=== PATIENT | male | born 1930 | race Caucasian/White ===

== ENCOUNTER → 2017-01-10 | Outpatient (CLI) | payer OTHER ==
--- NOTE | 2017-01-10 16:01 | ECHOCARDIOGRAM REPORT ---
*NOTICE TO RECEIVING LIBERTARIAN AGENCY This information is strictly Confidential and protected under [place] law. [place] law prohibits you from making any further disclosure of this information unless further disclosure is expressly permitted by the written consent of the person to whom it pertains or is authorized by law. A general authorization for the release of medical or other information is not sufficient for this purpose. Hospital accepts no responsibility if the information is made available to any other person, INCLUDING THE PATIENT. Interpretation Summary * Name: SHAHNAZ HURTADO Study Date: 01/10/2017 02:04 PM BP: 112/66 mmHg * Patient Location: [facility] HR: 71 * : 1930 (M/d/yyyy) Gender: Male Height: 69 in * Age: 86 yrs Ethnicity: CA Weight: 140 lb * Ordering Physician: Tammy Cam * Referring Physician: Tammy Cam PA-C * Performed By: Ching Gates RDCS * * Reason For Study: FATIGUE, AORTIC SCLEROSIS * BSA: 1.8 m2 * -- Conclusions -- * There is mild asymmetric left ventricular hypertrophy. * Left ventricular systolic function is normal. * Grade I diastolic dysfunction, (abnormal relaxation pattern). * Moderate to severe valvular aortic stenosis. * He had anterior leaflet of the mitral valve is highly thickened and echodense. A vegetation including this structure cannot be excluded. KENZIE could be considered for more thorough evaluation. * No prior studies available for comparison Procedure Details * A complete two-dimensional transthoracic echocardiogram was performed (2D, M-mode, Doppler and color flow Doppler). Left Ventricle * The left ventricle is normal in size. * There is mild asymmetric left ventricular hypertrophy. * Ejection Fraction = 65-70%. * Left ventricular systolic function is normal. * Grade I diastolic dysfunction, (abnormal relaxation pattern). * The left ventricular wall motion is normal. Right Ventricle * The right ventricle is normal in size and function. * The right ventricular systolic function is normal as assessed by tricuspid annular plane systolic excursion (TAPSE) (normal >1.5 cm). Atria * The left atrial size is normal. * Right atrial size is normal. Mitral Valve * He had anterior leaflet of the mitral valve is highly thickened and echodense. A vegetation including this structure cannot be excluded. KENZIE could be considered for more thorough evaluation. * There is no mitral regurgitation noted. Tricuspid Valve * The tricuspid valve is not well visualized, but is grossly normal. * There is trace tricuspid regurgitation. Aortic Valve * The aortic valve is trileaflet. * Moderate to severe valvular aortic stenosis. * No aortic regurgitation is present. Great Vessels * The aortic root is normal size. Pericardium/Pleural * The pericardium appears normal. MMode 2D Measurements and Calculations IVSd 1.9 cm IVSs 2.2 cm LVIDd 3.4 cm LVIDs 2.1 cm LVPWd 1.1 cm LVPWs 1.6 cm IVS/LVPW 1.7 FS 37.3 % EDV(Teich) 46.2 ml ESV(Teich) 14.5 ml EF(Teich) 68.5 % EDV(cubed) 38.0 ml ESV(cubed) 9.4 ml EF(cubed) 75.4 % % IVS thick 14.4 % % LVPW thick 48.5 % LV mass(C)d 183.0 grams LV mass(C)dI 103.1 grams/m\S\2 LV mass(C)s 165.1 grams LV mass(C)sI 93.0 grams/m\S\2 SV(Teich) 31.6 ml SI(Teich) 17.8 ml/m\S\2 SV(cubed) 28.7 ml SI(cubed) 16.1 ml/m\S\2 Ao root diam 3.4 cm Ao root area 9.1 cm\S\2 LVOT diam 2.0 cm LVOT area 3.1 cm\S\2 LVAd ap4 24.3 cm\S\2 LVLd ap4 7.9 cm EDV(MOD-sp4) 60.7 ml EDV(sp4-el) 63.3 ml LVAs ap4 12.6 cm\S\2 LVLs ap4 6.7 cm ESV(MOD-sp4) 22.4 ml ESV(sp4-el) 20.1 ml EF(MOD-sp4) 63.2 % EF(sp4-el) 68.2 % LVAd ap2 21.2 cm\S\2 LVLd ap2 7.6 cm EDV(MOD-sp2) 49.0 ml EDV(sp2-el) 50.0 ml LVAs ap2 10.8 cm\S\2 LVLs ap2 6.4 cm ESV(MOD-sp2) 17.1 ml ESV(sp2-el) 15.4 ml EF(MOD-sp2) 65.1 % EF(sp2-el) 69.1 % LVLd %diff -4.45 % EDV(MOD-bp) 55.2 ml LVLs %diff -3.97 % ESV(MOD-bp) 19.9 ml EF(MOD-bp) 63.9 % SV(MOD-sp4) 38.4 ml SI(MOD-sp4) 21.6 ml/m\S\2 SV(MOD-sp2) 31.9 ml SI(MOD-sp2) 17.9 ml/m\S\2 SV(MOD-bp) 35.3 ml SI(MOD-bp) 19.9 ml/m\S\2 SV(sp4-el) 43.1 ml SI(sp4-el) 24.3 ml/m\S\2 SV(sp2-el) 34.6 ml SI(sp2-el) 19.5 ml/m\S\2 Doppler Measurements and Calculations MV E max faustina 71.3 cm/sec MV A max faustina 96.5 cm/sec MV E/A 0.74 MV dec time 0.22 sec Ao V2 max 421.0 cm/sec Ao max PG 70.9 mmHg Ao max PG (full) 68.7 mmHg Ao V2 mean 310.4 cm/sec Ao mean PG 43.2 mmHg Ao mean PG (full) 42.1 mmHg Ao V2 VTI 104.9 cm DIMPLE(I,A) 0.49 cm\S\2 DIMPLE(I,D) 0.49 cm\S\2 DIMPLE(V,A) 0.54 cm\S\2 DIMPLE(V,D) 0.54 cm\S\2 LV V1 max PG 2.2 mmHg LV V1 mean PG 1.2 mmHg LV V1 max 74.2 cm/sec LV V1 mean 50.3 cm/sec LV V1 VTI 16.8 cm SV(Ao) 950.2 ml SI(Ao) 535.3 ml/m\S\2 SV(LVOT) 51.6 ml SI(LVOT) 29.1 ml/m\S\2
== END | disposition home or self-care (01) ==
LOC: C.CPL 13:56
PROVIDERS: ATTEND Physician Assistant
DX: R53.83 Other fatigue (principal); I70.0 Atherosclerosis of aorta

== ENCOUNTER 2021-12-14 10:05 | Inpatient (IN) ==
[2021-12-14 10:57] LABS: Basophils # (auto) 0.09 K/uL (0-0.2); Basophils % (auto) 0.8 %; Eosinophils # (auto) 0.05 K/uL (0-0.50); Eosinophils % (auto) 0.4 %; Hematocrit (blood only) 43.4 % (40.1-51.0); Hemoglobin 14.3 g/dl (14.0-18.0); Immature Granulocytes # (auto) 0.04 K/uL (0.00-0.02); Immature Granulocytes % (auto) 0.3 %; Lymphocytes # (auto) 1.21 K/uL (1.2-3.4); Lymphocytes % (auto) 10.4 %; Mean Corpuscular Hemoglobin 31.6 pg (25.0-34.0); Mean Corpuscular Hgb Conc 32.9 g/dL (32.0-36.0); Mean Corpuscular Volume 95.8 fL (80.0-100.0); Mean Platelet Volume 9.6 fL (9.4-12.4); Monocytes # (auto) 0.71 K/uL (0.24-0.82); Monocytes % (auto) 6.1 %; Neutrophils # (auto) 9.56 K/uL (1.4-6.5); Platelet Count 344 K/uL (130-400); RDW Coefficient of Variation 13.3 % (11.5-14.5); RDW Standard Deviation 47.3 fL (36.4-46.3); Red Blood Count 4.53 M/uL (4.63-6.08); White Blood Count 11.66 K/ul (4.8-10.8)
[2021-12-14 11:05] LABS: Appearance Urine Clear (Clear); Bacteria Urine Automated Negative (Negative); Bilirubin Urine Negative (Negative); Blood Urine Negative (Negative); Color Urine Dark Yellow; Glucose Urine UA Negative (Negative); Ketones Urine 1+ (Negative); Leukocyte Esterase Urine Negative (Negative); Nitrite Urine Negative (Negative); Protein Urine Trace (Negative); RBC Urine Automated 0-4 /hpf (0-4); Specific Gravity Urine 1.019 (1.000-1.030); Urobilinogen Urine Negative (Negative); pH Urine 5.5 (4.5-7.5)
--- NOTE | 2021-12-14 11:08 | XRay Report ---
SINGLE VIEW CHEST CLINICAL HISTORY: Dyspnea FINDINGS: An AP, portable, upright chest radiograph is compared to study dated 11/24/2021 and correlat ed with chest CT dated 10/24/2021. The examination is degraded by portable technique and apical lordot ic positioning. The cardiomediastinal silhouette is unremarkable noting atherosclerotic calcification of the thoracic aorta. Airspace consolidation is again seen at the left lung base with persistent xiao bpleural nodularity. A new focus of nodular change is seen in the right upper lobe. Apical scarring i s observed. No large pleural effusion or pneumothorax is seen. The skeletal structures are osteopenic . The bony thorax is grossly intact. Spondylotic change is seen throughout the thoracic spine. IMPRESSION: 1. There is airspace consolidation and nodularity at the left lung base. This likely represents pneum onia/aspiration pneumonitis. Clinical correlation will be required and radiographic follow-up to reso lution is recommended. 2. A new focus of nodularity is seen in the right upper lobe. This is also likely inflammatory. This should also be followed to resolution. ACT 112: Negative or not required by law. Electronically signed by: Darwin Flores M.D. 12/14/2021 11:06 AM
[2021-12-14 11:10] LABS: Partial Thromboplastin Ratio 1.2; Partial Thromboplastin Time 32.5 Seconds (21.0-31.0); Prothrombin Time 10.9 Seconds (9.0-12.0)
[2021-12-14 11:13] LABS: Troponin I High Sensitivity 13.5 pg/ml (0-20)
[2021-12-14 11:14] LABS: Albumin Globulin Ratio 1.2 (0.9-2); Albumin Level 3.7 gm/dl (3.4-5.0); Bilirubin,Total 0.9 mg/dl (0.2-1.0); Calcium 9.1 mg/dl (8.5-10.1); Creatinine Clr Calc Pharmacy 47.5 ml/min; Est GFR (African American) 91.8 ml/min; Est GFR (Non-African American) 79.2 ml/min; Magnesium 1.9 mg/dl (1.7-2.4); Potassium 4.3 mmol/L (3.5-5.1); Total Protein 6.7 gm/dl (6.0-8.3)
--- NOTE | 2021-12-14 11:26 | Emergency Department Note ---
Impression & Plan Blood-streaked sputum, Abnormal CT scan of lung, Pulmonary embolism, Hypoxia ED Provider Note Provider: Trevor Arriaga MD DATE OF SERVICE: 12/14/2021 CHIEF COMPLAINT: Coughing up blood HISTORY OF PRESENT ILLNESS: Patient is a 89-year-old gentleman history of distant tobacco use and some mucoid impaction in the left lung presenting today from home with 2 to 3 days of slight shortness of breath but also coughing up a bit of blood. This was increased today. Ambulance was called and EMS found the patient to be in the high 80s on room air. Patient denies fever but did recently complete a course of steroid and Levaquin several weeks ago. Denies swelling or chest pain. Patient states he is on aspirin but denies other blood thinners. No trauma reported. Again denies chest pain. REVIEW OF SYSTEMS: A total of 10 review of systems was obtained and negative except as stated above in the HPI. PAST MEDICAL HISTORY: As noted above MEDICATIONS: Reviewed home medications includes 81 mg aspirin SOCIAL HISTORY: Very distant former smoker PHYSICAL EXAM: GENERAL: alert and oriented in no acute distress on stretcher however holding an emesis bag with some small amount of blood and bright red. Head: normocephalic and atraumatic EYES: No injection, discharge or icterus. NECK: Trachea midline. Supple. ENT: Mucous membranes pink and moist. LUNGS: Airway patent. No retractions. Breath sounds clear although diminished in left base. HEART: Regular rate and rhythm. No chest wall tenderness ABDOMEN: Soft and non-tender, without guarding or rebound. SKIN: Acyanotic, warm, dry, without rashes EXTREMITIES: Without swelling, tenderness or deformity NEUROLOGICAL: No focal deficits. No aphasia. No facial droop or slurred speech. EK bpm sinus tachycardia with a first-degree AV block. No acute ST segment elevation noted with some slight inferior lateral ST flattening versus depression. QTc 451. CONTINUOUS CARDIAC MONITORING: was ordered and showed a heart rate of 90s-100s bpm in normal sinus rhythm to sinus tachycardia Patient's laboratory studies and imaging reviewed. Differential includes Reactive airway disease, pneumonia, pneumothorax, COPD, CHF, infections, cardiac ischemia, pulmonary embolism, musculoskeletal, gastrointestinal, as well as other pathologies. IMPRESSION/MEDICAL DECISION MAKING: Patient mildly hypoxic here. On a 1 mg aspirin. Now with hemoptysis. Reviewed prior medical record notes and imaging as well as pulmonary note indicating mucoid impaction of the left lower lung. X-ray questions persistent issue in the left lower lung base as well as a possible new nodule in the right upper lobe. Given this a CT of the chest to be further evaluate the lungs and exclude other thing like blood clots. Given episode where he coughed up probably 50 mL of bright red blood but hemoglobin stable. Slight leukocytosis here. INR 1.0. No severe electrolyte abnormalities noted. Doubt this is GI in nature. Patient again mildly hypoxic. Believe he require further work-up here at the hospital and pulmonary consultation. Sputum culture ordered. CT scan does question possible subsegmental PE but given the hemoptysis will defer anticoagulation this time as it is more incidental. Again question possibly an atypical infection but doubt classic pneumonia. Procalcitonin not elevated. Will defer any antibiotics he does appear septic at this time until further pulmonary evaluation. DIAGNOSIS: Hemoptysis, hypoxia DISPOSITION: Hospitalist will evaluate Patient was agreeable with this plan. Past Med/Surg History Medical History Basal cell carcinoma Blood-streaked sputum 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 myelopathy COPD (chronic obstructive pulmonary disease) Disorder of bone and cartilage, unspecified GERD without esophagitis Hemoptysis Hyperlipemia Hypertension Lesion of nose Major depression, recurrent Multifocal pneumonia Nail dystrophy Osteoporosis Prediabetes Pulmonary embolism Squamous cell carcinoma Surgical History H/O Mohs micrographic surgery for skin cancer Family History Mother Heart disease Brother Heart disease Social History Smoking Status: Former smoker Tobacco Type: Cigarettes packs per day: 1; Years Smoked: 20; Second Hand Exposure: No; Hx Alcohol Use: Yes Hx Substance Use: No Preferred Language: Mauritian Feels Safe at Home: Yes Allergies Allergies Allergy/AdvReac Type Severity Reaction Status Date / Time Penicillins Allergy Verified 11/21/21 11:14 Sulfa (Sulfonamide Allergy Verified 11/21/21 11:14 Antibiotics) Home Meds Home Medications Medication Instructions Recorded Confirmed acetaminophen 325 mg capsule 325 mg PO QID PRN Pain 11/27/20 12/14/21 alendronate 70 mg tablet (Fosamax) 70 mg PO WK 11/27/20 12/14/21 aspirin 81 mg tablet,delayed 81 mg PO DAILY 11/27/20 12/14/21 release (Adult Low Dose Aspirin) ezetimibe 10 mg tablet (Zetia) 10 mg PO DAILY 11/27/20 12/14/21 omeprazole 20 mg capsule,delayed 20 mg PO DAILY 11/27/20 12/14/21 release simvastatin 20 mg tablet 20 mg PO DAILY 11/27/20 12/14/21 tamsulosin 0.4 mg capsule 0.8 mg PO DAILY 11/27/20 12/14/21 tiotropium bromide 18 mcg capsule 1 cap inhalation DAILY 11/27/20 12/14/21 with inhalation device (Spiriva with HandiHaler) mirtazapine 15 mg tablet 15 mg PO HS 12/14/21 12/14/21 umeclidinium 62.5 mcg/actuation 1 inh inhalation DAILY 12/14/21 12/14/21 blister powder for inhalation (Incruse Ellipta) Results & Data (ED) Vital Signs Vital Signs - 24 hr 12/14/21 10:14 12/14/21 10:14 12/14/21 10:14 Temperature 36.6 C Temperature Source Oral Pulse Rate 103 H Pulse Rate [Apical] Pulse Rate from SpO2 Sensor Respiratory Rate 22 Respiratory Effort / Characteristics Non-Labored Spontaneous Non-Labored Spontaneous Respiratory Depth Normal Normal Respiratory Pattern Regular Regular Blood Pressure 120/65 Blood Pressure [Right Arm] Blood Pressure Mean 83 Blood Pressure Mean [Right Arm] Pulse Oximetry 99 99 Oxygen Delivery Method Room Air Room Air Oxygen Flow Rate Sepsis Recent Fever Within 48 Hours No Sepsis New/Unexplained Change in Mental Status No Sepsis Action Taken by Nursing No Action Required Oxygen Flow Rate - Titration Pulse Oximetry Post Tiitration 12/14/21 10:14 12/14/21 10:31 12/14/21 10:31 Temperature Temperature Source Pulse Rate Pulse Rate [Apical] 103 H 103 H Pulse Rate from SpO2 Sensor Respiratory Rate 22 22 Respiratory Effort / Characteristics Non-Labored Spontaneous Non-Labored Spontaneous Respiratory Depth Normal Normal Respiratory Pattern Regular Regular Blood Pressure Blood Pressure [Right Arm] 120/65 120/65 Blood Pressure Mean Blood Pressure Mean [Right Arm] 83 83 Pulse Oximetry 99 99 99 Oxygen Delivery Method Room Air Room Air Room Air Oxygen Flow Rate Sepsis Recent Fever Within 48 Hours Sepsis New/Unexplained Change in Mental Status Sepsis Action Taken by Nursing Oxygen Flow Rate - Titration Pulse Oximetry Post Tiitration 12/14/21 10:48 12/14/21 10:48 12/14/21 12:36 Temperature Temperature Source Pulse Rate 102 H Pulse Rate [Apical] Pulse Rate from SpO2 Sensor Respiratory Rate 20 Respiratory Effort / Characteristics Respiratory Depth Respiratory Pattern Blood Pressure Blood Pressure [Right Arm] Blood Pressure Mean Blood Pressure Mean [Right Arm] Pulse Oximetry 99 99 88 L Oxygen Delivery Method Room Air Room Air Room Air Oxygen Flow Rate 0 Sepsis Recent Fever Within 48 Hours Sepsis New/Unexplained Change in Mental Status Sepsis Action Taken by Nursing Oxygen Flow Rate - Titration 4 Pulse Oximetry Post Tiitration 97 12/14/21 10:15 12/14/21 10:30 12/14/21 11:00 Temperature Temperature Source Pulse Rate 104 H 93 H Pulse Rate [Apical] Pulse Rate from SpO2 Sensor 100 H 93 H Respiratory Rate 21 20 Respiratory Effort / Characteristics Respiratory Depth Respiratory Pattern Blood Pressure 156/84 H Blood Pressure [Right Arm] Blood Pressure Mean 108 Blood Pressure Mean [Right Arm] Pulse Oximetry 95 96 Oxygen Delivery Method Oxygen Flow Rate Sepsis Recent Fever Within 48 Hours Sepsis New/Unexplained Change in Mental Status Sepsis Action Taken by Nursing Oxygen Flow Rate - Titration Pulse Oximetry Post Tiitration 12/14/21 11:00 12/14/21 11:19 12/14/21 11:19 Temperature Temperature Source Pulse Rate 100 H 110 H Pulse Rate [Apical] Pulse Rate from SpO2 Sensor 98 H 111 H Respiratory Rate 26 H 27 H Respiratory Effort / Characteristics Respiratory Depth Respiratory Pattern Blood Pressure 119/74 Blood Pressure [Right Arm] Blood Pressure Mean 89 Blood Pressure Mean [Right Arm] Pulse Oximetry 96 87 L Oxygen Delivery Method Oxygen Flow Rate Sepsis Recent Fever Within 48 Hours Sepsis New/Unexplained Change in Mental Status Sepsis Action Taken by Nursing Oxygen Flow Rate - Titration Pulse Oximetry Post Tiitration 12/14/21 11:30 12/14/21 11:30 12/14/21 12:13 Temperature Temperature Source Pulse Rate 100 H 105 H Pulse Rate [Apical] Pulse Rate from SpO2 Sensor 100 H Respiratory Rate 22 Respiratory Effort / Characteristics Respiratory Depth Respiratory Pattern Blood Pressure 118/66 Blood Pressure [Right Arm] Blood Pressure Mean 83 Blood Pressure Mean [Right Arm] Pulse Oximetry 88 L Oxygen Delivery Method Oxygen Flow Rate Sepsis Recent Fever Within 48 Hours Sepsis New/Unexplained Change in Mental Status Sepsis Action Taken by Nursing Oxygen Flow Rate - Titration Pulse Oximetry Post Tiitration 12/14/21 12:30 12/14/21 12:30 12/14/21 13:00 Temperature Temperature Source Pulse Rate 87 Pulse Rate [Apical] Pulse Rate from SpO2 Sensor 88 Respiratory Rate 20 Respiratory Effort / Characteristics Respiratory Depth Respiratory Pattern Blood Pressure 115/64 117/59 L Blood Pressure [Right Arm] Blood Pressure Mean 81 78 Blood Pressure Mean [Right Arm] Pulse Oximetry 97 Oxygen Delivery Method Nasal Cannula Oxygen Flow Rate 4 Sepsis Recent Fever Within 48 Hours Sepsis New/Unexplained Change in Mental Status Sepsis Action Taken by Nursing Oxygen Flow Rate - Titration Pulse Oximetry Post Tiitration 12/14/21 13:00 12/14/21 13:30 12/14/21 13:30 Temperature Temperature Source Pulse Rate 83 103 H Pulse Rate [Apical] Pulse Rate from SpO2 Sensor 79 92 H Respiratory Rate 23 22 Respiratory Effort / Characteristics Respiratory Depth Respiratory Pattern Blood Pressure 115/91 Blood Pressure [Right Arm] Blood Pressure Mean 99 Blood Pressure Mean [Right Arm] Pulse Oximetry 100 100 Oxygen Delivery Method Nasal Cannula Oxygen Flow Rate 4 Sepsis Recent Fever Within 48 Hours Sepsis New/Unexplained Change in Mental Status Sepsis Action Taken by Nursing Oxygen Flow Rate - Titration Pulse Oximetry Post Tiitration Laboratory Data Result diagrams: 12/14/21 10:20 12/14/21 10:20 Lab Results 12/14/21 12/14/21 12/14/21 Range/Units 10:20 10:20 10:20 WBC 11.66 H (4.8-10.8) K/ul RBC 4.53 L (4.63-6.08) M/uL Hgb 14.3 (14.0-18.0) g/dl Hct 43.4 (40.1-51.0) % MCV 95.8 (80.0-100.0) fL MCH 31.6 (25.0-34.0) pg MCHC 32.9 (32.0-36.0) g/dL RDW Std Deviation 47.3 H (36.4-46.3) fL RDW Coeff of Susan 13.3 (11.5-14.5) % Plt Count 344 (130-400) K/uL MPV 9.6 (9.4-12.4) fL Immature Gran % (Auto) 0.3 % Neut % (Auto) 82.0 % Lymph % (Auto) 10.4 % [place] % (Auto) 6.1 % Eos % (Auto) 0.4 % Baso % (Auto) 0.8 % Neut # (Auto) 9.56 H (1.4-6.5) K/uL Lymph # (Auto) 1.21 (1.2-3.4) K/uL [place] # (Auto) 0.71 (0.24-0.82) K/uL Eos # (Auto) 0.05 (0-0.50) K/uL Baso # (Auto) 0.09 (0-0.2) K/uL Immature Gran # (Auto) 0.04 H (0.00-0.02) K/uL PT 10.9 (9.0-12.0) Seconds INR 1.0 (0.9-1.1) APTT 32.5 H (21.0-31.0) Seconds PTT Ratio 1.2 Sodium 134 L (136-145) mmol/L Potassium 4.3 (3.5-5.1) mmol/L Chloride 98 (98-107) mmol/L Carbon Dioxide 28 (21-32) mmol/L Anion Gap 8 (3-11) BUN 20 (6-23) mg/dl Creatinine 0.80 (0.6-1.4) mg/dl Est Cr Clr Drug Dosing 47.5 ml/min Est GFR ( Amer) 91.8 ml/min Est GFR (Non-Af Amer) 79.2 ml/min BUN/Creatinine Ratio 25.0 H (10-20) Glucose 106 H (70-99(Fasting)) mg/dl Calcium 9.1 (8.5-10.1) mg/dl Magnesium 1.9 (1.7-2.4) mg/dl Total Bilirubin 0.9 (0.2-1.0) mg/dl AST 15 (13-39) U/L ALT 17 (7-52) U/L Alkaline Phosphatase 68 (34-104) U/L Troponin I High Sens 13.5 (0-20) pg/ml Total Protein 6.7 (6.0-8.3) gm/dl Albumin 3.7 (3.4-5.0) gm/dl Globulin 3.0 (2.5-4.0) gm/dl Albumin/Globulin Ratio 1.2 (0.9-2) Procalcitonin (0-0.5) ng/ml Urine Color Urine Appearance (Clear) Urine pH (4.5-7.5) Ur Specific Mcdonough (1.000-1.030) Urine Protein (Negative) Urine Glucose (UA) (Negative) Urine Ketones (Negative) Urine Blood (Negative) Urine Nitrite (Negative) Urine Bilirubin (Negative) Urine Urobilinogen (Negative) Ur Leukocyte Esterase (Negative) Urine WBC (Auto) (0-5) /hpf Urine RBC (Auto) (0-4) /hpf U Hyaline Cast (Auto) (0-5) /lpf U Epithel Cells (Auto) (0-5) /lpf Urine Bacteria (Auto) (Negative) SARS-CoV-2 (PCR) (Negative) Influenza Type A (PCR) (Neg) Influenza Type B (PCR) (Neg) RSV (RT-PCR) (Neg) 12/14/21 12/14/21 12/14/21 Range/Units 10:20 10:45 12:45 WBC (4.8-10.8) K/ul RBC (4.63-6.08) M/uL Hgb (14.0-18.0) g/dl Hct (40.1-51.0) % MCV (80.0-100.0) fL MCH (25.0-34.0) pg MCHC (32.0-36.0) g/dL RDW Std Deviation (36.4-46.3) fL RDW Coeff of Susan (11.5-14.5) % Plt Count (130-400) K/uL MPV (9.4-12.4) fL Immature Gran % (Auto) % Neut % (Auto) % Lymph % (Auto) % [place] % (Auto) % Eos % (Auto) % Baso % (Auto) % Neut # (Auto) (1.4-6.5) K/uL Lymph # (Auto) (1.2-3.4) K/uL [place] # (Auto) (0.24-0.82) K/uL Eos # (Auto) (0-0.50) K/uL Baso # (Auto) (0-0.2) K/uL Immature Gran # (Auto) (0.00-0.02) K/uL PT (9.0-12.0) Seconds INR (0.9-1.1) APTT (21.0-31.0) Seconds PTT Ratio Sodium (136-145) mmol/L Potassium (3.5-5.1) mmol/L Chloride (98-107) mmol/L Carbon Dioxide (21-32) mmol/L Anion Gap (3-11) BUN (6-23) mg/dl Creatinine (0.6-1.4) mg/dl Est Cr Clr Drug Dosing ml/min Est GFR ( Amer) ml/min Est GFR (Non-Af Amer) ml/min BUN/Creatinine Ratio (10-20) Glucose (70-99(Fasting)) mg/dl Calcium (8.5-10.1) mg/dl Magnesium (1.7-2.4) mg/dl Total Bilirubin (0.2-1.0) mg/dl AST (13-39) U/L ALT (7-52) U/L Alkaline Phosphatase (34-104) U/L Troponin I High Sens (0-20) pg/ml Total Protein (6.0-8.3) gm/dl Albumin (3.4-5.0) gm/dl Globulin (2.5-4.0) gm/dl Albumin/Globulin Ratio (0.9-2) Procalcitonin 0.06 (0-0.5) ng/ml Urine Color Dark Yellow Urine Appearance Clear (Clear) Urine pH 5.5 (4.5-7.5) Ur Specific [place] 1.019 (1.000-1.030) Urine Protein Trace H (Negative) Urine Glucose (UA) Negative (Negative) Urine Ketones 1+ H (Negative) Urine Blood Negative (Negative) Urine Nitrite Negative (Negative) Urine Bilirubin Negative (Negative) Urine Urobilinogen Negative (Negative) Ur Leukocyte Esterase Negative (Negative) Urine WBC (Auto) 1-5 (0-5) /hpf Urine RBC (Auto) 0-4 (0-4) /hpf U Hyaline Cast (Auto) 1-5 (0-5) /lpf U Epithel Cells (Auto) 5-10 H (0-5) /lpf Urine Bacteria (Auto) Negative (Negative) SARS-CoV-2 (PCR) NEGATIVE (Negative) Influenza Type A (PCR) Negative (Neg) Influenza Type B (PCR) Negative (Neg) RSV (RT-PCR) Negative (Neg) Administered Medications Discontinued Medications Ioversol (Optiray 300 500ml) 86 ml IV ONCE ONE Stop: 12/14/21 12:10 Last Admin: 12/14/21 12:10 Dose: 86 ml Documented By: EDK Imaging Data Radiologist's Impression: Chest X-Ray 12/14/21 10:46 SINGLE VIEW CHEST CLINICAL HISTORY: Dyspnea FINDINGS: An AP, portable, upright chest radiograph is compared to study dated 11/24/2021 and correlated with chest CT dated 10/24/2021. The examination is degraded by portable technique and apical lordotic positioning. The cardiomediastinal silhouette is unremarkable noting atherosclerotic calcification of the thoracic aorta. Airspace consolidation is again seen at the left lung base with persistent subpleural nodularity. A new focus of nodular change is seen in the right upper lobe. Apical scarring is observed. No large pleural effusion or pneumothorax is seen. The skeletal structures are osteopenic. The bony thorax is grossly intact. Spondylotic change is seen throughout the thoracic spine. IMPRESSION: 1. There is airspace consolidation and nodularity at the left lung base. This likely represents pneumonia/aspiration pneumonitis. Clinical correlation will be required and radiographic follow-up to resolution is recommended. 2. A new focus of nodularity is seen in the right upper lobe. This is also likely inflammatory. This should also be followed to resolution. ACT 112: Negative or not required by law. Electronically signed by: Darwin Flores M.D. 12/14/2021 11:06 AM Chest CTA 12/14/21 11:13 CT angio chest PE protocol CT DOSE: 249.47 mGy.cm HISTORY: 89 years-old Male with PE, hemoptysis ++. Acute shortness of breath with cough TECHNIQUE: Multiple CTA images of the chest were obtained after the intravenous administration of 86 ml Optiray. Coronal and sagittal MIPS were obtained from the axial data set and were submitted for review. All measurements were obtained according to NASCET criteria. A dose lowering technique was utilized adhering to the principles of ALARA. COMPARISON: Chest CT 10/24/2021, 03/24/2013. FINDINGS: CTA: Moderate cardiomegaly with concentric thickening of the left ventricle. Extensive coronary artery calcifications. Atherosclerosis of the thoracic aorta. No thoracic aortic aneurysm or dissection. Tiny subsegmental pulmonary embolus within the right lower lobe on image 99 series 4. No central pulmonary emboli identified. No right heart strain. CT CHEST: Thyroid nodules measure up to 10 mm on the left. There are several mildly prominent subcentimeter mediastinal and hilar lymph nodes which are likely reactive. Trace left pleural effusion. There is no pneumothorax. Tracheobronchial secretions with mucous plugging and mucoid impaction within the left greater than right lower lobes, progressively worsened from the prior study. Additionally, there is progressive centrilobular nodular opacities within all lobes bilaterally. There is irregular and spiculated 2.2 cm nodular consolidation within the lingula which is new from prior. Round consolidation within the left lower lobe on image 139 measuring 4.1 x 3.6 cm. Mild biapical pleural-parenchymal scarring. Subpleural 1.8 cm groundglass nodule within the right upper lobe abutting the major fissure on image 202 which is stable. No acute process of the imaged upper abdomen. Exophytic cyst of the superior pole left kidney. Unremarkable soft tissues. No acute fracture. IMPRESSION: 1. Likely acute subsegmental pulmonary embolus present within the right lower lobe. 2. Mucoid impaction with chronic mucous plugging, most pronounced in the left lower lobe has progressively worsened from the prior exam. 3. Multilobar distribution of ill-defined centrilobular opacities compatible with an infectious or inflammatory pneumonitis. 4. Nodular areas of consolidation within the lingula and left lower lobe suggestive of multifocal pneumonia. Follow-up chest CT after treatment course recommended to document resolution. 5. Small left pleural effusion. 6. 1.8 cm subpleural groundglass opacity of the right upper lobe again noted and is suspicious for an adenomatous lesion. ACT 112: Negative or not required by law. The above report was generated using voice recognition software. It may contain grammatical, syntax or spelling errors. Electronically signed by: Jr Mcadams M.D. 12/14/2021 1:22 PM Venous Doppler Study 12/14/21 14:23 BILATERAL LOWER EXTREMITY VENOUS DOPPLER HISTORY: eval for DVT - known acute PE COMPARISON STUDY: None. FINDINGS: There is normal compressibility, flow, and augmentation within the bilateral lower extremity deep venous systems. IMPRESSION: No DVT within the right or left lower extremity. ACT 112: Negative or not required by law. Electronically signed by: Ilir Sood M.D. 12/14/2021 4:02 PM Discharge Plan Visit Data Chief Complaint: Shortness of Breath/Dyspnea Stated Complaint: SOB, Coughing up Blood ED Provider: Trevor Arriaga Discharge Problem: Blood-streaked sputum, Abnormal CT scan of lung, Pulmonary embolism, Hypoxia Patient Disposition: Being Evaluated by Hospitalist Forms Stand Alone Forms: My [facility] Prescriptions Prescriptions: No Action acetaminophen 325 mg capsule 325 mg PO QID PRN (Reason: Pain) aspirin [Adult Low Dose Aspirin] 81 mg tablet,delayed release (DR/EC) 81 mg PO DAILY alendronate [Fosamax] 70 mg tablet 70 mg PO WK omeprazole 20 mg capsule,delayed release(DR/EC) 20 mg PO DAILY simvastatin 20 mg tablet 20 mg PO DAILY Spiriva with HandiHaler 18 mcg capsule, w/inhalation device 1 cap inhalation DAILY Rx Instructions: puncture 1 cap using device; one dose = 2 inhalations tamsulosin 0.4 mg capsule 0.8 mg PO DAILY ezetimibe [Zetia] 10 mg tablet 10 mg PO DAILY mirtazapine 15 mg tablet 15 mg PO HS Incruse Ellipta 62.5 mcg/actuation blister with device 1 inh INHALATION DAILY Referrals Referrals: PCP,NO [Physician] -
[2021-12-14] MEDS ORDERED: OPTIRAY 300 500mL IV ONE (12:09)
--- NOTE | 2021-12-14 13:05 | History & Physical Report ---
Date of Service December 14, 2021 Assessment & Plan (1) Pulmonary embolism: Plan: Suspect as cause of new hypoxia and hemoptysis - Admit to PCU - Check venous duplex bilateral LE to eval for DVT - Oxygen prn to maintain sat >92% - Consult pulm - Hold anticoagulation for now in the setting of hemoptysis (2) Multifocal pneumonia: Plan: - Broad spectrum antibiotics - Start steroids due to hx of underlying COPD with wheezing on exam - Xopenex/ipratropium nebs - Incentive spirometry (3) Hemoptysis: Plan: - Follow H&H (4) Prediabetes: Plan: - Diabetic diet - A1c in AM - Accuchecks/insulin sliding scale (5) Hyperlipemia: (6) Hypertension: (7) GERD without esophagitis: (8) COPD (chronic obstructive pulmonary disease): Plan Continue other home meds as appropriate. Pt seen and evaluated with collaborating physician, Dr. Ham. Plan of care discussed and as outlined above. Code Status: Full code Reji Godwin PA-C History of Present Illness Chief Complaint: Coughing up blood Primary Care Provider: Kam Lee MD This is an 89 y/o male with a PMH of COPD, hemochromatosis, HTN, hyperlipidemia, aortic stenosis, GERD, LLL mucoid impaction, and prediabetes presents to the ED today with progressive hemoptysis and new-onset hypoxia. Pt was apparently diagnosed with pneumonia in September 2020 - treated with doxycycline with improvement but follow-up chest CT was abnormal with a LLL mucoid impaction so pt referred to pulmonology. He has been following with them since last year and has been declining bronchoscopy since minimal symptoms and prefers to avoid invasive procedures when possible. Pt reports that he was diagnosed with pneumonia at the end of October after being seen in the ED - treated with prednisone and levofloxacin. He reports improvement in the pulmonary symptoms but residual fatigue and weakness. This morning he woke up arond 6 am with some chest congestion and recurrent cough. He reports coughing up large amounts of mucus and blood at home so they called EMS. He was noted to be hypoxic and oxygen applied. In the ED he reportedly had another large episode of hemoptysis. Chest x-ray showed new focus of nodularity in the RUL so patient was referred for admission. Currently, the patient's main complaint is the cough and hemoptysis but he also reports that he has developed wheezing this afternoon. Allergies Allergy/AdvReac Type Severity Reaction Status Date / Time Penicillins Allergy Verified 11/21/21 11:14 Sulfa (Sulfonamide Allergy Verified 11/21/21 11:14 Antibiotics) Home Medications Medication Instructions Recorded Confirmed Type acetaminophen 325 mg capsule 325 mg PO QID PRN Pain 11/27/20 12/14/21 History alendronate 70 mg tablet (Fosamax) 70 mg PO WK 11/27/20 12/14/21 History aspirin 81 mg tablet,delayed 81 mg PO DAILY 11/27/20 12/14/21 History release (Adult Low Dose Aspirin) ezetimibe 10 mg tablet (Zetia) 10 mg PO DAILY 11/27/20 12/14/21 History omeprazole 20 mg capsule,delayed 20 mg PO DAILY 11/27/20 12/14/21 History release simvastatin 20 mg tablet 20 mg PO DAILY 11/27/20 12/14/21 History tamsulosin 0.4 mg capsule 0.8 mg PO DAILY 11/27/20 12/14/21 History tiotropium bromide 18 mcg capsule 1 cap inhalation DAILY 11/27/20 12/14/21 History with inhalation device (Spiriva with HandiHaler) mirtazapine 15 mg tablet 15 mg PO HS 12/14/21 12/14/21 History umeclidinium 62.5 mcg/actuation 1 inh inhalation DAILY 12/14/21 12/14/21 History blister powder for inhalation (Incruse Ellipta) Past Med/Surg History Medical History Basal cell carcinoma Blood-streaked sputum 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 myelopathy COPD (chronic obstructive pulmonary disease) Disorder of bone and cartilage, unspecified GERD without esophagitis Hemoptysis Hyperlipemia Hypertension Lesion of nose Major depression, recurrent Multifocal pneumonia Nail dystrophy Osteoporosis Prediabetes Pulmonary embolism Squamous cell carcinoma Surgical History H/O Mohs micrographic surgery for skin cancer Family History Mother Heart disease Brother Heart disease Social History Smoking Status: Former smoker Tobacco Type: Cigarettes packs per day: 1; Years Smoked: 20; Smoking End Date: 1971; Second Hand Exposure: No; Hx Alcohol Use: Yes Alcohol type: hard liquor Hx Substance Use: No Preferred Language: Slovak Communication Ability: Effective Assistant Clinical Nurse Manager Required: No Beliefs That Will Affect Care: None Current Living Situation: Alone Other Information That Helps Us Care for You: No Feels Safe at Home: Yes Safety Concerns: Feels Safe At This Time Assistive Devices: Glasses and Hearing Aid - Bilateral Review of Systems Review of Systems: All systems reviewed & are unremarkable except as noted in HPI & below Constitutional: + fatigue, + weakness and + anorexia; no fever and no chills Eyes: no diplopia Ear, Nose, Mouth, Throat: no nasal congestion, no nasal discharge and no sore throat Respiratory: + cough, + chest congestion, + hemoptysis and + wheezing Cardiovascular: no chest pain, no palpitations, no syncope and no edema Gastrointestinal: + diarrhea/loose stools (intermittent - chronic issue); no abdominal pain, no nausea and no vomiting Genitourinary: no dysuria or no hematuria Musculoskeletal: + muscle weakness; no back pain and no neck pain Integumentary: no yellowing of the skin Neurologic: + generalized weakness; no dizziness, no syncope and no headache(s) Psychiatric: no depression and no anxiety Physical Exam Constitutional: + thin and + frail appearing; no acute distress Eyes: + anicteric sclerae ENMT: external ear and nose normal, oropharynx normal Neck: trachea midline Respiratory: no respiratory distress and no labored breathing Auscultation: + diminished lung sounds and + wheezes Cardiovascular: Rate/Rhythm: regular rate and regular rhythm Heart Sounds: + murmur Vessels: radial pulses present Extremities: no pedal edema Gastrointestinal (Abdomen): Inspection/Auscultation: normal bowel sounds; abdomen not distended Percussion/Palpation: abdomen soft; abdomen nontender Musculoskeletal: Head/Neck/Chest: normocephalic, head atraumatic and neck supple Skin: no jaundice Neurologic: moves all extremities; no focal motor deficits Psychiatric: A+Ox3, euthymic affect Results & Data Results & [facility] ([facility]) Vital Signs (Past 12 Hours) Vital Signs Temp Pulse Pulse Resp BP BP Pulse Ox 12/14/21 12:30 87 20 97 12/14/21 12:30 115/64 12/14/21 12:13 105 H 12/14/21 11:30 100 H 22 88 L 12/14/21 11:30 118/66 12/14/21 11:19 119/74 12/14/21 11:19 110 H 27 H 87 L 12/14/21 11:00 100 H 26 H 96 12/14/21 11:00 156/84 H 12/14/21 10:30 93 H 20 96 12/14/21 10:15 104 H 21 95 12/14/21 12:36 88 L 12/14/21 10:48 102 H 20 99 12/14/21 10:48 99 12/14/21 10:31 103 H 22 120/65 99 12/14/21 10:31 99 12/14/21 10:14 103 H 22 120/65 99 12/14/21 10:14 99 12/14/21 10:14 36.6 C 103 H 22 120/65 99 O2 Del Method O2 Flow Rate 12/14/21 12:30 Nasal Cannula 4 12/14/21 12:30 12/14/21 12:13 12/14/21 11:30 12/14/21 11:30 12/14/21 11:19 12/14/21 11:19 12/14/21 11:00 12/14/21 11:00 12/14/21 10:30 12/14/21 10:15 12/14/21 12:36 Room Air 0 12/14/21 10:48 Room Air 12/14/21 10:48 Room Air 12/14/21 10:31 Room Air 12/14/21 10:31 Room Air 12/14/21 10:14 Room Air 12/14/21 10:14 Room Air 12/14/21 10:14 Room Air Laboratory Results Laboratory Results - last 24 hr 12/14/21 12/14/21 12/14/21 10:20 10:20 10:20 WBC 11.66 H RBC 4.53 L Hgb 14.3 Hct 43.4 MCV 95.8 MCH 31.6 MCHC 32.9 RDW Std Deviation 47.3 H RDW Coeff of Susan 13.3 Plt Count 344 MPV 9.6 Immature Gran % (Auto) 0.3 Neut % (Auto) 82.0 Lymph % (Auto) 10.4 Douglas % (Auto) 6.1 Eos % (Auto) 0.4 Baso % (Auto) 0.8 Neut # (Auto) 9.56 H Lymph # (Auto) 1.21 Douglas # (Auto) 0.71 Eos # (Auto) 0.05 Baso # (Auto) 0.09 Immature Gran # (Auto) 0.04 H PT 10.9 INR 1.0 APTT 32.5 H PTT Ratio 1.2 Sodium 134 L Potassium 4.3 Chloride 98 Carbon Dioxide 28 Anion Gap 8 BUN 20 Creatinine 0.80 Est Cr Clr Drug Dosing 47.5 Est GFR ( Amer) 91.8 Est GFR (Non-Af Amer) 79.2 BUN/Creatinine Ratio 25.0 H Glucose 106 H Calcium 9.1 Magnesium 1.9 Total Bilirubin 0.9 AST 15 ALT 17 Alkaline Phosphatase 68 Troponin I High Sens 13.5 Total Protein 6.7 Albumin 3.7 Globulin 3.0 Albumin/Globulin Ratio 1.2 Procalcitonin Urine Color Urine Appearance Urine pH Ur Specific Romayor Urine Protein Urine Glucose (UA) Urine Ketones Urine Blood Urine Nitrite Urine Bilirubin Urine Urobilinogen Ur Leukocyte Esterase Urine WBC (Auto) Urine RBC (Auto) U Hyaline Cast (Auto) U Epithel Cells (Auto) Urine Bacteria (Auto) 12/14/21 12/14/21 10:20 10:45 WBC RBC Hgb Hct MCV MCH MCHC RDW Std Deviation RDW Coeff of Susan Plt Count MPV Immature Gran % (Auto) Neut % (Auto) Lymph % (Auto) Douglas % (Auto) Eos % (Auto) Baso % (Auto) Neut # (Auto) Lymph # (Auto) Douglas # (Auto) Eos # (Auto) Baso # (Auto) Immature Gran # (Auto) PT INR APTT PTT Ratio Sodium Potassium Chloride Carbon Dioxide Anion Gap BUN Creatinine Est Cr Clr Drug Dosing Est GFR ( Amer) Est GFR (Non-Af Amer) BUN/Creatinine Ratio Glucose Calcium Magnesium Total Bilirubin AST ALT Alkaline Phosphatase Troponin I High Sens Total Protein Albumin Globulin Albumin/Globulin Ratio Procalcitonin 0.06 Urine Color Dark Yellow Urine Appearance Clear Urine pH 5.5 Ur Specific Romayor 1.019 Urine Protein Trace H Urine Glucose (UA) Negative Urine Ketones 1+ H Urine Blood Negative Urine Nitrite Negative Urine Bilirubin Negative Urine Urobilinogen Negative Ur Leukocyte Esterase Negative Urine WBC (Auto) 1-5 Urine RBC (Auto) 0-4 U Hyaline Cast (Auto) 1-5 U Epithel Cells (Auto) 5-10 H Urine Bacteria (Auto) Negative Diagnostic Findings Chest X-ray 12/14/21 - IMPRESSION: 1. There is airspace consolidation and nodularity at the left lung base. This likely represents pneumonia/aspiration pneumonitis. Clinical correlation will be required and radiographic follow-up to resolution is recommended. 2. A new focus of nodularity is seen in the right upper lobe. This is also likely inflammatory. This should also be followed to resolution. Chest CTA 12/14/21 - IMPRESSION:1. Likely acute subsegmental pulmonary embolus present within the right lower lobe. 2. Mucoid impaction with chronic mucous plugging, most pronounced in the left lower lobe has progressively worsened from the prior exam. 3. Multilobar distribution of ill-defined centrilobular opacities compatible with an infectious or inflammatory pneumonitis. 4. Nodular areas of consolidation within the lingula and left lower lobe suggestive of multifocal pneumonia. Follow-up chest CT after treatment course recommended to document resolution. 5. Small left pleural effusion. 6. 1.8 cm subpleural grou ndglass opacity of the right upper lobe again noted and is suspicious for an adenomatous lesion. Medications Administered Discontinued Medications Ioversol (Optiray 300 500ml) 86 ml IV ONCE ONE Stop: 12/14/21 12:10 Last Admin: 12/14/21 12:10 Dose: 86 ml Documented By: EDK Supervising Physician Co-Signing Physician Notes Attending Addendum: care coordinated with [] please refer to her notes for full details, I agree with her notes patient seen and examined, records reviewed by myself as well on exam, patient [] no other symptoms VS noted and reviewed oriented , not in distress, speaks in sentences with no effort nor accessory muscle use normal rate, regular rhythm, no murmurs clear breath sounds bilaterally non distended, soft, nontender no bipedal edema, erythema, warmth no neuro deficits WBC Hg Crea ASSESSMENT AND PLAN other diagnoses and plan of care as per [] Aldo Ham MD
--- NOTE | 2021-12-14 13:22 | Electrocardiogram Report ---
Test Reason : Blood Pressure : / mmHG Vent. Rate : 101 BPM Atrial Rate : 101 BPM P-R Int : 210 ms QRS Dur : 080 ms QT Int : 348 ms P-R-T Axes : 083 043 075 degrees QTc Int : 451 ms Sinus tachycardia with 1st degree A-V block Nonspecific ST abnormality Abnormal ECG No previous ECGs available Confirmed by Luigi Peterson ([id number]) on 12/14/2021 1:22:31 PM Referred By: Confirmed By:Luigi Peterson
--- NOTE | 2021-12-14 13:23 | CT Scan Report ---
CT angio chest PE protocol CT DOSE: 249.47 mGy.cm HISTORY: 89 years-old Male with PE, hemoptysis ++. Acute shortness of breath with cough TECHNIQUE: Multiple CTA images of the chest were obtained after the intravenous administration of 86 ml Optiray. Coronal and sagittal MIPS were obtained from the axial data set and were submitted for Weave. All measurements were obtained according to NASCET criteria. A dose lowering technique was ut ilized adhering to the principles of ALARA. COMPARISON: Chest CT 10/24/2021, 03/24/2013. FINDINGS: CTA: Moderate cardiomegaly with concentric thickening of the left ventricle. Extensive coronary artery maritza cifications. Atherosclerosis of the thoracic aorta. No thoracic aortic aneurysm or dissection. Tiny s ubsegmental pulmonary embolus within the right lower lobe on image 99 series 4. No central pulmonary emboli identified. No right heart strain. CT CHEST: Thyroid nodules measure up to 10 mm on the left. There are several mildly prominent subcentimeter med iastinal and hilar lymph nodes which are likely reactive. Trace left pleural effusion. There is no pn eumothorax. Tracheobronchial secretions with mucous plugging and mucoid impaction within the left gre ater than right lower lobes, progressively worsened from the prior study. Additionally, there is prog ressive centrilobular nodular opacities within all lobes bilaterally. There is irregular and spiculat ed 2.2 cm nodular consolidation within the lingula which is new from prior. Round consolidation withi n the left lower lobe on image 139 measuring 4.1 x 3.6 cm. Mild biapical pleural-parenchymal scarring . Subpleural 1.8 cm groundglass nodule within the right upper lobe abutting the major fissure on imag e 202 which is stable. No acute process of the imaged upper abdomen. Exophytic cyst of the superior pole left kidney. Unrema rkable soft tissues. No acute fracture. IMPRESSION: 1. Likely acute subsegmental pulmonary embolus present within the right lower lobe. 2. Mucoid impaction with chronic mucous plugging, most pronounced in the left lower lobe has progress ively worsened from the prior exam. 3. Multilobar distribution of ill-defined centrilobular opacities compatible with an infectious or in flammatory pneumonitis. 4. Nodular areas of consolidation within the lingula and left lower lobe suggestive of multifocal pne umonia. Follow-up chest CT after treatment course recommended to document resolution. 5. Small left pleural effusion. 6. 1.8 cm subpleural groundglass opacity of the right upper lobe again noted and is suspicious for an adenomatous lesion. ACT 112: Negative or not required by law. The above report was generated using voice recognition software. It may contain grammatical, syntax o r spelling errors. Electronically signed by: Jr Mcadams M.D. 12/14/2021 1:22 PM
[2021-12-14 14:02] LABS: Influenza A virus by PCR Negative (Neg); Influenza B virus by PCR Negative (Neg); RSV by PCR Negative (Neg); SARS CoV2 RNA(COVID-19) InHosp NEGATIVE (Negative)
--- NOTE | 2021-12-14 15:06 | Pulmonary Consultation ---
Date of Consultation December 14, 2021 Assessment & Plan (1) Multifocal pneumonia: We will start the patient on aztreonam and Flagyl. He has a history of allergies to penicillin. Obtain sputum and blood cultures. Procalcitonin ordered. MRSA screen ordered as well. May need to consider bronchoscopy on Friday if symptoms do not improve. Other differentials include cryptogenic organizing pneumonia and other idiopathic interstitial pneumonias. (2) Hemoptysis: Likely secondary to the patient's pneumonia and acute pulmonary embolism. Monitor symptoms closely. May need to do urgent bronchoscopy if symptoms worsen and he would need transfer to the ICU. Can consider nebulized TXA. (3) Pulmonary embolism: Hold on anticoagulation at this time given the significant amount of hemoptysis. Patient currently undergoing ultrasound of the lower extremities to rule out DVT. PE is quite small at this time and not hemodynamically significant. (4) COPD (chronic obstructive pulmonary disease): No PFTs available for review. We will start the patient empirically on Brovana and scheduled DuoNebs. We will also start the patient on prednisone to help with active inflammation in the airways. History of Present Illness Reason for Consultation: Hemoptysis in the setting of a PE History of Present Illness 89-year-old male with a past medical history of hemochromatosis, aortic stenosis, GERD and recurrent left lower lobe infiltrates presenting to the hospital due to shortness of breath and hemoptysis. He had approximately 50 mL of witnessed hemoptysis in the ER. And has since slowed down. He does note occasional fatigue and weakness. No fevers. He is followed by Dr. De Luna in the outpatient pulmonary clinic. He has refused bronchoscopy in the past. CT of the chest reviewed with evidence of a nodular infiltrate in the lingula and multifocal nodular infiltrates in the left lower lobe. There is a large necrotic appearing masslike consolidation posteriorly on the medial aspect adjacent to the descending aorta. There is also evidence of adjacent pleural thickening. There is a small subsegmental pulmonary embolism in the right lower lobe. He has a mildly elevated white count. He has a [id number] smoking history. He quit smoking 45 years ago. Allergies Allergy/AdvReac Type Severity Reaction Status Date / Time Penicillins Allergy Verified 11/21/21 11:14 Sulfa (Sulfonamide Allergy Verified 11/21/21 11:14 Antibiotics) Home Medications Medication Instructions Recorded Confirmed Type acetaminophen 325 mg capsule 325 mg PO QID PRN Pain 11/27/20 12/14/21 History alendronate 70 mg tablet (Fosamax) 70 mg PO DAILY 11/27/20 12/14/21 History aspirin 81 mg tablet,delayed 81 mg PO DAILY 11/27/20 12/14/21 History release (Adult Low Dose Aspirin) ezetimibe 10 mg tablet (Zetia) 10 mg PO DAILY 11/27/20 12/14/21 History fluorouracil 5 % topical cream 1 applic topical BID 11/27/20 12/14/21 History omeprazole 20 mg capsule,delayed 20 mg PO DAILY 11/27/20 12/14/21 History release simvastatin 20 mg tablet 20 mg PO DAILY 11/27/20 12/14/21 History tamsulosin 0.4 mg capsule 0.8 mg PO DAILY 11/27/20 12/14/21 History tiotropium bromide 18 mcg capsule 1 cap inhalation DAILY 11/27/20 12/14/21 History with inhalation device (Spiriva with HandiHaler) sodium chloride 3.5 % for 4 ml inhalation Q2H #240 mL 10/09/21 12/14/21 Rx nebulization (Hyper-Jos) guaifenesin 100 mg/5 mL oral 200 mg (10 mL) PO Q4H #473 mL 11/07/21 12/14/21 Rx liquid (Mucinex Fast-Max Chest Congestion) Saccharomyces boulardii 250 mg 250 mg PO BID #20 caps 11/24/21 12/14/21 Rx capsule (Florastor) Patient History Medical History (Updated 12/14/21 @ 15:07 by Ayaan Moreau MD) Basal cell carcinoma Blood-streaked sputum 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 myelopathy COPD (chronic obstructive pulmonary disease) Disorder of bone and cartilage, unspecified GERD without esophagitis Hemoptysis Hyperlipemia Hypertension Lesion of nose Major depression, recurrent Multifocal pneumonia Nail dystrophy Osteoporosis Prediabetes Pulmonary embolism Squamous cell carcinoma Surgical History (Updated 12/14/21 @ 13:04 by Michelle Godwin PA-C) H/O Mohs micrographic surgery for skin cancer Family History Mother Heart disease Brother Heart disease Social History (Updated 12/14/21 @ 13:04 by Michelle Tato, PA-C) Smoking Status: Former smoker Tobacco Type: Cigarettes packs per day: 1; Years Smoked: 20; Second Hand Exposure: No; Hx Alcohol Use: Yes Hx Substance Use: No Preferred Language: Mexican Feels Safe at Home: Yes Review of Systems Review of Systems: All systems reviewed & are unremarkable except as noted in HPI & below Physical Exam Physical Exam: Constitutional: Thin and frail appearing male no apparent distress. Eyes: Pupils are equal round and reactive to light. Conjunctivae are normal. Anicteric sclera. Ears nose, mouth and throat: Deferred. Neck: Trachea is midline. Visual inspection is normal. Respiratory: Expiratory wheeze bilaterally. No increased work of breathing. Cardiovascular: Regular rate and rhythm. No murmurs. No edema. Gastrointestinal: Normal bowel sounds, soft, nontender and nondistended. No hepatosplenomegaly noted. Musculoskeletal: No cyanosis. Patient is able to move all extremities. Skin: No rashes, warm dry and intact. Neurologic: No obvious focal neurological deficits seen. Psychiatric: Alert and oriented x3 with a euthymic affect. Results & Data Results & Data ([facility]) Vital Signs (Past 12 Hours) Vital Signs Temp Pulse Pulse Resp BP BP Pulse Ox 12/14/21 13:30 103 H 22 100 12/14/21 13:30 115/91 12/14/21 13:00 83 23 100 12/14/21 13:00 117/59 L 12/14/21 12:30 87 20 97 12/14/21 12:30 115/64 12/14/21 12:13 105 H 12/14/21 11:30 100 H 22 88 L 12/14/21 11:30 118/66 12/14/21 11:19 119/74 12/14/21 11:19 110 H 27 H 87 L 12/14/21 11:00 100 H 26 H 96 12/14/21 11:00 156/84 H 12/14/21 10:30 93 H 20 96 12/14/21 10:15 104 H 21 95 12/14/21 12:36 88 L 12/14/21 10:48 102 H 20 99 12/14/21 10:48 99 12/14/21 10:31 103 H 22 120/65 99 12/14/21 10:31 99 12/14/21 10:14 103 H 22 120/65 99 12/14/21 10:14 99 12/14/21 10:14 36.6 C 103 H 22 120/65 99 O2 Del Method O2 Flow Rate 12/14/21 13:30 Nasal Cannula 4 12/14/21 13:30 12/14/21 13:00 12/14/21 13:00 12/14/21 12:30 Nasal Cannula 4 12/14/21 12:30 12/14/21 12:13 12/14/21 11:30 12/14/21 11:30 12/14/21 11:19 12/14/21 11:19 12/14/21 11:00 12/14/21 11:00 12/14/21 10:30 12/14/21 10:15 12/14/21 12:36 Room Air 0 12/14/21 10:48 Room Air 12/14/21 10:48 Room Air 12/14/21 10:31 Room Air 12/14/21 10:31 Room Air 12/14/21 10:14 Room Air 12/14/21 10:14 Room Air 12/14/21 10:14 Room Air PG Care Time/CCT Total # of Minutes Spent Total Time Spent with Patient: Total time spent is greater than 50% in coordination of care (as documented) at patient's floor/unit and/or counseling patient: Coding Level of Care Code 28283 Initial Inpt Care Lvl 3 Diagnoses Multifocal pneumonia J18.9 Hemoptysis R04.2 Pulmonary embolism I26.99 COPD (chronic obstructive pulmonary disease) J44.9
--- NOTE | 2021-12-14 16:04 | Ultrasound Report ---
BILATERAL LOWER EXTREMITY VENOUS DOPPLER HISTORY: eval for DVT - known acute PE COMPARISON STUDY: None. FINDINGS: There is normal compressibility, flow, and augmentation within the bilateral lower extremit y deep venous systems. IMPRESSION: No DVT within the right or left lower extremity. ACT 112: Negative or not required by law. Electronically signed by: Ilir Sood M.D. 12/14/2021 4:02 PM
[2021-12-14] MEDS: predniSONE 20 MG TAB PO SCH (16:50)
[2021-12-14] MEDS: metroNIDAZOLE 500 MG/100 ML BAG IV SCH ×2 (17:28→23:37)
[2021-12-14] MEDS ORDERED: IPRATROPIUM BROMIDE NEB SOLN 0.02% 2.5 ML VIAL INH SCH (17:37)
[2021-12-14] MEDS ORDERED: GLUCAGON FOR INJ 1 MG VIAL SQ PRN (17:37)
[2021-12-14] MEDS ORDERED: LEVALBUTEROL 1.25MG/0.5ML NEB INH SCH (17:37)
[2021-12-14] MEDS ORDERED: GLUCOSE 40% GEL 15 GM TUBE PO PRN (17:37)
[2021-12-14] MEDS ORDERED: CARBOHYDRATES FOR HYPOGLYCEMIA PO PRN (17:37)
[2021-12-14] MEDS ORDERED: GLUCOSE 10 TAB/TUBE PO PRN (17:37)
[2021-12-14] MEDS ORDERED: DEXTROSE 50% 50 ML SYRINGE IV PRN (17:37)
[2021-12-14] MEDS: AZTREONAM 2,000 MG in DEXTROSE 5% 100 ML IV SCH (18:29)
[2021-12-14] MEDS ORDERED: SODIUM CHLORIDE 0.9% 1000ML 1,000 ML IV SCH (18:30)
[2021-12-14] MEDS: INSULIN ASPART PER UNIT SC SCH ×2 (19:00→21:22)
[2021-12-14] MEDS ORDERED: XOPENEX/ATROVENT 1.25mg/0.5MG NEB COMBO NEB SCH (19:00)
[2021-12-14] MEDS ORDERED: SODIUM CHLOR 7% 4 ML NEB NEB SCH (19:00)
[2021-12-14] MEDS: ALBUT/IPRATROP 3MG/0.5MG NEB 3 ML VIAL NEB SCH (19:45)
[2021-12-14] MEDS: FORMOTEROL 20 MCG/2 ML VIAL INH SCH (19:45)
[2021-12-14] MEDS: methylPREDNISolone 40 MG in SYRINGE 0 ML IV SCH (20:02)
[2021-12-14] MEDS: DOXYCYCLINE HYCLATE 100 MG CAP PO SCH (23:05)
[2021-12-14] MEDS: MINERAL OIL 30 ML UDC PO SCH (23:05)
[2021-12-14] MEDS: MIRTAZAPINE TAB 15 MG TAB PO SCH (23:05)
[2021-12-15] MEDS: AZTREONAM 2,000 MG in DEXTROSE 5% 100 ML IV SCH ×3 (00:30→17:00)
[2021-12-15] MEDS: methylPREDNISolone 40 MG in SYRINGE 0 ML IV SCH (01:20)
[2021-12-15] MEDS: ALBUT/IPRATROP 3MG/0.5MG NEB 3 ML VIAL NEB SCH ×4 (07:00→19:25)
[2021-12-15] MEDS: FORMOTEROL 20 MCG/2 ML VIAL INH SCH ×2 (07:00→19:24)
[2021-12-15] MEDS: INSULIN ASPART PER UNIT SC SCH ×4 (08:00→21:46)
[2021-12-15 08:08] LABS: Estimated Average Glucose 114 mg/dl; Hemoglobin A1C 5.6 % (4.5-5.6)
[2021-12-15] MEDS: DOXYCYCLINE HYCLATE 100 MG CAP PO SCH ×2 (08:33→20:05)
[2021-12-15] MEDS: TAMSULOSIN HCL 0.4 MG CAP PO SCH (08:34)
[2021-12-15] MEDS: SIMVASTATIN 20 MG TAB PO SCH (08:34)
[2021-12-15] MEDS: PANTOprazole 40 MG TAB PO SCH (08:34)
[2021-12-15] MEDS: metroNIDAZOLE 500 MG/100 ML BAG IV SCH ×3 (08:34→23:43)
[2021-12-15] MEDS: EZETIMIBE 10 MG TABLET PO SCH (08:34)
--- NOTE | 2021-12-15 09:27 | Pulmonology Progress Note ---
Date of Service December 15, 2021 Assessment & Plan (1) Multifocal pneumonia: Plan: Continue aztreonam and Flagyl. He has a history of allergies to penicillin. Procalcitonin unremarkable. MRSA screen unobtained. Nursing communication sent to obtain the MRSA swab. May need to consider bronchoscopy on Friday if symptoms do not improve. Other differentials include cryptogenic organizing pneumonia and other idiopathic interstitial pneumonias. (2) Hemoptysis: Plan: Likely secondary to the patient's pneumonia and acute pulmonary embolism. Monitor symptoms closely. May need to do urgent bronchoscopy if symptoms worsen and he would need transfer to the ICU. Can consider nebulized TXA. (3) Pulmonary embolism: Plan: Hold on anticoagulation at this time given the significant amount of hemoptysis. No evidence of lower extremity DVT. Will likely start anticoagulation tomorrow once hemoptysis is further improved. Pulmonary embolism type: single subsegmental (without acute cor pulmonale) Qualified Code(s): I26.93 - Single subsegmental pulmonary embolism without acute cor pulmonale (4) COPD (chronic obstructive pulmonary disease): Plan: LabsNo PFTs available for review. Continue Brovana, scheduled nebs and prednisone. Admission and Anticipated Discharge Date Admission Date: December 14, 2021 Subjective Patient seen and examined. He was sleeping when I came in. He had a small amount of mucus streaked with blood earlier today, but no further hemoptysis. He denies any chest pain. He feels that his breathing is a little bit "tight". He is currently saturating in the 90s on 2 L of oxygen. Review of Systems Review of Systems: All systems reviewed & are unremarkable except as noted in HPI & below Physical Exam Physical Exam: Constitutional: Thin and frail appearing male no apparent distress. Eyes: Pupils are equal round and reactive to light. Conjunctivae are normal. Anicteric sclera. Ears nose, mouth and throat: Deferred. Neck: Trachea is midline. Visual inspection is normal. Respiratory: Expiratory wheeze bilaterally. No increased work of breathing. Cardiovascular: Regular rate and rhythm. No murmurs. No edema. Gastrointestinal: Normal bowel sounds, soft, nontender and nondistended. No hepatosplenomegaly noted. Musculoskeletal: No cyanosis. Patient is able to move all extremities. Skin: No rashes, warm dry and intact. Neurologic: No obvious focal neurological deficits seen. Psychiatric: Alert and oriented x3 with a euthymic affect. Results & Data Results & Data ([facility]) Vital Signs (Past 12 Hours) Vital Signs Temp Pulse Pulse Resp BP BP Pulse Ox 12/15/21 07:00 76 16 97 12/15/21 06:40 92/50 L 12/15/21 05:00 85/52 L 12/14/21 22:17 86 12/14/21 22:08 86 12/15/21 04:21 100/59 L 12/15/21 03:50 92/50 L 12/15/21 03:35 86/48 L 12/15/21 03:19 36.6 C 75 18 93/49 L 98 12/14/21 22:00 12/14/21 22:00 36.6 C 85 20 115/61 97 O2 Del Method O2 Flow Rate 12/15/21 07:00 Nasal Cannula 2 12/15/21 06:40 12/15/21 05:00 12/14/21 22:17 12/14/21 22:08 12/15/21 04:21 12/15/21 03:50 12/15/21 03:35 12/15/21 03:19 Nasal Cannula 2 12/14/21 22:00 Nasal Cannula 2 12/14/21 22:00 Nasal Cannula 2 PG Care Time/CCT Total # of Minutes Spent Total Time Spent with Patient: Total time spent is greater than 50% in coordination of care (as documented) at patient's floor/unit and/or counseling patient: Coding Level of Care Code 24933 Subseq Hosp Care Lvl 3 Diagnoses Multifocal pneumonia J18.9 Hemoptysis R04.2 Pulmonary embolism I26.93 Pulmonary embolism type: single subsegmental (without acute cor pulmonale) COPD (chronic obstructive pulmonary disease) J44.9
[2021-12-15 09:44] LABS: Basophils # (auto) 0.01 K/uL (0-0.2); Basophils % (auto) 0.2 %; Hematocrit (blood only) 35.7 % (40.1-51.0); Hemoglobin 11.8 g/dl (14.0-18.0); Immature Granulocytes # (auto) 0.02 K/uL (0.00-0.02); Immature Granulocytes % (auto) 0.3 %; Lymphocytes # (auto) 0.71 K/uL (1.2-3.4); Lymphocytes % (auto) 12.3 %; Mean Corpuscular Hemoglobin 31.6 pg (25.0-34.0); Mean Corpuscular Hgb Conc 33.1 g/dL (32.0-36.0); Mean Corpuscular Volume 95.5 fL (80.0-100.0); Mean Platelet Volume 9.7 fL (9.4-12.4); Monocytes # (auto) 0.08 K/uL (0.24-0.82); Monocytes % (auto) 1.4 %; Neutrophils # (auto) 4.96 K/uL (1.4-6.5); Neutrophils % (auto) 85.8 %; Platelet Count 302 K/uL (130-400); RDW Coefficient of Variation 13.2 % (11.5-14.5); RDW Standard Deviation 46.3 fL (36.4-46.3); Red Blood Count 3.74 M/uL (4.63-6.08); White Blood Count 5.78 K/ul (4.8-10.8)
--- NOTE | 2021-12-15 10:42 | Hospitalist Progress Note ---
Date of Service December 15, 2021 Assessment & Plan (1) Pulmonary embolism: Plan: Practically restart PE, pneumonia. Had significant hemoptysis. Anticoagulation on hold. Pulmonary following. Likely start tomorrow (2) Multifocal pneumonia: Plan: - Broad spectrum antibiotics - Start steroids due to hx of underlying COPD with wheezing on exam - Xopenex/ipratropium nebs - Incentive spirometry (3) Hemoptysis: Plan: - Follow H&H (4) Prediabetes: Plan: - Diabetic diet - Accuchecks/insulin sliding scale (5) Hyperlipemia: (6) Hypertension: (7) GERD without esophagitis: (8) COPD (chronic obstructive pulmonary disease): Plan Continue other home meds as appropriate. Code Status: Full code Admission and Anticipated Discharge Date Admission Date: December 14, 2021 Subjective Reports he is comfortable in bed and not short of breath currently but not fully back to normal with regards to his breathing. Has not ambulated however. Denies active chest pain lightheadedness nausea vomiting. Cough has improved. States he had his breakfast. States he has not noted hemoptysis today. Review of Systems Constitutional: + fatigue and + weakness; no fever and no chills Eyes: no diplopia Ear, Nose, Mouth, Throat: no nasal congestion, no nasal discharge and no sore throat Respiratory: + cough, + chest congestion and + wheezing Cardiovascular: no chest pain, no palpitations, no syncope and no edema Gastrointestinal: + diarrhea/loose stools (intermittent - chronic issue); no abdominal pain, no nausea and no vomiting Genitourinary: no dysuria or no hematuria Musculoskeletal: + muscle weakness; no back pain and no neck pain Integumentary: no yellowing of the skin Neurologic: + generalized weakness; no dizziness, no syncope and no headache(s) Psychiatric: no depression and no anxiety Physical Exam Physical Exam: Constitutional: Thin and frail appearing male no apparent distress. Eyes: Pupils are equal round and reactive to light. Conjunctivae are normal. Anicteric sclera. Ears nose, mouth and throat: Deferred. Neck: Trachea is midline. Visual inspection is normal. Respiratory: Expiratory wheeze bilaterally is fairly scant. No increased work of breathing. Cardiovascular: Regular rate and rhythm. No murmurs. No edema. Gastrointestinal: Normal bowel sounds, soft, nontender and nondistended. No hepatosplenomegaly noted. Musculoskeletal: No cyanosis. Patient is able to move all extremities. Skin: No rashes, warm dry and intact. Neurologic: No obvious focal neurological deficits seen. Psychiatric: Alert and oriented x3 with a euthymic affect. Results & Data Results & Data ([facility]) Vital Signs (Past 12 Hours) Vital Signs Temp Pulse Resp BP BP Pulse Ox O2 Del Method 12/15/21 07:00 76 16 97 Nasal Cannula 12/15/21 06:40 92/50 L 12/15/21 05:00 85/52 L 12/15/21 04:21 100/59 L 12/15/21 03:50 92/50 L 12/15/21 03:35 86/48 L 12/15/21 03:19 36.6 C 75 18 93/49 L 98 Nasal Cannula O2 Flow Rate 12/15/21 07:00 2 12/15/21 06:40 12/15/21 05:00 12/15/21 04:21 12/15/21 03:50 12/15/21 03:35 12/15/21 03:19 2 Laboratory Results Laboratory Results WBC 5.78 K/ul (4.8-10.8) 12/15/21 07:07 RBC 3.74 M/uL (4.63-6.08) L 12/15/21 07:07 Hgb 11.8 g/dl (14.0-18.0) L 12/15/21 07:07 Hct 35.7 % (40.1-51.0) L 12/15/21 07:07 MCV 95.5 fL (80.0-100.0) 12/15/21 07:07 MCH 31.6 pg (25.0-34.0) 12/15/21 07:07 MCHC 33.1 g/dL (32.0-36.0) 12/15/21 07:07 RDW Std Deviation 46.3 fL (36.4-46.3) 12/15/21 07:07 RDW Coeff of Susan 13.2 % (11.5-14.5) 12/15/21 07:07 Plt Count 302 K/uL (130-400) 12/15/21 07:07 MPV 9.7 fL (9.4-12.4) 12/15/21 07:07 Immature Gran % (Auto) 0.3 % 12/15/21 07:07 Neut % (Auto) 85.8 % 12/15/21 07:07 Lymph % (Auto) 12.3 % 12/15/21 07:07 [place] % (Auto) 1.4 % 12/15/21 07:07 Eos % (Auto) 0.0 % 12/15/21 07:07 Baso % (Auto) 0.2 % 12/15/21 07:07 Neut # (Auto) 4.96 K/uL (1.4-6.5) 12/15/21 07:07 Lymph # (Auto) 0.71 K/uL (1.2-3.4) L 12/15/21 07:07 [place] # (Auto) 0.08 K/uL (0.24-0.82) L 12/15/21 07:07 Eos # (Auto) 0.00 K/uL (0-0.50) 12/15/21 07:07 Baso # (Auto) 0.01 K/uL (0-0.2) 12/15/21 07:07 Immature Gran # (Auto) 0.02 K/uL (0.00-0.02) 12/15/21 07:07 PT 10.9 Seconds (9.0-12.0) 12/14/21 10:20 INR 1.0 (0.9-1.1) 12/14/21 10:20 APTT 32.5 Seconds (21.0-31.0) H 12/14/21 10:20 PTT Ratio 1.2 12/14/21 10:20 Sodium 134 mmol/L (136-145) L 12/14/21 10:20 Potassium 4.3 mmol/L (3.5-5.1) 12/14/21 10:20 Chloride 98 mmol/L (98-107) 12/14/21 10:20 Carbon Dioxide 28 mmol/L (21-32) 12/14/21 10:20 Anion Gap 8 (3-11) 12/14/21 10:20 BUN 20 mg/dl (6-23) 12/14/21 10:20 Creatinine 0.80 mg/dl (0.6-1.4) 12/14/21 10:20 Est Cr Clr Drug Dosing 47.5 ml/min 12/14/21 10:20 Est GFR ( Amer) 91.8 ml/min 12/14/21 10:20 Est GFR (Non-Af Amer) 79.2 ml/min 12/14/21 10:20 BUN/Creatinine Ratio 25.0 (10-20) H 12/14/21 10:20 Glucose 106 mg/dl (70-99(Fasting)) H 12/14/21 10:20 POC Glucose 132 mg/dl (70-99) H 12/15/21 07:46 Estimat Average Glucose 114 mg/dl 12/15/21 07:06 Hemoglobin A1c 5.6 % (4.5-5.6) 12/15/21 07:06 Calcium 9.1 mg/dl (8.5-10.1) 12/14/21 10:20 Magnesium 1.9 mg/dl (1.7-2.4) 12/14/21 10:20 Total Bilirubin 0.9 mg/dl (0.2-1.0) 12/14/21 10:20 AST 15 U/L (13-39) 12/14/21 10:20 ALT 17 U/L (7-52) 12/14/21 10:20 Alkaline Phosphatase 68 U/L (34-104) 12/14/21 10:20 Troponin I High Sens 13.5 pg/ml (0-20) 12/14/21 10:20 Total Protein 6.7 gm/dl (6.0-8.3) 12/14/21 10:20 Albumin 3.7 gm/dl (3.4-5.0) 12/14/21 10:20 Globulin 3.0 gm/dl (2.5-4.0) 12/14/21 10:20 Albumin/Globulin Ratio 1.2 (0.9-2) 12/14/21 10:20 Procalcitonin 0.06 ng/ml (0-0.5) 12/14/21 10:20 Urine Color Dark Yellow 12/14/21 10:45 Urine Appearance Clear (Clear) 12/14/21 10:45 Urine pH 5.5 (4.5-7.5) 12/14/21 10:45 Ur Specific [place] 1.019 (1.000-1.030) 12/14/21 10:45 Urine Protein Trace (Negative) H 12/14/21 10:45 Urine Glucose (UA) Negative (Negative) 12/14/21 10:45 Urine Ketones 1+ (Negative) H 12/14/21 10:45 Urine Blood Negative (Negative) 12/14/21 10:45 Urine Nitrite Negative (Negative) 12/14/21 10:45 Urine Bilirubin Negative (Negative) 12/14/21 10:45 Urine Urobilinogen Negative (Negative) 12/14/21 10:45 Ur Leukocyte Esterase Negative (Negative) 12/14/21 10:45 Urine WBC (Auto) 1-5 /hpf (0-5) 12/14/21 10:45 Urine RBC (Auto) 0-4 /hpf (0-4) 12/14/21 10:45 U Hyaline Cast (Auto) 1-5 /lpf (0-5) 12/14/21 10:45 U Epithel Cells (Auto) 5-10 /lpf (0-5) H 12/14/21 10:45 Urine Bacteria (Auto) Negative (Negative) 12/14/21 10:45 SARS-CoV-2 (PCR) NEGATIVE (Negative) 12/14/21 12:45 Influenza Type A (PCR) Negative (Neg) 12/14/21 12:45 Influenza Type B (PCR) Negative (Neg) 12/14/21 12:45 RSV (RT-PCR) Negative (Neg) 12/14/21 12:45 Impressions Chest X-Ray 12/14/21 10:46 SINGLE VIEW CHEST CLINICAL HISTORY: Dyspnea FINDINGS: An AP, portable, upright chest radiograph is compared to study dated 11/24/2021 and correlated with chest CT dated 10/24/2021. The examination is degraded by portable technique and apical lordotic positioning. The cardiomediastinal silhouette is unremarkable noting atherosclerotic calcification of the thoracic aorta. Airspace consolidation is again seen at the left lung base with persistent subpleural nodularity. A new focus of nodular change is seen in the right upper lobe. Apical scarring is observed. No large pleural effusion or pneumothorax is seen. The skeletal structures are osteopenic. The bony thorax is grossly intact. Spondylotic change is seen throughout the thoracic spine. IMPRESSION: 1. There is airspace consolidation and nodularity at the left lung base. This likely represents pneumonia/aspiration pneumonitis. Clinical correlation will be required and radiographic follow-up to resolution is recommended. 2. A new focus of nodularity is seen in the right upper lobe. This is also likely inflammatory. This should also be followed to resolution. ACT 112: Negative or not required by law. Electronically signed by: Darwin Flores M.D. 12/14/2021 11:06 AM Chest CTA 12/14/21 11:13 CT angio chest PE protocol CT DOSE: 249.47 mGy.cm HISTORY: 89 years-old Male with PE, hemoptysis ++. Acute shortness of breath with cough TECHNIQUE: Multiple CTA images of the chest were obtained after the intravenous administration of 86 ml Optiray. Coronal and sagittal MIPS were obtained from the axial data set and were submitted for review. All measurements were obtained according to NASCET criteria. A dose lowering technique was utilized adhering to the principles of ALARA. COMPARISON: Chest CT 10/24/2021, 03/24/2013. FINDINGS: CTA: Moderate cardiomegaly with concentric thickening of the left ventricle. Extensive coronary artery calcifications. Atherosclerosis of the thoracic aorta. No thoracic aortic aneurysm or dissection. Tiny subsegmental pulmonary embolus within the right lower lobe on image 99 series 4. No central pulmonary emboli identified. No right heart strain. CT CHEST: Thyroid nodules measure up to 10 mm on the left. There are several mildly prominent subcentimeter mediastinal and hilar lymph nodes which are likely reactive. Trace left pleural effusion. There is no pneumothorax. Tracheobronchial secretions with mucous plugging and mucoid impaction within the left greater than right lower lobes, progressively worsened from the prior study. Additionally, there is progressive centrilobular nodular opacities within all lobes bilaterally. There is irregular and spiculated 2.2 cm nodular consolidation within the lingula which is new from prior. Round consolidation within the left lower lobe on image 139 measuring 4.1 x 3.6 cm. Mild biapical pleural-parenchymal scarring. Subpleural 1.8 cm groundglass nodule within the right upper lobe abutting the major fissure on image 202 which is stable. No acute process of the imaged upper abdomen. Exophytic cyst of the superior pole left kidney. Unremarkable soft tissues. No acute fracture. IMPRESSION: 1. Likely acute subsegmental pulmonary embolus present within the right lower lobe. 2. Mucoid impaction with chronic mucous plugging, most pronounced in the left lower lobe has progressively worsened from the prior exam. 3. Multilobar distribution of ill-defined centrilobular opacities compatible with an infectious or inflammatory pneumonitis. 4. Nodular areas of consolidation within the lingula and left lower lobe suggestive of multifocal pneumonia. Follow-up chest CT after treatment course recommended to document resolution. 5. Small left pleural effusion. 6. 1.8 cm subpleural groundglass opacity of the right upper lobe again noted and is suspicious for an adenomatous lesion. ACT 112: Negative or not required by law. The above report was generated using voice recognition software. It may contain grammatical, syntax or spelling errors. Electronically signed by: Jr Mcadams M.D. 12/14/2021 1:22 PM Venous Doppler Study 12/14/21 14:23 BILATERAL LOWER EXTREMITY VENOUS DOPPLER HISTORY: eval for DVT - known acute PE COMPARISON STUDY: None. FINDINGS: There is normal compressibility, flow, and augmentation within the bilateral lower extremity deep venous systems. IMPRESSION: No DVT within the right or left lower extremity. ACT 112: Negative or not required by law. Electronically signed by: Ilir Sood M.D. 12/14/2021 4:02 PM (1) Pulmonary embolism Pulmonary embolism type: single subsegmental (without acute cor pulmonale) Qualified Code(s): I26.93 - Single subsegmental pulmonary embolism without acute cor pulmonale
[2021-12-15] MEDS: predniSONE 20 MG TAB PO SCH (12:40)
[2021-12-15] MEDS ORDERED: SODIUM CHLORIDE 0.9% 1000ML 500 ML IV SCH (16:15)
[2021-12-15] MEDS: SODIUM CHLORIDE 0.9% 500 ML IV ONE ×2 (16:58→17:38)
[2021-12-15] MEDS: ALBUMIN 25% 100 mL 25 GM/100 ML VIAL IV SCH ×2 (17:09→19:59)
[2021-12-15] MEDS: ACETAMINOPHEN 325 MG TAB PO PRN (18:03)
[2021-12-15] MEDS ORDERED: SODIUM CHLORIDE 0.9% 500 ML IV ONE (18:30)
--- NOTE | 2021-12-15 18:33 | Communication Note ---
Date of Service: December 15, 2021 Patient with low blood pressure. Received 1.5 L boluses thus far. Albumin. Blood pressure still in the 80s. More fluids ordered. Informed ICU attending. Awaiting determination.
[2021-12-15] MEDS ORDERED: STAT IV Infusion **Titration per Protocol STA (19:44)
--- NOTE | 2021-12-15 19:44 | Communication Note ---
Date of Service: December 15, 2021 Patient transferred to the ICU at change of shift per primary service order. I had not communicated with the primary service prior to the patient being t ransferred. Per [place] text message, the patient had apparently been having soft blood pressures throughout the day. Patient had received IV fluid boluses as well as albumin with persistent hypotension. Orders placed for transfer to the ICU. Upon evaluation in the ICU, the patient is awake, alert, and oriented. He declines any complaints of pain at this time. Patient denies any dizziness or lightheadedness. He denies any chest pain, palpitations, shortness of breath. He reports no pleuritic pain. He states that his hemoptysis has resolved since being in the hospital. He is unaware of his hypertension otherwise. Physical Exam: VITAL SIGNS - Vital signs and nursing notes were reviewed. GENERAL - 89-year-old male appearing his stated age who is in no acute distress. Communicates well with provider and answers questions appropriately. SKIN - Without rashes. HEAD - NC/AT. EYES - PERRL with EOMI bilaterally. Sclera anicteric. EARS - No deformities of external structures noted on gross examination bilaterally. NOSE - Midline and without cyanosis. No epistaxis or purulent drainage noted. MOUTH/OROPHARYNX - Without perioral cyanosis. Buccal mucosa pink and dry. NECK - Neck with FROM. Supple to palpation. No lymphadenopathy noted. No nuchal rigidity. LUNGS - Coarse breath sounds noted throughout all lung abraham. Wet cough noted. CARDIAC - RRR with S1/S2. No murmur, rubs, or gallops appreciated. ABDOMEN - Abdominal contour scaphoid without pulsations or visible masses. BS normoactive all four quadrants. No tenderness, palpable masses, hepatosplenomegaly, or ascites noted. EXTREMITIES - No clubbing or peripheral cyanosis. No pretibial edema present. +3/5 radial and dorsalis pedis pulses palpated throughout. +5/5 strength noted in UE/LE bilaterally. NEUROLOGIC - Cranial nerves II through XII grossly intact. Sensory intact to light touch throughout. PSYCH - A&Ox3 and cooperates fully with examiner. Pt is very pleasant and interacts well with examiner. Case was discussed with my attending who had seen the patient earlier in the morning from the pulmonary perspective. Patient has a history of recurrent hemoptysis which has resolved since being admitted to the hospital. Patient found to have a very small RIGHT lower lobe PE not felt to be concerning for the patient's degree of hemodynamics. Patient is not hypoxic. He is sitting upright in his bed and communicating with staff despite reported hypotension. He is currently being treated for multifocal pneumonia with antibiotics which likely makes more sense for the patient's hypotension and possible degree of sepsis syndrome. He has a slight bump in his lactate. This is currently being rechecked. Clinically, the patient appears very well. We will support the patient's blood pressure to maintain maps and continue with aggressive antibiotic coverage. We will continue with IV fluids overnight. Patient has received albumin as well. Low-dose Levophed if needed. Otherwise, continue with patient's current treatment course as outlined by primary team and pulmonary/critical care attending's note. I have personally spent 33 minutes of critical care time in the direct management of this patient. This is a life/limb threatening event. This includes time spent evaluating patient, direct bedside care, chart review, placing orders, interpretation of diagnostic studies, discussion with consultants, patient, and family members, as well as other required patient management activities. This time is exclusive of all separately billable procedures, and teaching time and separate from and in addition to any other critical care service time. Coding Level of Care Code Critical Care 1st 30-74 mins Time Spent (min) 33
[2021-12-15] MEDS: NOREPINEPHRINE/D5W 4 MG/250 ML PLCT IV SCH (19:54)
[2021-12-15] MEDS: MINERAL OIL 30 ML UDC PO SCH (20:02)
[2021-12-15] MEDS: MIRTAZAPINE TAB 15 MG TAB PO SCH (20:05)
[2021-12-15] MEDS ORDERED: NORMOSOL-R 1,000 ML IV SCH (20:15)
[2021-12-15 21:43] LABS: BUN Creatinine Ratio 29.8 (10-20); Calcium 7.8 mg/dl (8.5-10.1); Creatinine Clr Calc Pharmacy 52.5 ml/min; Est GFR (Non-African American) 77.6 ml/min; Magnesium 1.7 mg/dl (1.7-2.4); Phosphorus 1.7 mg/dl (2.5-4.9); Potassium 4.1 mmol/L (3.5-5.1)
[2021-12-15] MEDS ORDERED: POTASSIUM PHOS 3 MMOL/1 ML INFUSION IV STA (21:51)
[2021-12-15 21:52] LABS: Troponin I High Sensitivity 24.4 pg/ml (0-20)
[2021-12-15] MEDS ORDERED: POTASSIUM PHOSPHATE 9 MMOL in SODIUM CHLORIDE 0.9% 250 ML IV ONE (22:00)
[2021-12-16] MEDS: AZTREONAM 2,000 MG in DEXTROSE 5% 100 ML IV SCH ×3 (00:37→16:48)
[2021-12-16] MEDS ORDERED: FUROSEMIDE INJ 20 MG/2 ML VIAL IV ONE ×2 (03:15→13:00)
[2021-12-16 05:12] LABS: BUN Creatinine Ratio 29.9 (10-20); Calcium 7.8 mg/dl (8.5-10.1); Creatinine Clr Calc Pharmacy 57.3 ml/min; Est GFR (African American) 93.2 ml/min; Est GFR (Non-African American) 80.5 ml/min; Magnesium 1.9 mg/dl (1.7-2.4); Phosphorus 2.7 mg/dl (2.5-4.9); Potassium 4.1 mmol/L (3.5-5.1)
[2021-12-16 05:50] LABS: Hematocrit (blood only) 35.9 % (40.1-51.0); Hemoglobin 11.7 g/dl (14.0-18.0); Mean Corpuscular Hemoglobin 31.4 pg (25.0-34.0); Mean Corpuscular Hgb Conc 32.6 g/dL (32.0-36.0); Mean Corpuscular Volume 96.2 fL (80.0-100.0); Mean Platelet Volume 9.8 fL (9.4-12.4); Platelet Count 320 K/uL (130-400); RDW Coefficient of Variation 13.3 % (11.5-14.5); RDW Standard Deviation 47.7 fL (36.4-46.3); Red Blood Count 3.73 M/uL (4.63-6.08); White Blood Count 17.36 K/ul (4.8-10.8)
[2021-12-16] MEDS: ALBUT/IPRATROP 3MG/0.5MG NEB 3 ML VIAL NEB SCH ×4 (07:42→19:15)
[2021-12-16] MEDS: INSULIN ASPART PER UNIT SC SCH ×4 (07:56→21:34)
--- NOTE | 2021-12-16 08:10 | XRay Report ---
XR chest 1V portable HISTORY: hypoxia COMPARISON: Chest 12/14/2021. FINDINGS: No pneumothorax. The heart is stable in size. Progressive perihilar hazy airspace opacities and small bilateral pleural effusions. Right upper lobe nodule remains unchanged. Left basilar densi ties have progressed. IMPRESSION: 1. Interval progression of the perihilar hazy airspace opacities and left basilar densities. This may represent progressive multifocal pneumonia versus superimposed pulmonary edema. 2. Small bilateral pleural effusions have progressed. 3. The right upper lobe 1.8 cm nodule is again noted. ACT 112: Negative or not required by law. Electronically signed by: Ilir Sood M.D. 12/16/2021 8:09 AM
--- NOTE | 2021-12-16 08:35 | Critical Care Progress Note ---
Date of Service December 16, 2021 Assessment & Plan (1) Shock: (2) Hypoxia: (3) Pulmonary embolism: (4) Hemoptysis: (5) COPD (chronic obstructive pulmonary disease): Plan 89-year-old male with a history of COPD and recurrent left lower lobe infiltrates presenting to the hospital due to hemoptysis and worsening shortness of breath. Last night he was found to have increasing hypertension and is currently on Levophed. Otherwise he remained stable. Neurologic: No issues. Minimize sedation. Pulmonary: History of COPD. No PFTs on file. Continue Brovana and duo nebs. He has a small PE found on this admission, but holding anticoagulation due to ongoing hemoptysis. We will initiate heparin later this afternoon if hemoptysis continues to improve. Hemoglobin stable. Continue broad-spectrum antibiotics for multifocal pneumonia. Chest x-ray from today with findings consistent with CHF. Continue prednisone for inflammatory lung disease. We will need to consider bronchoscopy on Friday. Lung nodule noted. Will need outpatient follow-up. Cardiovascular: Obtain echo. Trend troponins. Hold antiplatelet agents given hemoptysis. Starting midodrine 5 mg 3 times daily to help wean him off of Levophed. Gastrointestinal: Tolerating diet well. Renal: Creatinine stable. Lactate cleared. 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 Infectious disease: Broad-spectrum antibiotics to be continued. MRSA screen negative. Chest x-ray findings consistent with pneumonia. Hematologic: Dilutional anemia. Hemoglobin stable. Holding antiplatelets and anticoagulants given hemoptysis. We will need to consider starting heparin soon given his PE. Endocrine: We will check cortisol level and TSH. We will consider stress dose steroids if cortisol level is low despite prednisone. Lines and tubes: Hawk catheter and peripheral IVs in place VTE prophylaxis: SCDs CODE STATUS: Full code Family at bedside: Not currently available bedside Disposition: Remain in ICU I have personally spent 32 minutes of critical care time in the direct management of this patient. This is a life/limb threatening event. This includes time spent evaluating patient, direct bedside care, chart review, placing orders, interpretation of diagnostic studies, discussion with consultants, patient, and family members, as well as other required patient management activities. This time is exclusive of all separately billable procedures, and teaching time and separate from and in addition to any other critical care service time. Thank you for allowing us to participate in the care of this patient. Admission and Anticipated Discharge Date Admission Date: December 14, 2021 Subjective Patient moved to the ICU last night due to ongoing hypotension. Patient notes shortness of breath overnight which improved with Lasix. Chest x-ray reviewed with bilateral infiltrates. Patient continues to have episodes of hemoptysis which she notes are chronic. He denies any fevers or chills. No chest pain. Tolerating breakfast this morning. Currently on low-dose Levophed via peripheral IV. Review of Systems 2 Review of Systems: All systems reviewed & are unremarkable except as noted in HPI & below Physical Exam Physical Exam: Constitutional: Thin and frail appearing male no apparent distress. Eyes: Pupils are equal round and reactive to light. Conjunctivae are normal. Anicteric sclera. Ears nose, mouth and throat: Deferred. Neck: Trachea is midline. Visual inspection is normal. Respiratory: Expiratory wheeze bilaterally. No increased work of breathing. Cardiovascular: Regular rate and rhythm. No murmurs. No edema. Gastrointestinal: Normal bowel sounds, soft, nontender and nondistended. No hepatosplenomegaly noted. Musculoskeletal: No cyanosis. Patient is able to move all extremities. Skin: No rashes, warm dry and intact. Neurologic: No obvious focal neurological deficits seen. Psychiatric: Alert and oriented x3 with a euthymic affect. Results & Data Results & Data ([facility]) Vital Signs (Past 12 Hours) Vital Signs Temp Pulse Resp BP Pulse Ox O2 Del Method O2 Flow Rate 12/16/21 06:00 77 20 94/57 L 94 Nasal Cannula 2 12/16/21 05:30 78 22 97/62 L 94 Nasal Cannula 2 12/16/21 05:00 72 16 90/55 L 95 Nasal Cannula 3 12/16/21 04:30 76 20 88/53 L 94 Nasal Cannula 3 12/16/21 04:00 81 19 117/61 92 Nasal Cannula 3 12/16/21 03:30 90 28 H 111/89 91 Oxymask 10 12/16/21 03:00 72 18 96/60 L 93 Nasal Cannula 2 12/16/21 02:30 69 22 106/60 92 Nasal Cannula 2 12/16/21 02:00 72 20 108/72 94 Nasal Cannula 2 12/16/21 01:30 68 20 103/60 94 Nasal Cannula 2 12/16/21 01:00 86 24 93/60 L 95 Nasal Cannula 2 12/16/21 00:30 71 19 94/55 L 84 L Nasal Cannula 2 12/16/21 00:00 36.6 C 74 24 97/57 L 91 Room Air 12/15/21 23:30 71 23 94 Room Air 12/15/21 23:00 76 19 96/56 L 92 Room Air 12/15/21 22:30 85 22 88/56 L 92 Room Air 12/15/21 22:00 79 18 93/51 L 92 Room Air 12/15/21 21:30 77 23 91/54 L 94 Room Air 12/15/21 21:00 80 18 83/52 L 93 Room Air 12/15/21 20:30 81 22 80/50 L 96 Room Air Coding Level of Care Code Critical Care 1st 30-74 mins Diagnoses Shock R57.9 Hypoxia R09.02 Pulmonary embolism I26.93 Pulmonary embolism type: single subsegmental (without acute cor pulmonale) Hemoptysis R04.2 COPD (chronic obstructive pulmonary disease) J44.9 Time Spent (min) 32 (1) Pulmonary embolism Pulmonary embolism type: single subsegmental (without acute cor pulmonale) Qualified Code(s): I26.93 - Single subsegmental pulmonary embolism without acute cor pulmonale
[2021-12-16] MEDS: FORMOTEROL 20 MCG/2 ML VIAL INH SCH ×2 (08:39→19:14)
[2021-12-16] MEDS: DOXYCYCLINE HYCLATE 100 MG CAP PO SCH ×2 (09:46→21:20)
[2021-12-16] MEDS: TAMSULOSIN HCL 0.4 MG CAP PO SCH (09:47)
[2021-12-16] MEDS: PANTOprazole 40 MG TAB PO SCH (09:47)
[2021-12-16] MEDS: predniSONE 20 MG TAB PO SCH (09:47)
[2021-12-16] MEDS: EZETIMIBE 10 MG TABLET PO SCH (09:48)
[2021-12-16] MEDS: MIDODRINE HCL 2.5 MG TAB PO SCH ×3 (09:48→16:48)
[2021-12-16] MEDS: SIMVASTATIN 20 MG TAB PO SCH (09:48)
[2021-12-16] MEDS: metroNIDAZOLE 500 MG/100 ML BAG IV SCH ×3 (10:17→23:04)
--- NOTE | 2021-12-16 13:08 | Cardiology Consultation ---
Date of Consultation December 16, 2021 Assessment & Plan (1) Critical aortic valve stenosis: (2) Multifocal pneumonia: (3) Pulmonary embolism: (4) Hemoptysis: Plan Patient is an 89-year-old male with with critical aortic valve stenosis admitted with pneumonia, hemoptysis, pulmonary embolism. Current course notable for hypertension transiently treated with Levophed. No acute complaints other than hypoxia and shortness of breath. Denies chest pains or discomfort. Echocardiogram demonstrates preserved overall systolic function Underlying pulmonary issues being addressed Impression: Critical aortic stenosis complicating management of acute pulmonary issues. Patient with marginal reserve but preserved ejection fraction, no renal impairment as of yet. Expect blood pressures to be low would not expect significant improvement with vasopressors. Overall prognosis limited due to valvular disease. Patient with relative contraindications to treatment with valve replacement currently and uncertain whether patient will be candidate long-term Would treat pulmonary issues and cardiology will follow. With any acute decline would readdress long-term goals, CODE STATUS. Would minimize medications to lower blood pressure question hold or reduce Remeron and tamsulosin cardiology will continue to follow History of Present Illness Reason for Consultation: Hypotension, valvular heart disease Requesting Physician: Dr. Tejeda Attending Physician: Tru Tejeda MD History of Present Illness Patient is an 89-year-old male with complex ongoing issues which include 1. Severe/critical aortic valve stenosis 2. Hereditary hemochromatosis 3. Chronic obstructive lung disease with left lung mucoid impaction, past hemoptysis 4. Hyperlipidemia Patient presents this admission with worsening cough and hemoptysis, severe shortness of breath and pneumonia. CT chest demonstrates evidence of pneumonia and pulmonary embolus. Course notable for hypoxia and hypotension Patient referred for further evaluation given hypotension and underlying valvular disease. Echocardiogram today demonstrates preserved LV systolic function but critical aortic valve stenosis with peak aortic valve velocities greater than 5 m/s and calculated aortic valve area 0.4 cm2 Patient has been aware of aortic valve disease. Denies specific chest pains, ta chypalpitations, dizziness or lightheadedness. Has been complaining of worsening dyspnea and marked fatigue with minimal exertion times several months per patient, now significantly limited. Acutely worse with current complaints Allergies Allergy/AdvReac Type Severity Reaction Status Date / Time Penicillins Allergy Verified 11/21/21 11:14 Sulfa (Sulfonamide Allergy Verified 11/21/21 11:14 Antibiotics) Home Medications Medication Instructions Recorded Confirmed Type acetaminophen 325 mg capsule 325 mg PO QID PRN Pain 11/27/20 12/14/21 History alendronate 70 mg tablet (Fosamax) 70 mg PO WK 11/27/20 12/14/21 History aspirin 81 mg tablet,delayed 81 mg PO DAILY 11/27/20 12/14/21 History release (Adult Low Dose Aspirin) ezetimibe 10 mg tablet (Zetia) 10 mg PO DAILY 11/27/20 12/14/21 History omeprazole 20 mg capsule,delayed 20 mg PO DAILY 11/27/20 12/14/21 History release simvastatin 20 mg tablet 20 mg PO DAILY 11/27/20 12/14/21 History tamsulosin 0.4 mg capsule 0.8 mg PO DAILY 11/27/20 12/14/21 History tiotropium bromide 18 mcg capsule 1 cap inhalation DAILY 11/27/20 12/14/21 History with inhalation device (Spiriva with HandiHaler) mirtazapine 15 mg tablet 15 mg PO HS 12/14/21 12/14/21 History umeclidinium 62.5 mcg/actuation 1 inh inhalation DAILY 12/14/21 12/14/21 History blister powder for inhalation (Incruse Ellipta) Patient History Medical History (Updated 12/16/21 @ 13:18 by Magdi Parson MD) Basal cell carcinoma Blood-streaked sputum 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 myelopathy COPD (chronic obstructive pulmonary disease) Disorder of bone and cartilage, unspecified GERD without esophagitis Hemoptysis Hyperlipemia Hypertension Lesion of nose Major depression, recurrent Multifocal pneumonia Nail dystrophy Osteoporosis Prediabetes Pulmonary embolism Shock Squamous cell carcinoma Surgical History H/O Mohs micrographic surgery for skin cancer Family History Mother Heart disease Brother Heart disease Social History Smoking Status: Former smoker Tobacco Type: Cigarettes packs per day: 1; Years Smoked: 20; Second Hand Exposure: No; Hx Alcohol Use: Yes Alcohol type: hard liquor Hx Substance Use: No Preferred Language: Maori Communication Ability: Effective 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 Beliefs That Will Affect Care: None Current Living Situation: Alone Feels Safe at Home: Yes Assistive Devices: Glasses and Hearing Aid - Bilateral Review of Systems Review of Systems: All systems reviewed & are unremarkable except as noted in HPI & below Physical Exam Constitutional: + thin; no acute distress Eyes: PERRL, conjunctivae normal, anicteric sclerae ENMT: external ear and nose normal, oropharynx normal Neck: trachea midline, no thyromegaly Results & Data ([facility]) Vital Signs (Past 12 Hours) Vital Signs Pulse Pulse Resp BP Pulse Ox O2 Del Method O2 Flow Rate 12/16/21 12:45 95 H 25 H 87 L 12/16/21 12:30 102 H 22 80 L 12/16/21 12:30 91/55 L 12/16/21 12:15 107 H 31 H 79 L 12/16/21 12:00 92 H 17 91 12/16/21 12:00 76/47 L 12/16/21 11:45 94 H 24 87 L 12/16/21 11:30 89 24 83 L 12/16/21 11:30 84/56 L 12/16/21 11:15 78 21 90 12/16/21 11:12 78 22 91 12/16/21 11:12 81/47 L 12/16/21 11:00 79 21 91 12/16/21 11:00 83/48 L 12/16/21 10:45 86 20 87 L 12/16/21 10:30 82 27 H 84 L 12/16/21 10:30 94/55 L 12/16/21 10:22 98/52 L 12/16/21 10:22 87 22 87 L 12/16/21 10:15 92 H 16 87 L 12/16/21 10:00 81 25 H 88 L 12/16/21 09:45 87 24 84 L 12/16/21 09:30 81 25 H 97 12/16/21 09:30 98/55 L 12/16/21 09:15 81 23 98 12/16/21 09:08 91/58 L 12/16/21 09:08 83 25 H 89 L 12/16/21 09:05 75/45 L 12/16/21 09:05 82 22 92 12/16/21 09:00 82 23 95 12/16/21 09:00 80/48 L 12/16/21 08:45 83 24 96 12/16/21 08:39 87 24 90 12/16/21 08:39 97/61 L 12/16/21 08:30 87 27 H 94 12/16/21 08:30 107/59 L 12/16/21 08:15 89 23 94 12/16/21 08:00 87 26 H 92 12/16/21 08:00 81/51 L 12/16/21 07:46 85/51 L 12/16/21 07:46 91 H 21 93 12/16/21 07:45 83 19 93 12/16/21 07:44 84/47 L 12/16/21 07:44 88 21 93 12/16/21 07:43 88 20 93 12/16/21 07:43 94/53 L 12/16/21 07:30 81 16 93 12/16/21 07:30 84/48 L 12/16/21 07:15 78 19 87 L 12/16/21 07:00 75 23 95 12/16/21 11:53 95 H 20 90 Nasal Cannula 5 12/16/21 07:30 83 12/16/21 08:39 92 H 20 94 Nasal Cannula 2 12/16/21 06:00 77 20 94/57 L 94 Nasal Cannula 2 12/16/21 05:30 78 22 97/62 L 94 Nasal Cannula 2 12/16/21 05:00 72 16 90/55 L 95 Nasal Cannula 3 12/16/21 04:30 76 20 88/53 L 94 Nasal Cannula 3 12/16/21 04:00 81 19 117/61 92 Nasal Cannula 3 12/16/21 03:30 90 28 H 111/89 91 Oxymask 10 12/16/21 03:00 72 18 96/60 L 93 Nasal Cannula 2 12/16/21 02:30 69 22 106/60 92 Nasal Cannula 2 12/16/21 02:00 72 20 108/72 94 Nasal Cannula 2 12/16/21 01:30 68 20 103/60 94 Nasal Cannula 2 Laboratory Results Laboratory Results - last 24 hr 12/15/21 12/15/21 12/15/21 16:13 16:36 18:57 WBC RBC Hgb Hct MCV MCH MCHC RDW Std Deviation RDW Coeff of Susan Plt Count MPV Sodium Potassium Chloride Carbon Dioxide Anion Gap BUN Creatinine Est Cr Clr Drug Dosing Est GFR ( Amer) Est GFR (Non-Af Amer) BUN/Creatinine Ratio Glucose POC Glucose 129 H Lactate 2.2 H* 2.8 H* Calcium Phosphorus Magnesium Troponin I High Sens Procalcitonin TSH Random Cortisol Nasal Screen MRSA (PCR) 12/15/21 12/15/21 12/15/21 21:16 21:16 21:30 WBC RBC Hgb Hct MCV MCH MCHC RDW Std Deviation RDW Coeff of Susan Plt Count MPV Sodium 134 L Potassium 4.1 Chloride 105 Carbon Dioxide 23 Anion Gap 6 BUN 25 H Creatinine 0.84 Est Cr Clr Drug Dosing 52.5 Est GFR ( Amer) 90.0 Est GFR (Non-Af Amer) 77.6 BUN/Creatinine Ratio 29.8 H Glucose 142 H POC Glucose Lactate 2.1 H* Calcium 7.8 L Phosphorus 1.7 L Magnesium 1.7 Troponin I High Sens 24.4 H D Procalcitonin TSH Random Cortisol Nasal Screen MRSA (PCR) Negative 12/15/21 12/16/21 12/16/21 21:41 04:20 04:20 WBC 17.36 H D RBC 3.73 L Hgb 11.7 L Hct 35.9 L MCV 96.2 MCH 31.4 MCHC 32.6 RDW Std Deviation 47.7 H RDW Coeff of Susan 13.3 Plt Count 320 MPV 9.8 Sodium 134 L Potassium 4.1 Chloride 106 Carbon Dioxide 21 Anion Gap 7 BUN 23 Creatinine 0.77 Est Cr Clr Drug Dosing 57.3 Est GFR ( Amer) 93.2 Est GFR (Non-Af Amer) 80.5 BUN/Creatinine Ratio 29.9 H Glucose 123 H POC Glucose 151 H Lactate Calcium 7.8 L Phosphorus 2.7 D Magnesium 1.9 Troponin I High Sens Procalcitonin TSH Random Cortisol Nasal Screen MRSA (PCR) 12/16/21 12/16/21 12/16/21 04:20 04:20 07:41 WBC RBC Hgb Hct MCV MCH MCHC RDW Std Deviation RDW Coeff of Susan Plt Count MPV Sodium Potassium Chloride Carbon Dioxide Anion Gap BUN Creatinine Est Cr Clr Drug Dosing Est GFR ( Amer) Est GFR (Non-Af Amer) BUN/Creatinine Ratio Glucose POC Glucose 97 Lactate 1.7 Calcium Phosphorus Magnesium Troponin I High Sens Procalcitonin < 0.05 TSH Random Cortisol Nasal Screen MRSA (PCR) 12/16/21 12/16/21 12/16/21 08:39 08:39 08:39 WBC RBC Hgb Hct MCV MCH MCHC RDW Std Deviation RDW Coeff of Susan Plt Count MPV Sodium Potassium Chloride Carbon Dioxide Anion Gap BUN Creatinine Est Cr Clr Drug Dosing Est GFR ( Amer) Est GFR (Non-Af Amer) BUN/Creatinine Ratio Glucose POC Glucose Lactate Calcium Phosphorus Magnesium Troponin I High Sens 349.6 H* D Procalcitonin TSH 4.111 Random Cortisol 7.87 Nasal Screen MRSA (PCR) 12/16/21 11:38 WBC RBC Hgb Hct MCV MCH MCHC RDW Std Deviation RDW Coeff of Susan Plt Count MPV Sodium Potassium Chloride Carbon Dioxide Anion Gap BUN Creatinine Est Cr Clr Drug Dosing Est GFR ( Amer) Est GFR (Non-Af Amer) BUN/Creatinine Ratio Glucose POC Glucose 109 H Lactate Calcium Phosphorus Magnesium Troponin I High Sens Procalcitonin TSH Random Cortisol Nasal Screen MRSA (PCR) (1) Pulmonary embolism Pulmonary embolism type: single subsegmental (without acute cor pulmonale) Qualified Code(s): I26.93 - Single subsegmental pulmonary embolism without acute cor pulmonale
--- NOTE | 2021-12-16 19:37 | Hospitalist Progress Note ---
Date of Service December 16, 2021 Assessment & Plan (1) Hemoptysis: (2) Pulmonary embolism: (3) Multifocal pneumonia: (4) Critical aortic valve stenosis: (5) Prediabetes: (6) Hypertension: (7) GERD without esophagitis: (8) COPD (chronic obstructive pulmonary disease): Plan CTA chest 12/14 1. Likely acute subsegmental pulmonary embolus present within the right lower lobe. 2. Mucoid impaction with chronic mucous plugging, most pronounced in the left lower lobe has progressively worsened from the prior exam. 3. Multilobar distribution of ill-defined centrilobular opacities compatible with an infectious or inflammatory pneumonitis. 4. Nodular areas of consolidation within the lingula and left lower lobe suggestive of multifocal pneumonia. Follow-up chest CT after treatment course recommended to document resolution. 5. Small left pleural effusion. 6. 1.8 cm subpleural groundglass opacity of the right upper lobe again noted and is suspicious for an adenomatous lesion. Transferred to ICU on 12/15 due to persistent hypotension not improving with fluid challenge. Hemoptysis Acute subsegmental RLL PE without cor pulmonale PNA Acute hypoxic respiratory failure Critical AV stenosis COPD - still has some but improving per patient. Hb has stabilized. Has PE and PNA in CT. - On empiric antibiotics but not on anticoag due to hemoptysis. - Pulm planning for bronchoscopy but this might be limited due to his critical - Defer to pulm and cardio to coordinate. Echo and CT reviewed. - continue supplemental oxygen, wean off as tolerated - maintain euvolemic status for Aortic stenosis - continue aerosols- no wheeze- not in exacerbation Elevated trop- trend reviewed. cardio following. No CP. Hypotension- blood clx negative. cortisol level normal. s/p IVF and levophed. now on midodrine. holding flomax and remeron per cardio. Prediabetes- SSI prn DVT ppx- SCDs, holding chemoppx or anticoag due to hemoptysis- defer to deep tissue massage therapist when to start Dispo- Remain in ICU- Still hypotensive Updated daughter at bedside Admission and Anticipated Discharge Date Admission Date: December 14, 2021 Subjective Denies any new issues. States still having some hemoptysis with clots but not as bad. Denies any chest pain, shortness of breath, N/V. Does complain of some discomfort with exertion in bed. Physical Exam Physical Exam: General: Sitting comfortably in bed, not in distress, on NC HEENT: EOMI, PERRL, MMM Chest: Fair breath sounds bilaterally, no wheezes or crackles CVS: Regular rate and rhythm, normal heart sounds, systolic murmur Abdomen: Soft, non tender, not distended, normal bowel sounds Neuro: Awake, alert, oriented, conversing well, non focal Extremities: No edema Hawk with clear urine Results & Data [facility] Vital Signs (Past 12 Hours) Vital Signs Temp Pulse Pulse Pulse Resp BP Pulse Ox 12/16/21 19:15 78 78 20 96 12/16/21 12:00 36.8 C 12/16/21 16:00 36.8 C 12/16/21 17:00 93 H 19 87 L 12/16/21 17:00 85/51 L 12/16/21 16:30 91/53 L 12/16/21 16:30 89 18 89 L 12/16/21 16:00 83 20 92 12/16/21 16:00 82/50 L 12/16/21 15:30 81 21 91 12/16/21 15:30 79/48 L 12/16/21 15:00 86/50 L 12/16/21 08:00 37.0 C 12/16/21 12:48 96 H 24 94 12/16/21 15:00 79 24 12/16/21 14:30 89/56 L 12/16/21 14:30 90 22 88 L 12/16/21 14:00 90 21 87 L 12/16/21 14:00 88/58 L 12/16/21 13:30 102/57 L 12/16/21 13:30 96 H 23 88 L 12/16/21 13:00 95 H 23 98 12/16/21 13:00 90/56 L 12/16/21 08:00 12/16/21 13:07 99 12/16/21 13:10 12/16/21 12:20 82 L 12/16/21 12:45 95 H 25 H 87 L 12/16/21 12:30 102 H 22 80 L 12/16/21 12:30 91/55 L 12/16/21 12:15 107 H 31 H 79 L 12/16/21 12:00 92 H 17 91 12/16/21 12:00 76/47 L 12/16/21 11:45 94 H 24 87 L 12/16/21 11:30 89 24 83 L 12/16/21 11:30 84/56 L 12/16/21 11:15 78 21 90 12/16/21 11:12 78 22 91 12/16/21 11:12 81/47 L 12/16/21 11:00 79 21 91 12/16/21 11:00 83/48 L 12/16/21 10:45 86 20 87 L 12/16/21 10:30 82 27 H 84 L 12/16/21 10:30 94/55 L 12/16/21 10:22 98/52 L 12/16/21 10:22 87 22 87 L 12/16/21 10:15 92 H 16 87 L 12/16/21 10:00 81 25 H 88 L 12/16/21 09:45 87 24 84 L 12/16/21 09:30 81 25 H 97 12/16/21 09:30 98/55 L 12/16/21 09:15 81 23 98 12/16/21 09:08 91/58 L 12/16/21 09:08 83 25 H 89 L 12/16/21 09:05 75/45 L 12/16/21 09:05 82 22 92 12/16/21 09:00 82 23 95 12/16/21 09:00 80/48 L 12/16/21 08:45 83 24 96 12/16/21 08:39 87 24 90 12/16/21 08:39 97/61 L 12/16/21 08:30 87 27 H 94 12/16/21 08:30 107/59 L 12/16/21 08:15 89 23 94 12/16/21 08:00 87 26 H 92 12/16/21 08:00 81/51 L 12/16/21 07:46 85/51 L 12/16/21 07:46 91 H 21 93 12/16/21 07:45 83 19 93 12/16/21 07:44 84/47 L 12/16/21 07:44 88 21 93 12/16/21 07:43 88 20 93 12/16/21 07:43 94/53 L 12/16/21 11:53 95 H 20 90 12/16/21 08:39 92 H 20 94 O2 Del Method O2 Flow Rate FiO2 12/16/21 19:15 Nasal Cannula 4 12/16/21 12:00 12/16/21 16:00 12/16/21 17:00 12/16/21 17:00 12/16/21 16:30 12/16/21 16:30 12/16/21 16:00 12/16/21 16:00 12/16/21 15:30 12/16/21 15:30 12/16/21 15:00 12/16/21 08:00 12/16/21 12:48 70 12/16/21 15:00 12/16/21 14:30 12/16/21 14:30 12/16/21 14:00 12/16/21 14:00 12/16/21 13:30 12/16/21 13:30 12/16/21 13:00 12/16/21 13:00 12/16/21 08:00 Nasal Cannula 3 12/16/21 13:07 BiPAP 12/16/21 13:10 Nasal Cannula 93 12/16/21 12:20 Nasal Cannula 3 12/16/21 12:45 12/16/21 12:30 12/16/21 12:30 12/16/21 12:15 12/16/21 12:00 12/16/21 12:00 12/16/21 11:45 12/16/21 11:30 12/16/21 11:30 12/16/21 11:15 12/16/21 11:12 12/16/21 11:12 12/16/21 11:00 12/16/21 11:00 12/16/21 10:45 12/16/21 10:30 12/16/21 10:30 12/16/21 10:22 12/16/21 10:22 12/16/21 10:15 12/16/21 10:00 12/16/21 09:45 12/16/21 09:30 12/16/21 09:30 12/16/21 09:15 12/16/21 09:08 12/16/21 09:08 12/16/21 09:05 12/16/21 09:05 12/16/21 09:00 12/16/21 09:00 12/16/21 08:45 12/16/21 08:39 12/16/21 08:39 12/16/21 08:30 12/16/21 08:30 12/16/21 08:15 12/16/21 08:00 12/16/21 08:00 12/16/21 07:46 12/16/21 07:46 12/16/21 07:45 12/16/21 07:44 12/16/21 07:44 12/16/21 07:43 12/16/21 07:43 12/16/21 11:53 Nasal Cannula 5 12/16/21 08:39 Nasal Cannula 2 Laboratory Results Short CBC 12/16/21 Range/Units 04:20 WBC 17.36 H D (4.8-10.8) K/ul Hgb 11.7 L (14.0-18.0) g/dl Hct 35.9 L (40.1-51.0) % Plt Count 320 (130-400) K/uL BMP 12/15/21 12/16/21 21:16 04:20 Sodium 134 L 134 L Potassium 4.1 4.1 Chloride 105 106 Carbon Dioxide 23 21 BUN 25 H 23 Creatinine 0.84 0.77 Glucose 142 H 123 H Calcium 7.8 L 7.8 L Medications Administered Current Inpatient Medications Acetaminophen (Acetaminophen 325 Mg Tab) 650 mg PO Q4H PRN PRN Reason: Pain or Fever Stop: 01/13/22 17:36 Last Admin: 12/15/21 18:03 Dose: 650 mg Albuterol (Albut/Ipratrop 3mg/0.5mg Neb 3 Ml Vial) 3 ml NEB QIDR LEANNE; Protocol Stop: 01/13/22 18:59 Last Admin: 12/16/21 19:15 Dose: Not Given Dextrose (Dextrose 50% 50 Ml Syringe) 25 - 50 ml IV UD PRN; Protocol PRN Reason: Hypoglycemia Protocol Stop: 01/13/22 17:36 Doxycycline Hyclate (Doxycycline Hyclate 100 Mg Cap) 100 mg PO BID LEANNE Stop: 12/21/21 20:59 Last Admin: 12/16/21 09:46 Dose: 100 mg Ezetimibe (Ezetimibe 10 Mg Tablet) 10 mg PO DAILY LEANNE Stop: 01/14/22 08:59 Last Admin: 12/16/21 09:48 Dose: 10 mg Formoterol Fumarate (Formoterol 20 Mcg/2 Ml Vial) 20 mcg INH BIDR LEANNE Stop: 01/13/22 18:59 Last Admin: 12/16/21 19:14 Dose: 20 mcg Glucagon (Glucagon For Inj 1 Mg Vial) 1 mg SQ UD PRN; Protocol PRN Reason: Hypoglycemia Protocol Stop: 01/13/22 17:36 Glucose (Glucose 40% Gel 15 Gm Tube) 15 - 30 gm PO UD PRN; Protocol PRN Reason: Hypoglycemia Protocol Stop: 01/13/22 17:36 Glucose (Glucose 10 Tab/Tube) 4 - 8 tab PO UD PRN; Protocol PRN Reason: Hypoglycemia Treatment Stop: 01/13/22 17:36 Aztreonam 2,000 mg/ Dextrose 110 mls @ 100 mls/hr IV Q8H LEANNE; Protocol Stop: 12/21/21 16:59 Last Infusion: 12/16/21 17:54 Dose: Infused Metronidazole (Flagyl) 500 mg in 100 mls @ 100 mls/hr IV Q8H LEANNE; Protocol Stop: 12/21/21 15:59 Last Infusion: 12/16/21 17:48 Dose: Infused Norepinephrine Bitartrate (Levophed/D5w) 4 mg in 250 mls @ 11.681 mls/hr IV .[id number] LEANNE; Protocol Stop: 01/14/22 19:44 Last Titration: 12/16/21 11:10 Dose: 0 mcg/kg/min, 0 mls/hr Insulin Aspart (Insulin Aspart Per Unit) 0 units SC ACHS [facility] Stop: 01/13/22 17:36 Last Admin: 12/16/21 16:54 Dose: 6 units Midodrine (Midodrine Hcl 2.5 Mg Tab) 5 mg PO TID@0800,1200,1700 LEANNE Stop: 01/15/22 07:59 Last Admin: 12/16/21 16:48 Dose: 5 mg Mineral Oil (Mineral Oil 30 Ml Udc) 30 ml PO HS LEANNE Stop: 01/13/22 20:59 Last Admin: 12/15/21 20:02 Dose: Not Given Mirtazapine (Mirtazapine Tab 15 Mg Tab) 15 mg PO HS LEANNE Stop: 01/13/22 20:59 Last Admin: 12/15/21 20:05 Dose: 15 mg Miscellaneous (Carbohydrates For Hypoglycemia ) 15 - 30 gm PO UD PRN PRN Reason: Hypoglycemia Protocol Stop: 01/13/22 17:36 Pantoprazole Sodium (Pantoprazole 40 Mg Tab) 40 mg PO QAM [facility] Stop: 01/14/22 08:59 Last Admin: 12/16/21 09:47 Dose: 40 mg Prednisone (Prednisone 20 Mg Tab) 40 mg PO DAILY [facility] Stop: 01/13/22 15:29 Last Admin: 12/16/21 09:47 Dose: 40 mg Simvastatin (Simvastatin 20 Mg Tab) 20 mg PO DAILY [facility] Stop: 01/14/22 08:59 Last Admin: 12/16/21 09:48 Dose: 20 mg Tamsulosin HCl (Tamsulosin Hcl 0.4 Mg Cap) 0.8 mg PO DAILY [facility] Stop: 01/14/22 08:59 Last Admin: 12/16/21 09:47 Dose: 0.8 mg (1) Pulmonary embolism Pulmonary embolism type: single subsegmental (without acute cor pulmonale) Qualified Code(s): I26.93 - Single subsegmental pulmonary embolism without acute cor pulmonale
[2021-12-16] MEDS: MINERAL OIL 30 ML UDC PO SCH (21:20)
[2021-12-17] MEDS: AZTREONAM 2,000 MG in DEXTROSE 5% 100 ML IV SCH ×3 (00:05→17:40)
[2021-12-17 04:57] LABS: Hematocrit (blood only) 37.3 % (40.1-51.0); Hemoglobin 12.5 g/dl (14.0-18.0); Mean Corpuscular Hemoglobin 31.9 pg (25.0-34.0); Mean Corpuscular Hgb Conc 33.5 g/dL (32.0-36.0); Mean Corpuscular Volume 95.2 fL (80.0-100.0); Mean Platelet Volume 9.8 fL (9.4-12.4); Platelet Count 268 K/uL (130-400); RDW Coefficient of Variation 13.7 % (11.5-14.5); Red Blood Count 3.92 M/uL (4.63-6.08); White Blood Count 12.26 K/ul (4.8-10.8)
[2021-12-17 05:18] LABS: Albumin Globulin Ratio 1.7 (0.9-2); BUN Creatinine Ratio 29.9 (10-20); Bilirubin,Total 0.6 mg/dl (0.2-1.0); Calcium 7.9 mg/dl (8.5-10.1); Creatinine Clr Calc Pharmacy 48.8 ml/min; Est GFR (African American) 93.2 ml/min; Est GFR (Non-African American) 80.5 ml/min; Globulin 1.8 gm/dl (2.5-4.0); Total Protein 4.8 gm/dl (6.0-8.3)
[2021-12-17 05:19] LABS: Magnesium 1.8 mg/dl (1.7-2.4); Phosphorus 2.2 mg/dl (2.5-4.9)
[2021-12-17] MEDS: FORMOTEROL 20 MCG/2 ML VIAL INH SCH ×2 (07:12→19:44)
[2021-12-17] MEDS: ALBUT/IPRATROP 3MG/0.5MG NEB 3 ML VIAL NEB SCH ×5 (07:12→19:53)
[2021-12-17] MEDS: INSULIN ASPART PER UNIT SC SCH ×4 (07:31→21:25)
[2021-12-17] MEDS ORDERED: SODIUM PHOSPHATE 3 MMOL/1 ML INFUSION IV STA (07:58)
[2021-12-17] MEDS: MIDODRINE HCL 2.5 MG TAB PO SCH (08:08)
[2021-12-17] MEDS: metroNIDAZOLE 500 MG/100 ML BAG IV SCH ×2 (08:08→17:04)
[2021-12-17] MEDS: predniSONE 20 MG TAB PO SCH (08:09)
[2021-12-17] MEDS: SIMVASTATIN 20 MG TAB PO SCH (08:09)
[2021-12-17] MEDS: EZETIMIBE 10 MG TABLET PO SCH (08:09)
[2021-12-17] MEDS: DOXYCYCLINE HYCLATE 100 MG CAP PO SCH ×2 (08:09→21:18)
--- NOTE | 2021-12-17 08:15 | Pulmonology Progress Note ---
Date of Service December 17, 2021 Assessment & Plan (1) Shock: (2) Hypoxia: (3) Pulmonary embolism: Pulmonary embolism type: single subsegmental (without acute cor pulmonale) Qualified Code(s): I26.93 - Single subsegmental pulmonary embolism without acute cor pulmonale (4) Hemoptysis: (5) COPD (chronic obstructive pulmonary disease): Plan 89-year-old male with a history of COPD and recurrent left lower lobe infiltrates presenting to the hospital due to hemoptysis and worsening shortness of breath. Last night he was found to have increasing hypertension and is currently on Levophed. Otherwise he remained stable. Neurologic: No issues. Minimize sedation. Pulmonary: History of COPD. Continue Brovana and duo nebs. --Small subsegmental PE on the right side Anticoagulation on hold for hemoptysis H&H stable -- Left lower lobe opacity with nodularity Could be pneumonia versus possibility of cancer Patient is reluctant to have any bronchoscopy procedures He will be high risk given the severe aortic stenosis as well as labile blood pressure Cardiovascular: Obtain echo. Trend troponins. Hold antiplatelet agents given hemoptysis. Gastrointestinal: Tolerating diet well. Renal: Monitor BUNs/creatinine Replace electrolytes Infectious disease: MRSA screen negative. Chest x-ray findings consistent with pneumonia. Continue with antibiotics Hematologic: Dilutional anemia. Hemoglobin stable. Holding antiplatelets and anticoagulants given hemoptysis. Endocrine: TSH within normal limit Cortisol was on the lower side but patient is on prednisone --DNR/DNI --Prophylaxis VTE: IPC's GI: Protonix Lines: Peripheral Diet: Cardiac Plan: In/out: Negative for 72, urine output 1976 On the chest x-ray patient has left-sided volume loss most likely from left lower lobe atelectasis. On the CT chest patient seem to have endobronchial secretions. He most likely has mucous plugging I did give the patient option of bronchoscopy but he would not like to have any invasive procedures given high risk with his severe aortic stenosis Add Mucomyst, chest PT, guaifenesin-DM [id number] Hypomagnesemia as well as hypophosphatemia being replaced We will try to start heparin drip with no bolus later today if the H&H is stable. Continue with antibiotics for possible aspiration pneumonia. Please note the above document was generated using voice recognition software. It may contain grammatical, syntax or spelling errors.Any formal questions or concerns about the content, text or information contained within the body of this dictation should be directly addressed to the provider for clarification. Admission and Anticipated Discharge Date Admission Date: December 14, 2021 Subjective Patient seen and examined at bedside. No acute distress, no adverse events overnight. Patient was on 3 L nasal cannula saturating 93-94%. He denied any chest pain. Complain of mild discomfort on the left shoulder. Shortness of breath is improved. He coughed up blood yesterday no hemoptysis since last night. Denies any headache, no nausea or vomiting. Review of Systems Review of Systems: All systems reviewed & are unremarkable except as noted in Subjective Physical Exam Physical Exam: Constitutional: No acute distress, frail-appearing HEENT: EOMI, PERRLA Respiratory system: Decreased air entry bilaterally, more decreased on the left side, no wheeze, no, positive crackles bilateral lower lobes CVS: S1-S2 positive, positive 3 out of 6 systolic murmur appreciated best at apex Abdomen: Soft, nontender, nondistended, positive bowel sounds x4 Extremities: +2 pulses bilaterally radialis/ dorsalis pedis, no cyanosis, no edema Neuro: Awake alert oriented x3 Psych: Normal mood and affect G/U: Positive Hawk Skin: no rashes, warm and dry Lymphatic: no cervical or axillary lymphadenopathy Results & Data Results & Data ([facility]) Vital Signs (Past 12 Hours) Vital Signs Temp Pulse Pulse Resp BP Pulse Ox O2 Del Method 12/17/21 08:00 92 H 12/17/21 07:22 72 18 91 Nasal Cannula 12/17/21 06:00 75 20 85/50 L 93 Nasal Cannula 12/17/21 05:00 72 22 89/50 L 91 Nasal Cannula 12/17/21 04:00 36.8 C 67 18 81/48 L 93 Nasal Cannula 12/17/21 03:00 71 23 82/49 L 94 Nasal Cannula 12/17/21 02:00 74 17 82/46 L 95 Nasal Cannula 12/17/21 01:00 71 14 85/54 L 94 Nasal Cannula 12/17/21 00:00 67 17 81/47 L 94 Nasal Cannula 12/16/21 23:00 75 18 80/48 L 94 Nasal Cannula 12/16/21 22:00 81 19 91/49 L 92 Nasal Cannula 12/16/21 21:00 71 18 87/51 L 93 Nasal Cannula O2 Flow Rate 12/17/21 08:00 12/17/21 07:22 4 12/17/21 06:00 2 12/17/21 05:00 2 12/17/21 04:00 2 12/17/21 03:00 3 12/17/21 02:00 3 12/17/21 01:00 3 12/17/21 00:00 3 12/16/21 23:00 3 12/16/21 22:00 3 12/16/21 21:00 3 Laboratory Results 12/17/21 04:38 12/17/21 04:38 PG Care Time/CCT Total # of Minutes Spent Total Time Spent with Patient: Total time spent is greater than 50% in coordination of care (as documented) at patient's floor/unit and/or counseling patient: Coding Level of Care Code 45894 Subseq Hosp Care Lvl 3 Diagnoses Shock R57.9 Hypoxia R09.02 Pulmonary embolism I26.93 Pulmonary embolism type: single subsegmental (without acute cor pulmonale) Hemoptysis R04.2 COPD (chronic obstructive pulmonary disease) J44.9
[2021-12-17] MEDS ORDERED: SODIUM PHOSPHATE 15 MMOL in SODIUM CHLORIDE 0.9% 250 ML IV ONE (08:30)
[2021-12-17] MEDS: PANTOprazole 40 MG TAB PO SCH (08:41)
[2021-12-17] MEDS: ACETAMINOPHEN 325 MG TAB PO PRN (08:49)
[2021-12-17] MEDS: MAGNESIUM SULFATE / D5W 1 GM/100 ML BAG IV SCH ×2 (08:49→11:13)
[2021-12-17] MEDS: NOREPINEPHRINE/D5W 4 MG/250 ML PLCT IV SCH (09:03)
--- NOTE | 2021-12-17 09:04 | XRay Report ---
XR chest 1V portable CLINICAL HISTORY: Pulmonary embolus and hemoptysis TECHNIQUE: Single frontal radiograph of the chest was obtained. Comparison: Comparison is made to chest radiograph 12/16/2021 and CTA chest 12/14/2021 FINDINGS: No lines and tubes are seen. There is increased leftward mediastinal shift. The cardiac mediastinal b orders are obscured. Interval worsening of left airspace opacities with interval development of a pro minent left retrocardiac opacity. Right airspace opacities appear improved. Previously noted right up per lobe nodular opacity is not well seen on today's exam. No evidence of pleural effusion or pneumot horax. IMPRESSION: Worsening left-sided airspace opacities likely representing a component of atelectasis with superimpo sed pneumonia. Right lower lung pneumonia has improved. ACT 112: Negative or not required by law. Electronically signed by: Ayad Raines M.D. 12/17/2021 9:02 AM
[2021-12-17] MEDS: ACETYLCYSTEINE 20% INHAL SOLN 4ML ***DISPENSED BY RESP. INH SCH ×2 (09:09→19:53)
[2021-12-17] MEDS: guaiFENesin/DEXTROM SYRUP 200MG/20MG 10ML UDC PO SCH ×3 (09:40→18:40)
[2021-12-17 12:06] LABS: A calco-baum cmplx NotReported Not Detected (NotDetected); Bact fragilis Not Reported Not Detected (NotDetected); C auris Not Reported Not Detected (NotDetected); Calbicans Not Reported Not Detected (NotDetected); Candida glabrata Not Reported Not Detected (NotDetected); Candida krusei Not Reported Not Detected (NotDetected); Cneoformans/gatti Not Reported Not Detected (NotDetected); Cparapsilosis Not Reported Not Detected (NotDetected); Ctropicalis Not Reported Not Detected (NotDetected); E cloacae compx Not Reported Not Detected (NotDetected); Efaecalis Not Reported Not Detected (NotDetected); Efaecium Not Reported Not Detected (NotDetected); Enterobacterales Not Reported Not Detected (NotDetected); Escherichia coli Not Reported Not Detected (NotDetected); H influenzae Not Reported Not Detected (NotDetected); K aerogenes Not Reported Not Detected (NotDetected); Koxytoca Not Reported Not Detected (NotDetected); Kpneumoniae grp Not Reported Not Detected (NotDetected); Lmonocyt Not Reported Not Detected (NotDetected); N meningitidis Not Reported Not Detected (NotDetected); P aeruginosa Not Reported Not Detected (NotDetected); Proteus spp Not Reported Not Detected (NotDetected); Salmonella spp Not Reported Not Detected (NotDetected); Smarcescens Not Reported Not Detected (NotDetected); Staph lugdunensis Not Reported Not Detected (NotDetected); Staph spp. Not Reported Not Detected (NotDetected); Staphaureus Not Reported Not Detected (NotDetected); Staphepi Not Reported Not Detected (NotDetected); Stenmaltophilia Not Reported Not Detected (NotDetected); Strep agal(GrpB) Not Reported Not Detected (NotDetected); Strep pneum Not Reported Not Detected (NotDetected); Strep pyog (GrpA) Not Reported Not Detected (NotDetected); Strep spp Not Reported Not Detected (NotDetected)
[2021-12-17 13:51] LABS: Chol HDL Ratio 2.7 (0-5)
--- NOTE | 2021-12-17 15:03 | Palliative Care Consultation ---
Date of Consultation December 17, 2021 Assessment & Plan (1) Dyspnea: Improving. Denies currently. (2) Palliative care encounter: I talked with Mr. Bryson with his daughter, Mimi, and his grandson at bedside. He has good understanding of his illness and is hopeful that noninvasive man agement will help with mucous impaction. He is currently not on anticoagulation due to hemoptysis. Hemoglobin is stable. We discussed concern of sedative procedure with is hypotension and aortic stenosis. His greatest priority is being able to return home. He is hopeful that he would be able to be at home with family help and caregiver support. 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 He tells me that he is 89 and knows that he is going to at some point. He has strong sherly and is certain that he will go to [facility] at his dying time. He is not afraid of dying but would like to have more time with is family if possible. He would want treatment for conditions if it could prolong his life and allow him to be independent. He is quite clear that he does not want intubation or ventilator support. "I do not want to be a vegetable." We talked about CPR and he told me that "they are required to do that". I explained that it was his decision whether or not he had CPR. He feels that he would want chest compressions and defibrillation "to bring me back". I asked him what that meant and he said, "like I am now". I explained that it is extremely unlikely that CPR would be successful to the point of returning to his current level of function. He felt that he would s till want to try. We talked about who would make decisions for him if he were unable to do so. He indicates that he would want all three of his children to be involved but that his son, Rustam, has POA. He tells me that he has talked with Rustam and that he would know what decisions to make if needed. Code status changed to reflect discussion. History of Present Illness Reason for Consultation: goals of care Requesting Physician: Dr. Sage Attending Physician: Tru Tejeda MD History of Present Illness 89 yo gentleman with history of COPD, aortic stenosis, hemochromatosis who presented with shortness of breath and hemoptysis. He notes that he had been having difficulty with ADLs at home. He had pneumonia in September of 2020 and was found to have mucoid impaction at that time. He is followed by pulmonology but has been reluctant to have bronchoscopy and would be a poor candidate with critical aortic stenosis and hypotension. He is currently in the ICU due to hypotension and had been on levophed which is now stopped. He is currently taking midrodrine. Echo shows normal EF at 60-65% and critical aortic stenosis with calculated aortic valve area of 0.4 cm2. He was treated for pneumonia as an outpatient about three weeks ago per his daughter. On admission, CTA showed acute subsegmental PE in RLL, mucoid impaction and multifocal pneumonia. He te lls me that he is feeling much better today. He denies pain or shortness of breath. He continues to have some hemoptysis. Allergies Allergy/AdvReac Type Severity Reaction Status Date / Time Penicillins Allergy Verified 11/21/21 11:14 Sulfa (Sulfonamide Allergy Verified 11/21/21 11:14 Antibiotics) Home Medications Medication Instructions Recorded Confirmed Type acetaminophen 325 mg capsule 325 mg PO QID PRN Pain 11/27/20 12/14/21 History alendronate 70 mg tablet (Fosamax) 70 mg PO WK 11/27/20 12/14/21 History aspirin 81 mg tablet,delayed 81 mg PO DAILY 11/27/20 12/14/21 History release (Adult Low Dose Aspirin) ezetimibe 10 mg tablet (Zetia) 10 mg PO DAILY 11/27/20 12/14/21 History omeprazole 20 mg capsule,delayed 20 mg PO DAILY 11/27/20 12/14/21 History release simvastatin 20 mg tablet 20 mg PO DAILY 11/27/20 12/14/21 History tamsulosin 0.4 mg capsule 0.8 mg PO DAILY 11/27/20 12/14/21 History tiotropium bromide 18 mcg capsule 1 cap inhalation DAILY 11/27/20 12/14/21 History with inhalation device (Spiriva with HandiHaler) mirtazapine 15 mg tablet 15 mg PO HS 12/14/21 12/14/21 History umeclidinium 62.5 mcg/actuation 1 inh inhalation DAILY 12/14/21 12/14/21 History blister powder for inhalation (Incruse Ellipta) Patient History Medical History Basal cell carcinoma Blood-streaked sputum 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 myelopathy COPD (chronic obstructive pulmonary disease) Disorder of bone and cartilage, unspecified GERD without esophagitis Hemoptysis Hyperlipemia Hypertension Lesion of nose Major depression, recurrent Multifocal pneumonia Nail dystrophy Osteoporosis Prediabetes Pulmonary embolism Shock Squamous cell carcinoma Surgical History H/O Mohs micrographic surgery for skin cancer Family History Mother Heart disease Brother Heart disease Social History Smoking Status: Former smoker Tobacco Type: Cigarettes packs per day: 1; Years Smoked: 20; Second Hand Exposure: No; Hx Alcohol Use: Yes Alcohol type: hard liquor Hx Substance Use: No Preferred Language: Serbian Communication Ability: Effective Electro Mechanical Technician Required: No Beliefs That Will Affect Care: None Current Living Situation: Alone Feels Safe at Home: Yes Assistive Devices: Glasses and Hearing Aid - Bilateral Review of Systems Review of Systems: ESAS Pain 0/3 Dyspnea 1/3 Fatigue 2/3 Nausea 0/3 Drowsiness 0/3 PPS 40% Physical Exam Constitutional: no acute distress ENMT: Ears: + hearing impairment Respiratory: normal respiratory effort; no labored breathing Cardiovascular: Rate/Rhythm: regular rate and regular rhythm Gastrointestinal (Abdomen): nondistended Musculoskeletal: Extremities: + muscle atrophy Neurologic: Speech / Cognition: normal cognition Results & Data ([facility]) Vital Signs (Past 12 Hours) Vital Signs Temp Pulse Pulse Resp BP Pulse Ox O2 Del Method 12/17/21 14:00 95 H 26 H 92 12/17/21 14:00 101/60 12/17/21 13:21 92 H 20 94 12/17/21 13:21 99/63 L 12/17/21 13:17 95/49 L 12/17/21 13:17 105 H 24 84 L 12/17/21 13:10 87/48 L 12/17/21 13:10 92 H 24 92 12/17/21 13:00 86 24 12/17/21 12:00 100 H 20 92 12/17/21 12:00 84/46 L 12/17/21 13:40 92 12/17/21 12:00 98.1 F 12/17/21 11:00 113 H 17 85 L 12/17/21 11:00 116/66 12/17/21 10:36 107/62 12/17/21 10:36 100 H 28 H 87 L 12/17/21 10:24 105/68 12/17/21 10:24 103 H 28 H 82 L 12/17/21 10:17 92/61 L 12/17/21 10:17 93 H 15 90 12/17/21 10:00 92 H 20 90 12/17/21 10:00 90/54 L 12/17/21 09:48 Nasal Cannula 12/17/21 09:00 102 H 31 H 89 L 12/17/21 09:00 101/59 L 12/17/21 08:00 91 H 19 88 L 12/17/21 08:00 102/56 L 12/17/21 07:37 83 18 94 12/17/21 07:37 90/55 L 12/17/21 07:00 71 17 90 12/17/21 07:00 87/52 L 12/17/21 06:00 85/50 L 12/17/21 09:10 89 18 89 L Nasal Cannula 12/17/21 08:00 98.0 F 12/17/21 08:00 92 H 12/17/21 07:22 72 18 91 Nasal Cannula 12/17/21 06:00 75 20 85/50 L 93 Nasal Cannula 12/17/21 05:00 72 22 89/50 L 91 Nasal Cannula 12/17/21 04:00 98.2 F 67 18 81/48 L 93 Nasal Cannula O2 Flow Rate 12/17/21 14:00 12/17/21 14:00 12/17/21 13:21 12/17/21 13:21 12/17/21 13:17 12/17/21 13:17 12/17/21 13:10 12/17/21 13:10 12/17/21 13:00 12/17/21 12:00 12/17/21 12:00 12/17/21 13:40 12/17/21 12:00 12/17/21 11:00 12/17/21 11:00 12/17/21 10:36 12/17/21 10:36 12/17/21 10:24 12/17/21 10:24 12/17/21 10:17 12/17/21 10:17 12/17/21 10:00 12/17/21 10:00 12/17/21 09:48 2 12/17/21 09:00 12/17/21 09:00 12/17/21 08:00 12/17/21 08:00 12/17/21 07:37 12/17/21 07:37 12/17/21 07:00 12/17/21 07:00 12/17/21 06:00 12/17/21 09:10 4 12/17/21 08:00 12/17/21 08:00 12/17/21 07:22 4 12/17/21 06:00 2 12/17/21 05:00 2 12/17/21 04:00 2 PG Care Time/CCT Total # of Minutes Spent Total Time Spent: 62 Total Time Spent with Patient: Total time spent is greater than 50% in coordination of care (as documented) at patient's floor/unit and/or counseling patient: goals of care, CPR, code status, surrogate decision maker. Coding Level of Care Code 11649 Initial Inpt Care Lvl 2 Diagnoses Dyspnea R06.00 Palliative care encounter Z51.5
--- NOTE | 2021-12-17 16:14 | Hospitalist Progress Note ---
Date of Service December 17, 2021 Assessment & Plan (1) Hemoptysis: (2) Pulmonary embolism: (3) Multifocal pneumonia: (4) Critical aortic valve stenosis: (5) Prediabetes: (6) Hypertension: (7) GERD without esophagitis: (8) COPD (chronic obstructive pulmonary disease): Plan Presented to ED on 12/14 with progressive hemoptysis and new onset hypoxia. CT imaging as below. Transferred to ICU on 12/15 due to persistent hypotension not improving with fluid challenge. Downgraded to PCU on 12/17. CTA chest 12/14 1. Likely acute subsegmental pulmonary embolus present within the right lower lobe. 2. Mucoid impaction with chronic mucous plugging, most pronounced in the left lower lobe has progressively worsened from the prior exam. 3. Multilobar distribution of ill-defined centrilobular opacities compatible with an infectious or inflammatory pneumonitis. 4. Nodular areas of consolidation within the lingula and left lower lobe suggestive of multifocal pneumonia. Follow-up chest CT after treatment course recommended to document resolution. 5. Small left pleural effusion. 6. 1.8 cm subpleural groundglass opacity of the right upper lobe again noted and is suspicious for an adenomatous lesion. Hemoptysis - resolved per patient. H and H stable. He declined bronchoscopy but now reconsidering it. Pulm on board. Acute subsegmental RLL PE without cor pulmonale - Anticoag was not started due to hemoptysis. Discussed with pulm who re commended starting anticoag cautiously. Will start heparin drip and monitor closely for any bleeding- if so, stop PNA - concern for aspiration. Continue empiric ABx. Leucocytosis improving. [employer] eval. - Repeat CXR today shows Worsening left-sided airspace opacities likely representing a component of atelectasis with superimposed pneumonia. Right lower lung pneumonia has improved. - continue chest PT, mucomyst, robitussin-DM Acute hypoxic respiratory failure - improving. continue supplemental oxygen, wean down as tolerated Critical AV stenosis - seen by cardio. Currently stable. COPD - on nebs, prednisone, antibiotics. No wheezing noted. Elevated trop - trend reviewed. cardio following. No CP. Hypotension - improved, blood clx negative. cortisol level normal. s/p IVF and levophed. now on midodrine- which is currently on hold. holding flomax and remeron per cardio. Prediabetes - SSI prn Hypophosphatemia - repleted, recheck in am GOC discussion - seen by palliative. DVT ppx- SCDs, heparin drip Dispo- Transfer to PCU tele. Conditional code- ok with CPR but DNI per palliative Updated daughter at bedside Admission and Anticipated Discharge Date Admission Date: December 14, 2021 Subjective Feels better today. States he does not have hemoptysis anymore, only mucus. Denies any CP, dizziness, SOB. No N/V. No fever or chills. Earlier he declined bronchoscopy but he is now thinking about it- he needs more time to decide. He would like to get stronger to get home. Daughter at bedside. Physical Exam Physical Exam: General: Sitting comfortably in chair, not in distress, on NC HEENT: EOMI, PERRL, MMM Chest: Fair breath sounds bilaterally, no wheezes or crackles CVS: Regular rate and rhythm, normal heart sounds, systolic murmur Abdomen: Soft, non tender, not distended, normal bowel sounds Neuro: Awake, alert, oriented, conversing well, non focal Extremities: No edema Hawk with clear urine Results & Data Results & Data ([facility]) Vital Signs (Past 12 Hours) Vital Signs Temp Pulse Pulse Resp BP Pulse Ox O2 Del Method 12/17/21 14:00 95 H 26 H 92 12/17/21 14:00 101/60 12/17/21 13:21 92 H 20 94 12/17/21 13:21 99/63 L 12/17/21 13:17 95/49 L 12/17/21 13:17 105 H 24 84 L 12/17/21 13:10 87/48 L 12/17/21 13:10 92 H 24 92 12/17/21 13:00 86 24 12/17/21 12:00 100 H 20 92 12/17/21 12:00 84/46 L 12/17/21 13:40 92 12/17/21 12:00 36.7 C 12/17/21 11:00 113 H 17 85 L 12/17/21 11:00 116/66 12/17/21 10:36 107/62 12/17/21 10:36 100 H 28 H 87 L 12/17/21 10:24 105/68 12/17/21 10:24 103 H 28 H 82 L 12/17/21 10:17 92/61 L 12/17/21 10:17 93 H 15 90 12/17/21 10:00 92 H 20 90 12/17/21 10:00 90/54 L 12/17/21 09:48 Nasal Cannula 12/17/21 09:00 102 H 31 H 89 L 12/17/21 09:00 101/59 L 12/17/21 08:00 91 H 19 88 L 12/17/21 08:00 102/56 L 12/17/21 07:37 83 18 94 12/17/21 07:37 90/55 L 12/17/21 07:00 71 17 90 12/17/21 07:00 87/52 L 12/17/21 06:00 85/50 L 12/17/21 09:10 89 18 89 L Nasal Cannula 12/17/21 08:00 36.7 C 12/17/21 08:00 92 H 12/17/21 07:22 72 18 91 Nasal Cannula 12/17/21 06:00 75 20 85/50 L 93 Nasal Cannula 12/17/21 05:00 72 22 89/50 L 91 Nasal Cannula O2 Flow Rate 12/17/21 14:00 12/17/21 14:00 12/17/21 13:21 12/17/21 13:21 12/17/21 13:17 12/17/21 13:17 12/17/21 13:10 12/17/21 13:10 12/17/21 13:00 12/17/21 12:00 12/17/21 12:00 12/17/21 13:40 12/17/21 12:00 12/17/21 11:00 12/17/21 11:00 12/17/21 10:36 12/17/21 10:36 12/17/21 10:24 12/17/21 10:24 12/17/21 10:17 12/17/21 10:17 12/17/21 10:00 12/17/21 10:00 12/17/21 09:48 2 12/17/21 09:00 12/17/21 09:00 12/17/21 08:00 12/17/21 08:00 12/17/21 07:37 12/17/21 07:37 12/17/21 07:00 12/17/21 07:00 12/17/21 06:00 12/17/21 09:10 4 12/17/21 08:00 12/17/21 08:00 12/17/21 07:22 4 12/17/21 06:00 2 12/17/21 05:00 2 Laboratory Results Short CBC 12/17/21 Range/Units 04:38 WBC 12.26 H (4.8-10.8) K/ul Hgb 12.5 L (14.0-18.0) g/dl Hct 37.3 L (40.1-51.0) % Plt Count 268 (130-400) K/uL BMP 12/17/21 04:38 Sodium 136 Potassium 4.0 Chloride 105 Carbon Dioxide 26 BUN 23 Creatinine 0.77 Glucose 87 Calcium 7.9 L Liver Function 12/17/21 Range/Units 04:38 Total Bilirubin 0.6 (0.2-1.0) mg/dl AST 13 (13-39) U/L ALT 16 (7-52) U/L Alkaline Phosphatase 44 (34-104) U/L Albumin 3.0 L (3.4-5.0) gm/dl Medications Administered Current Inpatient Medications Acetaminophen (Acetaminophen 325 Mg Tab) 650 mg PO Q4H PRN PRN Reason: Pain or Fever Stop: 01/13/22 17:36 Last Admin: 12/17/21 08:49 Dose: 650 mg Acetylcysteine (Acetylcysteine 20% Inhal Soln 4ml Dispensed By Resp.) 5 ml INH BIDR LEANNE Stop: 01/16/22 08:14 Last Admin: 12/17/21 09:09 Dose: 5 ml Albuterol (Albut/Ipratrop 3mg/0.5mg Neb 3 Ml Vial) 3 ml NEB QIDR LEANNE; Protocol Stop: 01/13/22 18:59 Last Admin: 12/17/21 15:58 Dose: Not Given Dextrose (Dextrose 50% 50 Ml Syringe) 25 - 50 ml IV UD PRN; Protocol PRN Reason: Hypoglycemia Protocol Stop: 01/13/22 17:36 Doxycycline Hyclate (Doxycycline Hyclate 100 Mg Cap) 100 mg PO BID LEANNE Stop: 12/19/21 09:01 Last Admin: 12/17/21 08:09 Dose: 100 mg Ezetimibe (Ezetimibe 10 Mg Tablet) 10 mg PO DAILY LEANNE Stop: 01/14/22 08:59 Last Admin: 12/17/21 08:09 Dose: 10 mg Formoterol Fumarate (Formoterol 20 Mcg/2 Ml Vial) 20 mcg INH BIDR LEANNE Stop: 01/13/22 18:59 Last Admin: 12/17/21 07:12 Dose: 20 mcg Glucagon (Glucagon For Inj 1 Mg Vial) 1 mg SQ UD PRN; Protocol PRN Reason: Hypoglycemia Protocol Stop: 01/13/22 17:36 Glucose (Glucose 40% Gel 15 Gm Tube) 15 - 30 gm PO UD PRN; Protocol PRN Reason: Hypoglycemia Protocol Stop: 01/13/22 17:36 Glucose (Glucose 10 Tab/Tube) 4 - 8 tab PO UD PRN; Protocol PRN Reason: Hypoglycemia Treatment Stop: 01/13/22 17:36 Guaifenesin/Dextromethorphan (Guaifenesin/Dextrom Syrup 200mg/20mg 10ml Udc) 10 ml PO Q6 LEANNE Stop: 01/16/22 08:29 Last Admin: 12/17/21 13:47 Dose: 10 ml Aztreonam 2,000 mg/ Dextrose 110 mls @ 100 mls/hr IV Q8H LEANNE; Protocol Stop: 12/19/21 16:59 Last Infusion: 12/17/21 09:17 Dose: Infused Metronidazole (Flagyl) 500 mg in 100 mls @ 100 mls/hr IV Q8H LEANNE; Protocol Stop: 12/19/21 15:59 Last Infusion: 12/17/21 09:08 Dose: Infused Insulin Aspart (Insulin Aspart Per Unit) 0 units SC ACHS LEANNE Stop: 01/13/22 17:36 Last Admin: 12/17/21 11:31 Dose: 3 units Midodrine (Midodrine Hcl 2.5 Mg Tab) 5 mg PO BID@0800,1700 [facility] Stop: 01/16/22 16:59 Mineral Oil (Mineral Oil 30 Ml Udc) 30 ml PO HS LEANNE Stop: 01/13/22 20:59 Last Admin: 12/16/21 21:20 Dose: 30 ml Mirtazapine (Mirtazapine Tab 15 Mg Tab) 15 mg PO HS LEANNE Stop: 01/13/22 20:59 Last Admin: 12/15/21 20:05 Dose: 15 mg Miscellaneous (Carbohydrates For Hypoglycemia ) 15 - 30 gm PO UD PRN PRN Reason: Hypoglycemia Protocol Stop: 01/13/22 17:36 Pantoprazole Sodium (Pantoprazole 40 Mg Tab) 40 mg PO QAM [facility] Stop: 01/14/22 08:59 Last Admin: 12/17/21 08:41 Dose: 40 mg Prednisone (Prednisone 20 Mg Tab) 40 mg PO DAILY LEANNE Stop: 01/13/22 15:29 Last Admin: 12/17/21 08:09 Dose: 40 mg Simvastatin (Simvastatin 20 Mg Tab) 20 mg PO DAILY LEANNE Stop: 01/14/22 08:59 Last Admin: 12/17/21 08:09 Dose: 20 mg Tamsulosin HCl (Tamsulosin Hcl 0.4 Mg Cap) 0.8 mg PO DAILY [facility] Stop: 01/14/22 08:59 Last Admin: 12/16/21 09:47 Dose: 0.8 mg (1) Pulmonary embolism Pulmonary embolism type: single subsegmental (without acute cor pulmonale) Qualified Code(s): I26.93 - Single subsegmental pulmonary embolism without acute cor pulmonale
[2021-12-17] MEDS ORDERED: MIDODRINE HCL 2.5 MG TAB PO SCH (17:00)
--- NOTE | 2021-12-17 17:07 | Cardiology Progress Note ---
Date of Service December 17, 2021 Assessment & Plan (1) Critical aortic valve stenosis: (2) Multifocal pneumonia: (3) Pulmonary embolism: (4) Hemoptysis: Plan Patient is an 89-year-old male with with critical aortic valve stenosis admitted with pneumonia, hemoptysis, pulmonary embolism. Current course notable for hypertension transiently treated with Levophed. No acute complaints other than hypoxia and shortness of breath. Denies chest pains or discomfort. Echocardiogram demonstrates preserved overall systolic function Underlying pulmonary issues being addressed Impression: Critical aortic stenosis complicating management of acute pulmonary issues. Patient with marginal reserve but preserved ejection fraction, no renal impairment as of yet. Expect blood pressures to be low would not expect significant improvement with vasopressors. Significant clinical improvement since admission no medication changes at this time would continue to follow clinical response to treatment bronchoscopy would be a high risk procedure due to underlying , would hold off for now Admission and Anticipated Discharge Date Admission Date: December 14, 2021 Subjective Patient seen examined. Chart reviewed. Telemetry reviewed. His grandson who is a nurse branch general manager is present at the bedside. Patient states he is feeling much better from presentation. Has not had any more significant hemoptysis other than slight after receiving 1st Mucomyst treatments. Review of Systems Review of Systems: All systems reviewed & are unremarkable except as noted in HPI & below Physical Exam Physical Exam: General: Awake, alert and oriented x 3. No acute distress. HEENT: Normocephalic, atraumatic. Pupils equal, round and reactive to light and accommodation. Extraocular muscles are intact. Anicteric sclera. Moist mucous membranes. Neck: No JVD. No bruit. Cardiovascular: Regular. Positive S-4. Normal S-1 and S-2. No S-3. 3/6 mid to late systolic ejection murmur, greatest at the right sternal border, second intercostal space with radiation to the bilateral carotids. No rubs. Pulmonary: Clear to auscultation bilaterally. No rales, rhonchi, or wheezing. Abdomen: Bowel sounds x 4, soft. No rebound, guarding or tenderness. No organomegaly. Extremities: No clubbing, cyanosis or edema. +2 pedal pulses bilaterally. Skin: Warm and dry. Results & Data ([facility]) Vital Signs (Past 12 Hours) Vital Signs Temp Pulse Pulse Resp BP Pulse Ox O2 Del Method 12/17/21 14:00 95 H 26 H 92 12/17/21 14:00 101/60 12/17/21 13:21 92 H 20 94 12/17/21 13:21 99/63 L 12/17/21 13:17 95/49 L 12/17/21 13:17 105 H 24 84 L 12/17/21 13:10 87/48 L 12/17/21 13:10 92 H 24 92 12/17/21 13:00 86 24 12/17/21 12:00 100 H 20 92 12/17/21 12:00 84/46 L 12/17/21 13:40 92 12/17/21 12:00 36.7 C 12/17/21 11:00 113 H 17 85 L 12/17/21 11:00 116/66 12/17/21 10:36 107/62 12/17/21 10:36 100 H 28 H 87 L 12/17/21 10:24 105/68 12/17/21 10:24 103 H 28 H 82 L 12/17/21 10:17 92/61 L 12/17/21 10:17 93 H 15 90 12/17/21 10:00 92 H 20 90 12/17/21 10:00 90/54 L 12/17/21 09:48 Nasal Cannula 12/17/21 09:00 102 H 31 H 89 L 12/17/21 09:00 101/59 L 12/17/21 08:00 91 H 19 88 L 12/17/21 08:00 102/56 L 12/17/21 07:37 83 18 94 12/17/21 07:37 90/55 L 12/17/21 07:00 71 17 90 12/17/21 07:00 87/52 L 12/17/21 06:00 85/50 L 12/17/21 09:10 89 18 89 L Nasal Cannula 12/17/21 08:00 36.7 C 12/17/21 08:00 92 H 12/17/21 07:22 72 18 91 Nasal Cannula 12/17/21 06:00 75 20 85/50 L 93 Nasal Cannula O2 Flow Rate 12/17/21 14:00 12/17/21 14:00 12/17/21 13:21 12/17/21 13:21 12/17/21 13:17 12/17/21 13:17 12/17/21 13:10 12/17/21 13:10 12/17/21 13:00 12/17/21 12:00 12/17/21 12:00 12/17/21 13:40 12/17/21 12:00 12/17/21 11:00 12/17/21 11:00 12/17/21 10:36 12/17/21 10:36 12/17/21 10:24 12/17/21 10:24 12/17/21 10:17 12/17/21 10:17 12/17/21 10:00 12/17/21 10:00 12/17/21 09:48 2 12/17/21 09:00 12/17/21 09:00 12/17/21 08:00 12/17/21 08:00 12/17/21 07:37 12/17/21 07:37 12/17/21 07:00 12/17/21 07:00 12/17/21 06:00 12/17/21 09:10 4 12/17/21 08:00 12/17/21 08:00 12/17/21 07:22 4 12/17/21 06:00 2 (1) Pulmonary embolism Pulmonary embolism type: single subsegmental (without acute cor pulmonale) Qualified Code(s): I26.93 - Single subsegmental pulmonary embolism without acute cor pulmonale
[2021-12-17] MEDS: Heparin IV Adult Wt-Based Low-Dose *NO* Bolus Protocol IV SCH ×5 (18:54→20:28)
[2021-12-17 19:51] LABS: Hematocrit (blood only) 42.2 % (40.1-51.0); Hemoglobin 13.7 g/dl (14.0-18.0); Mean Corpuscular Hemoglobin 31.4 pg (25.0-34.0); Mean Corpuscular Hgb Conc 32.5 g/dL (32.0-36.0); Mean Corpuscular Volume 96.8 fL (80.0-100.0); Mean Platelet Volume 9.9 fL (9.4-12.4); Platelet Count 318 K/uL (130-400); RDW Coefficient of Variation 13.6 % (11.5-14.5); RDW Standard Deviation 48.5 fL (36.4-46.3); Red Blood Count 4.36 M/uL (4.63-6.08); White Blood Count 13.16 K/ul (4.8-10.8)
[2021-12-17 20:04] LABS: INR 1.1 (0.9-1.1); Partial Thromboplastin Ratio 1.1; Partial Thromboplastin Time 31.3 Seconds (21.0-31.0); Prothrombin Time 11.6 Seconds (9.0-12.0)
[2021-12-17 20:23] LABS: Basophils # (auto) 0.01 K/uL (0-0.2); Basophils % (auto) 0.1 %; Immature Granulocytes # (auto) 0.07 K/uL (0.00-0.02); Immature Granulocytes % (auto) 0.5 %; Lymphocytes # (auto) 0.66 K/uL (1.2-3.4); Monocytes # (auto) 0.46 K/uL (0.24-0.82); Monocytes % (auto) 3.5 %; Neutrophils # (auto) 11.96 K/uL (1.4-6.5); Neutrophils % (auto) 90.9 %
[2021-12-17] MEDS: MINERAL OIL 30 ML UDC PO SCH (21:15)
[2021-12-17] MEDS: HEPARIN SODIUM/DEXTROSE 25,000 UNITS/500 ML BAG IV SCH (21:18)
[2021-12-18] MEDS: metroNIDAZOLE 500 MG/100 ML BAG IV SCH ×4 (00:04→23:35)
[2021-12-18] MEDS: guaiFENesin/DEXTROM SYRUP 200MG/20MG 10ML UDC PO SCH ×5 (00:04→23:35)
[2021-12-18] MEDS: AZTREONAM 2,000 MG in DEXTROSE 5% 100 ML IV SCH ×3 (00:06→17:43)
[2021-12-18 04:20] LABS: Hematocrit (blood only) 35.8 % (40.1-51.0); Mean Corpuscular Hemoglobin 31.8 pg (25.0-34.0); Mean Corpuscular Hgb Conc 33.5 g/dL (32.0-36.0); Mean Platelet Volume 9.7 fL (9.4-12.4); Platelet Count 267 K/uL (130-400); RDW Coefficient of Variation 13.5 % (11.5-14.5); RDW Standard Deviation 46.7 fL (36.4-46.3); Red Blood Count 3.77 M/uL (4.63-6.08); White Blood Count 11.28 K/ul (4.8-10.8)
[2021-12-18 04:47] LABS: Calcium 7.7 mg/dl (8.5-10.1); Creatinine Clr Calc Pharmacy 55.8 ml/min; Est GFR (Non-African American) 83.7 ml/min; Magnesium 1.9 mg/dl (1.7-2.4); Phosphorus 2.3 mg/dl (2.5-4.9)
[2021-12-18 04:49] LABS: Partial Thromboplastin Ratio 1.8
[2021-12-18 04:54] LABS: Partial Thromboplastin Time 48.6 Seconds (21.0-31.0)
[2021-12-18] MEDS: FORMOTEROL 20 MCG/2 ML VIAL INH SCH ×2 (07:03→19:32)
[2021-12-18] MEDS: ACETYLCYSTEINE 20% INHAL SOLN 4ML ***DISPENSED BY RESP. INH SCH ×2 (07:03→19:32)
[2021-12-18] MEDS: ALBUT/IPRATROP 3MG/0.5MG NEB 3 ML VIAL NEB SCH ×4 (07:04→19:32)
[2021-12-18] MEDS: INSULIN ASPART PER UNIT SC SCH ×4 (07:32→20:53)
[2021-12-18] MEDS: predniSONE 20 MG TAB PO SCH (08:13)
[2021-12-18] MEDS: PANTOprazole 40 MG TAB PO SCH (08:13)
[2021-12-18] MEDS: DOXYCYCLINE HYCLATE 100 MG CAP PO SCH ×2 (08:14→20:52)
[2021-12-18] MEDS: SIMVASTATIN 20 MG TAB PO SCH (08:14)
[2021-12-18] MEDS: EZETIMIBE 10 MG TABLET PO SCH (08:14)
--- NOTE | 2021-12-18 08:24 | Pulmonology Progress Note ---
Date of Service December 18, 2021 Assessment & Plan (1) Hypoxia: (2) Pulmonary embolism: Pulmonary embolism type: single subsegmental (without acute cor pulmonale) Qualified Code(s): I26.93 - Single subsegmental pulmonary embolism without acute cor pulmonale (3) Hemoptysis: (4) COPD (chronic obstructive pulmonary disease): Plan --Small subsegmental PE on the right side H&H stable Hemoptysis decreasing in amount On heparin drip -- Left lower lobe opacity with nodularity Possibilities include pneumonia as well as cancer given the significant smoking history He will be high risk given the severe aortic stenosis as well as labile blood pr essure Patient to follow-up with outpatient temporary help agency referral clerk to discuss further follow-up on the pulmonary nodule and the opacities He will need a repeat CAT scan to be done in approximately 4-6 weeks -- Left lower lobe collapse Likely secondary to mucous plugging Patient does not want bronchoscopy Continue with chest vest therapy along with Mucomyst --DNR/DNI Plan: Chest x-ray from today shows improvement in the left lower lobe atelectasis Mediastinal shift is resolved H&H is stable. Continue heparin drip with no bolus for 12-24 hours and if there is no worsening in the hemoptysis can be transitioned to apixaban Continue with chest PT along with Mucomyst nebulized No further recommendation from pulmonary perspective. We will sign off Please call directly with any questions Case discussed with Dr Tejeda Please note the above document was generated using voice recognition software. It may contain grammatical, syntax or spelling errors.Any formal questions or concerns about the content, text or information contained within the body of this dictation should be directly addressed to the provider for clarification. Admission and Anticipated Discharge Date Admission Date: December 14, 2021 Subjective Patient seen and examined at bedside. No acute distress, no adverse events overnight. Has been using chest vest therapy and has been coughing up phlegm. Minimal hemoptysis still present Denies any chest pain, no shortness of breath, no headache Fair appetite. No nausea or vomiting Patient on heparin drip. Review of Systems Review of Systems: All systems reviewed & are unremarkable except as noted in Subjective Physical Exam Physical Exam: Constitutional: No acute distress, frail-appearing HEENT: EOMI, PERRLA Respiratory system: Decreased air entry bilaterally, no wheeze, no, positive crackles bilateral lower lobes CVS: S1-S2 positive, positive 3 out of 6 systolic murmur appreciated best at apex Abdomen: Soft, nontender, nondistended, positive bowel sounds x4 Extremities: +2 pulses bilaterally radialis/ dorsalis pedis, no cyanosis, no edema Neuro: Awake alert oriented x3 Psych: Normal mood and affect G/U: Positive Hawk Skin: no rashes, warm and dry Lymphatic: no cervical or axillary lymphadenopathy Results & Data Results & Data ([facility]) Vital Signs (Past 12 Hours) Vital Signs Temp Pulse Pulse Resp BP BP Pulse Ox 12/18/21 07:00 64 20 98 12/18/21 07:30 36.8 C 12/18/21 07:11 73 12/18/21 07:04 75 18 98 12/18/21 06:00 66 16 97 12/18/21 05:00 69 17 98 12/18/21 04:00 69 16 102/58 L 98 12/18/21 03:00 70 16 98 12/18/21 02:00 72 16 99 12/18/21 01:00 75 19 99 12/18/21 00:00 71 15 109/57 L 97 12/18/21 00:00 88 20 109/57 L 95 12/18/21 01:15 36.5 C 12/17/21 23:00 74 20 97 12/17/21 22:00 73 20 98 12/17/21 21:00 80 24 95 12/17/21 20:46 88 15 121/69 12/17/21 23:52 69 O2 Del Method O2 Flow Rate 12/18/21 07:00 12/18/21 07:30 12/18/21 07:11 12/18/21 07:04 Nasal Cannula 2.5 12/18/21 06:00 12/18/21 05:00 12/18/21 04:00 12/18/21 03:00 12/18/21 02:00 12/18/21 01:00 12/18/21 00:00 12/18/21 00:00 Nasal Cannula 3 12/18/21 01:15 12/17/21 23:00 12/17/21 22:00 12/17/21 21:00 12/17/21 20:46 12/17/21 23:52 Laboratory Results 12/18/21 03:54 12/18/21 03:54 PG Care Time/CCT Total # of Minutes Spent Total Time Spent with Patient: Total time spent is greater than 50% in coordination of care (as documented) at patient's floor/unit and/or counseling patient: Coding Level of Care Code 44524 Subseq Hosp Care Lvl 2 Diagnoses Hypoxia R09.02 Pulmonary embolism I26.93 Pulmonary embolism type: single subsegmental (without acute cor pulmonale) Hemoptysis R04.2 COPD (chronic obstructive pulmonary disease) J44.9
[2021-12-18] MEDS: POT PHOSPHATE MONOBASIC W/ SOD TAB PO SCH ×4 (08:47→20:53)
--- NOTE | 2021-12-18 09:13 | XRay Report ---
XR chest 1V portable HISTORY: Pulmonary embolus and hemoptysis with bilateral airspace opacities and shortness of breath. Follow-up. COMPARISON: Chest 12/17/2021. FINDINGS: No pneumothorax. The heart is normal in size. The left lung airspace opacities have slightl y improved. Mild pulmonary vascular congestion persists. There is mild emphysema. Small left pleural effusion, unchanged. Mild interstitial thickening again noted at the right lung base small patchy air space opacities within the right mid to lower lung zone are again noted. IMPRESSION: 1. Interval improvement in the left lung airspace opacities. 2. Small left pleural effusion persists. 3. Right lung airspace opacities are again noted. ACT 112: Negative or not required by law. Electronically signed by: Ilir Sood M.D. 12/18/2021 9:10 AM
--- NOTE | 2021-12-18 09:52 | Cardiology Progress Note ---
Date of Service December 18, 2021 Assessment & Plan (1) Critical aortic valve stenosis: (2) Multifocal pneumonia: (3) Pulmonary embolism: (4) Hemoptysis: Plan Patient is an 89-year-old male with with critical aortic valve stenosis admitted with pneumonia, hemoptysis, pulmonary embolism. Current course notable for hypertension transiently treated with Levophed. No acute complaints other than hypoxia and shortness of breath. Denies chest pains or discomfort. Echocardiogram demonstrates preserved overall systolic function Underlying pulmonary issues being addressed Impression: Critical aortic stenosis complicating management of acute pulmonary issues. Patient with marginal reserve but preserved ejection fraction, no renal impairment as of yet. clinically improved cxr improved as well no further cardiac testing or intervention at this time will discuss TAVR as an outpatient bronchoscopy no longer necessary Admission and Anticipated Discharge Date Admission Date: December 14, 2021 Subjective Patient seen examined. Chart reviewed. Telemetry reviewed. States that he's feeling well today. Breathing continues to improve as does his strength. Review of Systems Review of Systems: All systems reviewed & are unremarkable except as noted in HPI & below Physical Exam Physical Exam: General: Awake, alert and oriented x 3. No acute distress. HEENT: Normocephalic, atraumatic. Pupils equal, round and reactive to light and accommodation. Extraocular muscles are intact. Anicteric sclera. Moist mucous membranes. Neck: No JVD. No bruit. Cardiovascular: Regular. Positive S-4. Normal S-1 and S-2. No S-3. 3/6 mid to late systolic ejection murmur, greatest at the right sternal border, second intercostal space with radiation to the bilateral carotids. No rubs. Pulmonary: Clear to auscultation bilaterally. No rales, rhonchi, or wheezing. Abdomen: Bowel sounds x 4, soft. No rebound, guarding or tenderness. No organomegaly. Extremities: No clubbing, cyanosis or edema. +2 pedal pulses bilaterally. Skin: Warm and dry. Results & Data ([facility]) Vital Signs (Past 12 Hours) Vital Signs Temp Pulse Pulse Resp BP BP Pulse Ox 12/18/21 07:00 64 20 98 12/18/21 07:30 36.8 C 12/18/21 07:11 73 12/18/21 07:04 75 18 98 12/18/21 06:00 66 16 97 12/18/21 05:00 69 17 98 12/18/21 04:00 69 16 102/58 L 98 12/18/21 03:00 70 16 98 12/18/21 02:00 72 16 99 12/18/21 01:00 75 19 99 12/18/21 00:00 71 15 109/57 L 97 12/18/21 00:00 88 20 109/57 L 95 12/18/21 01:15 36.5 C 12/17/21 23:00 74 20 97 12/17/21 22:00 73 20 98 12/17/21 23:52 69 O2 Del Method O2 Flow Rate 12/18/21 07:00 12/18/21 07:30 12/18/21 07:11 12/18/21 07:04 Nasal Cannula 2.5 12/18/21 06:00 12/18/21 05:00 12/18/21 04:00 12/18/21 03:00 12/18/21 02:00 12/18/21 01:00 12/18/21 00:00 12/18/21 00:00 Nasal Cannula 3 12/18/21 01:15 12/17/21 23:00 12/17/21 22:00 12/17/21 23:52 (1) Pulmonary embolism Pulmonary embolism type: single subsegmental (without acute cor pulmonale) Qualified Code(s): I26.93 - Single subsegmental pulmonary embolism without acute cor pulmonale
--- NOTE | 2021-12-18 15:29 | Hospitalist Progress Note ---
Date of Service December 18, 2021 Assessment & Plan (1) Hemoptysis: (2) Pulmonary embolism: (3) Multifocal pneumonia: (4) Critical aortic valve stenosis: (5) Prediabetes: (6) Hypertension: (7) GERD without esophagitis: (8) COPD (chronic obstructive pulmonary disease): Plan Presented to ED on 12/14 with progressive hemoptysis and new onset hypoxia. CT imaging as below. Transferred to ICU on 12/15 due to persistent hypotension not improving with fluid challenge. 12/16- on levophed briefly. Started on midodrine 12/17- Downgraded to PCU. Heparin drip started. Midodrine on hold CTA chest 12/14 1. Likely acute subsegmental pulmonary embolus present within the right lower lobe. 2. Mucoid impaction with chronic mucous plugging, most pronounced in the left lower lobe has progressively worsened from the prior exam. 3. Multilobar distribution of ill-defined centrilobular opacities compatible with an infectious or inflammatory pneumonitis. 4. Nodular areas of consolidation within the lingula and left lower lobe suggestive of multifocal pneumonia. Follow-up chest CT after treatment course recommended to document resolution. 5. Small left pleural effusion. 6. 1.8 cm subpleural groundglass opacity of the right upper lobe again noted and is suspicious for an adenomatous lesion. Hemoptysis - resolved per patient. H and H relatively stable. He declined bronchoscopy and cardiology did not recommend it either. Seen by pulm. Acute subsegmental RLL PE without cor pulmonale - Anticoag was not started initially due to hemoptysis. - Discussed with pulm- started on heparin drip 12/17. Likely transition to eli uis tomorrow if remains stable. PNA - concern for aspiration. Continue empiric ABx. Leucocytosis improving. - Repeat CXR today shows improvement - continue chest PT, mucomyst, robitussin-DM Acute hypoxic respiratory failure - resolved. now on room air saturating well. Critical AV stenosis - seen by cardio. Currently stable. OP evaluation for possible TAVR per cardio COPD - on nebs, prednisone, antibiotics. No wheezing noted. Elevated trop - trend reviewed. cardio following. No CP. Hypotension - resolved. briefly on levophed and midodrine. Blood clx with GPB in 1/4 bottles but repeat blood clx negative, possibly contamination. Clinically improving, so does not justify adding more antibiotics currently. Pulm recommends the same. His hypotension could have been from the infection/sepsis itself and now improved once treated with antibiotics. Cortisol and TSH level normal. Holding flomax and remeron per cardio. Prediabetes - SSI prn Hypophosphatemia - repleted, recheck in am GOC discussion - seen by palliative. RUL opacity- suspicious for adenomatous lesion per CT. Pulm recommends repeat CT chest in about 6-8 weeks. DVT ppx- SCDs, heparin drip Dispo- Continue current management with IV ABx, heparin drip. Conditional code- ok with CPR but DNI per palliative Updated son over the phone Admission and Anticipated Discharge Date Admission Date: December 14, 2021 Subjective Feels much improved. Hemoptysis resolved. Bringing phlegm out. Now on room air. No fever, chills, chest pain, SOB, N/V. He is happy with the progress. Physical Exam Physical Exam: General: Sitting comfortably in chair, not in distress, on room air saturating well HEENT: EOMI, PERRL, MMM Chest: Fair breath sounds bilaterally, no wheezes or crackles CVS: Regular rate and rhythm, normal heart sounds, systolic murmur Abdomen: Soft, non tender, not distended, normal bowel sounds Neuro: Awake, alert, oriented, conversing well, non focal Extremities: No edema Hawk with clear urine Results & Data Results & Data ([facility]) Vital Signs (Past 12 Hours) Vital Signs Temp Pulse Pulse Resp BP Pulse Ox O2 Del Method 12/18/21 15:15 83 18 96 Room Air 12/18/21 08:00 Room Air 12/18/21 13:00 86 27 H 97 12/18/21 12:00 82 18 94 12/18/21 12:00 94/48 L 12/18/21 11:00 85 18 95 12/18/21 10:00 83 20 92 12/18/21 09:00 85 20 98 12/18/21 08:00 85 23 98 12/18/21 08:00 117/55 L 12/18/21 07:00 64 20 98 12/18/21 07:30 36.8 C 12/18/21 07:11 73 12/18/21 07:04 75 18 98 Nasal Cannula 12/18/21 06:00 66 16 97 12/18/21 05:00 69 17 98 12/18/21 04:00 69 16 102/58 L 98 O2 Flow Rate 12/18/21 15:15 12/18/21 08:00 12/18/21 13:00 12/18/21 12:00 12/18/21 12:00 12/18/21 11:00 12/18/21 10:00 12/18/21 09:00 12/18/21 08:00 12/18/21 08:00 12/18/21 07:00 12/18/21 07:30 12/18/21 07:11 12/18/21 07:04 2.5 12/18/21 06:00 12/18/21 05:00 12/18/21 04:00 Laboratory Results Short CBC 12/17/21 12/18/21 Range/Units 19:20 03:54 WBC 13.16 H 11.28 H (4.8-10.8) K/ul Hgb 13.7 L 12.0 L (14.0-18.0) g/dl Hct 42.2 35.8 L (40.1-51.0) % Plt Count 318 267 (130-400) K/uL BMP 12/18/21 03:54 Sodium 133 L Potassium 4.0 Chloride 104 Carbon Dioxide 26 BUN 21 Creatinine 0.70 Glucose 97 Calcium 7.7 L Diagnostic Findings Chest X-Ray 12/18/21 08:20 XR chest 1V portable HISTORY: Pulmonary embolus and hemoptysis with bilateral airspace opacities and shortness of breath. Follow-up. COMPARISON: Chest 12/17/2021. FINDINGS: No pneumothorax. The heart is normal in size. The left lung airspace opacities have slightly improved. Mild pulmonary vascular congestion persists. There is mild emphysema. Small left pleural effusion, unchanged. Mild interstitial thickening again noted at the right lung base small patchy airspace opacities within the right mid to lower lung zone are again noted. IMPRESSION: 1. Interval improvement in the left lung airspace opacities. 2. Small left pleural effusion persists. 3. Right lung airspace opacities are again noted. ACT 112: Negative or not required by law. Electronically signed by: Ilir Sood M.D. 12/18/2021 9:10 AM Medications Administered Current Inpatient Medications Acetaminophen (Acetaminophen 325 Mg Tab) 650 mg PO Q4H PRN PRN Reason: Pain or Fever Stop: 01/13/22 17:36 Last Admin: 12/17/21 08:49 Dose: 650 mg Acetylcysteine (Acetylcysteine 20% Inhal Soln 4ml Dispensed By Resp.) 5 ml INH BIDR [facility] Stop: 01/16/22 08:14 Last Admin: 12/18/21 07:03 Dose: 5 ml Albuterol (Albut/Ipratrop 3mg/0.5mg Neb 3 Ml Vial) 3 ml NEB QIDR [facility]; Protocol Stop: 01/13/22 18:59 Last Admin: 12/18/21 15:15 Dose: 3 ml Dextrose (Dextrose 50% 50 Ml Syringe) 25 - 50 ml IV UD PRN; Protocol PRN Reason: Hypoglycemia Protocol Stop: 01/13/22 17:36 Doxycycline Hyclate (Doxycycline Hyclate 100 Mg Cap) 100 mg PO BID [facility] Stop: 12/19/21 09:01 Last Admin: 12/18/21 08:14 Dose: 100 mg Ezetimibe (Ezetimibe 10 Mg Tablet) 10 mg PO DAILY [facility] Stop: 01/14/22 08:59 Last Admin: 12/18/21 08:14 Dose: 10 mg Formoterol Fumarate (Formoterol 20 Mcg/2 Ml Vial) 20 mcg INH BIDR [facility] Stop: 01/13/22 18:59 Last Admin: 12/18/21 07:03 Dose: 20 mcg Glucagon (Glucagon For Inj 1 Mg Vial) 1 mg SQ UD PRN; Protocol PRN Reason: Hypoglycemia Protocol Stop: 01/13/22 17:36 Glucose (Glucose 40% Gel 15 Gm Tube) 15 - 30 gm PO UD PRN; Protocol PRN Reason: Hypoglycemia Protocol Stop: 01/13/22 17:36 Glucose (Glucose 10 Tab/Tube) 4 - 8 tab PO UD PRN; Protocol PRN Reason: Hypoglycemia Treatment Stop: 01/13/22 17:36 Guaifenesin/Dextromethorphan (Guaifenesin/Dextrom Syrup 200mg/20mg 10ml Udc) 10 ml PO Q6 [facility] Stop: 01/16/22 08:29 Last Admin: 12/18/21 13:34 Dose: 10 ml Aztreonam 2,000 mg/ Dextrose 110 mls @ 100 mls/hr IV Q8H [facility]; Protocol Stop: 12/19/21 16:59 Last Infusion: 12/18/21 09:19 Dose: Infused Metronidazole (Flagyl) 500 mg in 100 mls @ 100 mls/hr IV Q8H [facility]; Protocol Stop: 12/19/21 15:59 Last Infusion: 12/18/21 09:47 Dose: Infused Heparin Sodium/Dextrose (Heparin Sodium/Dextrose) 25,000 units in 500 mls @ 13 mls/hr IV .Q24H [facility]; Protocol Stop: 01/16/22 17:00 Last Admin: 12/17/21 21:18 Dose: 650 units/hr, 13 mls/hr Insulin Aspart (Insulin Aspart Per Unit) 0 units SC ACHS [facility] Stop: 01/13/22 17:36 Last Admin: 12/18/21 13:32 Dose: Not Given Mineral Oil (Mineral Oil 30 Ml Udc) 30 ml PO HS [facility] Stop: 01/13/22 20:59 Last Admin: 12/17/21 21:15 Dose: 30 ml Mirtazapine (Mirtazapine Tab 15 Mg Tab) 15 mg PO HS [facility] Stop: 01/13/22 20:59 Last Admin: 12/15/21 20:05 Dose: 15 mg Miscellaneous (Carbohydrates For Hypoglycemia ) 15 - 30 gm PO UD PRN PRN Reason: Hypoglycemia Protocol Stop: 01/13/22 17:36 Pantoprazole Sodium (Pantoprazole 40 Mg Tab) 40 mg PO QAM [facility] Stop: 01/14/22 08:59 Last Admin: 12/18/21 08:13 Dose: 40 mg Potassium Phosphate (Pot Phosphate Monobasic W/ Sod Tab) 1 tab PO QID [facility] Stop: 12/19/21 08:59 Last Admin: 12/18/21 13:34 Dose: 1 tab Prednisone (Prednisone 20 Mg Tab) 40 mg PO DAILY [facility] Stop: 01/13/22 15:29 Last Admin: 12/18/21 08:13 Dose: 40 mg Simvastatin (Simvastatin 20 Mg Tab) 20 mg PO DAILY [facility] Stop: 01/14/22 08:59 Last Admin: 12/18/21 08:14 Dose: 20 mg Tamsulosin HCl (Tamsulosin Hcl 0.4 Mg Cap) 0.8 mg PO DAILY [facility] Stop: 09/19/22 08:59 Last Admin: 12/16/21 09:47 Dose: 0.8 mg (1) Pulmonary embolism Pulmonary embolism type: single subsegmental (without acute cor pulmonale) Qualified Code(s): I26.93 - Single subsegmental pulmonary embolism without acute cor pulmonale
[2021-12-18] MEDS: MINERAL OIL 30 ML UDC PO SCH (20:54)
[2021-12-19] MEDS: AZTREONAM 2,000 MG in DEXTROSE 5% 100 ML IV SCH ×2 (00:38→09:25)
[2021-12-19] MEDS: guaiFENesin/DEXTROM SYRUP 200MG/20MG 10ML UDC PO SCH ×4 (06:03→23:30)
[2021-12-19 06:12] LABS: Hematocrit (blood only) 34.2 % (40.1-51.0); Hemoglobin 11.3 g/dl (14.0-18.0); Mean Corpuscular Hemoglobin 31.1 pg (25.0-34.0); Mean Corpuscular Volume 94.2 fL (80.0-100.0); Platelet Count 282 K/uL (130-400); RDW Coefficient of Variation 12.7 % (11.5-14.5); RDW Standard Deviation 43.8 fL (36.4-46.3); Red Blood Count 3.63 M/uL (4.63-6.08); White Blood Count 8.75 K/ul (4.8-10.8)
[2021-12-19 06:35] LABS: Partial Thromboplastin Ratio 2.1
[2021-12-19 06:41] LABS: BUN Creatinine Ratio 26.8 (10-20); Calcium 7.7 mg/dl (8.5-10.1); Creatinine Clr Calc Pharmacy 55.5 ml/min; Est GFR (African American) 96.4 ml/min; Est GFR (Non-African American) 83.2 ml/min; Phosphorus 2.6 mg/dl (2.5-4.9); Potassium 3.9 mmol/L (3.5-5.1)
[2021-12-19 06:48] LABS: Partial Thromboplastin Time 56.4 Seconds (21.0-31.0)
[2021-12-19] MEDS: FORMOTEROL 20 MCG/2 ML VIAL INH SCH ×2 (07:09→19:49)
[2021-12-19] MEDS: ACETYLCYSTEINE 20% INHAL SOLN 4ML ***DISPENSED BY RESP. INH SCH ×2 (07:11→19:49)
[2021-12-19] MEDS: ALBUT/IPRATROP 3MG/0.5MG NEB 3 ML VIAL NEB SCH ×4 (07:11→19:50)
--- NOTE | 2021-12-19 07:51 | Pulmonology Progress Note ---
Date of Service December 19, 2021 Assessment & Plan (1) Hypoxia: (2) Pulmonary embolism: Pulmonary embolism type: single subsegmental (without acute cor pulmonale) Qualified Code(s): I26.93 - Single subsegmental pulmonary embolism without acute cor pulmonale (3) Hemoptysis: (4) COPD (chronic obstructive pulmonary disease): Plan --Small subsegmental PE on the right side H&H stable Hemoptysis decreasing in amount On heparin drip -- Left lower lobe opacity with nodularity Possibilities include pneumonia as well as cancer given the significant smoking history He will be high risk given the severe aortic stenosis as well as labile blood pr essure Patient to follow-up with outpatient 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 DOAC's Outpatient follow-up with his slitter creaser slotter helper Repeat CT chest in 4 to 6 weeks No further recommendation from pulmonary perspective. Please call directly with any questions Please note the above document was generated using voice recognition software. It may contain grammatical, syntax or spelling errors.Any formal questions or concerns about the content, text or information contained within the body of th is dictation should be directly addressed to the provider for clarification. Admission and Anticipated Discharge Date Admission Date: December 14, 2021 Subjective Patient seen and examined at bedside. No acute distress, no adverse events overnight Complaining of mild blood-tinged sputum No headache, no nausea, no vomiting Fair appetite. Complaining of difficulty falling asleep. Review of Systems Review of Systems: All systems reviewed & are unremarkable except as noted in Subjective Physical Exam Physical Exam: Constitutional: No acute distress, frail-appearing HEENT: EOMI, PERRLA Respiratory system: Decreased air entry bilaterally, no wheeze, no, positive crackles bilateral lower lobes CVS: S1-S2 positive, positive 3 out of 6 systolic murmur appreciated best at apex Abdomen: Soft, nontender, nondistended, positive bowel sounds x4 Extremities: +2 pulses bilaterally radialis/ dorsalis pedis, no cyanosis, no edema Neuro: Awake alert oriented x3 Psych: Normal mood and affect G/U: Positive Hawk Skin: no rashes, warm and dry Lymphatic: no cervical or axillary lymphadenopathy Results & Data Results & Data ([facility]) Vital Signs (Past 12 Hours) Vital Signs Temp Pulse Pulse Resp BP Pulse Ox O2 Del Method 12/19/21 07:14 69 18 95 Room Air 12/19/21 04:14 36.5 C 67 13 100/56 L 95 Room Air 12/19/21 00:13 36.6 C 75 18 104/59 L 93 Room Air 12/18/21 20:05 Room Air 12/18/21 20:01 36.5 C 85 20 119/67 98 Room Air Laboratory Results 12/19/21 05:35 12/19/21 05:35 PG Care Time/CCT Total # of Minutes Spent Total Time Spent with Patient: Total time spent is greater than 50% in coordination of care (as documented) at patient's floor/unit and/or counseling patient: Coding Level of Care Code 36120 Subseq Hosp Care Lvl 2 Diagnoses Hypoxia R09.02 Pulmonary embolism I26.93 Pulmonary embolism type: single subsegmental (without acute cor pulmonale) Hemoptysis R04.2 COPD (chronic obstructive pulmonary disease) J44.9
[2021-12-19] MEDS ORDERED: APIXABAN 5 MG TABLET PO SCH ×2 (09:00→21:00)
[2021-12-19] MEDS: TAMSULOSIN HCL 0.4 MG CAP PO SCH (09:18)
[2021-12-19] MEDS: INSULIN ASPART PER UNIT SC SCH ×4 (09:18→20:12)
[2021-12-19] MEDS: SIMVASTATIN 20 MG TAB PO SCH (09:19)
[2021-12-19] MEDS: PANTOprazole 40 MG TAB PO SCH (09:19)
[2021-12-19] MEDS: DOXYCYCLINE HYCLATE 100 MG CAP PO SCH (09:19)
[2021-12-19] MEDS: EZETIMIBE 10 MG TABLET PO SCH (09:19)
[2021-12-19] MEDS: predniSONE 20 MG TAB PO SCH (09:19)
[2021-12-19] MEDS: metroNIDAZOLE 500 MG/100 ML BAG IV SCH (09:25)
--- NOTE | 2021-12-19 10:46 | Cardiology Progress Note ---
Date of Service December 19, 2021 Assessment & Plan (1) Critical aortic valve stenosis: (2) Multifocal pneumonia: (3) Pulmonary embolism: (4) Hemoptysis: Plan Patient is an 89-year-old male with with critical aortic valve stenosis admitted with pneumonia, hemoptysis, pulmonary embolism. Current course notable for hypertension transiently treated with Levophed. No acute complaints other than hypoxia and shortness of breath. Denies chest pains or discomfort. Echocardiogram demonstrates preserved overall systolic function Underlying pulmonary issues being addressed Impression: Critical aortic stenosis complicating management of acute pulmonary issues. Patient with marginal reserve but preserved ejection fraction, no renal impairment as of yet. clinically improved cxr improved as well no further cardiac testing or intervention at this time will discuss TAVR as an outpatient bronchoscopy no longer necessary In terms of his anticoagulation for pulmonary emboli, I would strongly caution against the use of Eliquis loading dose 10 mg twice daily for 7 days and then 5 mg twice daily thereafter given the fact that he is 89 years old, weighs less than 60 kg and has had significant hemoptysis. I initially changed the dosing to 2.5 mg twice daily. I was then contacted by pharmacy. So, I will defer to primary team. Admission and Anticipated Discharge Date Admission Date: December 14, 2021 Subjective Patient seen and examined. Chart reviewed. Telemetry reviewed. Clinically, states he is feeling much better today. Currently out of bed in chair. States he ambulated in the hallways earlier with some fatigue but otherwise feeling well. Review of Systems Review of Systems: All systems reviewed & are unremarkable except as noted in HPI & below Physical Exam Physical Exam: General: Awake, alert and oriented x 3. No acute distress. HEENT: Normocephalic, atraumatic. Pupils equal, round and reactive to light and accommodation. Extraocular muscles are intact. Anicteric sclera. Moist mucous membranes. Neck: No JVD. No bruit. Cardiovascular: Regular. Positive S-4. Normal S-1 and S-2. No S-3. 3/6 mid to late systolic ejection murmur, greatest at the right sternal border, second intercostal space with radiation to the bilateral carotids. No rubs. Pulmonary: Clear to auscultation bilaterally. No rales, rhonchi, or wheezing. Abdomen: Bowel sounds x 4, soft. No rebound, guarding or tenderness. No organomegaly. Extremities: No clubbing, cyanosis or edema. +2 pedal pulses bilaterally. Skin: Warm and dry. Results & Data ([facility]) Vital Signs (Past 12 Hours) Vital Signs Temp Pulse Pulse Resp BP Pulse Ox O2 Del Method 12/19/21 07:52 Room Air 12/19/21 07:14 69 18 95 Room Air 12/19/21 04:14 36.5 C 67 13 100/56 L 95 Room Air 12/19/21 00:13 36.6 C 75 18 104/59 L 93 Room Air (1) Pulmonary embolism Pulmonary embolism type: single subsegmental (without acute cor pulmonale) Qualified Code(s): I26.93 - Single subsegmental pulmonary embolism without acute cor pulmonale
--- NOTE | 2021-12-19 13:35 | Hospitalist Progress Note ---
Date of Service December 19, 2021 Assessment & Plan (1) Hemoptysis: (2) Pulmonary embolism: (3) Multifocal pneumonia: (4) Critical aortic valve stenosis: (5) Prediabetes: (6) Hypertension: (7) GERD without esophagitis: (8) COPD (chronic obstructive pulmonary disease): Plan Presented to ED on 12/14 with progressive hemoptysis and new onset hypoxia. CT imaging as below. Transferred to ICU on 12/15 due to persistent hypotension not improving with fluid challenge. 12/16- on levophed briefly. Started on midodrine 12/17- Downgraded to PCU. Heparin drip started. Midodrine on hold 12/19- Transitioned heparin to eliquis CTA chest 12/14 1. Likely acute subsegmental pulmonary embolus present within the right lower lobe. 2. Mucoid impaction with chronic mucous plugging, most pronounced in the left lower lobe has progressively worsened from the prior exam. 3. Multilobar distribution of ill-defined centrilobular opacities compatible with an infectious or inflammatory pneumonitis. 4. Nodular areas of consolidation within the lingula and left lower lobe suggest dirk of multifocal pneumonia. Follow-up chest CT after treatment course recommended to document resolution. 5. Small left pleural effusion. 6. 1.8 cm subpleural groundglass opacity of the right upper lobe again noted and is suspicious for an adenomatous lesion. Hemoptysis - resolved per patient. H and H relatively stable. He declined bronchoscopy and cardiology did not recommend it either. Seen by pulm. Acute subsegmental RLL PE without cor pulmonale - Anticoag was not started initially due to hemoptysis. - Discussed with pulm- started on heparin drip 12/17. Transitioned to eliquis today but notified later that he had some hematuria once his stearns was removed- will monitor H and H- if significant hematuria, will hold eliquis and consult urology Hematuria- noted after removal of stearns per RN. Plan as above. PNA - concern for aspiration. Continue empiric ABx for 7 day course. Leucocytosis resolved - Repeat CXR 12/18 shows improvement - continue chest PT, mucomyst, robitussin-DM Acute hypoxic respiratory failure - resolved. now on room air saturating well. Critical AV stenosis - seen by cardio. Currently stable. OP evaluation for possible TAVR per cardio COPD - on nebs, prednisone, antibiotics. No wheezing noted. Elevated trop - trend reviewed. cardio following. No CP. Hypotension - resolved. briefly on levophed and midodrine. Blood clx with GPB in 1/4 bottles but repeat blood clx negative, possibly contamination. Clinically improving, so does not justify adding more antibiotics currently. Pulm recommends the same. His hypotension could have been from the infection/sepsis itself and now improved once treated with antibiotics. Cortisol and TSH level normal. Holding remeron per cardio. Prediabetes - SSI prn Hypophosphatemia - resolved GOC discussion - seen by palliative. BPH- resume flomax. voiding trial. RUL opacity- suspicious for adenomatous lesion per CT. Pulm recommends repeat CT chest in about 4-6 weeks. F/u pulm as OP. DVT ppx- SCDs, eliquis. Monitor H and H and hematuria- hold eliquis if worsens. Dispo- PCU tele on current management. Conditional code- ok with CPR but DNI per palliative Admission and Anticipated Discharge Date Admission Date: December 14, 2021 Subjective He feels fine. Denies any new issues. Denies any hemoptysis. no fever, chills, chest pain, shortness of breath, N/V. Physical Exam Physical Exam: General: Sitting comfortably in chair, not in distress, on room air saturating well HEENT: EOMI, PERRL, MMM Chest: Fair breath sounds bilaterally, no wheezes or crackles CVS: Regular rate and rhythm, normal heart sounds, systolic murmur Abdomen: Soft, non tender, not distended, normal bowel sounds Neuro: Awake, alert, oriented, conversing well, non focal Extremities: No edema [place] with clear urine Results & Data Results & Data ([facility]) Vital Signs (Past 12 Hours) Vital Signs Temp Pulse Pulse Resp BP Pulse Ox O2 Del Method 12/19/21 11:10 68 20 95 Room Air 12/19/21 07:52 Room Air 12/19/21 07:14 69 18 95 Room Air 12/19/21 04:14 36.5 C 67 13 100/56 L 95 Room Air Laboratory Results Short CBC 12/19/21 Range/Units 05:35 WBC 8.75 (4.8-10.8) K/ul Hgb 11.3 L (14.0-18.0) g/dl Hct 34.2 L (40.1-51.0) % Plt Count 282 (130-400) K/uL BMP 12/19/21 05:35 Sodium 134 L Potassium 3.9 Chloride 103 Carbon Dioxide 28 BUN 19 Creatinine 0.71 Glucose 78 Calcium 7.7 L Medications Administered Current Inpatient Medications Acetaminophen (Acetaminophen 325 Mg Tab) 650 mg PO Q4H PRN PRN Reason: Pain or Fever Stop: 01/13/22 17:36 Last Admin: 12/17/21 08:49 Dose: 650 mg Acetylcysteine (Acetylcysteine 20% Inhal Soln 4ml Dispensed By Resp.) 5 ml INH BIDR [facility] Stop: 01/16/22 08:14 Last Admin: 12/19/21 07:11 Dose: 5 ml Albuterol (Albut/Ipratrop 3mg/0.5mg Neb 3 Ml Vial) 3 ml NEB QIDR [facility]; Protocol Stop: 01/13/22 18:59 Last Admin: 12/19/21 11:07 Dose: 3 ml Dextrose (Dextrose 50% 50 Ml Syringe) 25 - 50 ml IV UD PRN; Protocol PRN Reason: Hypoglycemia Protocol Stop: 01/13/22 17:36 Ezetimibe (Ezetimibe 10 Mg Tablet) 10 mg PO DAILY [facility] Stop: 01/14/22 08:59 Last Admin: 12/19/21 09:19 Dose: 10 mg Formoterol Fumarate (Formoterol 20 Mcg/2 Ml Vial) 20 mcg INH BIDR [facility] Stop: 01/13/22 18:59 Last Admin: 12/19/21 07:09 Dose: 20 mcg Glucagon (Glucagon For Inj 1 Mg Vial) 1 mg SQ UD PRN; Protocol PRN Reason: Hypoglycemia Protocol Stop: 01/13/22 17:36 Glucose (Glucose 40% Gel 15 Gm Tube) 15 - 30 gm PO UD PRN; Protocol PRN Reason: Hypoglycemia Protocol Stop: 01/13/22 17:36 Glucose (Glucose 10 Tab/Tube) 4 - 8 tab PO UD PRN; Protocol PRN Reason: Hypoglycemia Treatment Stop: 01/13/22 17:36 Guaifenesin/Dextromethorphan (Guaifenesin/Dextrom Syrup 200mg/20mg 10ml Udc) 10 ml PO Q6 [facility] Stop: 01/16/22 08:29 Last Admin: 12/19/21 06:03 Dose: 10 ml Aztreonam 2,000 mg/ Dextrose 110 mls @ 100 mls/hr IV Q8H [facility]; Protocol Stop: 12/19/21 16:59 Last Infusion: 12/19/21 10:31 Dose: Infused Metronidazole (Flagyl) 500 mg in 100 mls @ 100 mls/hr IV Q8H [facility]; Protocol Stop: 12/19/21 15:59 Last Infusion: 12/19/21 10:31 Dose: Infused Insulin Aspart (Insulin Aspart Per Unit) 0 units SC ACHS [facility] Stop: 01/13/22 17:36 Last Admin: 12/19/21 09:18 Dose: Not Given Mineral Oil (Mineral Oil 30 Ml Udc) 30 ml PO HS [facility] Stop: 01/13/22 20:59 Last Admin: 12/18/21 20:54 Dose: 30 ml Mirtazapine (Mirtazapine Tab 15 Mg Tab) 15 mg PO HS [facility] Stop: 01/13/22 20:59 Last Admin: 12/15/21 20:05 Dose: 15 mg Miscellaneous (Carbohydrates For Hypoglycemia ) 15 - 30 gm PO UD PRN PRN Reason: Hypoglycemia Protocol Stop: 01/13/22 17:36 Pantoprazole Sodium (Pantoprazole 40 Mg Tab) 40 mg PO QAM [facility] Stop: 01/14/22 08:59 Last Admin: 12/19/21 09:19 Dose: 40 mg Prednisone (Prednisone 20 Mg Tab) 40 mg PO DAILY [facility] Stop: 01/13/22 15:29 Last Admin: 12/19/21 09:19 Dose: 40 mg Simvastatin (Simvastatin 20 Mg Tab) 20 mg PO DAILY [facility] Stop: 01/14/22 08:59 Last Admin: 12/19/21 09:19 Dose: 20 mg Tamsulosin HCl (Tamsulosin Hcl 0.4 Mg Cap) 0.8 mg PO DAILY [facility] Stop: 01/14/22 08:59 Last Admin: 12/16/21 09:47 Dose: 0.8 mg Tamsulosin HCl (Tamsulosin Hcl 0.4 Mg Cap) 0.4 mg PO QAM [facility] Stop: 01/18/22 08:59 Last Admin: 12/19/21 09:18 Dose: 0.4 mg (1) Pulmonary embolism Pulmonary embolism type: single subsegmental (without acute cor pulmonale) Qualified Code(s): I26.93 - Single subsegmental pulmonary embolism without acute cor pulmonale
[2021-12-19 15:32] LABS: Hematocrit (blood only) 41.2 % (40.1-51.0); Hemoglobin 13.8 g/dl (14.0-18.0)
[2021-12-19] MEDS: HEPARIN SODIUM/DEXTROSE 25,000 UNITS/500 ML BAG IV SCH (17:35)
[2021-12-19] MEDS: MELATONIN 3 MG TAB PO SCH (20:11)
[2021-12-19] MEDS: MINERAL OIL 30 ML UDC PO SCH (20:12)
[2021-12-19] MEDS ORDERED: APIXABAN 2.5 MG TAB PO SCH (21:00)
--- NOTE | 2021-12-20 03:21 | Communication Note ---
Date of Service: December 20, 2021 Patient with small amounts of hemoptysis as per RN. No SOB complaints as per RN. CBC now Hold Eliquis for now
[2021-12-20 03:58] LABS: Basophils # (auto) 0.01 K/uL (0-0.2); Basophils % (auto) 0.1 %; Eosinophils # (auto) 0.01 K/uL (0-0.50); Eosinophils % (auto) 0.1 %; Hematocrit (blood only) 36.8 % (40.1-51.0); Hemoglobin 12.5 g/dl (14.0-18.0); Immature Granulocytes # (auto) 0.03 K/uL (0.00-0.02); Immature Granulocytes % (auto) 0.3 %; Lymphocytes # (auto) 1.88 K/uL (1.2-3.4); Lymphocytes % (auto) 20.2 %; Mean Corpuscular Hemoglobin 31.5 pg (25.0-34.0); Mean Corpuscular Volume 92.7 fL (80.0-100.0); Mean Platelet Volume 9.5 fL (9.4-12.4); Monocytes # (auto) 0.86 K/uL (0.24-0.82); Monocytes % (auto) 9.2 %; Neutrophils # (auto) 6.53 K/uL (1.4-6.5); Neutrophils % (auto) 70.1 %; Platelet Count 319 K/uL (130-400); RDW Coefficient of Variation 13.2 % (11.5-14.5); RDW Standard Deviation 45.2 fL (36.4-46.3); Red Blood Count 3.97 M/uL (4.63-6.08); White Blood Count 9.32 K/ul (4.8-10.8)
[2021-12-20 04:13] LABS: Partial Thromboplastin Ratio 1.3; Partial Thromboplastin Time 36.1 Seconds (21.0-31.0)
[2021-12-20 04:17] LABS: BUN Creatinine Ratio 30.9 (10-20); Calcium 8.2 mg/dl (8.5-10.1); Creatinine Clr Calc Pharmacy 57.9 ml/min; Est GFR (African American) 98.1 ml/min; Est GFR (Non-African American) 84.7 ml/min; Potassium 3.9 mmol/L (3.5-5.1)
[2021-12-20] MEDS: ACETAMINOPHEN 325 MG TAB PO PRN ×2 (05:01→09:00)
[2021-12-20] MEDS: guaiFENesin/DEXTROM SYRUP 200MG/20MG 10ML UDC PO SCH ×4 (05:02→23:23)
[2021-12-20] MEDS: ALBUT/IPRATROP 3MG/0.5MG NEB 3 ML VIAL NEB SCH ×4 (06:48→20:35)
[2021-12-20] MEDS: ACETYLCYSTEINE 20% INHAL SOLN 4ML ***DISPENSED BY RESP. INH SCH ×2 (06:48→19:52)
[2021-12-20] MEDS: FORMOTEROL 20 MCG/2 ML VIAL INH SCH ×2 (06:51→19:52)
[2021-12-20] MEDS: INSULIN ASPART PER UNIT SC SCH ×4 (07:16→20:21)
[2021-12-20] MEDS: SIMVASTATIN 20 MG TAB PO SCH (07:49)
[2021-12-20] MEDS: PANTOprazole 40 MG TAB PO SCH (07:49)
[2021-12-20] MEDS: TAMSULOSIN HCL 0.4 MG CAP PO SCH ×2 (07:49→08:59)
[2021-12-20] MEDS: EZETIMIBE 10 MG TABLET PO SCH (07:49)
[2021-12-20] MEDS ORDERED: TAMSULOSIN HCL 0.4 MG CAP PO ONE (08:09)
[2021-12-20 08:38] LABS: Hematocrit (blood only) 35.7 % (40.1-51.0); Hemoglobin 11.9 g/dl (14.0-18.0)
[2021-12-20] MEDS: APIXABAN 5 MG TABLET PO SCH ×2 (09:00→20:22)
--- NOTE | 2021-12-20 09:40 | Urology Consultation ---
Date of Consultation December 20, 2021 Assessment & Plan (1) Urinary retention: Plan 89yo M admitted with pneumonia, hemoptysis, pulmonary embolism. He subsequently developed urinary retention requiring Hawk catheter placement. The catheter remained in place for a few days and a voiding trial was attempted yesterday, but unfortunately did not pass. -Urology consulted for urinary retention, failed voiding trial. -Hawk catheter was reinserted by nursing earlier this morning. -Catheter currently intact and draining clear yellow urine. -Recommend Hawk remains in place for at least 7-10 days. Will arrange outpatient TOV. -Continue tamsulosin. -Will arrange outpatient follow-up with our service for continued care. -Urology will sign-off for now. Please contact us any further questions, concerns, or changes in patient status. Supervising Physician Co-Signing Physician Notes I have discussed Mr. Bryson's case with JESSI Alston and agree with the above documentation. He has failed a voiding trial but retention is currently managed with indwelling Hawk catheter. We will have him follow-up in the office to repeat voiding trial and to discuss optimal medication management or possible options for outlet procedure. History of Present Illness Reason for Consultation: Urinary retention, failed voiding trial Attending Physician: Tru Tejeda MD History of Present Illness 89yo M with a PMHx including COPD, hemochromatosis, HTN, hyperlipidemia, aortic stenosis, GERD, LLL mucoid impaction, and prediabetes who was admitted with pneumonia, hemoptysis, pulmonary embolism. Urology consulted for urinary r etention, failed voiding trial. Per chart review, patient initially had a catheter placed on 12/16/21 and had a voiding trial on 12/19/2021. Hematuria was noted after removal per nursing. Unfortunately, he was not able to void and a catheter was reinserted earlier this morning (12/20) by nursing. Chart review- Afebrile and hemodynamically stable. White count 9.32, hemoglobin 11.9, creatinine 0.68. Urinalysis on admission negative for blood, bacteria, nitrite. Anticoagulation currently on hold. Patient examined at bedside this AM. Awake, resting in bed on arrival. No acute distress. Patient states he developed bladder pain and pressure last night and was unable to void. Nursing reinserted the Hawk catheter earlier this morning. Patient states he had immediate relief of discomfort. Hawk catheter intact, draining clear yellow urine. Tolerating the catheter with minimal bother. Small amount of blood noted around catheter insertion site on exam. Currently denies any pain or discomfort. Denies hematuria and dysuria. Denies any urinary symptoms or issues at baseline. States he has been taking tamsulosin for several years, prescribed by his PCP. Does not follow with a ur ologist. Denies prior urological history. Family history noncontributory. Allergies Allergy/AdvReac Type Severity Reaction Status Date / Time Penicillins Allergy Verified 11/21/21 11:14 Sulfa (Sulfonamide Allergy Verified 11/21/21 11:14 Antibiotics) Home Medications Medication Instructions Recorded Confirmed Type acetaminophen 325 mg capsule 325 mg PO QID PRN Pain 11/27/20 12/14/21 History alendronate 70 mg tablet (Fosamax) 70 mg PO WK 11/27/20 12/14/21 History aspirin 81 mg tablet,delayed 81 mg PO DAILY 11/27/20 12/14/21 History release (Adult Low Dose Aspirin) ezetimibe 10 mg tablet (Zetia) 10 mg PO DAILY 11/27/20 12/14/21 History omeprazole 20 mg capsule,delayed 20 mg PO DAILY 11/27/20 12/14/21 History release simvastatin 20 mg tablet 20 mg PO DAILY 11/27/20 12/14/21 History tamsulosin 0.4 mg capsule 0.8 mg PO DAILY 11/27/20 12/14/21 History tiotropium bromide 18 mcg capsule 1 cap inhalation DAILY 11/27/20 12/14/21 History with inhalation device (Spiriva with HandiHaler) mirtazapine 15 mg tablet 15 mg PO HS 12/14/21 12/14/21 History umeclidinium 62.5 mcg/actuation 1 inh inhalation DAILY 12/14/21 12/14/21 History blister powder for inhalation (Incruse Ellipta) apixaban 5 mg (74 tabs) tablets in 5 mg PO BID #74 ea 12/19/21 Rx a dose pack (Eliquis) Patient History Medical History Basal cell carcinoma Blood-streaked sputum 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 myelopathy COPD (chronic obstructive pulmonary disease) Disorder of bone and cartilage, unspecified GERD without esophagitis Hemoptysis Hyperlipemia Hypertension Lesion of nose Major depression, recurrent Multifocal pneumonia Nail dystrophy Osteoporosis Prediabetes Pulmonary embolism Shock Squamous cell carcinoma Surgical History H/O Mohs micrographic surgery for skin cancer Family History Mother Heart disease Brother Heart disease Social History Smoking Status: Former smoker Tobacco Type: Cigarettes packs per day: 1; Years Smoked: 20; Second Hand Exposure: No; Hx Alcohol Use: Yes Alcohol type: hard liquor Hx Substance Use: No Preferred Language: Mosotho Communication Ability: Effective Pool Cleaner Required: No Beliefs That Will Affect Care: None marital status: / Current Living Situation: Alone Feels Safe at Home: Yes Assistive Devices: None Review of Systems Review of Systems: All systems reviewed & are unremarkable except as noted in HPI & below Physical Exam Constitutional: no acute distress Neck: normal visual inspection Respiratory: no respiratory distress and no labored breathing Gastrointestinal (Abdomen): Percussion/Palpation: abdomen soft; abdomen nontender Musculoskeletal: Head/Neck/Chest: normocephalic Skin: No visible rashes or lesions to exposed skin areas Neurologic: awake Psychiatric: Orientation: alert, oriented x 3 and cooperative Genitourinary: Hawk catheter intact, draining clear yellow urine. A small amount of blood was noted around catheter insertion site. Results & Data ([facility]) Vital Signs (Past 12 Hours) Vital Signs Temp Pulse Pulse Pulse Resp BP BP 12/20/21 08:00 12/20/21 08:00 36.5 C 70 15 112/60 12/20/21 06:54 76 18 12/20/21 00:00 94 H 12/20/21 03:08 36.6 C 66 16 114/66 12/20/21 00:12 36.6 C 75 16 153/85 H Pulse Ox O2 Del Method 12/20/21 08:00 Room Air 12/20/21 08:00 94 Room Air 12/20/21 06:54 97 Room Air 12/20/21 00:00 12/20/21 03:08 97 Room Air 08/25/22 00:12 95 Room Air PG Care Time/CCT Total # of Minutes Spent Total Time Spent with Patient: Total time spent is greater than 50% in coordination of care (as documented) at patient's floor/unit and/or counseling patient: Coding Level of Care Code 57908 Initial Inpt Care Lvl 2 Diagnoses Urinary retention R33.9
--- NOTE | 2021-12-20 10:24 | Hospitalist Progress Note ---
Date of Service December 20, 2021 Assessment & Plan (1) Hemoptysis: (2) Pulmonary embolism: (3) Multifocal pneumonia: (4) Critical aortic valve stenosis: (5) Prediabetes: (6) Hypertension: (7) GERD without esophagitis: (8) COPD (chronic obstructive pulmonary disease): Plan Presented to ED on 12/14 with progressive hemoptysis and new onset hypoxia. CT imaging as below. Transferred to ICU on 12/15 due to persistent hypotension not improving with fluid challenge. 12/16- on levophed briefly. Started on midodrine 12/17- Downgraded to PCU. Heparin drip started. Midodrine on hold 12/19- Transitioned heparin to eliquis CTA chest 12/14 1. Likely acute subsegmental pulmonary embolus present within the right lower lobe. 2. Mucoid impaction with chronic mucous plugging, most pronounced in the left lower lobe has progressively worsened from the prior exam. 3. Multilobar distribution of ill-defined centrilobular opacities compatible with an infectious or inflammatory pneumonitis. 4. Nodular areas of consolidation within the lingula and left lower lobe suggest dirk of multifocal pneumonia. Follow-up chest CT after treatment course recommended to document resolution. 5. Small left pleural effusion. 6. 1.8 cm subpleural groundglass opacity of the right upper lobe again noted and is suspicious for an adenomatous lesion. Hemoptysis - significantly less, almost resolved. H and H relatively stable. He declined bronchoscopy and cardiology did not recommend it either. Monitor hemoptysis while on anticoagulation Acute subsegmental RLL PE without cor pulmonale - Anticoag was not started initially due to hemoptysis. - Discussed with pulm- started on heparin drip 12/17. Transitioned to eliquis 12/19 and seems to be tolerating well without any significant bleeding- will continue to monitor today clinically and with repeat H and H. If significant, will hold. Urinary retention- failed voiding trial and placed back on stearns. Flomax increased back to 0.8 mg daily. Urology consulted. PNA - concern for aspiration. Continue empiric ABx for 7 day course. Leucocytosis resolved - Repeat CXR 12/18 shows improvement - continue chest PT, mucomyst, robitussin-DM Acute hypoxic respiratory failure - resolved. now on room air saturating well. Critical AV stenosis - seen by cardio. Currently stable. OP evaluation for possible TAVR per cardio COPD - on nebs, prednisone, antibiotics. No wheezing noted. Elevated trop - trend reviewed. cardio following. No CP. Hypotension - resolved. briefly on levophed and midodrine. Blood clx with GPB in 1/4 bottles but repeat blood clx negative, possibly contamination. Clinically improving, so does not justify adding more antibiotics currently. Pulm recommends the same. His hypotension could have been from the infection/sepsis itself and now improved once treated with antibiotics. Cortisol and TSH level normal. Holding remeron per cardio. Prediabetes - SSI prn GOC discussion - seen by palliative. BPH- resumed flomax. back on stearns. urology consulted RUL opacity- suspicious for adenomatous lesion per CT. Pulm recommends repeat CT chest in about 4-6 weeks. F/u pulm as OP. DVT ppx- SCDs, eliquis. Monitor H and H and hemoptysis/hematuria- hold eliquis if worsens. Dispo- Anticipate he can be discharged tomorrow if remains stable- he would like to go [facility]. PT and CM following. Conditional code- ok with CPR but DNI per palliative Admission and Anticipated Discharge Date Admission Date: December 14, 2021 Subjective He could not void and feeling pressure- relieved after placing back the stearns catheter. He denies any hemoptysis but per RN, he had slight blood in the phlegm overnight- not too much. No other issues. He feels otherwise good. No CP, fever, chills, SOB, N/V. Physical Exam Physical Exam: General: Sitting comfortably in bed, not in distress, on room air saturating well Chest: Fair breath sounds bilaterally, no wheezes or crackles CVS: Regular rate and rhythm, normal heart sounds, systolic murmur Abdomen: Soft, non tender, not distended, normal bowel sounds Neuro: Awake, alert, oriented, conversing well, non focal Extremities: No edema Stearns with clear urine Results & Data Results & Data ([facility]) Vital Signs (Past 12 Hours) Vital Signs Temp Pulse Pulse Pulse Resp BP BP 12/20/21 08:00 12/20/21 08:00 36.5 C 70 15 112/60 12/20/21 06:54 76 18 12/20/21 00:00 94 H 12/20/21 03:08 36.6 C 66 16 114/66 12/20/21 00:12 36.6 C 75 16 153/85 H Pulse Ox O2 Del Method 12/20/21 08:00 Room Air 12/20/21 08:00 94 Room Air 12/20/21 06:54 97 Room Air 12/20/21 00:00 12/20/21 03:08 97 Room Air 12/20/21 00:12 95 Room Air Laboratory Results Short CBC 12/19/21 12/20/21 12/20/21 Range/Units 15:19 03:46 08:31 WBC 9.32 (4.8-10.8) K/ul Hgb 13.8 L 12.5 L 11.9 L (14.0-18.0) g/dl Hct 41.2 36.8 L 35.7 L (40.1-51.0) % Plt Count 319 (130-400) K/uL BMP 12/20/21 03:46 Sodium 129 L Potassium 3.9 Chloride 96 L Carbon Dioxide 28 BUN 21 Creatinine 0.68 Glucose 86 Calcium 8.2 L Medications Administered Current Inpatient Medications Acetaminophen (Acetaminophen 325 Mg Tab) 650 mg PO Q4H PRN PRN Reason: Pain or Fever Stop: 01/13/22 17:36 Last Admin: 12/20/21 05:01 Dose: 650 mg Acetylcysteine (Acetylcysteine 20% Inhal Soln 4ml Dispensed By Resp.) 5 ml INH BIDR [facility] Stop: 01/16/22 08:14 Last Admin: 12/20/21 06:48 Dose: 5 ml Albuterol (Albut/Ipratrop 3mg/0.5mg Neb 3 Ml Vial) 3 ml NEB QIDR [facility]ANNE; Protocol Stop: 01/13/22 18:59 Last Admin: 12/20/21 06:48 Dose: 3 ml Apixaban (Apixaban 5 Mg Tablet) 5 mg PO BID [facility] Stop: 01/18/22 20:59 Last Admin: 12/19/21 20:11 Dose: 5 mg Apixaban (Apixaban 5 Mg Tablet) 5 mg PO BID [facility] Stop: 01/19/22 08:59 Last Admin: 12/20/21 09:00 Dose: 5 mg Dextrose (Dextrose 50% 50 Ml Syringe) 25 - 50 ml IV UD PRN; Protocol PRN Reason: Hypoglycemia Protocol Stop: 01/13/22 17:36 Ezetimibe (Ezetimibe 10 Mg Tablet) 10 mg PO DAILY [facility]AN[facility] Stop: 01/14/22 08:59 Last Admin: 12/20/21 07:49 Dose: 10 mg Formoterol Fumarate (Formoterol 20 Mcg/2 Ml Vial) 20 mcg INH BIDR [facility] Stop: 01/13/22 18:59 Last Admin: 12/20/21 06:51 Dose: 20 mcg Glucagon (Glucagon For Inj 1 Mg Vial) 1 mg SQ UD PRN; Protocol PRN Reason: Hypoglycemia Protocol Stop: 01/13/22 17:36 Glucose (Glucose 40% Gel 15 Gm Tube) 15 - 30 gm PO UD PRN; Protocol PRN Reason: Hypoglycemia Protocol Stop: 01/13/22 17:36 Glucose (Glucose 10 Tab/Tube) 4 - 8 tab PO UD PRN; Protocol PRN Reason: Hypoglycemia Treatment Stop: 01/13/22 17:36 Guaifenesin/Dextromethorphan (Guaifenesin/Dextrom Syrup 200mg/20mg 10ml Udc) 10 ml PO Q6 [facility]AN[facility] Stop: 01/16/22 08:29 Last Admin: 12/20/21 05:02 Dose: 10 ml Insulin Aspart (Insulin Aspart Per Unit) 0 units SC ACHS [facility]AN[facility] Stop: 01/13/22 17:36 Last Admin: 12/20/21 07:16 Dose: Not Given Melatonin (Melatonin 3 Mg Tab) 6 mg PO HS [facility]AN[facility] Stop: 01/18/22 20:59 Last Admin: 12/19/21 20:11 Dose: 6 mg Mineral Oil (Mineral Oil 30 Ml Udc) 30 ml PO HS [facility]ANNE Stop: 01/13/22 20:59 Last Admin: 12/19/21 20:12 Dose: 30 ml Mirtazapine (Mirtazapine Tab 15 Mg Tab) 15 mg PO HS [facility]ANNE Stop: 01/13/22 20:59 Last Admin: 12/15/21 20:05 Dose: 15 mg Miscellaneous (Carbohydrates For Hypoglycemia ) 15 - 30 gm PO UD PRN PRN Reason: Hypoglycemia Protocol Stop: 01/13/22 17:36 Pantoprazole Sodium (Pantoprazole 40 Mg Tab) 40 mg PO QAM [facility] Stop: 01/14/22 08:59 Last Admin: 12/20/21 07:49 Dose: 40 mg Simvastatin (Simvastatin 20 Mg Tab) 20 mg PO DAILY [facility] Stop: 01/14/22 08:59 Last Admin: 12/20/21 07:49 Dose: 20 mg Tamsulosin HCl (Tamsulosin Hcl 0.4 Mg Cap) 0.8 mg PO QAM [facility] Stop: 01/19/22 08:59 Last Admin: 12/20/21 08:59 Dose: Not Given (1) Pulmonary embolism Pulmonary embolism type: single subsegmental (without acute cor pulmonale) Qualified Code(s): I26.93 - Single subsegmental pulmonary embolism without acute cor pulmonale
--- NOTE | 2021-12-20 11:46 | Cardiology Progress Note ---
Date of Service December 20, 2021 Assessment & Plan (1) Critical aortic valve stenosis: (2) Multifocal pneumonia: (3) Pulmonary embolism: (4) Hemoptysis: Plan Patient is an 89-year-old male with with critical aortic valve stenosis admitted with pneumonia, hemoptysis, pulmonary embolism. Current course notable for hypertension transiently treated with Levophed. No acute complaints other than hypoxia and shortness of breath. Denies chest pains or discomfort. Echocardiogram demonstrates preserved overall systolic function Underlying pulmonary issues being addressed Impression: Critical aortic stenosis complicating management of acute pulmonary issues. Patient with marginal reserve but preserved ejection fraction, no renal impairment as of yet. clinically improved no further cardiac testing or intervention at this time will discuss TAVR as an outpatient In terms of his anticoagulation for pulmonary emboli, I would strongly caution against the use of Eliquis loading dose 10 mg twice daily for 7 days and then 5 mg twice daily thereafter given the fact that he is 89 years old, weighs less than 60 kg and has had significant hemoptysis. I initially changed the dosing to 2.5 mg twice daily. I was then contacted by pharmacy. So, I will defer to primary team. Admission and Anticipated Discharge Date Admission Date: December 14, 2021 Subjective Patient seen and examined. Chart reviewed. Telemetry reviewed. Much more lethargic and fatigued today. States he did not get much sleep last night due to abdominal pain and distention. Which is now relieved with reinsertion of the Hawk catheter. Slight hemoptysis reported overnight as well. Review of Systems Review of Systems: All systems reviewed & are unremarkable except as noted in HPI & below Physical Exam Physical Exam: General: Awake, alert and oriented x 3. No acute distress. HEENT: Normocephalic, atraumatic. Pupils equal, round and reactive to light and accommodation. Extraocular muscles are intact. Anicteric sclera. Moist mucous membranes. Neck: No JVD. No bruit. Cardiovascular: Regular. Positive S-4. Normal S-1 and S-2. No S-3. 3/6 mid to late systolic ejection murmur, greatest at the right sternal border, second intercostal space with radiation to the bilateral carotids. No rubs. Pulmonary: Clear to auscultation bilaterally. No rales, rhonchi, or wheezing. Abdomen: Bowel sounds x 4, soft. No rebound, guarding or tenderness. No organomegaly. Extremities: No clubbing, cyanosis or edema. +2 pedal pulses bilaterally. Skin: Warm and dry. Results & Data ([facility]) Vital Signs (Past 12 Hours) Vital Signs Temp Pulse Pulse Pulse Resp BP BP 12/20/21 11:14 81 20 12/20/21 08:00 12/20/21 08:00 36.5 C 70 15 112/60 12/20/21 06:54 76 18 12/20/21 00:00 94 H 12/20/21 03:08 36.6 C 66 16 114/66 12/20/21 00:12 36.6 C 75 16 153/85 H Pulse Ox O2 Del Method 12/20/21 11:14 91 Room Air 12/20/21 08:00 Room Air 12/20/21 08:00 94 Room Air 12/20/21 06:54 97 Room Air 12/20/21 00:00 12/20/21 03:08 97 Room Air 12/20/21 00:12 95 Room Air (1) Pulmonary embolism Pulmonary embolism type: single subsegmental (without acute cor pulmonale) Qualified Code(s): I26.93 - Single subsegmental pulmonary embolism without acute cor pulmonale
[2021-12-20] MEDS: MELATONIN 3 MG TAB PO SCH (20:21)
[2021-12-20] MEDS: MINERAL OIL 30 ML UDC PO SCH (20:21)
[2021-12-21] MEDS: guaiFENesin/DEXTROM SYRUP 200MG/20MG 10ML UDC PO SCH ×3 (05:34→16:40)
[2021-12-21] MEDS: FORMOTEROL 20 MCG/2 ML VIAL INH SCH (06:58)
[2021-12-21] MEDS: ACETYLCYSTEINE 20% INHAL SOLN 4ML ***DISPENSED BY RESP. INH SCH (06:59)
[2021-12-21] MEDS: ALBUT/IPRATROP 3MG/0.5MG NEB 3 ML VIAL NEB SCH ×3 (07:01→15:36)
[2021-12-21] MEDS: INSULIN ASPART PER UNIT SC SCH ×3 (07:51→16:40)
[2021-12-21 08:00] LABS: Hematocrit (blood only) 37.9 % (40.1-51.0); Hemoglobin 12.9 g/dl (14.0-18.0)
[2021-12-21 08:35] LABS: BUN Creatinine Ratio 21.1 (10-20); Calcium 8.4 mg/dl (8.5-10.1); Creatinine Clr Calc Pharmacy 53.6 ml/min; Est GFR (African American) 96.4 ml/min; Est GFR (Non-African American) 83.2 ml/min; Potassium 3.9 mmol/L (3.5-5.1)
[2021-12-21] MEDS: TAMSULOSIN HCL 0.4 MG CAP PO SCH (08:39)
[2021-12-21] MEDS: EZETIMIBE 10 MG TABLET PO SCH (08:39)
[2021-12-21] MEDS: APIXABAN 5 MG TABLET PO SCH (08:39)
[2021-12-21] MEDS: SIMVASTATIN 20 MG TAB PO SCH (08:40)
[2021-12-21] MEDS: PANTOprazole 40 MG TAB PO SCH (08:40)
--- NOTE | 2021-12-21 10:33 | Cardiology Progress Note ---
Date of Service December 21, 2021 Assessment & Plan (1) Critical aortic valve stenosis: (2) Multifocal pneumonia: (3) Pulmonary embolism: (4) Hemoptysis: Plan Patient is an 89-year-old male with with critical aortic valve stenosis admitted with pneumonia, hemoptysis, pulmonary embolism. Current course notable for hypertension transiently treated with Levophed. No acute complaints other than hypoxia and shortness of breath. Denies chest pains or discomfort. Echocardiogram demonstrates preserved overall systolic function Underlying pulmonary issues being addressed Impression: Critical aortic stenosis complicating management of acute pulmonary issues. Patient with marginal reserve but preserved ejection fraction, no renal impairment as of yet. clinically improved no further cardiac testing or intervention at this time will discuss TAVR as an outpatient ok to d/c telemetry from cardiac standpoint In terms of his anticoagulation for pulmonary emboli, I would strongly caution against the use of Eliquis loading dose 10 mg twice daily for 7 days and then 5 mg twice daily thereafter given the fact that he is 89 years old, weighs less than 60 kg and has had significant hemoptysis. I initially changed the dosing to 2.5 mg twice daily. I was then contacted by pharmacy. So, I will defer to primary team. Admission and Anticipated Discharge Date Admission Date: December 14, 2021 Subjective Patient seen and examined. Chart reviewed. Telemetry reviewed. Feeling much better today. Review of Systems Review of Systems: All systems reviewed & are unremarkable except as noted in HPI & below Physical Exam Physical Exam: General: Awake, alert and oriented x 3. No acute distress. HEENT: Normocephalic, atraumatic. Pupils equal, round and reactive to light and accommodation. Extraocular muscles are intact. Anicteric sclera. Moist mucous membranes. Neck: No JVD. No bruit. Cardiovascular: Regular. Positive S-4. Normal S-1 and S-2. No S-3. 3/6 mid to late systolic ejection murmur, greatest at the right sternal border, second intercostal space with radiation to the bilateral carotids. No rubs. Pulmonary: Clear to auscultation bilaterally. No rales, rhonchi, or wheezing. Abdomen: Bowel sounds x 4, soft. No rebound, guarding or tenderness. No organomegaly. Extremities: No clubbing, cyanosis or edema. +2 pedal pulses bilaterally. Skin: Warm and dry. Results & Data ([facility]) Vital Signs (Past 12 Hours) Vital Signs Temp Pulse Pulse Resp BP Pulse Ox O2 Del Method 12/21/21 10:15 100 H 18 94 Room Air 12/21/21 08:00 Room Air 12/21/21 08:40 36.8 C 89 18 82/48 L 95 Room Air 12/21/21 06:59 74 16 96 Room Air 12/21/21 04:00 36.7 C 67 16 105/61 96 Room Air 12/20/21 23:31 71 12/20/21 23:28 36.8 C 80 16 98/60 L 97 Room Air (1) Pulmonary embolism Pulmonary embolism type: single subsegmental (without acute cor pulmonale) Qualified Code(s): I26.93 - Single subsegmental pulmonary embolism without acute cor pulmonale
[2021-12-21 12:46] VITALS: BP 102/51; PULSE 90; TEMP 98.1
--- NOTE | 2021-12-21 15:22 | Discharge Summary ---
Date of Service December 21, 2021 Admission HPI Per Admitting Provider This is an 89 y/o male with a PMH of COPD, hemochromatosis, HTN, hyperlipidemia, aortic stenosis, GERD, LLL mucoid impaction, and prediabetes presents to the ED today with progressive hemoptysis and new-onset hypoxia. Pt was apparently diagnosed with pneumonia in September 2020 - treated with doxycycline with improvement but follow-up chest CT was abnormal with a LLL mucoid impaction so pt referred to pulmonology. He has been following with them since last year and has been declining bronchoscopy since minimal symptoms and prefers to avoid invasive procedures when possible. Pt reports that he was diagnosed with pneumonia at the end of October after being seen in the ED - treated with prednisone and levofloxacin. He reports improvement in the pulmonary symptoms but residual fatigue and weakness. This morning he woke up arond 6 am with some chest congestion and recurrent cough. He reports coughing up large amounts of mucus and blood at home so they called EMS. He was noted to be hypoxic and oxygen applied. In the ED he reportedly had another large episode of hemoptysis. Chest x-ray showed new focus of nodularity in the RUL so patient was referred for admission. Currently, the patient's main complaint is the cough and hemoptysis but he also reports that he has developed wheezing this afternoon. Admission Exam Per Admitting Provider Constitutional: + thin and + frail appearing; no acute d istress Eyes: + anicteric sclerae ENMT: external ear and nose normal, oropharynx normal Neck: trachea midline Respiratory: no respiratory distress and no labored breathing Auscultation: + diminished lung sounds and + wheezes Cardiovascular: Rate/Rhythm: regular rate and regular rhythm Heart Sounds: + murmur Vessels: radial pulses present Extremities: no pedal edema Gastrointestinal (Abdomen): Inspection/Auscultation: normal bowel sounds; abdomen not distended Percussion/Palpation: abdomen soft; abdomen nontender Musculoskeletal: Head/Neck/Chest: normocephalic, head atraumatic and neck supple Skin: no jaundice Neurologic: moves all extremities; no focal motor deficits Psychiatric: A+Ox3, euthymic affect Principal Diagnosis Hemoptysis, acute PE without cor pulmonale, Pneumonia, acute hypoxic respiratory failure Discharge Exam General: Sitting comfortably in chair, not in distress, on room air Chest: Clear breath sounds bilaterally, no wheezes or crackles CVS: Regular rate and rhythm, normal heart sounds, systolic murmur Abdomen: Soft, non tender, not distended, normal bowel sounds Neuro: Awake, alert, oriented, conversing well, non focal Extremities: No edema Stearns with clear urine Discharge Data Allergies Allergy/AdvReac Type Severity Reaction Status Date / Time Penicillins Allergy Verified 11/21/21 11:14 Sulfa (Sulfonamide Allergy Verified 11/21/21 11:14 Antibiotics) Consultations 12/14/21 12:49 ED Decision to Admit Stat 12/14/21 13:54 Consult Pulmonology Routine 12/15/21 18:38 Consult Vp Customer Service Routine 12/16/21 10:03 Consult Cardiology Routine 12/17/21 07:34 Consult Palliative Care Routine 12/20/21 08:07 Consult Urology Routine Ordered Studies 12/14/21 11:13 CT angio chest PE protocol Stat 12/14/21 14:23 US venous duplex leg [US venous doppler LE BI] Stat Laboratory Results WBC 9.32 K/ul (4.8-10.8) 12/20/21 03:46 RBC 3.97 M/uL (4.63-6.08) L 12/20/21 03:46 Hgb 12.9 g/dl (14.0-18.0) L 12/21/21 07:49 Hct 37.9 % (40.1-51.0) L 12/21/21 07:49 MCV 92.7 fL (80.0-100.0) 12/20/21 03:46 MCH 31.5 pg (25.0-34.0) 12/20/21 03:46 MCHC 34.0 g/dL (32.0-36.0) 12/20/21 03:46 RDW Std Deviation 45.2 fL (36.4-46.3) 12/20/21 03:46 RDW Coeff of Susan 13.2 % (11.5-14.5) 12/20/21 03:46 Plt Count 319 K/uL (130-400) 12/20/21 03:46 MPV 9.5 fL (9.4-12.4) 12/20/21 03:46 Immature Gran % (Auto) 0.3 % 12/20/21 03:46 Neut % (Auto) 70.1 % 12/20/21 03:46 Lymph % (Auto) 20.2 % 12/20/21 03:46 [place]isco[place] % (Auto) 9.2 % 12/20/21 03:46 Eos % (Auto) 0.1 % 12/20/21 03:46 Baso % (Auto) 0.1 % 12/20/21 03:46 Neut # (Auto) 6.53 K/uL (1.4-6.5) H 12/20/21 03:46 Lymph # (Auto) 1.88 K/uL (1.2-3.4) 12/20/21 03:46 [place]isco[place] # (Auto) 0.86 K/uL (0.24-0.82) H 12/20/21 03:46 Eos # (Auto) 0.01 K/uL (0-0.50) 12/20/21 03:46 Baso # (Auto) 0.01 K/uL (0-0.2) 12/20/21 03:46 Immature Gran # (Auto) 0.03 K/uL (0.00-0.02) H 12/20/21 03:46 PT 11.6 Seconds (9.0-12.0) 12/17/21 19:20 INR 1.1 (0.9-1.1) 12/17/21 19:20 APTT 36.1 Seconds (21.0-31.0) H 12/20/21 03:46 PTT Ratio 1.3 12/20/21 03:46 Sodium 129 mmol/L (136-145) L 12/21/21 07:49 Potassium 3.9 mmol/L (3.5-5.1) 12/21/21 07:49 Chloride 96 mmol/L (98-107) L 12/21/21 07:49 Carbon Dioxide 27 mmol/L (21-32) 12/21/21 07:49 Anion Gap 6 (3-11) 12/21/21 07:49 BUN 15 mg/dl (6-23) 12/21/21 07:49 Creatinine 0.71 mg/dl (0.6-1.4) 12/21/21 07:49 Est Cr Clr Drug Dosing 53.6 ml/min 12/21/21 07:49 Est GFR ( Amer) 96.4 ml/min 12/21/21 07:49 Est GFR (Non-Af Amer) 83.2 ml/min 12/21/21 07:49 BUN/Creatinine Ratio 21.1 (10-20) H 12/21/21 07:49 Glucose 112 mg/dl (70-99(Fasting)) H 12/21/21 07:49 POC Glucose 119 mg/dl (70-99) H 12/21/21 11:36 Estimat Average Glucose 114 mg/dl 12/15/21 07:06 Hemoglobin A1c 5.6 % (4.5-5.6) 12/15/21 07:06 Lactate 1.7 mmol/L (0.4-2.0) 12/16/21 04:20 Calcium 8.4 mg/dl (8.5-10.1) L 12/21/21 07:49 Phosphorus 2.6 mg/dl (2.5-4.9) 12/19/21 05:35 Magnesium 1.9 mg/dl (1.7-2.4) 12/18/21 03:54 Total Bilirubin 0.6 mg/dl (0.2-1.0) 12/17/21 04:38 AST 13 U/L (13-39) 12/17/21 04:38 ALT 16 U/L (7-52) 12/17/21 04:38 Alkaline Phosphatase 44 U/L (34-104) 12/17/21 04:38 Troponin I High Sens 222.4 pg/ml (0-20) H* 12/16/21 21:19 Total Protein 4.8 gm/dl (6.0-8.3) L 12/17/21 04:38 Albumin 3.0 gm/dl (3.4-5.0) L 12/17/21 04:38 Globulin 1.8 gm/dl (2.5-4.0) L 12/17/21 04:38 Albumin/Globulin Ratio 1.7 (0.9-2) 12/17/21 04:38 Triglycerides 60 mg/dl (0-150) 12/17/21 12:55 Cholesterol 130 mg/dl (0-200) 12/17/21 12:55 LDL Cholesterol, Calc 70 mg/dl 12/17/21 12:55 VLDL Cholesterol, Calc 12 mg/dl (0-30) 12/17/21 12:55 HDL Cholesterol 48 mg/dl 12/17/21 12:55 Cholesterol/HDL Ratio 2.7 (0-5) 12/17/21 12:55 Procalcitonin < 0.05 ng/ml (0-0.5) 12/16/21 04:20 TSH 4.111 uIu/ml (0.300-4.500) 12/16/21 08:39 Random Cortisol 7.87 mcg/dl 12/16/21 08:39 Urine Color Dark Yellow 12/14/21 10:45 Urine Appearance Clear (Clear) 12/14/21 10:45 Urine pH 5.5 (4.5-7.5) 12/14/21 10:45 Ur Specific [place] 1.019 (1.000-1.030) 12/14/21 10:45 Urine Protein Trace (Negative) H 12/14/21 10:45 Urine Glucose (UA) Negative (Negative) 12/14/21 10:45 Urine Ketones 1+ (Negative) H 12/14/21 10:45 Urine Blood Negative (Negative) 12/14/21 10:45 Urine Nitrite Negative (Negative) 12/14/21 10:45 Urine Bilirubin Negative (Negative) 12/14/21 10:45 Urine Urobilinogen Negative (Negative) 12/14/21 10:45 Ur Leukocyte Esterase Negative (Negative) 12/14/21 10:45 Urine WBC (Auto) 1-5 /hpf (0-5) 12/14/21 10:45 Urine RBC (Auto) 0-4 /hpf (0-4) 12/14/21 10:45 U Hyaline Cast (Auto) 1-5 /lpf (0-5) 12/14/21 10:45 U Epithel Cells (Auto) 5-10 /lpf (0-5) H 12/14/21 10:45 Urine Bacteria (Auto) Negative (Negative) 12/14/21 10:45 Nasal Screen MRSA (PCR) Negative (Negative) 12/15/21 21:30 SARS-CoV-2 (PCR) NEGATIVE (Negative) 12/14/21 12:45 Influenza Type A (PCR) Negative (Neg) 12/14/21 12:45 Influenza Type B (PCR) Negative (Neg) 12/14/21 12:45 RSV (RT-PCR) Negative (Neg) 12/14/21 12:45 Bld Cult ID Panel PCR PCR Panel Negative (NotDetected) 12/14/21 10:20 Blood Type A Positive 12/20/21 03:46 Antibody Screen NEGATIVE 12/20/21 03:46 Impressions Chest CTA 12/14/21 11:13 CT angio chest PE protocol CT DOSE: 249.47 mGy.cm HISTORY: 89 years-old Male with PE, hemoptysis ++. Acute shortness of breath with cough TECHNIQUE: Multiple CTA images of the chest were obtained after the intravenous administration of 86 ml Optiray. Coronal and sagittal MIPS were obtained from the axial data set and were submitted for review. All measurements were obtained according to NASCET criteria. A dose lowering technique was utilized adhering to the principles of ALARA. COMPARISON: Chest CT 10/24/2021, 03/24/2013. FINDINGS: CTA: Moderate cardiomegaly with concentric thickening of the left ventricle. Extensive coronary artery calcifications. Atherosclerosis of the thoracic aorta. No thoracic aortic aneurysm or dissection. Tiny subsegmental pulmonary embolus within the right lower lobe on image 99 series 4. No central pulmonary emboli identified. No right heart strain. CT CHEST: Thyroid nodules measure up to 10 mm on the left. There are several mildly prominent subcentimeter mediastinal and hilar lymph nodes which are likely reactive. Trace left pleural effusion. There is no pneumothorax. Tracheob ronchial secretions with mucous plugging and mucoid impaction within the left greater than right lower lobes, progressively worsened from the prior study. Additionally, there is progressive centrilobular nodular opacities within all lobes bilaterally. There is irregular and spiculated 2.2 cm nodular consolidation within the lingula which is new from prior. Round consolidation within the left lower lobe on image 139 measuring 4.1 x 3.6 cm. Mild biapical pleural-parenchymal scarring. Subpleural 1.8 cm groundglass nodule within the right upper lobe abutting the major fissure on image 202 which is stable. No acute process of the imaged upper abdomen. Exophytic cyst of the superior pole left kidney. Unremarkable soft tissues. No acute fracture. IMPRESSION: 1. Likely acute subsegmental pulmonary embolus present within the right lower lobe. 2. Mucoid impaction with chronic mucous plugging, most pronounced in the left lower lobe has progressively worsened from the prior exam. 3. Multilobar distribution of ill-defined centrilobular opacities compatible with an infectious or inflammatory pneumonitis. 4. Nodular areas of consolidation within the lingula and left lower lobe suggest dirk of multifocal pneumonia. Follow-up chest CT after treatment course recommended to document resolution. 5. Small left pleural effusion. 6. 1.8 cm subpleural groundglass opacity of the right upper lobe again noted and is suspicious for an adenomatous lesion. ACT 112: Negative or not required by law. The above report was generated using voice recognition software. It may contain grammatical, syntax or spelling errors. Electronically signed by: Jr Mcadams M.D. 12/14/2021 1:22 PM Venous Doppler Study 12/14/21 14:23 BILATERAL LOWER EXTREMITY VENOUS DOPPLER HISTORY: eval for DVT - known acute PE COMPARISON STUDY: None. FINDINGS: There is normal compressibility, flow, and augmentation within the bilateral lower extremity deep venous systems. IMPRESSION: No DVT within the right or left lower extremity. ACT 112: Negative or not required by law. Electronically signed by: Ilir Sood M.D. 12/14/2021 4:02 PM Chest X-Ray 12/18/21 08:20 XR chest 1V portable HISTORY: Pulmonary embolus and hemoptysis with bilateral airspace opacities and shortness of breath. Follow-up. COMPARISON: Chest 12/17/2021. FINDINGS: No pneumothorax. The heart is normal in size. The left lung airspace opacities have slightly improved. Mild pulmonary vascular congestion persists. There is mild emphysema. Small left pleural effusion, unchanged. Mild interstitial thickening again noted at the right lung base small patchy airspace opacities within the right mid to lower lung zone are again noted. IMPRESSION: 1. Interval improvement in the left lung airspace opacities. 2. Small left pleural effusion persists. 3. Right lung airspace opacities are again noted. ACT 112: Negative or not required by law. Electronically signed by: Ilir Sood M.D. 12/18/2021 9:10 AM Hospital Course (1) Hemoptysis: (2) Pulmonary embolism: (3) Multifocal pneumonia: (4) Critical aortic valve stenosis: (5) Prediabetes: (6) Hypertension: (7) GERD without esophagitis: (8) COPD (chronic obstructive pulmonary disease): Plan Presented to ED on 12/14 with progressive hemoptysis and new onset hypoxia. CT imaging as below. CTA chest 12/14 1. Likely acute subsegmental pulmonary embolus present within the right lower lobe. 2. Mucoid impaction with chronic mucous plugging, most pronounced in the left lower lobe has progressively worsened from the prior exam. 3. Multilobar distribution of ill-defined centrilobular opacities compatible with an infectious or inflammatory pneumonitis. 4. Nodular areas of consolidation within the lingula and left lower lobe suggestive of multifocal pneumonia. Follow-up chest CT after treatment course recommended to document resolution. 5. Small left pleural effusion. 6.1.8 cm subpleural groundglass opacity of the right upper lobe again noted and is suspicious for an adenomatous lesion. 12/15- Transferred to ICU due to persistent hypotension not improving with fluid challenge. 12/16- on levophed briefly. Started on midodrine 12/17- Downgraded to PCU. Heparin drip started. Midodrine on hold 12/19- Transitioned heparin to eliquis 12/20- Failed voding trial and placed back on stearns 826- remains clinically stable with no evidence of bleeding, H and H stable. Hemoptysis - Resolved. H and H relatively stable. He declined bronchoscopy and cardiology did not recommend it either. He has tolerated anticoagulation without issues. Acute subsegmental RLL PE without cor pulmonale - Anticoag was not started initially due to hemoptysis. - Discussed with pulm- started on heparin drip 12/17.Transitioned to eliquis 12/19 and seems to be tolerating well without any significant bleeding, H and H remains stable. Avoiding the loading dose of 10 mg bid due to the concern for bleeding and continuing 5 mg bid. Recommend for 3-6 months and then follow up with PCP to discuss further. Urinary retention- failed voiding trial and placed back on stearns. Continue flomax. Seen by urology and recommended continuing stearns at discharge with OP follow up in 7-10 days for voiding trial. PNA - concern for aspiration. S/p empiric ABx for 7 day course. Leucocytosis resolved - Repeat CXR 12/18 shows improvement - S/p chest PT, mucomyst, robitussin-DM Acute hypoxic respiratory failure - resolved. now on room air saturating well. Critical AV stenosis - seen by cardio. Currently stable. OP evaluation for possible TAVR per cardio COPD - S/p nebs, prednisone, antibiotics. No wheezing noted. No exacerbation Elevated trop - trend reviewed. cardio following. No CP. Hypotension -resolved. briefly on levophed and midodrine. Blood clx with GPB in 1/4 bottles but repeat blood clx negative, possibly contamination. Clinically improving, so does not justify adding more antibiotics currently. Pulm recommends the same. His hypotension could have been from the infection/sepsis itself and now improved once treated with antibiotics. Cortisol and TSH level normal. Holding remeron per cardio. Flomax was initially held and now resumed at 0.4 mg daily Prediabetes - SSI prn, Diet control, f/u with PCP GOC discussion - seen by palliative. DNI but okay with CPR BPH- resumed flomax. back on stearns. Seen by uro RUL opacity- suspicious for adenomatous lesion per CT. Pulm recommends repeat CT chest in about 4-6 weeks. F/u pulm as OP. Hyponatremia- stable. recommend repeat BMP in 5-7 days and follow up with PCP. He is comfortable and discharge for stable home. He has significantly improved and is too functional for [facility] where he wanted to go. Home PT/OT arranged per CM. I spoke to his son regarding the discharge plan and answered his questions. Home Health Attestation I certify that this patient is under my care and that I, or a physicians housekeeping assistant working with me, had a face to-face encounter that meets the home health [id number] encounter requirements with this patient. The encounter with the patient was in whole, or in part, for the following medical condition, which is the primary reason for home health care (list medical condition): PT/OT I certify that, based on my findings, the following services are medically necessary home health services: My clinical findings support the need for the above services because: OT Assess ADL Status and Restore Function w ADLs PT Gait and Balance Training, Strengthening and Safety Further, I certify that my clinical findings support that this patient is homebound (i.e. absences from home require considerable and taxing effort and are for medical reasons or zoroastrian services or infrequently or of short duration when for other reasons) because: Certification for Home Health Services: Based on the above findings, I certify that this patient is confined to the home and needs intermittent care home care, physical therapy and/or speech therapy or continues to need occupational therapy. The patient is under my care, and I have initiated the establishment of the plan of care. This patient will be followed by a physician who will periodically review the plan of care. Total Time Total Time Spent Total Time Spent (In Minutes): 50 Discharge Plan Discharge Items Patient Disposition: Home - Self-Care Reason For Visit: HEMOPTYSIS, HYPOXIA Discharge Diagnosis: Hemoptysis, acute PE without cor pulmonale, Pneumonia, acute hypoxic respiratory failure Activity: Resume your previous activity Non-emergency contact: Primary Care Provider Call non-emergency contact if: you have any medication questions, your symptoms worsen, your pain is concerning for you and you have a fever Follow-up/Referrals: Kam Lee MD [Primary Care Provider] - Diet: Heart Healthy Addtl Attending Provider Instructions: Continue eliquis twice daily for at least 3-6 months unless limited by bleeding or falls. Follow up with family doctor to discuss further. Follow up with cardiology to discuss TAVR for the aortic valve stenosis. Recommend repeat CT chest in 4-6 weeks and follow up with lung doctor. Recommend repeat blood work (CBC, BMP) in 5-7 days and follow up with family doctor. Follow up with urology in 7-10 days for voiding trial. Pending Studies at Discharge: No Stand-Alone Forms: [facility], Smoking Cessation Medications and DC Order Prescriptions: New Eliquis 5 mg (74 tabs) tablets,dose pack 5 mg PO BID Qty: 74 0RF Robitussin Cough-Chest Ruslan DM 5-100 mg/5 mL Liquid 10 ml PO Q6 Qty: 100 0RF Continued acetaminophen 325 mg capsule 325 mg PO QID PRN (Reason: Pain) aspirin [Adult Low Dose Aspirin] 81 mg tablet,delayed release (DR/EC) 81 mg PO DAILY alendronate [Fosamax] 70 mg tablet 70 mg PO WK omeprazole 20 mg capsule,delayed release(DR/EC) 20 mg PO DAILY simvastatin 20 mg tablet 20 mg PO DAILY Spiriva with HandiHaler 18 mcg capsule, w/inhalation device 1 cap inhalation DAILY Rx Instructions: puncture 1 cap using device; one dose = 2 inhalations ezetimibe [Zetia] 10 mg tablet 10 mg PO DAILY Incruse Ellipta 62.5 mcg/actuation blister with device 1 inh INHALATION DAILY Changed tamsulosin 0.4 mg capsule 0.4 mg PO DAILY Qty: 30 0RF Discontinued mirtazapine 15 mg tablet 15 mg PO HS Discharge Orders: Discharge Order (Routine); Ordered 12/21/21 Ordered By: Tru Tejeda Admission Data Admit Date/Time: 12/14/21 12:54 Attending Provider: Tru Tejeda Admit Provider: Aldo Ham Primary Care Provider: Kam eLe Other Providers: Ayaan Moreau ; Dexter Engel ; Aldo Ham ; Homero Aragon ; Brown Cuellar ; Magdi Parson ; Reyes Pichardo ; Aron Jordan ; Jeremiah Flores ; Laverne Obando ; Kirstin Baldwin ; Waleska Diaz ; Adi Chanel ; Lilliam Hidalgo ; [facility] ; Zach Washington ; [facility]
[2021-12-21 15:38] VITALS: O2SAT 96
== END 2021-12-21 05:50 | disposition home health service (06) | DRG 175 ==
LOC: ED 10:05 → EDINP 12:54 → SUATTDRO 12:54 → 2E 17:35 → 1E 12-15 19:14
DX: E78.5 Hyperlipidemia, unspecified; Z87.891 Personal history of nicotine dependence; J44.0 Chronic obstructive pulmonary disease with (acute) lower respiratory infection; R57.9 Shock, unspecified; R33.9 Retention of urine, unspecified; J84.116 Cryptogenic organizing pneumonia; C34.32 Malignant neoplasm of lower lobe, left bronchus or lung; Z66 Do not resuscitate; I26.93 Single subsegmental thrombotic pulmonary embolism without acute cor pulmonale; Z79.82 Long term (current) use of aspirin; E22.2 Syndrome of inappropriate secretion of antidiuretic hormone; Z88.2 Allergy status to sulfonamides; E83.119 Hemochromatosis, unspecified; I35.0 Nonrheumatic aortic (valve) stenosis; K21.9 Gastro-esophageal reflux disease without esophagitis; J69.0 Pneumonitis due to inhalation of food and vomit; I44.0 Atrioventricular block, first degree; N40.0 Benign prostatic hyperplasia without lower urinary tract symptoms; J96.01 Acute respiratory failure with hypoxia; I10 Essential (primary) hypertension; R79.89 Other specified abnormal findings of blood chemistry; Z88.0 Allergy status to penicillin

== ENCOUNTER 2022-03-16 13:16 | Inpatient (IN) ==
[2022-03-16] MEDS ORDERED: CEFEPIME 2,000 MG/20 ML VIAL IV STA (13:45)
[2022-03-16] MEDS ORDERED: levETIRAcetam 1,000 MG in 0.9 % SODIUM CHLORIDE 100 ML IV STA (13:45)
[2022-03-16] MEDS ORDERED: SODIUM CHLORIDE 0.9% 1000ML 1,000 ML IV SCH (13:45)
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
[2022-03-16 14:13] LABS: Basophils # (auto) 0.06 K/uL (0-0.2); Basophils % (auto) 0.9 %; Eosinophils # (auto) 0.01 K/uL (0-0.50); Eosinophils % (auto) 0.1 %; Hematocrit (blood only) 39.9 % (40.1-51.0); Immature Granulocytes # (auto) 0.02 K/uL (0.00-0.02); Immature Granulocytes % (auto) 0.3 %; Lymphocytes # (auto) 0.69 K/uL (1.2-3.4); Mean Corpuscular Hemoglobin 33.6 pg (25.0-34.0); Mean Corpuscular Hgb Conc 32.6 g/dL (32.0-36.0); Mean Corpuscular Volume 103.1 fL (80.0-100.0); Mean Platelet Volume 10.3 fL (9.4-12.4); Monocytes # (auto) 0.38 K/uL (0.24-0.82); Monocytes % (auto) 5.5 %; Neutrophils # (auto) 5.74 K/uL (1.4-6.5); Neutrophils % (auto) 83.2 %; Platelet Count 259 K/uL (130-400); RDW Coefficient of Variation 13.6 % (11.5-14.5); RDW Standard Deviation 52.1 fL (36.4-46.3); Red Blood Count 3.87 M/uL (4.63-6.08)
--- NOTE | 2022-03-16 14:13 | XRay Report ---
XR chest 1V portable CLINICAL HISTORY: Sepsis. COMPARISON STUDY: Chest radiograph December 18, [address] February 01, 2022. FINDINGS: There is no pneumothorax. No definite pleural effusion is noted. Persistent left basilar op acity is similar to prior CT. Numerous subacute to chronic bilateral rib fractures are again noted. T hese were shown on prior CT. Cardiac size is normal. Mediastinal contours are normal. There is no chito dence for pulmonary edema. IMPRESSION: 1. Persistent left basilar opacity, as shown on prior CT. This favors an infectious process or mucoid impacted bronchi. 2. Numerous bilateral subacute to chronic rib fractures. These were shown on prior CT. No pneumothora x. ACT 112: Negative or not required by law. Electronically signed by: Devon Herndon M.D. 03/16/2022 2:11 PM
[2022-03-16 14:29] LABS: INR 1.1 (0.9-1.1); Partial Thromboplastin Ratio 0.8; Partial Thromboplastin Time 22.1 Seconds (21.0-31.0); Prothrombin Time 11.7 Seconds (9.0-12.0)
--- NOTE | 2022-03-16 14:42 | CT Scan Report ---
CT OF THE HEAD WITHOUT CONTRAST CLINICAL HISTORY: Seizure. COMPARISON STUDY: Head CT February 01, 2022. CT DOSE: 687.98 mGy.cm TECHNIQUE: Helical axial images of the head were obtained without IV contrast. Automated exposure con trol was utilized for the study. A dose lowering technique was utilized adhering to the principles o f ALARA. FINDINGS: No acute intracranial hemorrhage, midline shift or mass effect is present. Linear hypodensi ties are unchanged and favor small vessel disease. 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 The appearance of the brain is unchanged. The ventricular system is unremarkable . The basal cisterns are patent. No extra-axial collections are present. There are no findings to sug gest acute dural sinus thrombosis or acute territorial infarct. No significant calvarial abnormalitie s are present. Visualized portions of the sinuses and mastoid air cells are clear. IMPRESSION: No acute intracranial findings. No change in appearance of the brain. ACT 112: Negative or not required by law. Electronically signed by: Devon Herndon M.D. 03/16/2022 2:41 PM
[2022-03-16 14:43] LABS: Alanine Aminotransferase 18 U/L (7-52); Albumin Level 3.6 gm/dl (3.4-5.0); Alkaline Phosphatase 58 U/L (34-104); Anion Gap 12 (3-11); BUN Creatinine Ratio 21.7 (10-20); Bilirubin,Total 0.6 mg/dl (0.2-1.0); Blood Urea Nitrogen 18 mg/dl (6-23); Calcium 8.6 mg/dl (8.5-10.1); Carbon Dioxide 23 mmol/L (21-32); Chloride 101 mmol/L (98-107); Creatinine Clr Calc Pharmacy 42.6 ml/min; Est GFR (African American) 90.4 ml/min; Glucose 198 mg/dl (70-99(Fasting)); Magnesium 1.9 mg/dl (1.7-2.4); Sodium 136 mmol/L (136-145); Total Protein 5.7 gm/dl (6.0-8.3); Troponin I High Sensitivity 31.4 pg/ml (0-20)
[2022-03-16 15:40] LABS: Bilirubin Direct 0.1 mg/dl (0-0.2); Potassium 3.4 mmol/L (3.5-5.1)
[2022-03-16 15:45] LABS: Influenza A virus by PCR Negative (Neg); Influenza B virus by PCR Negative (Neg); RSV by PCR Negative (Neg); SARS CoV2 RNA(COVID-19)Cepheid NEGATIVE (Negative)
[2022-03-16] MEDS ORDERED: SODIUM CHLORIDE 0.9% 1000ML 500 ML IV ONE (16:02)
[2022-03-16] MEDS ORDERED: LORazepam 2 MG/1 ML VIAL IV STA (16:16)
--- NOTE | 2022-03-16 16:38 | History & Physical Report ---
Date of Service March 16, 2022 Assessment & Plan (1) Seizure: Plan: -Admit to med/tele -Patient is currently afebrile, hemodynamically stable, and stable on RA -At this time the etiology of the patient's seizure appears to be associated with currently being on Diflucan and Flagyl for possible UTI and concern for topical penile head infection -No structural abnormalities seen on CT head, no major metabolic abnormalities besides his elevated lactate which is likely from his seizure. Per UpToDate, both Diflucan and Flagyl and decrease seizure threshold. -Patient is without a leukocytosis, negative procal, has been afebrile, new UA obtained today not suggestive of current UTI. Will hold additional antifungal and antibiotics for now as his penile exam is unremarkable at this time -Received 1000 mg of IV keppra in the ED, will continue with 500 mg IV BID for now for prophylaxis. -Will get no con MRI of the brain for further evaluation and place routine Neurology consult -Seizure precautions ordered -Received 1L NSS in the ED, will hold additional IV fluids for now with his severe aortic stenosis -AM CBC and BMP (2) Lactate blood increased: Plan: -Initial lactate in the ED noted to be 4.8, likely due to his seizure prior to arrival -Received 1L NSS in the ED, repeat lactate in process (3) Elevated troponin: Plan: -Initial troponin noted to be 31.4 in the ED, patient is asymptomatic and no acute ST segment or T-wave changes -Repeat troponin in process, will follow-up (4) Hypokalemia: Plan: -Noted to be 3.4 today, mag is 1.9 -Likely from poor oral intake -Will give 20 meq PO KCL now -Monitor am electrolyes (5) Hypertension: Plan: -Hemodynamically stable -Not currently on antihypertensives (6) Aortic stenosis: Plan: -Monitor for volume overload after IV fluids (7) Pulmonary embolism: Plan: -Continue Eliquis (8) Hyperlipemia: Plan: -Continue statin (9) COPD (chronic obstructive pulmonary disease): Plan: -Stable on RA -Continue home breathing treatment -Incentive spirometry, flutter therapy, and prn albuterol while admitted Plan The patient was discussed with Dr. Thomas at the time of the admission History of Present Illness Chief Complaint: Seizure-like activity Primary Care Provider: Naman Muse MD Rustam is an 89 year old male with a PMH significant for COPD, hemochromatosis, HTN, hyperlipidemia, aortic stenosis, GERD, LLL mucoid impaction, recent PE on Eliquis, critical aortic valve stenosis, and prediabetes who presented to the [facility] ED on 03/16/22 with a chief complaint of seizure-like activity. In the ED the patient was found to be afebrile, hemodynamically stable, and stable on RA. Labs are remarkable for WBC WNL, stable Hgb at 13, MCV of 103, stable platelets, stable renal function, potassium of 3.4, mag of 1.9, lactate of 4.8, High sensitivity troponin of 31.4, procal < 0.05, and covid, influenza, and RSV negative. CT of the head was negative for acute findings. CXR shows "1. Persistent left basilar opacity, as shown on prior CT. This favors an infectious process or mucoid impacted bronchi. 2. Numerous bilateral subacute to chronic rib fractures. These were shown on prior CT. No pneumothorax.". Prior to admission the patient was given 1L NSS bolus, 1g IV keppra, 0.5 mg IV ativan, and 1 dose of cefepime. Per chart review, the patient was last seen in the [facility] ED on 03/10/22 for urinary symptoms including difficulty urinating despite having a Stearns catheter in place and dysuria. Workup was notable for CBC and CMP without major abnormalities and UA obtained from his Stearns showing Turbid Urine, 2+ protein, trace ketones, 3+ blood, 1+ leukocyte esterase, 5-10 WBC, 5-10 5-10 epithelial cells. He had discharge at the site of stearns insertion at that time and a gram stain and culture were obtained prior to exchanging his old stearns. His symptoms resolved with his new stearns and he was discharged on Keflex and Diflucan. Preliminary penile culture results showed many anaerobic gram positive cocci, moderate anaerobic gram negative bacilli, and moderate counts of probable skin gabi. The pharmacy contacted his previous ER provider who started the patient on 500 mg PO flagyl TID x 7 days due to the culture findings. At the time of the exam the patient was resting in bed in no acute distress. His Daughter, who accompanied him to the ER was being taken to another exam room as she fell minutes before my arrival. During my exam the patient appeared fatigued but was alert and oriented to person, month, and year. He is unaware of why he came to the hospital and currently denies any pain or discomfort. He is focused on his Stearns catheter and continues to tell me that someone needs to clean around it; otherwise he was unable to provide much more history. I spoke to his daughter who states that he was in his normal state of health when he woke up this morning. He made himself breakfast and was sitting at the table when he started to have tonic-clonic activity. She states that he has never had a seizure previously. The patient and his daughter state that his urinary symptoms and penile discharge have both resolved since his last ED visit. Due to the patient still being fatigued and somewhat confused I spoke to his daughter regarding code status. She explains that her brother (Rustam Bryson Jr) is madyson hnically the patient's POA. They have been having multiple discussions recently regarding the patient's wishes moving forward as his quality of life has drastically declined over the past year. They wish for the patient to be a DNR/DNI. Please refer to Dr. Thomas's attestation for any changes to the treatment plan Allergies Allergy/AdvReac Type Severity Reaction Status Date / Time Penicillins Allergy Verified 03/16/22 13:39 Sulfa (Sulfonamide Allergy Verified 03/16/22 13:39 Antibiotics) Home Medications Medication Instructions Recorded Confirmed Type tiotropium bromide 18 mcg capsule 1 cap inhalation DAILY 11/27/20 03/16/22 History with inhalation device (Spiriva with HandiHaler) acetaminophen 500 mg tablet 1,000 mg PO BID PRN Pain 12/29/21 03/16/22 History cholecalciferol (vitamin D3) 25 25 mcg PO DAILY 01/04/22 03/16/22 History mcg (1,000 unit) capsule ezetimibe 10 mg tablet (Zetia) 10 mg PO DAILY 01/04/22 03/16/22 History simvastatin 20 mg tablet 20 mg PO DAILY 01/04/22 03/16/22 History apixaban 5 mg tablet (Eliquis) 5 mg PO BID #180 tabs 01/24/22 03/16/22 Rx tamsulosin 0.4 mg capsule 0.4 mg PO DAILY #30 caps 02/11/22 03/16/22 Rx finasteride 5 mg tablet 5 mg PO DAILY #30 tabs 02/12/22 03/16/22 Rx cephalexin 500 mg capsule 500 mg PO QID 10 days #40 caps 03/10/22 03/16/22 Rx fluconazole 100 mg tablet 100 mg PO DAILY 7 days #7 tabs 03/10/22 03/16/22 Rx (Diflucan) nystatin 100,000 unit/gram topical 1 applic topical QID 14 days #30 03/10/22 03/16/22 Rx cream grams alendronate 70 mg tablet 70 mg PO WK 03/16/22 03/16/22 History metronidazole 500 mg tablet 500 mg PO TID 03/16/22 03/16/22 History Past Med/Surg History Medical History Aortic stenosis Basal cell carcinoma Blood-streaked sputum 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 myelopathy COPD (chronic obstructive pulmonary disease) Disorder of bone and cartilage, unspecified GERD without esophagitis Hemoptysis Hyperlipemia Hypertension Lesion of nose Major depression, recurrent Multifocal pneumonia Nail dystrophy Osteoporosis Prediabetes Pulmonary embolism Shock Squamous cell carcinoma Surgical History H/O Mohs micrographic surgery for skin cancer Family History Mother Heart disease Brother Heart disease Social History Smoking Status: Former smoker Tobacco Type: Cigarettes packs per day: 1; Second Hand Exposure: No; Hx Alcohol Use: Yes Alcohol type: hard liquor Hx Substance Use: No Preferred Language: Maltese Communication Ability: Effective Manager Of Pmo Required: No Beliefs That Will Affect Care: None marital status: / Current Living Situation: Alone Feels Safe at Home: Yes Assistive Devices: None Review of Systems Review of Systems: Denies current fever, chills, headache, changes in vision, hearing, taste, and smell, chest pain, SOB, cough, abdominal pain, nausea, vomi ting, diarrhea, hematemesis, melena, dysuria, hematuria, and recent falls. All systems have been reviewed and are otherwise negative. Physical Exam Physical Exam: Physical Exam: General: In no acute distress, stated age, malnourished, chronically ill- appearing, non-toxic appearing HEENT: Normocephalic, patient with bruise on his left cheek in various stages of healing, no scleral icterus, pupils around round, symmetrical, and reactive to light, dry mucus membranes, trachea midline, no thyromegaly Chest/Pulm: No respiratory distress, symmetrical chest expansion, expiratory wheezing noted throughout Cardiac: RRR, 4/6 systolic murmur noted Abdomen: Negative for ascites and bruising, normoactive bowel sounds, soft, non-tender to palpation throughout : patient with stearns catheter in place, no signs or erythema, discharge, or swelling around the head of the penis or ureteral opening, patient with large scrotal hernia which is without tenderness, stearns bag currently with dark urine without sediment Musculoskeletal: Symmetrical and without signs of acute trauma, upper and lower extremities with full ROM, no atrophy, spasticity, or flaccidity Extremities: Radial, dorsalis pedis, and posterior tibial pulses are intact and symmetrical, no edema noted in the BL LE's Skin: Warm, dry, no rashes , lesions, or scars noted Neuro: Alert and oriented to person, month, and year, patient is slow to respond and appears confused at times during the exam, no focal defects, CN II- XII tested and intact, finger to nose test negative, no tremors noted Psych: No acute distress, calm and cooperative during the exam Results & Data Results & Data ([facility]) Vital Signs (Past 12 Hours) Vital Signs Temp Pulse Pulse Resp BP BP Pulse Ox 03/16/22 16:00 79 18 111/66 98 03/16/22 15:42 76 18 111/64 100 03/16/22 14:42 80 16 116/59 L 100 03/16/22 13:21 36.4 C L 106 H 16 141/77 H 97 O2 Del Method 03/16/22 16:00 03/16/22 15:42 Room Air 03/16/22 14:42 Room Air 03/16/22 13:21 Room Air Laboratory Results Abnormal lab results 03/16/22 03/16/22 03/16/22 Range/Units 13:58 13:58 13:58 RBC 3.87 L (4.63-6.08) M/uL Hgb 13.0 L (14.0-18.0) g/dl Hct 39.9 L (40.1-51.0) % MCV 103.1 H (80.0-100.0) fL RDW Std Deviation 52.1 H (36.4-46.3) fL Lymph # (Auto) 0.69 L (1.2-3.4) K/uL Potassium (3.5-5.1) mmol/L Anion Gap 12 H (3-11) BUN/Creatinine Ratio 21.7 H (10-20) Glucose 198 H (70-99(Fasting)) mg/dl Lactate 4.8 H* (0.4-2.0) mmol/L Troponin I High Sens 31.4 H D (0-20) pg/ml Total Protein 5.7 L (6.0-8.3) gm/dl Urine Appearance (Clear) Urine Protein (Negative) Urine Glucose (UA) (Negative) Urine Blood (Negative) Ur Leukocyte Esterase (Negative) Urine RBC (Auto) (0-4) /hpf U Epithel Cells (Auto) (0-5) /lpf 03/16/22 03/16/22 Range/Units 14:57 16:50 RBC (4.63-6.08) M/uL Hgb (14.0-18.0) g/dl Hct (40.1-51.0) % MCV (80.0-100.0) fL RDW Std Deviation (36.4-46.3) fL Lymph # (Auto) (1.2-3.4) K/uL Potassium 3.4 L (3.5-5.1) mmol/L Anion Gap (3-11) BUN/Creatinine Ratio (10-20) Glucose (70-99(Fasting)) mg/dl Lactate (0.4-2.0) mmol/L Troponin I High Sens (0-20) pg/ml Total Protein (6.0-8.3) gm/dl Urine Appearance Cloudy A (Clear) Urine Protein 1+ H (Negative) Urine Glucose (UA) Trace H (Negative) Urine Blood 3+ H (Negative) Ur Leukocyte Esterase Trace H (Negative) Urine RBC (Auto) >30 H (0-4) /hpf U Epithel Cells (Auto) 10-20 H (0-5) /lpf Diagnostic Findings Chest X-Ray 03/16/22 13:45 XR chest 1V portable CLINICAL HISTORY: Sepsis. COMPARISON STUDY: Chest radiograph December 18, [address] February 01, 2022. FINDINGS: There is no pneumothorax. No definite pleural effusion is noted. Persistent left basilar opacity is similar to prior CT. Numerous subacute to chronic bilateral rib fractures are again noted. These were shown on prior CT. Cardiac size is normal. Mediastinal contours are normal. There is no evidence for pulmonary edema. IMPRESSION: 1. Persistent left basilar opacity, as shown on prior CT. This favors an infectious process or mucoid impacted bronchi. 2. Numerous bilateral subacute to chronic rib fractures. These were shown on prior CT. No pneumothorax. ACT 112: Negative or not required by law. Electronically signed by: Devon Herndon M.D. 03/16/2022 2:[address] 03/16/22 13:45 CT OF THE HEAD WITHOUT CONTRAST CLINICAL HISTORY: Seizure. COMPARISON STUDY: Head CT February 01, 2022. CT DOSE: 687.98 mGy.cm TECHNIQUE: Helical axial images of the head were obtained without IV contrast. Automated exposure control was utilized for the study. A dose lowering technique was utilized adhering to the principles of ALARA. FINDINGS: No acute intracranial hemorrhage, midline shift or mass effect is present. Linear hypodensities are unchanged and favor small vessel disease. 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 The appearance of the brain is unchanged. The ventricular system is unremarkable. The basal cisterns are patent. No extra-axial collections are present. There are no findings to suggest acute dural sinus thrombosis or acute territorial infarct. No significant calvarial abnormalities are present. Visualized portions of the sinuses and mastoid air cells are clear. IMPRESSION: No acute intracranial findings. No change in appearance of the brain. ACT 112: Negative or not required by law. Electronically signed by: Devon Herndon M.D. 03/16/2022 2:41 PM ECG Additional Comments: Sinus tachycardia with occasional Premature ventricular complexes Nonspecific ST and T wave abnormality Abnormal ECG When compared with ECG of 01-FEB-2022 01:22, Premature ventricular complexes are now Present Vent. rate has increased BY 40 BPM Code Status & VTE Plan Code Status DNR/DNI VTE Prophylaxis Plan VTE Prophylaxis will be ordered: Yes Supervising Physician Co-Signing Physician Notes Patient was seen and examined independently I discussed the case with Breezy NIETO I reviewed pertinent past medical social family history and also the plan of care and agree with the plan of care. Patient has what is described to be his seizure episode at home with a postictal phase currently he seems to be returned to his neurological baseline he has never had a history of seizures in his life. Patient was recently started on fluconazole and metronidazole for what appears to sound like perhaps a infection. These both can have seizures as side effects. Patient had a CT scan of his brain in the ER without structural injuries or damage. Subsequently the patient's external evaluation of his area appears to be intact with exception of a large hernia. Patient is chronically with an indwelling Stearns catheter. There is no skin changes of any kind. Subsequently antibiotics will be held. Urine is initially abnormal but he does have a chronic indwelling catheter subsequently will not institute antibiotic therapy unless we have defined source. At this time is loaded with Keppra in the ER we will continue Keppra 500 twice daily neurological consultation undertaken and hold an MRI of his brain. Physical exam he is oriented x3 although in casual conversation he was seen to have some memory lapses. He has no focal loss except he appears to be fidgety repositioning his blankets etc. worried about his area. Patient did have elevation of a second troponin as a repeat from the first. This did continue to rise. Repeat EKG in the ER did not show any acute changes pending a third evaluation patient remains on telemetry Any exceptions will be noted below PG Care Time/CCT Total # of Minutes Spent Total Time Spent with Patient: Total time spent is greater than 50% in coordination of care (as documented) at patient's floor/unit and/or counseling patient: Coding Level of Care Code Established Pt INT OBSERVATION CARE 50M LVL 2 Patient Type Established Medical Decision Making Moderate Complexity Diagnoses Seizure R56.9 Lactate blood increased R79.89 Elevated troponin R77.8 Hypokalemia E87.6 Hypertension I10 Aortic stenosis I35.0 Pulmonary embolism I26.93 Pulmonary embolism type: single subsegmental (without acute cor pulmonale) Hyperlipemia E78.5 COPD (chronic obstructive pulmonary disease) J44.9 (1) Pulmonary embolism Pulmonary embolism type: single subsegmental (without acute cor pulmonale) Qualified Code(s): I26.93 - Single subsegmental pulmonary embolism without acute cor pulmonale
[2022-03-16 17:04] LABS: Appearance Urine Cloudy (Clear); Bacteria Urine Automated Negative (Negative); Bilirubin Urine Negative (Negative); Blood Urine 3+ (Negative); Color Urine Orange; Glucose Urine UA Trace (Negative); Ketones Urine Negative (Negative); Leukocyte Esterase Urine Trace (Negative); Nitrite Urine Negative (Negative); Protein Urine 1+ (Negative); RBC Urine Automated >30 /hpf (0-4); Specific Gravity Urine 1.018 (1.000-1.030); Urobilinogen Urine Negative (Negative)
[2022-03-16] MEDS ORDERED: levETIRAcetam 500 MG in 0.9 % SODIUM CHLORIDE 100 ML IV STA (17:13)
[2022-03-16] MEDS ORDERED: POTASSIUM CHLORIDE CRTAB 20 MEQ TABCR PO STA (18:07)
[2022-03-16] MEDS ORDERED: ALBUTEROL 0.5% NEB SOLN 2.5 MG/0.5 ML VIAL NEB SCH (19:00)
[2022-03-16] MEDS: APIXABAN 5 MG TABLET PO SCH (21:52)
[2022-03-16] MEDS: NYSTATIN CR 15 GM TUBE EXT SCH (21:53)
[2022-03-17] MEDS ORDERED: ALBUTEROL 0.5% NEB SOLN 2.5 MG/0.5 ML VIAL NEB PRN (00:32)
[2022-03-17] MEDS ORDERED: ALBUTEROL 0.083% NEBU SOLN 3 ML VIAL NEB PRN (00:44)
[2022-03-17] MEDS: ACETAMINOPHEN 325 MG TAB PO PRN (04:26)
[2022-03-17 07:46] LABS: Hematocrit (blood only) 35.9 % (40.1-51.0); Mean Corpuscular Hemoglobin 33.6 pg (25.0-34.0); Mean Corpuscular Hgb Conc 33.4 g/dL (32.0-36.0); Mean Corpuscular Volume 100.6 fL (80.0-100.0); Mean Platelet Volume 10.4 fL (9.4-12.4); Platelet Count 241 K/uL (130-400); RDW Coefficient of Variation 13.3 % (11.5-14.5); RDW Standard Deviation 49.9 fL (36.4-46.3); Red Blood Count 3.57 M/uL (4.63-6.08); White Blood Count 6.55 K/ul (4.8-10.8)
[2022-03-17 08:13] LABS: BUN Creatinine Ratio 18.5 (10-20); Calcium 8.3 mg/dl (8.5-10.1); Creatinine Clr Calc Pharmacy 57.2 ml/min; Est GFR (Non-African American) 86.3 ml/min; Potassium 3.7 mmol/L (3.5-5.1)
[2022-03-17] MEDS: FINASTERIDE 5 MG TAB PO SCH (08:27)
[2022-03-17] MEDS: TAMSULOSIN HCL 0.4 MG CAP PO SCH (08:27)
[2022-03-17] MEDS: CHOLECALCIFEROL 1,000 UNITS 25 MCG TAB PO SCH (08:27)
[2022-03-17] MEDS: EZETIMIBE 10 MG TABLET PO SCH (08:27)
[2022-03-17] MEDS: SIMVASTATIN 20 MG TAB PO SCH (08:27)
[2022-03-17] MEDS: UMECLIDINIUM BROMIDE 62.5MCG/BLISTER 7 PUFFS/INHALER INH SCH (08:28)
[2022-03-17] MEDS: APIXABAN 5 MG TABLET PO SCH ×2 (08:28→20:29)
[2022-03-17] MEDS ORDERED: levETIRAcetam 500 MG in 0.9 % SODIUM CHLORIDE 100 ML IV SCH (09:00)
--- NOTE | 2022-03-17 10:50 | Magnetic Resonance Report ---
MRI OF THE BRAIN WITHOUT IV CONTRAST CLINICAL HISTORY: Seizure. COMPARISON STUDY: CT of the brain dated 03/16/2022. TECHNIQUE: MRI of the brain was performed utilizing various T1 and T2-weighted sequences in the axial , sagittal, and coronal planes. IV contrast was not administered for this examination. FINDINGS: Brain parenchyma: There are at least 3 subcentimeter foci of restricted diffusion seen within the melva trum semiovale bilaterally. These are best seen on axial images #17 and #18. These likely represent a cute to subacute lacunar infarcts. No additional foci of restricted diffusion are identified. There i s no hemorrhage or mass effect. There is age-related involutional change noting moderate subcortical and periventricular microangiopathic disease. A chronic lacunar infarct is noted in the right externa l capsule. Wade-white matter differentiation is preserved. No extra-axial fluid collection is seen. T he cerebellar tonsils are normal in configuration. Ventricles, sulci, and cisterns: Prominent secondary to involutional change. Pituitary and sella: Unremarkable. Intracranial vasculature: Normal flow voids are maintained at the skull base. Orbits: The bony orbits are grossly intact. Orbital contents are normal in appearance. Sinuses and mastoids: Clear. Calvarium: Unremarkable. Cervical cord: Partially visualized cervical spinal cord is normal in morphology and signal intensity . IMPRESSION: 1. There are at least 3 subcentimeter foci of restricted diffusion within the centrum semiovale bilat erally, typical for acute to subacute lacunar infarcts. 2. No additional foci of restricted diffusion are identified. 3. There is no hemorrhage or mass effect. ACT 112: Negative or not required by law. Electronically signed by: Darwin Flores M.D. 03/17/2022 10:48 AM
[2022-03-17 12:33] LABS: Chol HDL Ratio 2.4 (0-5)
[2022-03-17] MEDS: ASPIRIN 81 MG ECTAB PO SCH (13:03)
--- NOTE | 2022-03-17 13:25 | Hospitalist Progress Note ---
Date of Service March 17, 2022 Assessment & Plan (1) Seizure-like activity: Plan: Presented due to seizure-like activity (loss of consciousness with generalized body shaking, postictal confusion). No structural abnormalities on CT head. Elevated lactate to 4.8 on admission, with repeat lactate of 1.3. Likely due to seizure. Seizure differential also includes convulsive syncope, does have critical aortic valve stenosis and is not considered a candidate for intervention. Cardiology consulted for further evaluation of possible convulsive syncope. Agree with holding Flagyl and Diflucan as penile exam is benign and these medications can lower seizure threshold. Received Keppra 1000 mg IV load in the ER. We will discontinue antiepileptics after discussion with neurology. EEG ordered to evaluate for epileptogenic activity. Telemetry for cardiac monitoring. Ventricular rate arrhythmia and syncope certainly possible in the setting of critical aortic valve stenosis, will continue to monitor on telemetry with laboratory monitor on discharge as well. (2) CVA (cerebral vascular accident): Plan: CT head on admission without acute infarct. Brain MRI shows evidence of bilateral subcortical acute/subacute ischemic stroke. Lipid panel with LDL of 67, continue home simvastatin/ezetimibe. Continue Eliquis, defer other antiplatelet treatment. Follow-up with [facility] neurology in 1 month. (3) Lactate blood increased: Plan: Initial lactate in the ED noted to be 4.8, likely due to seizure activity prior to arrival. Received 1L NSS in the ED, repeat lactate normal. (4) Elevated troponin: Plan: Initial troponin noted to be 31.4 in the ED, patient is asymptomatic and no acute ST segment or T-wave changes. No further ischemic evaluation at this time. (5) Hypokalemia: Plan: Admission potassium of 3.4, improved with KCl p.o. 20 MEQs to 3.7. Repeat BMP in the morning. (6) Pulmonary embolism: Plan: Continue Eliquis. (7) Hyperlipemia: Plan: Continue statin. (8) COPD (chronic obstructive pulmonary disease): Plan: Incentive spirometry, flutter therapy, and prn albuterol while admitted. (9) Critical aortic valve stenosis: Plan: On past visits with cardiology has opted for conservative management as opposed to aortic valve replacement. Severe aortic stenosis certainly could be contributory to a possible ventricular arrhythmia/syncope. Continue cardiac monitoring and outpatient heart monitor as described above. Plan DNR/DNI Minced and moist heart healthy diet Rigoberto will cover for DVT prophylaxis Med/telemetry Admission and Anticipated Discharge Date Admission Date: March 16, 2022 Subjective No complaints this morning, looking forward to getting out of bed. No complaints of chest pain, shortness of breath. Remembers that right before he came in he was out of it, otherwise does not have much recollection of the events of yesterday. Denies nausea, vomiting. Does not endorse any focal weakness. Review of Systems Constitutional: no fever and no chills Respiratory: no cough and no dyspnea Cardiovascular: no chest pain and no palpitations Gastrointestinal: no abdominal pain, no nausea and no vomiting Physical Exam Constitutional: WD/WN, vitals as above Respiratory: normal respiratory effort, lungs clear to auscultation Cardiovascular: Regular rate and rhythm with 4/6 systolic murmur Gastrointestinal (Abdomen): normal bowel sounds, soft, nontender, no hepatosplenomegaly Skin: no rashes, warm and dry Neurologic: 5 out of 5 strength in bilateral upper and lower extremities, no facial droop, no dysarthria Sensation of bilateral face, upper and lower extremities symmetric Psychiatric: A+Ox3, euthymic affect Results & Data Results & Data ([facility]) Vital Signs (Past 12 Hours) Vital Signs Temp Pulse Pulse Resp BP Pulse Ox O2 Del Method 03/17/22 06:15 60 03/17/22 11:06 36.4 C L 55 L 20 106/61 100 Room Air 03/17/22 07:32 36.4 C L 65 20 108/48 L 97 Room Air 03/17/22 02:44 36.5 C 55 L 18 113/65 99 Room Air PG Care Time/CCT Total # of Minutes Spent Total Time Spent with Patient: Total time spent is greater than 50% in coordination of care (as documented) at patient's floor/unit and/or counseling patient: Coding Level of Care Code 51345 Subseq Hosp Care Lvl 3 Diagnoses Seizure-like activity R56.9 CVA (cerebral vascular accident) I63.9 Lactate blood increased R79.89 Elevated troponin R77.8 Hypokalemia E87.6 Pulmonary embolism I26.93 Pulmonary embolism type: single subsegmental (without acute cor pulmonale) Hyperlipemia E78.5 COPD (chronic obstructive pulmonary disease) J44.9 Critical aortic valve stenosis I35.0 (1) Pulmonary embolism Pulmonary embolism type: single subsegmental (without acute cor pulmonale) Qualified Code(s): I26.93 - Single subsegmental pulmonary embolism without acute cor pulmonale
--- NOTE | 2022-03-17 14:26 | Neurology Consultation ---
Date of Consultation March 17, 2022 Assessment & Plan (1) Seizure-like activity: Impression: The patient has no history of seizure or seizure-like activities, however, he had an episode of loss of consciousness with generalized body shaking yesterday, with postictal confusion. This is the first seizure he has ever had, which does not suggest seizure disorder to indicate antiepileptic treatment, unless EEG shows epileptogenic activity. The patient has extensive medical problems including severe aortic valve stenosis, which might cause syncope and convulsive syncope. He has been recently treated on Flagyl and Diflucan, which would lower threshold for seizures. Cardiac rhythm abnormality, hypotension, and ongoing other medical problems are potential risk factors for syncope and provoked seizure. Brain MRI evidence of bilateral, subcortical acute/subacute ischemic strokes are unlikely cause of seizure/syncope. Recommendations: EEG to evaluate for epileptogenic activity. There is no indication for prophylactic antiepileptic treatment at this time unless EEG shows epileptogenic activity. We should stop Keppra treatment at this time. Cardiology consultation regarding evaluation of cardiac etiology of syncope as the patient has severe aortic valve stenosis. Good hydration. The patient should not drive motor vehicles until getting clearance from neurology clinic as the recent episode of loss of consciousness/seizure might occur again. (2) CVA (cerebral vascular accident): Impression: The patient was initially admitted after having a seizure-like activity. However, brain MRI showed acute/subacute bilateral, small, subcortical ischemic strokes. Based on MRI findings, underlying etiology is likely cardioembolic/central. The patient has been on Eliquis for pulmonary embolism. He has multiple stroke risk factors. Recommendations: We will keep the patient on Eliquis for stroke prevention. There is no indication for additional antiplatelet treatment, unless cardiology recommends for cardiac indication. Long-term cardiac rhythm monitoring to investigate for paroxysmal atrial fibrillation. Echocardiogram to search for intracardiac embolic source. There is no indication for permissive hypertension, however, we should avoid hypotension. Lipid panel. Goal LDL level is lower than 70. Physical therapy and Occupational Therapy evaluations for ambulation safety. Follow-up with neurology clinic in a month. I will inform [facility] neurology clinic, to arrange a follow-up appointment. (3) Critical aortic valve stenosis: Impression: The patient has severe/critical aortic valve stenosis, but based on having comorbid medical conditions, he was not considered a candidate for intervention. Obviously, severe aortic valve stenosis can cause syncope/convulsive syncope. Recommendations: Echocardiogram. Cardiology consultation. Plan Thank you for the consultation. History of Present Illness Reason for Consultation: Seizure-like activity and abnormal brain MRI. Requesting Physician: Shreya Meyers DO Attending Physician: Shreya Bolaños DO History of Present Illness The patient is 89-year-old gentleman, who was brought to emergency department yesterday, after he had an event of loss of consciousness with generalized body shaking and postictal confusion yesterday. According to family, the patient was sitting in the chair, and he was unresponsive. When they checked him, he was having myoclonic activity in upper and lower extremities which lasted for a minute or so. When EMS arrived, the patient was confused and disoriented as seen in postictal state. During this event, the patient was somewhat pale and clammy. When they arrived the emergency department, the patient was back to his baseline. He has no prior history of seizure or seizure-like activities. He was not considered a candidate for thrombolytic treatment as he was back to his baseline and initial presentation was not suggestive of stroke. He was loaded with levetiracetam and was admitted to hospital. Today, brain MRI showed bilateral, subcortical, small lesions, with diffusion restriction, which was consistent with acute/subacute ischemic stroke. The patient is already on Eliquis for pulmonary embolism. He has multiple medical problems including severe aortic valve stenosis. He was started on Flagyl and Diflucan recently, for urinary tract infection and yeast infection. As those medications might lower seizure thresholds, Flagyl and Diflucan was stopped on admission. The patient has severe COPD, pneumonia, and was diagnosed with pulmonary embolism in November 2021, and since then, he has been on Eliquis 5 mg twice a day. During hospital stay, we have noticed slight bradycardia but no episodes of atrial fibrillation. The patient reports intermittent palpitations but he has not been diagnosed with atrial fibrillation before. Urinalysis did not show active urinary tract infection. Troponin level was elevated which has been coming down gradually. I have reviewed the patient's chart including imaging studies and visualized them personally. I have discussed the case with the patient and hospitalist physician. Allergies Allergy/AdvReac Type Severity Reaction Status Date / Time Penicillins Allergy Verified 03/16/22 13:39 Sulfa (Sulfonamide Allergy Verified 03/16/22 13:39 Antibiotics) Home Medications Medication Instructions Recorded Confirmed Type tiotropium bromide 18 mcg capsule 1 cap inhalation DAILY 11/27/20 03/16/22 History with inhalation device (Spiriva with HandiHaler) acetaminophen 500 mg tablet 1,000 mg PO BID PRN Pain 12/29/21 03/16/22 History cholecalciferol (vitamin D3) 25 25 mcg PO DAILY 01/04/22 03/16/22 History mcg (1,000 unit) capsule ezetimibe 10 mg tablet (Zetia) 10 mg PO DAILY 01/04/22 03/16/22 History simvastatin 20 mg tablet 20 mg PO DAILY 01/04/22 03/16/22 History apixaban 5 mg tablet (Eliquis) 5 mg PO BID #180 tabs 01/24/22 03/16/22 Rx tamsulosin 0.4 mg capsule 0.4 mg PO DAILY #30 caps 02/11/22 03/16/22 Rx finasteride 5 mg tablet 5 mg PO DAILY #30 tabs 02/12/22 03/16/22 Rx cephalexin 500 mg capsule 500 mg PO QID 10 days #40 caps 03/10/22 03/16/22 Rx fluconazole 100 mg tablet 100 mg PO DAILY 7 days #7 tabs 03/10/22 03/16/22 Rx (Diflucan) nystatin 100,000 unit/gram topical 1 applic topical QID 14 days #30 03/10/22 03/16/22 Rx cream grams alendronate 70 mg tablet 70 mg PO WK 03/16/22 03/16/22 History metronidazole 500 mg tablet 500 mg PO TID 03/16/22 03/16/22 History Patient History Medical History Aortic stenosis Basal cell carcinoma Blood-streaked sputum 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 myelopathy COPD (chronic obstructive pulmonary disease) Disorder of bone and cartilage, unspecified GERD without esophagitis Hemoptysis Hyperlipemia Hypertension Lesion of nose Major depression, recurrent Multifocal pneumonia Nail dystrophy Osteoporosis Prediabetes Pulmonary embolism Shock Squamous cell carcinoma Surgical History H/O Mohs micrographic surgery for skin cancer Family History Mother Heart disease Brother Heart disease Social History Smoking Status: Former smoker Tobacco Type: Cigarettes packs per day: 1; Second Hand Exposure: No; Hx Alcohol Use: Yes Alcohol type: hard liquor Hx Substance Use: No Preferred Language: Armenian Communication Ability: Impaired Mortgage Loan Computation Clerk Required: No Beliefs That Will Affect Care: Gnosticism Gnosticism Beliefs: "Prays to Jung" marital status: / Current Living Situation: Alone Current Living Situation Comment: home alone; daughter Mimi helps with care Feels Safe at Home: Yes Assistive Devices: Glasses and Walker Review of Systems Review of Systems: All systems reviewed & are unremarkable except as noted in HPI & below Physical Exam Physical Exam: General Examination: Constitutional: Well developed person in no acute distress. HENT: Normal exam with inspection. CV: Hearth rhythm is regular. Neck: Supple, no carotid bruits. Lungs: Non-labored and comfortable breathing. Abdomen: Soft, non-tender, non-distended. Skin: No rash or ecchymosis. Extremities: No edema or cyanosis NEUROLOGICAL EXAMINATION: Mental Status: Alert and oriented to place, person and time. Cranial Nerves: II-XII are intact. No nystagmus. Funduscopy: Normal looking optic discs. Motor: 5-/5 in all extremities without asymmetry. Tone: Normal without spasticity or rigidity. Sensory: Intact to all sensory modalities other than slightly decreased sensation in feet. DTRs: 2+ all except trace in ankles. No Babinski. Coordination: No dysmetria with FTN testing. Speech: Fluent. Comprehension is intact. Gait: Not assessed Musculoskeletal: Normal muscle bulk, intrinsic hand muscle atrophy is noticed. Results & Data ([facility]) Vital Signs (Past 12 Hours) Vital Signs Temp Pulse Pulse Resp BP Pulse Ox O2 Del Method 03/17/22 06:15 60 03/17/22 11:06 36.4 C L 55 L 20 106/61 100 Room Air 03/17/22 07:32 36.4 C L 65 20 108/48 L 97 Room Air 03/17/22 02:44 36.5 C 55 L 18 113/65 99 Room Air Laboratory Results Laboratory Results - last 24 hr 03/16/22 03/16/22 03/16/22 13:58 13:58 13:58 WBC 6.90 RBC 3.87 L Hgb 13.0 L Hct 39.9 L MCV 103.1 H MCH 33.6 MCHC 32.6 RDW Std Deviation 52.1 H RDW Coeff of Susan 13.6 Plt Count 259 MPV 10.3 Immature Gran % (Auto) 0.3 Neut % (Auto) 83.2 Lymph % (Auto) 10.0 Cocke % (Auto) 5.5 Eos % (Auto) 0.1 Baso % (Auto) 0.9 Neut # (Auto) 5.74 Lymph # (Auto) 0.69 L [place] # (Auto) 0.38 Eos # (Auto) 0.01 Baso # (Auto) 0.06 Immature Gran # (Auto) 0.02 PT 11.7 INR 1.1 APTT 22.1 PTT Ratio 0.8 Sodium 136 Potassium TNP Chloride 101 Carbon Dioxide 23 Anion Gap 12 H BUN 18 Creatinine 0.83 Est Cr Clr Drug Dosing 42.6 Est GFR ( Amer) 90.4 Est GFR (Non-Af Amer) 78.0 BUN/Creatinine Ratio 21.7 H Glucose 198 H Lactate Calcium 8.6 Magnesium 1.9 Total Bilirubin 0.6 Direct Bilirubin TNP AST TNP ALT 18 Alkaline Phosphatase 58 Troponin I High Sens 31.4 H D Total Protein 5.7 L Albumin 3.6 Triglycerides Cholesterol LDL Cholesterol, Calc VLDL Cholesterol, Calc HDL Cholesterol Cholesterol/HDL Ratio Procalcitonin Urine Color Urine Appearance Urine pH Ur Specific [place] Urine Protein Urine Glucose (UA) Urine Ketones Urine Blood Urine Nitrite Urine Bilirubin Urine Urobilinogen Ur Leukocyte Esterase Urine WBC (Auto) Urine RBC (Auto) U Hyaline Cast (Auto) U Epithel Cells (Auto) Urine Bacteria (Auto) SARS-CoV-2 (PCR) Influenza Type A (PCR) Influenza Type B (PCR) RSV (RT-PCR) 03/16/22 03/16/22 03/16/22 13:58 13:58 14:29 WBC RBC Hgb Hct MCV MCH MCHC RDW Std Deviation RDW Coeff of Susan Plt Count MPV Immature Gran % (Auto) Neut % (Auto) Lymph % (Auto) [place] % (Auto) Eos % (Auto) Baso % (Auto) Neut # (Auto) Lymph # (Auto) [place] # (Auto) Eos # (Auto) Baso # (Auto) Immature Gran # (Auto) PT INR APTT PTT Ratio Sodium Potassium Chloride Carbon Dioxide Anion Gap BUN Creatinine Est Cr Clr Drug Dosing Est GFR ( Amer) Est GFR (Non-Af Amer) BUN/Creatinine Ratio Glucose Lactate 4.8 H* Calcium Magnesium Total Bilirubin Direct Bilirubin AST ALT Alkaline Phosphatase Troponin I High Sens Total Protein Albumin Triglycerides Cholesterol LDL Cholesterol, Calc VLDL Cholesterol, Calc HDL Cholesterol Cholesterol/HDL Ratio Procalcitonin < 0.05 Urine Color Urine Appearance Urine pH Ur Specific [place] Urine Protein Urine Glucose (UA) Urine Ketones Urine Blood Urine Nitrite Urine Bilirubin Urine Urobilinogen Ur Leukocyte Esterase Urine WBC (Auto) Urine RBC (Auto) U Hyaline Cast (Auto) U Epithel Cells (Auto) Urine Bacteria (Auto) SARS-CoV-2 (PCR) NEGATIVE Influenza Type A (PCR) Negative Influenza Type B (PCR) Negative RSV (RT-PCR) Negative 03/16/22 03/16/22 03/16/22 14:57 16:50 16:55 WBC RBC Hgb Hct MCV MCH MCHC RDW Std Deviation RDW Coeff of Susan Plt Count MPV Immature Gran % (Auto) Neut % (Auto) Lymph % (Auto) [place] % (Auto) Eos % (Auto) Baso % (Auto) Neut # (Auto) Lymph # (Auto) [place] # (Auto) Eos # (Auto) Baso # (Auto) Immature Gran # (Auto) PT INR APTT PTT Ratio Sodium Potassium 3.4 L Chloride Carbon Dioxide Anion Gap BUN Creatinine Est Cr Clr Drug Dosing Est GFR ( Amer) Est GFR (Non-Af Amer) BUN/Creatinine Ratio Glucose Lactate 1.3 Calcium Magnesium Total Bilirubin Direct Bilirubin 0.1 AST 15 ALT Alkaline Phosphatase Troponin I High Sens Total Protein Albumin Triglycerides Cholesterol LDL Cholesterol, Calc VLDL Cholesterol, Calc HDL Cholesterol Cholesterol/HDL Ratio Procalcitonin Urine Color [place] Urine Appearance Cloudy A Urine pH 6.0 Ur Specific [place] 1.018 Urine Protein 1+ H Urine Glucose (UA) Trace H Urine Ketones Negative Urine Blood 3+ H Urine Nitrite Negative Urine Bilirubin Negative Urine Urobilinogen Negative Ur Leukocyte Esterase Trace H Urine WBC (Auto) 1-5 Urine RBC (Auto) >30 H U Hyaline Cast (Auto) 1-5 U Epithel Cells (Auto) 10-20 H Urine Bacteria (Auto) Negative SARS-CoV-2 (PCR) Influenza Type A (PCR) Influenza Type B (PCR) RSV (RT-PCR) 03/16/22 03/16/22 03/17/22 17:28 19:30 00:41 WBC RBC Hgb Hct MCV MCH MCHC RDW Std Deviation RDW Coeff of Susan Plt Count MPV Immature Gran % (Auto) Neut % (Auto) Lymph % (Auto) [place] % (Auto) Eos % (Auto) Baso % (Auto) Neut # (Auto) Lymph # (Auto) [place] # (Auto) Eos # (Auto) Baso # (Auto) Immature Gran # (Auto) PT INR APTT PTT Ratio Sodium Potassium Chloride Carbon Dioxide Anion Gap BUN Creatinine Est Cr Clr Drug Dosing Est GFR ( Amer) Est GFR (Non-Af Amer) BUN/Creatinine Ratio Glucose Lactate Calcium Magnesium Total Bilirubin Direct Bilirubin AST ALT Alkaline Phosphatase Troponin I High Sens 482.7 H* D 729.5 H* D 770.6 H* Total Protein Albumin Triglycerides Cholesterol LDL Cholesterol, Calc VLDL Cholesterol, Calc HDL Cholesterol Cholesterol/HDL Ratio Procalcitonin Urine Color Urine Appearance Urine pH Ur Specific [place] Urine Protein Urine Glucose (UA) Urine Ketones Urine Blood Urine Nitrite Urine Bilirubin Urine Urobilinogen Ur Leukocyte Esterase Urine WBC (Auto) Urine RBC (Auto) U Hyaline Cast (Auto) U Epithel Cells (Auto) Urine Bacteria (Auto) SARS-CoV-2 (PCR) Influenza Type A (PCR) Influenza Type B (PCR) RSV (RT-PCR) 03/17/22 03/17/22 03/17/22 06:54 06:54 06:54 WBC 6.55 RBC 3.57 L Hgb 12.0 L Hct 35.9 L MCV 100.6 H MCH 33.6 MCHC 33.4 RDW Std Deviation 49.9 H RDW Coeff of Susan 13.3 Plt Count 241 MPV 10.4 Immature Gran % (Auto) Neut % (Auto) Lymph % (Auto) [place] % (Auto) Eos % (Auto) Baso % (Auto) Neut # (Auto) Lymph # (Auto) [place] # (Auto) Eos # (Auto) Baso # (Auto) Immature Gran # (Auto) PT INR APTT PTT Ratio Sodium 139 Potassium 3.7 Chloride 107 Carbon Dioxide 28 Anion Gap 4 BUN 12 Creatinine 0.65 Est Cr Clr Drug Dosing 57.2 Est GFR ( Amer) 100.0 Est GFR (Non-Af Amer) 86.3 BUN/Creatinine Ratio 18.5 Glucose 78 Lactate Calcium 8.3 L Magnesium Total Bilirubin Direct Bilirubin AST ALT Alkaline Phosphatase Troponin I High Sens Total Protein Albumin Triglycerides 84 Cholesterol 142 LDL Cholesterol, Calc 67 VLDL Cholesterol, Calc 17 HDL Cholesterol 58 Cholesterol/HDL Ratio 2.4 Procalcitonin Urine Color Urine Appearance Urine pH Ur Specific [place] Urine Protein Urine Glucose (UA) Urine Ketones Urine Blood Urine Nitrite Urine Bilirubin Urine Urobilinogen Ur Leukocyte Esterase Urine WBC (Auto) Urine RBC (Auto) U Hyaline Cast (Auto) U Epithel Cells (Auto) Urine Bacteria (Auto) SARS-CoV-2 (PCR) Influenza Type A (PCR) Influenza Type B (PCR) RSV (RT-PCR) 03/17/22 08:41 WBC RBC Hgb Hct MCV MCH MCHC RDW Std Deviation RDW Coeff of Susan Plt Count MPV Immature Gran % (Auto) Neut % (Auto) Lymph % (Auto) [place] % (Auto) Eos % (Auto) Baso % (Auto) Neut # (Auto) Lymph # (Auto) [place] # (Auto) Eos # (Auto) Baso # (Auto) Immature Gran # (Auto) PT INR APTT PTT Ratio Sodium Potassium Chloride Carbon Dioxide Anion Gap BUN Creatinine Est Cr Clr Drug Dosing Est GFR ( Amer) Est GFR (Non-Af Amer) BUN/Creatinine Ratio Glucose Lactate Calcium Magnesium Total Bilirubin Direct Bilirubin AST ALT Alkaline Phosphatase Troponin I High Sens 474.4 H* D Total Protein Albumin Triglycerides Cholesterol LDL Cholesterol, Calc VLDL Cholesterol, Calc HDL Cholesterol Cholesterol/HDL Ratio Procalcitonin Urine Color Urine Appearance Urine pH Ur Specific [place] Urine Protein Urine Glucose (UA) Urine Ketones Urine Blood Urine Nitrite Urine Bilirubin Urine Urobilinogen Ur Leukocyte Esterase Urine WBC (Auto) Urine RBC (Auto) U Hyaline Cast (Auto) U Epithel Cells (Auto) Urine Bacteria (Auto) SARS-CoV-2 (PCR) Influenza Type A (PCR) Influenza Type B (PCR) RSV (RT-PCR) Diagnostic Findings Chest X-Ray 03/16/22 13:45 XR chest 1V portable CLINICAL HISTORY: Sepsis. COMPARISON STUDY: Chest radiograph December 18, [address] February 01, 2022. FINDINGS: There is no pneumothorax. No definite pleural effusion is noted. Persistent left basilar opacity is similar to prior CT. Numerous subacute to chronic bilateral rib fractures are again noted. These were shown on prior CT. Cardiac size is normal. Mediastinal contours are normal. There is no evidence for pulmonary edema. IMPRESSION: 1. Persistent left basilar opacity, as shown on prior CT. This favors an infectious process or mucoid impacted bronchi. 2. Numerous bilateral subacute to chronic rib fractures. These were shown on prior CT. No pneumothorax. ACT 112: Negative or not required by law. Electronically signed by: Devon Herndon M.D. 03/16/2022 2:[address] 03/16/22 13:45 CT OF THE HEAD WITHOUT CONTRAST CLINICAL HISTORY: Seizure. COMPARISON STUDY: Head CT February 01, 2022. CT DOSE: 687.98 mGy.cm TECHNIQUE: Helical axial images of the head were obtained without IV contrast. Automated exposure control was utilized for the study. A dose lowering technique was utilized adhering to the principles of ALARA. FINDINGS: No acute intracranial hemorrhage, midline shift or mass effect is present. Linear hypodensities are unchanged and favor small vessel disease. 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 The appearance of the brain is unchanged. The ventricular system is unremarkable. The basal cisterns are patent. No extra-axial collections are present. There are no findings to suggest acute dural sinus thrombosis or acute territorial infar ct. No significant calvarial abnormalities are present. Visualized portions of the sinuses and mastoid air cells are clear. IMPRESSION: No acute intracranial findings. No change in appearance of the brain. ACT 112: Negative or not required by law. Electronically signed by: Devon Herndon M.D. 03/16/2022 2:41 PM Brain MRI 03/17/22 09:05 MRI OF THE BRAIN WITHOUT IV CONTRAST CLINICAL HISTORY: Seizure. COMPARISON STUDY: CT of the brain dated 03/16/2022. TECHNIQUE: MRI of the brain was performed utilizing various T1 and T2-weighted sequences in the axial, sagittal, and coronal planes. IV contrast was not administered for this examination. FINDINGS: Brain parenchyma: There are at least 3 subcentimeter foci of restricted diffusion seen within the centrum semiovale bilaterally. These are best seen on axial images #17 and #18. These likely represent acute to subacute lacunar infarcts. No additional foci of restricted diffusion are identified. There is no hemorrhage or mass effect. There is age-related involutional change noting moderate subcortical and periventricular microangiopathic disease. A chronic lacunar infarct is noted in the right external capsule. Wade-white matter differentiation is preserved. No extra-axial fluid collection is seen. The cerebellar tonsils are normal in configuration. Ventricles, sulci, and cisterns: Prominent secondary to involutional change. Pituitary and sella: Unremarkable. Intracranial vasculature: Normal flow voids are maintained at the skull base. Orbits: The bony orbits are grossly intact. Orbital contents are normal in appearance. Sinuses and mastoids: Clear. Calvarium: Unremarkable. Cervical cord: Partially visualized cervical spinal cord is normal in morphology and signal intensity. IMPRESSION: 1. There are at least 3 subcentimeter foci of restricted diffusion within the centrum semiovale bilaterally, typical for acute to subacute lacunar infarcts. 2. No additional foci of restricted diffusion are identified. 3. There is no hemorrhage or mass effect. ACT 112: Negative or not required by law. Electronically signed by: Darwin Flores M.D. 03/17/2022 10:48 AM
--- NOTE | 2022-03-17 15:48 | Cardiology Consultation ---
Date of Consultation March 17, 2022 Assessment & Plan (1) Aortic stenosis: (2) Elevated troponin: (3) Seizure-like activity: (4) CVA (cerebral vascular accident): Plan ASSESSMENT/PLAN: 1. Critical aortic stenosis: Per outpatient record, he has opted for conservative management. With new stroke, would not pursue aortic valve replacement in this acute setting. With severe aortic stenosis, ventricular arrhythmia and syncope is possible and cannot exclude aortic stenosis playing a role in his presentation. 2. Elevated troponin: Likely due to previously documented critical aortic stenosis. Stroke and also elevated troponin levels. He did not present with acute coronary syndrome. Ischemic evaluation not recommended at this time. 3. Seizure-like activity: Neurology consultation. Cannot exclude ventricular arrhythmia/syncope in relation to critical aortic stenosis as playing a role in his presentation. Recommend telemetry while here and consider 30 day event monitor will be discharged. 4. Stroke: As per Neurology. Concern for embolic event. On anticoagulation therapy. 5. Disposition: Patient care discussed with Dr. Bolaños of the primary hospitalist service. Dr. Peterson will resume his cardiology care. Follow-up with Dr. Peterson as an outpatient. Highly complex medical issues. Thank you for allowing me to participate in the care of your patient. Please call for any other questions or concerns. Sincerely, Ralph James M.D. History of Present Illness Reason for Consultation: elevated trop Requesting Physician: Shreya Bolaños Attending Physician: Shreya Bolaños, DO History of Present Illness Mr. Bryson is a pleasant 89-year-old gentleman with a history significant for critical aortic stenosis, pulmonary embolism, hypertension, mitral regurgitation, dyslipidemia, and COPD. His primary graphic pre press trades worker is Dr. Peterson. Dr. Peterson evaluated him in the office on 01/23/2022. Aortic valve replacement was discussed per records but patient was not interested in proceeding with procedures at that time. He was admitted on 03/16/2022 for concern of seizure. He does not recall the event but apparently was sitting at the table after making breakfast and had tonic colonic activity. He has no history of seizure. He has felt better since. He admits that he is weak and has a hard time standing up, but has had this as well as an outpatient. He acknowledge to me that he had a stroke as he had an MRI done during this hospital stay suggesting such. He denies any focal weakness or any other neurologic deficit. He denies chest pain, shortness of breath, palpitations, edema, or bleeding. Review of systems: As above. Review of systems otherwise negative/unremarkable. Family history: Mother at 95. Father at 88 with diverticulitis. Social history: Quit smoking at the age of 42. Consumes 1 shot of Brennon Beam nightly. He lives alone. . Three children. He states that his daughter and son helped him on a daily basis. He was unaccompanied in his hospital room. Allergies Allergy/AdvReac Type Severity Reaction Status Date / Time Penicillins Allergy Verified 03/16/22 13:39 Sulfa (Sulfonamide Allergy Verified 03/16/22 13:39 Antibiotics) Home Medications Medication Instructions Recorded Confirmed Type tiotropium bromide 18 mcg capsule 1 cap inhalation DAILY 11/27/20 03/16/22 History with inhalation device (Spiriva with HandiHaler) acetaminophen 500 mg tablet 1,000 mg PO BID PRN Pain 12/29/21 03/16/22 History cholecalciferol (vitamin D3) 25 25 mcg PO DAILY 01/04/22 03/16/22 History mcg (1,000 unit) capsule ezetimibe 10 mg tablet (Zetia) 10 mg PO DAILY 01/04/22 03/16/22 History simvastatin 20 mg tablet 20 mg PO DAILY 01/04/22 03/16/22 History apixaban 5 mg tablet (Eliquis) 5 mg PO BID #180 tabs 01/24/22 03/16/22 Rx tamsulosin 0.4 mg capsule 0.4 mg PO DAILY #30 caps 02/11/22 03/16/22 Rx finasteride 5 mg tablet 5 mg PO DAILY #30 tabs 02/12/22 03/16/22 Rx cephalexin 500 mg capsule 500 mg PO QID 10 days #40 caps 03/10/22 03/16/22 Rx fluconazole 100 mg tablet 100 mg PO DAILY 7 days #7 tabs 03/10/22 03/16/22 Rx (Diflucan) nystatin 100,000 unit/gram topical 1 applic topical QID 14 days #30 03/10/22 Rx cream grams alendronate 70 mg tablet 70 mg PO WK 03/16/22 03/16/22 History metronidazole 500 mg tablet 500 mg PO TID 03/16/22 03/16/22 History Patient History Medical History Aortic stenosis Basal cell carcinoma Blood-streaked sputum 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 myelopathy COPD (chronic obstructive pulmonary disease) Disorder of bone and cartilage, unspecified GERD without esophagitis Hemoptysis Hyperlipemia Hypertension Lesion of nose Major depression, recurrent Multifocal pneumonia Nail dystrophy Osteoporosis Prediabetes Pulmonary embolism Shock Squamous cell carcinoma Surgical History H/O Mohs micrographic surgery for skin cancer Family History Mother Heart disease Brother Heart disease Social History Smoking Status: Former smoker Tobacco Type: Cigarettes packs per day: 1; Second Hand Exposure: No; Hx Alcohol Use: Yes Alcohol type: hard liquor Hx Substance Use: No Preferred Language: Lao Communication Ability: Impaired Chief Dispatcher Required: No Beliefs That Will Affect Care: Yazdanism Yazdanism Beliefs: "Prays to Jung" marital status: / Current Living Situation: Alone Current Living Situation Comment: home alone; daughter Mimi helps with care Feels Safe at Home: Yes Assistive Devices: Glasses and Walker Physical Exam Physical Exam: Gen.: No acute distress. Alert. HEENT: Anicteric sclera. Neck: No JVD. Bilateral bruits vs radiation of cardiac murmur. Sluggish carotid upstrokes bilaterally. Cardiac: PMI was nondisplaced. No ventricular heave. Regular. Normal S1. Absent S2. 3/6 late peaking systolic ejection murmur heard best at right upper sternal border. No rubs or gallops. Pulmonary: Clear to auscultation bilaterally without wheezes, rales, or rhonchi. Abdomen: Soft, nontender, nondistended, with normoactive bowel sounds. No bruits noted. Extremities: 2+ radial pulses bilaterally. 2+ posterior tibialis pulses bilaterally. Trace to 1+ bilateral pedal edema. No cyanosis. Psychiatric: Affect appears appropriate. Results & Data ([facility]) Vital Signs (Past 12 Hours) Vital Signs Temp Pulse Pulse Resp BP Pulse Ox O2 Del Method 03/17/22 14:44 36.5 C 62 20 95/54 L 98 Room Air 03/17/22 06:15 60 03/17/22 11:06 36.4 C L 55 L 20 106/61 100 Room Air 03/17/22 07:32 36.4 C L 65 20 108/48 L 97 Room Air Laboratory Results Laboratory Results - last 24 hr 03/16/22 03/16/22 03/16/22 14:29 16:50 16:55 WBC RBC Hgb Hct MCV MCH MCHC RDW Std Deviation RDW Coeff of Susan Plt Count MPV Sodium Potassium Chloride Carbon Dioxide Anion Gap BUN Creatinine Est Cr Clr Drug Dosing Est GFR ( Amer) Est GFR (Non-Af Amer) BUN/Creatinine Ratio Glucose Lactate 1.3 Calcium Troponin I High Sens Triglycerides Cholesterol LDL Cholesterol, Calc VLDL Cholesterol, Calc HDL Cholesterol Cholesterol/HDL Ratio Urine Color [place] Urine Appearance Cloudy A Urine pH 6.0 Ur Specific [place] 1.018 Urine Protein 1+ H Urine Glucose (UA) Trace H Urine Ketones Negative Urine Blood 3+ H Urine Nitrite Negative Urine Bilirubin Negative Urine Urobilinogen Negative Ur Leukocyte Esterase Trace H Urine WBC (Auto) 1-5 Urine RBC (Auto) >30 H U Hyaline Cast (Auto) 1-5 U Epithel Cells (Auto) 10-20 H Urine Bacteria (Auto) Negative SARS-CoV-2 (PCR) NEGATIVE Influenza Type A (PCR) Negative Influenza Type B (PCR) Negative RSV (RT-PCR) Negative 03/16/22 03/16/22 03/17/22 17:28 19:30 00:41 WBC RBC Hgb Hct MCV MCH MCHC RDW Std Deviation RDW Coeff of Susan Plt Count MPV Sodium Potassium Chloride Carbon Dioxide Anion Gap BUN Creatinine Est Cr Clr Drug Dosing Est GFR ( Amer) Est GFR (Non-Af Amer) BUN/Creatinine Ratio Glucose Lactate Calcium Troponin I High Sens 482.7 H* D 729.5 H* D 770.6 H* Triglycerides Cholesterol LDL Cholesterol, Calc VLDL Cholesterol, Calc HDL Cholesterol Cholesterol/HDL Ratio Urine Color Urine Appearance Urine pH Ur Specific [place] Urine Protein Urine Glucose (UA) Urine Ketones Urine Blood Urine Nitrite Urine Bilirubin Urine Urobilinogen Ur Leukocyte Esterase Urine WBC (Auto) Urine RBC (Auto) U Hyaline Cast (Auto) U Epithel Cells (Auto) Urine Bacteria (Auto) SARS-CoV-2 (PCR) Influenza Type A (PCR) Influenza Type B (PCR) RSV (RT-PCR) 03/17/22 03/17/22 03/17/22 06:54 06:54 06:54 WBC 6.55 RBC 3.57 L Hgb 12.0 L Hct 35.9 L MCV 100.6 H MCH 33.6 MCHC 33.4 RDW Std Deviation 49.9 H RDW Coeff of Susan 13.3 Plt Count 241 MPV 10.4 Sodium 139 Potassium 3.7 Chloride 107 Carbon Dioxide 28 Anion Gap 4 BUN 12 Creatinine 0.65 Est Cr Clr Drug Dosing 57.2 Est GFR ( Amer) 100.0 Est GFR (Non-Af Amer) 86.3 BUN/Creatinine Ratio 18.5 Glucose 78 Lactate Calcium 8.3 L Troponin I High Sens Triglycerides 84 Cholesterol 142 LDL Cholesterol, Calc 67 VLDL Cholesterol, Calc 17 HDL Cholesterol 58 Cholesterol/HDL Ratio 2.4 Urine Color Urine Appearance Urine pH Ur Specific [place] Urine Protein Urine Glucose (UA) Urine Ketones Urine Blood Urine Nitrite Urine Bilirubin Urine Urobilinogen Ur Leukocyte Esterase Urine WBC (Auto) Urine RBC (Auto) U Hyaline Cast (Auto) U Epithel Cells (Auto) Urine Bacteria (Auto) SARS-CoV-2 (PCR) Influenza Type A (PCR) Influenza Type B (PCR) RSV (RT-PCR) 03/17/22 08:41 WBC RBC Hgb Hct MCV MCH MCHC RDW Std Deviation RDW Coeff of Susan Plt Count MPV Sodium Potassium Chloride Carbon Dioxide Anion Gap BUN Creatinine Est Cr Clr Drug Dosing Est GFR ( Amer) Est GFR (Non-Af Amer) BUN/Creatinine Ratio Glucose Lactate Calcium Troponin I High Sens 474.4 H* D Triglycerides Cholesterol LDL Cholesterol, Calc VLDL Cholesterol, Calc HDL Cholesterol Cholesterol/HDL Ratio Urine Color Urine Appearance Urine pH Ur Specific [place] Urine Protein Urine Glucose (UA) Urine Ketones Urine Blood Urine Nitrite Urine Bilirubin Urine Urobilinogen Ur Leukocyte Esterase Urine WBC (Auto) Urine RBC (Auto) U Hyaline Cast (Auto) U Epithel Cells (Auto) Urine Bacteria (Auto) SARS-CoV-2 (PCR) Influenza Type A (PCR) Influenza Type B (PCR) RSV (RT-PCR) Diagnostic Findings Telemetry personally reviewed: Sinus rhythm with PACs. Brain MRI 03/17/2022: At least 3 subcentimeter foci of restricted diffusion within the centrum semi of while a bilaterally, typical for acute to subacute lacunar infarcts. Chest x-ray 03/16/2022: Persistent left basilar opacity as noted on previous CT, favoring infectious process or mucoid impacted bronchi per Radiology. Numerous bilateral subacute to chronic rib fractures. ECG personally reviewed 03/16/2022: Sinus tachycardia 110 beats per minute. PVCs. Nonspecific ST abnormality. ECG 03/16/2022 at 6:33 p.m.: NSR 67 beats per minute. Medications Administered Current Inpatient Medications Acetaminophen (Acetaminophen 325 Mg Tab) 650 mg PO Q4H PRN PRN Reason: Pain (1,2,3) Or Fever Stop: 04/15/22 19:49 Last Admin: 03/17/22 04:26 Dose: 650 mg Albuterol (Albuterol 0.083% Nebu Soln 3 Ml Vial) 2.5 mg NEB Q6R PRN; Protocol PRN Reason: Wheezing Stop: 04/16/22 00:43 Apixaban (Apixaban 5 Mg Tablet) 5 mg PO BID LEANNE Stop: 04/15/22 20:59 Last Admin: 03/17/22 08:28 Dose: 5 mg Aspirin (Aspirin 81 Mg Ectab) 81 mg PO QAM LEANNE Stop: 04/16/22 12:29 Last Admin: 03/17/22 13:03 Dose: 81 mg Ezetimibe (Ezetimibe 10 Mg Tablet) 10 mg PO DAILY LEANNE Stop: 04/16/22 08:59 Last Admin: 03/17/22 08:27 Dose: 10 mg Finasteride (Finasteride 5 Mg Tab) 5 mg PO DAILY LEANNE Stop: 04/16/22 08:59 Last Admin: 03/17/22 08:27 Dose: 5 mg Levetiracetam 500 mg/ Sodium (Chloride) 105 mls @ 420 mls/hr IV Q12 LEANNE Stop: 04/16/22 08:59 Last Infusion: 03/17/22 09:00 Dose: Infused Nystatin (Nystatin Cr 15 Gm Tube) 1 appln EXT QID LEANNE Stop: 04/15/22 20:59 Last Admin: 03/16/22 21:53 Dose: 1 appln Simvastatin (Simvastatin 20 Mg Tab) 20 mg PO DAILY LEANNE Stop: 04/16/22 08:59 Last Admin: 03/17/22 08:27 Dose: 20 mg Tamsulosin HCl (Tamsulosin Hcl 0.4 Mg Cap) 0.4 mg PO DAILY LEANNE Stop: 04/16/22 08:59 Last Admin: 03/17/22 08:27 Dose: 0.4 mg Umeclidinium [place] (Umeclidinium [place] 62.5mcg/Blister 7 Puffs/Inhaler) 1 puffs INH DAILY LEANNE Stop: 04/16/22 08:59 Last Admin: 03/17/22 08:28 Dose: 1 puffs Vitamin D (Cholecalciferol 1,000 Units 25 Mcg Tab) 1,000 units PO DAILY LEANNE Stop: 04/16/22 08:59 Last Admin: 03/17/22 08:27 Dose: 1,000 units PG Care Time/CCT Total # of Minutes Spent Total Time Spent with Patient: Total time spent is greater than 50% in coordination of care (as documented) at patient's floor/unit and/or counseling patient: Coding Level of Care Code 48279 Office/Outpt Visit, Est Diagnoses Aortic stenosis I35.0 Elevated troponin R77.8 Seizure-like activity R56.9 CVA (cerebral vascular accident) I63.9
[2022-03-17] MEDS ORDERED: OPTIRAY 320 500ml IV ONE (16:03)
[2022-03-17] MEDS: NYSTATIN CR 15 GM TUBE EXT SCH ×3 (16:16→20:30)
--- NOTE | 2022-03-17 16:18 | CT Scan Report ---
HEAD & NECK CTA HISTORY: Bilateral strokes. TECHNIQUE: Multiaxial CT images of the head were performed following the intravenous administration o f contrast to evaluate the major cerebral vessels. Multiaxial CT images of the neck were also perform ed following the intravenous administration of contrast to evaluate the major cervical vessels. Maxim um intensity projection images were also obtained. A dose lowering technique was utilized adhering to the principles of ALARA. COMPARISON: Brain MRI 03/17/2022. FINDINGS: There is no mass, hematoma, midline shift, or acute infarct. Visualized intracranial internal carotid arteries, distal vertebral arteries, and basilar artery are widely patent. There is no significant s tenosis, occlusion, or aneurysm seen within the bilateral ACAs, MCAs, or oil well services dispatcher. The major dural venous sinuses are patent. The right vertebral artery terminates into the posterior inferior cerebellar art lupe. This is considered to be a normal variant. Mild calcified plaque within the bilateral carotid si phons. The aortic arch and proximal great vessels are widely patent. There is no significant stenosis, occ lusion, or dissection identified within the bilateral common carotid, internal carotid, or vertebral arteries. Moderate calcified plaque within the bilateral carotid bifurcations. Mild calcified plaque within the left vertebral artery. IMPRESSION: 1. No significant stenosis, occlusion, or aneurysm within the [place] of [place]. 2. No significant stenosis, occlusion, or dissection identified within the carotid or vertebral arter ies. ACT 112: Negative or not required by law. Electronically signed by: Ilir Sood M.D. 03/17/2022 4:15 PM
--- NOTE | 2022-03-17 16:18 | CT Scan Report ---
HEAD & NECK CTA HISTORY: Bilateral strokes. TECHNIQUE: Multiaxial CT images of the head were performed following the intravenous administration o f contrast to evaluate the major cerebral vessels. Multiaxial CT images of the neck were also perform ed following the intravenous administration of contrast to evaluate the major cervical vessels. Maxim um intensity projection images were also obtained. A dose lowering technique was utilized adhering to the principles of ALARA. COMPARISON: Brain MRI 03/17/2022. FINDINGS: There is no mass, hematoma, midline shift, or acute infarct. Visualized intracranial internal carotid arteries, distal vertebral arteries, and basilar artery are widely patent. There is no significant s tenosis, occlusion, or aneurysm seen within the bilateral ACAs, MCAs, or wire puller. The major dural venous sinuses are patent. The right vertebral artery terminates into the posterior inferior cerebellar art lupe. This is considered to be a normal variant. Mild calcified plaque within the bilateral carotid si phons. The aortic arch and proximal great vessels are widely patent. There is no significant stenosis, occ lusion, or dissection identified within the bilateral common carotid, internal carotid, or vertebral arteries. Moderate calcified plaque within the bilateral carotid bifurcations. Mild calcified plaque within the left vertebral artery. IMPRESSION: 1. No significant stenosis, occlusion, or aneurysm within the [place] of [place]. 2. No significant stenosis, occlusion, or dissection identified within the carotid or vertebral arter ies. ACT 112: Negative or not required by law. Electronically signed by: Ilir Sood M.D. 03/17/2022 4:15 PM
--- NOTE | 2022-03-17 21:27 | XCELERA ---
[id number]
[2022-03-17] MEDS ORDERED: MELATONIN 3 MG TAB PO STA (22:19)
--- NOTE | 2022-03-17 22:24 | Electrocardiogram Report ---
Test Reason : Blood Pressure : / mmHG Vent. Rate : 110 BPM Atrial Rate : 110 BPM P-R Int : 194 ms QRS Dur : 074 ms QT Int : 340 ms P-R-T Axes : 075 033 049 degrees QTc Int : 460 ms Sinus tachycardia with occasional Premature ventricular complexes Nonspecific ST abnormality Abnormal ECG When compared with ECG of 01-FEB-2022 01:22, Premature ventricular complexes are now Present Vent. rate has increased BY 40 BPM Confirmed by Yanick James ([id number]) on 03/17/2022 10:23:53 PM Referred By: REFERRED SELF Confirmed By:Yanick James
--- NOTE | 2022-03-18 05:08 | Electrocardiogram Report ---
Test Reason : Blood Pressure : / mmHG Vent. Rate : 067 BPM Atrial Rate : 067 BPM P-R Int : 204 ms QRS Dur : 078 ms QT Int : 428 ms P-R-T Axes : 068 035 074 degrees QTc Int : 452 ms Poor data quality, interpretation may be adversely affected Normal sinus rhythm Normal ECG When compared with ECG of 16-MAR-2022 13:21, Premature ventricular complexes are no longer Present Vent. rate has decreased BY [address] no longer depressed in Inferior leads ST no longer depressed in Lateral leads Confirmed by Yanick James ([id number]) on 03/18/2022 5:08:14 AM Referred By: REFERRED SELF Confirmed By:Yanick James
--- NOTE | 2022-03-18 09:55 | Cardiology Progress Note ---
Date of Service March 18, 2022 Assessment & Plan (1) Aortic stenosis: Plan: -severe aortic stenosis on current echocardiogram. -could be etiology of syncopal event. -patient and his daughter were against TAVR/SAVR at our appointment January 23, 2022. (2) Elevated troponin: Plan: -minor elevation likely related to severe and left ventricular hypertrophy. -does not represent an acute coronary syndrome. -no further evaluation necessary at this time. (3) Seizure-like activity: Plan: -per Neurology. (4) CVA (cerebral vascular accident): Plan: -management per Neurology and hospitalist team. Admission and Anticipated Discharge Date Admission Date: March 16, 2022 Subjective The patient is resting comfortably in the bedside chair without complaints of chest pain, dyspnea, syncope, or presyncope. Physical Exam Physical Exam: In general is well-developed well-nourished white male in no acute distress. HEENT exam is negative. Neck is supple with delayed and prolonged carotid upstrokes. No obvious bruits or transmitted murmurs. Cardiovascular exam reveals a regular rhythm with a 3/6 crescendo decrescendo systolic murmur heard loudest at the base. S2 is not audible at the apex. No diastolic murmurs. Lungs are clear without rales, rhonchi or wheeze. Abdomen is soft without bruits. Extremities reveal intact radial artery pulses bilaterally. There is no peripheral edema. Results & Data ([facility]) Vital Signs (Past 12 Hours) Vital Signs Temp Pulse Pulse Resp BP BP Pulse Ox 03/18/22 08:13 36.3 C L 63 18 124/52 L 100 03/18/22 03:22 36.3 C L 64 16 107/63 96 03/17/22 22:59 64 03/17/22 23:20 36.4 C L 82 18 100/62 98 O2 Del Method 03/18/22 08:13 Room Air 03/18/22 03:22 Room Air 03/17/22 22:59 03/17/22 23:20 Room Air Diagnostic Findings maintenance engineer notes sinus rhythm. PG Care Time/CCT Total # of Minutes Spent Total Time Spent with Patient: Total time spent is greater than 50% in coordination of care (as documented) at patient's floor/unit and/or counseling patient: Coding Level of Care Code 14721 Subseq Hosp Care Lvl 3 Diagnoses Aortic stenosis I35.0 Elevated troponin R77.8 Seizure-like activity R56.9 CVA (cerebral vascular accident) I63.9
[2022-03-18] MEDS: APIXABAN 5 MG TABLET PO SCH ×2 (11:14→20:09)
[2022-03-18] MEDS: SIMVASTATIN 20 MG TAB PO SCH (11:15)
[2022-03-18] MEDS: NYSTATIN CR 15 GM TUBE EXT SCH ×4 (11:15→20:10)
[2022-03-18] MEDS: UMECLIDINIUM BROMIDE 62.5MCG/BLISTER 7 PUFFS/INHALER INH SCH (11:15)
[2022-03-18] MEDS: EZETIMIBE 10 MG TABLET PO SCH (11:15)
[2022-03-18] MEDS: FINASTERIDE 5 MG TAB PO SCH (11:15)
[2022-03-18] MEDS: ASPIRIN 81 MG ECTAB PO SCH (11:15)
[2022-03-18] MEDS: TAMSULOSIN HCL 0.4 MG CAP PO SCH (11:15)
[2022-03-18] MEDS: CHOLECALCIFEROL 1,000 UNITS 25 MCG TAB PO SCH (11:15)
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
[2022-03-18] MEDS: NYSTATIN SUSP 500,000 U/5 ML UDC PO SCH ×3 (13:23→20:10)
[2022-03-18 14:34] LABS: Hemoglobin 14.9 g/dl (14.0-18.0); Mean Corpuscular Hemoglobin 33.8 pg (25.0-34.0); Mean Corpuscular Hgb Conc 33.1 g/dL (32.0-36.0); Mean Platelet Volume 10.6 fL (9.4-12.4); Platelet Count 321 K/uL (130-400); RDW Coefficient of Variation 13.7 % (11.5-14.5); RDW Standard Deviation 52.5 fL (36.4-46.3); Red Blood Count 4.41 M/uL (4.63-6.08); White Blood Count 11.02 K/ul (4.8-10.8)
[2022-03-18 14:51] LABS: Calcium 9.1 mg/dl (8.5-10.1); Creatinine Clr Calc Pharmacy 49.2 ml/min; Est GFR (African American) 94.3 ml/min; Est GFR (Non-African American) 81.3 ml/min; Potassium 3.9 mmol/L (3.5-5.1)
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
[2022-03-18] MEDS: MELATONIN 3 MG TAB PO PRN (20:28)
[2022-03-18] MEDS: ACETAMINOPHEN 325 MG TAB PO PRN (20:28)
[2022-03-19 06:30] LABS: Hematocrit (blood only) 40.8 % (40.1-51.0); Hemoglobin 13.6 g/dl (14.0-18.0); Mean Corpuscular Hemoglobin 33.6 pg (25.0-34.0); Mean Corpuscular Hgb Conc 33.3 g/dL (32.0-36.0); Mean Corpuscular Volume 100.7 fL (80.0-100.0); Mean Platelet Volume 10.3 fL (9.4-12.4); Platelet Count 254 K/uL (130-400); RDW Coefficient of Variation 13.4 % (11.5-14.5); RDW Standard Deviation 50.5 fL (36.4-46.3); Red Blood Count 4.05 M/uL (4.63-6.08); White Blood Count 5.96 K/ul (4.8-10.8)
[2022-03-19] MEDS ORDERED: PHARMACIST DISCHARGE MED REC CONSULT PRN (06:52)
[2022-03-19 07:03] LABS: BUN Creatinine Ratio 20.8 (10-20); Calcium 8.4 mg/dl (8.5-10.1); Creatinine Clr Calc Pharmacy 51.1 ml/min; Est GFR (African American) 95.9 ml/min; Est GFR (Non-African American) 82.7 ml/min
[2022-03-19] MEDS: APIXABAN 5 MG TABLET PO SCH ×2 (07:43→22:07)
[2022-03-19] MEDS: NYSTATIN SUSP 500,000 U/5 ML UDC PO SCH ×4 (07:43→22:07)
[2022-03-19] MEDS: SIMVASTATIN 20 MG TAB PO SCH (07:44)
[2022-03-19] MEDS: EZETIMIBE 10 MG TABLET PO SCH (07:44)
[2022-03-19] MEDS: CHOLECALCIFEROL 1,000 UNITS 25 MCG TAB PO SCH (07:45)
[2022-03-19] MEDS: FINASTERIDE 5 MG TAB PO SCH (07:45)
[2022-03-19] MEDS: UMECLIDINIUM BROMIDE 62.5MCG/BLISTER 7 PUFFS/INHALER INH SCH (07:46)
[2022-03-19] MEDS: TAMSULOSIN HCL 0.4 MG CAP PO SCH (07:46)
[2022-03-19] MEDS: NYSTATIN CR 15 GM TUBE EXT SCH ×4 (07:46→22:07)
[2022-03-19] MEDS: CYANOCOBALAMIN 1000 MCG/ML VIAL IM SCH (07:48)
[2022-03-19] MEDS: ACETAMINOPHEN 325 MG TAB PO PRN (07:51)
--- NOTE | 2022-03-19 10:34 | Pharmacy Report ---
- Date of Service March 19, 2022 - Pharmacy CVA/TIA Medication Review Medications to Prevent Stroke handout has been added to the patients discharge packet. Antiplatelet(s) * Antiplatelet therapy deferred due to presumed cardioembolic stroke Cholesterol * High intensity statin deferred due to age >75 DVT Prophylaxis * Patient on therapeutic dosing of Eliquis Therapeutic Anticoagulation * Eliquis 5 mg PO BID - pulmonary embolism * Evaluation for Afib/arrhythmia with outpatient Holter monitor Type 2 Diabetes * Patient does not have T2DM
--- NOTE | 2022-03-19 12:52 | Cardiology Progress Note ---
Date of Service March 19, 2022 Assessment & Plan (1) Aortic stenosis: Plan: -severe aortic stenosis on current echocardiogram. -could be etiology of syncopal event. -patient and his daughter were against TAVR/SAVR at our last visit in December. -technology lead is benign. (2) Elevated troponin: Plan: -minor elevation likely related to severe and left ventricular hypertrophy. -does not represent an acute coronary syndrome. -no further evaluation necessary at this time. (3) Seizure-like activity: Plan: -per Neurology. (4) CVA (cerebral vascular accident): Plan: -management per Neurology and hospitalist team. -agree with outpatient 30 day event monitor to rule out atrial fibrillation. Admission and Anticipated Discharge Date Admission Date: March 18, 2022 Subjective The patient is stable from cardiovascular standpoint. He denies chest pain, dyspnea, and syncope. Physical Exam Physical Exam: In general is well-developed well-nourished white male in no acute distress. HEENT exam is negative. Neck is supple with delayed and prolonged carotid upstrokes. No obvious bruits or transmitted murmurs. Cardiovascular exam reveals a regular rhythm with a 3/6 crescendo decrescendo systolic murmur heard loudest at the base. S2 is not audible at the apex. No diastolic murmurs. Lungs are clear without rales, rhonchi or wheeze. Abdomen is soft without bruits. Extremities reveal intact radial artery pulses bilaterally. There is no peripheral edema. 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 No pauses. PG Care Time/CCT Total # of Minutes Spent Total Time Spent with Patient: Total time spent is greater than 50% in coordination of care (as documented) at patient's floor/unit and/or counseling patient: Coding Level of Care Code 88062 Subseq Hosp Care Lvl 3 Diagnoses Aortic stenosis I35.0 Elevated troponin R77.8 Seizure-like activity R56.9 CVA (cerebral vascular accident) I63.9
--- NOTE | 2022-03-19 13:21 | Electroencephalogram ---
EEG Procedure Note Date of Service March 19, 2022 Start / End Times Start Time: 10:03 End Time: 10:23 Referring Physician Denise Haynes History Syncope, seizure-like activity. Home Medication List Medication Instructions Recorded Confirmed Type tiotropium bromide 18 mcg capsule 1 cap inhalation DAILY 11/27/20 03/16/22 History with inhalation device (Spiriva with HandiHaler) acetaminophen 500 mg tablet 1,000 mg PO BID PRN Pain 12/29/21 03/16/22 History cholecalciferol (vitamin D3) 25 25 mcg PO DAILY 01/04/22 03/16/22 History mcg (1,000 unit) capsule ezetimibe 10 mg tablet (Zetia) 10 mg PO DAILY 01/04/22 03/16/22 History simvastatin 20 mg tablet 20 mg PO DAILY 01/04/22 03/16/22 History apixaban 5 mg tablet (Eliquis) 5 mg PO BID #180 tabs 01/24/22 03/16/22 Rx tamsulosin 0.4 mg capsule 0.4 mg PO DAILY #30 caps 02/11/22 03/16/22 Rx finasteride 5 mg tablet 5 mg PO DAILY #30 tabs 02/12/22 03/16/22 Rx cephalexin 500 mg capsule 500 mg PO QID 10 days #40 caps 03/10/22 03/16/22 Rx fluconazole 100 mg tablet 100 mg PO DAILY 7 days #7 tabs 03/10/22 03/16/22 Rx (Diflucan) nystatin 100,000 unit/gram topical 1 applic topical QID 14 days #30 03/10/22 03/16/22 Rx cream grams alendronate 70 mg tablet 70 mg PO WK 03/16/22 03/16/22 History metronidazole 500 mg tablet 500 mg PO TID 03/16/22 03/16/22 History Inpatient Medication List Acetaminophen (Acetaminophen 325 Mg Tab) 650 mg PO Q4H PRN PRN Reason: Pain (1,2,3) Or Fever Stop: 04/15/22 19:49 Last Admin: 03/19/22 07:51 Dose: 650 mg Documented By: [id number] Admin: 03/18/22 20:28 Dose: 650 mg Documented By: Admin: 03/17/22 04:26 Dose: 650 mg Documented By: CALLY Apixaban (Apixaban 5 Mg Tablet) 5 mg PO BID LEANNE Stop: 04/15/22 20:59 Last Admin: 03/19/22 07:43 Dose: 5 mg Documented By: [id number] Admin: 03/18/22 20:09 Dose: 5 mg Documented By: Admin: 03/18/22 11:14 Dose: Not Given Documented By: Admin: 03/17/22 20:29 Dose: 5 mg Documented By: Admin: 03/17/22 08:28 Dose: 5 mg Documented By: Admin: 03/16/22 21:52 Dose: 5 mg Documented By: [id number] Cyanocobalamin (Cyanocobalamin 1000 Mcg/Ml Vial) 1,000 mcg IM QAM LEANNE Stop: 03/21/22 09:01 Last Admin: 03/19/22 07:48 Dose: 1,000 mcg Documented By: [id number] Ezetimibe (Ezetimibe 10 Mg Tablet) 10 mg PO DAILY LEANNE Stop: 04/16/22 08:59 Last Admin: 03/19/22 07:44 Dose: 10 mg Documented By: [id number] Admin: 03/18/22 11:15 Dose: Not Given Documented By: Admin: 03/17/22 08:27 Dose: 10 mg Documented By: ARNAV Finasteride (Finasteride 5 Mg Tab) 5 mg PO DAILY LEANNE Stop: 04/16/22 08:59 Last Admin: 03/19/22 07:45 Dose: 5 mg Documented By: [id number] Admin: 03/18/22 11:15 Dose: Not Given Documented By: Admin: 03/17/22 08:27 Dose: 5 mg Documented By: ARNAV Melatonin (Melatonin 3 Mg Tab) 6 mg PO HS PRN PRN Reason: Sleep Stop: 04/17/22 20:19 Last Admin: 03/18/22 20:28 Dose: 6 mg Documented By: LANDY Nystatin (Nystatin Cr 15 Gm Tube) 1 appln EXT QID LEANNE Stop: 04/15/22 20:59 Last Admin: 03/19/22 07:46 Dose: 1 appln Documented By: [id number] Admin: 03/18/22 20:10 Dose: 1 appln Documented By: Admin: 03/18/22 16:18 Dose: 1 appln Documented By: Admin: 03/18/22 13:26 Dose: 1 appln Documented By: Admin: 03/18/22 11:15 Dose: Not Given Documented By: Admin: 03/17/22 20:30 Dose: 1 appln Documented By: Admin: 03/17/22 16:32 Dose: 1 appln Documented By: Admin: 03/17/22 16:32 Dose: 1 appln Documented By: Admin: 03/17/22 16:16 Dose: 1 appln Documented By: [facility] Admin: 03/16/22 21:53 Dose: 1 appln Documented By: [id number] Nystatin (Nystatin Susp 500,000 U/5 Ml Udc) 5 ml PO QID LEANNE Stop: 03/28/22 12:59 Last Admin: 03/19/22 07:43 Dose: 5 ml Documented By: [id number] Admin: 03/18/22 20:10 Dose: 5 ml Documented By: Admin: 03/18/22 16:15 Dose: 5 ml Documented By: [facility] Admin: 03/18/22 13:23 Dose: 5 ml Documented By: DARRELL Simvastatin (Simvastatin 20 Mg Tab) 20 mg PO DAILY LEANNE Stop: 04/16/22 08:59 Last Admin: 03/19/22 07:44 Dose: 20 mg Documented By: [id number] Admin: 03/18/22 11:15 Dose: Not Given Documented By: [facility] Admin: 03/17/22 08:27 Dose: 20 mg Documented By: DARRELL Tamsulosin HCl (Tamsulosin Hcl 0.4 Mg Cap) 0.4 mg PO DAILY LEANNE Stop: 04/16/22 08:59 Last Admin: 03/19/22 07:46 Dose: 0.4 mg Documented By: [id number] Admin: 03/18/22 11:15 Dose: Not Given Documented By: [facility] Admin: 03/17/22 08:27 Dose: 0.4 mg Documented By: DARRELL Umeclidinium [place] (Umeclidinium [place] 62.5mcg/Blister 7 Puffs/Inhaler) 1 puffs INH DAILY LEANNE Stop: 04/16/22 08:59 Last Admin: 03/19/22 07:46 Dose: 1 puffs Documented By: [id number] Admin: 03/18/22 11:15 Dose: Not Given Documented By: Admin: 03/17/22 08:28 Dose: 1 puffs Documented By: ARNAV Vitamin D (Cholecalciferol 1,000 Units 25 Mcg Tab) 1,000 units PO DAILY LEANNE Stop: 04/16/22 08:59 Last Admin: 03/19/22 07:45 Dose: 1,000 units Documented By: [id number] Admin: 03/18/22 11:15 Dose: Not Given Documented By: Admin: 03/17/22 08:27 Dose: 1,000 units Documented By: ARNAV Discontinued Medications Albuterol (Albuterol 0.5% Neb Soln 2.5 Mg/0.5 Ml Vial) 2.5 mg NEB Q6R LEANNE; Protocol Stop: 04/15/22 18:59 Last Admin: 03/16/22 19:42 Dose: 2.5 mg Documented By: MEENU Aspirin (Aspirin 81 Mg Ectab) 81 mg PO QAM LEANNE Stop: 04/16/22 12:29 Last Admin: 03/18/22 11:15 Dose: Not Given Documented By: Admin: 03/17/22 13:03 Dose: 81 mg Documented By: ARNAV Sodium Chloride (Nss 1000ml) 1,000 mls @ 999 mls/hr IV .Q1H1M LEANNE Stop: 03/16/22 14:45 Last Infusion: 03/16/22 15:40 Dose: 0 mls/hr Documented By: Admin: 03/16/22 14:41 Dose: 999 mls/hr Documented By: KELLY Cefepime HCl (Maxipime) 2,000 mg in 20 mls @ 5 mls/min IV NOW STA; Protocol Stop: 03/16/22 13:48 Last Admin: 03/16/22 15:05 Dose: 5 mls/min Documented By: KELLY Levetiracetam 1,000 mg/ Sodium (Chloride) 110 mls @ 440 mls/hr IV NOW STA Stop: 03/16/22 13:59 Last Infusion: 03/16/22 14:58 Dose: 0 mls/hr Documented By: Admin: 03/16/22 14:39 Dose: 440 mls/hr Documented By: KELLY Sodium Chloride (Nss 1000ml) 500 mls @ 999 mls/hr IV .Q31M ONE Stop: 03/16/22 16:32 Last Infusion: 03/16/22 17:05 Dose: 0 mls/hr Documented By: Admin: 03/16/22 16:30 Dose: 999 mls/hr Documented By: BABAK Levetiracetam 500 mg/ Sodium (Chloride) 105 mls @ 440 mls/hr IV Q12 STA Stop: 03/16/22 17:27 Last Infusion: 03/16/22 18:14 Dose: 0 mls/hr Documented By: Admin: 03/16/22 17:59 Dose: 440 mls/hr Documented By: BBAAK Levetiracetam 500 mg/ Sodium (Chloride) 105 mls @ 420 mls/hr IV Q12 LEANNE Stop: 04/16/22 08:59 Last Infusion: 03/17/22 09:00 Dose: 0 mls/hr Documented By: Admin: 03/17/22 08:27 Dose: 420 mls/hr Documented By: ARNAV Ioversol (Optiray 320 500ml) 114 ml IV ONCE ONE Stop: 03/17/22 16:04 Last Admin: 03/17/22 16:03 Dose: 114 ml Documented By: EMELINA Lorazepam (Lorazepam 1 Mg/1 Ml Syr) 0.5 mg IV NOW STA; Protocol Stop: 03/16/22 16:17 Last Admin: 03/16/22 16:59 Dose: 0.5 mg Documented By: BABAK Melatonin (Melatonin 3 Mg Tab) 6 mg PO NOW STA Stop: 03/17/22 22:20 Last Admin: 03/17/22 23:24 Dose: Not Given Documented By: CALLY Potassium Chloride (Potassium Chloride Crtab 20 Meq Tabcr) 20 meq PO NOW STA Stop: 03/16/22 18:08 Last Admin: 03/16/22 22:08 Dose: 20 meq Documented By: CALLY Description This is a 21 electrode EEG with a single channel dedicated to limited EKG. The electrodes were placed in accordance with the International 10-20 system. Interpretation During short lasting wakefulness, there is 20-25 microvolts, 8 Hz posterior activity, which attenuates with eye opening bilaterally. Background activity shows good organization and normal waveforms with low amplitude recording. Photic stimulations induced posterior driving responses bilaterally. Hyperventilation is not attempted. During drowsiness, posterior activity attenuates and horizontal eye movements appear. In early phase of sleep, sleep spindles are recorded bilaterally with occasional vertex sharp waves. There are no electrographic seizures or epileptogenic discharges. Impression: This EEG, recorded in wakefulness and sleep, is normal. There is no electrographic seizures or epileptogenic discharge. Clinical Correlation Normal routine interictal EEG does not rule out seizure disorder definitively. Clinical correlation is recommended.
--- NOTE | 2022-03-19 18:26 | Neurology Progress Note ---
Date of Service March 19, 2022 Assessment & Plan (1) Seizure-like activity: Plan: Impression: The patient has no history of seizure or seizure-like activities, however, he had an episode of loss of consciousness with generalized body shaking yesterday, with postictal confusion. This is the first seizure he has ever had, which does not suggest seizure disorder to indicate antiepileptic treatment, unless EEG shows epileptogenic activity. The patient has extensive medical problems including severe aortic valve stenosis, which might cause syncope and convulsive syncope. He has been recently treated on Flagyl and Diflucan, which would lower threshold for seizures. Cardiac rhythm abnormality, hypotension, and ongoing other medical problems are potential risk factors for syncope and provoked seizure. Brain MRI showed evidence of bilateral, subcortical acute/subacute ischemic strokes which are unlikely cause of seizure/syncope. Asymptomatic since the admission. Recommendations: There is no indication for prophylactic antiepileptic treatment at this time. Keppra was stopped. Holter per cardiology recommendation. Good hydration. The patient should not drive motor vehicles until getting clearance from neurology clinic as the recent episode of loss of consciousness/seizure might occur again. The patient is neurologically stable and can be discharged home. Follow-up in the neurology clinic. (2) CVA (cerebral vascular accident): Plan: Impression: The patient was initially admitted after having a seizure-like activity. However, brain MRI showed acute/subacute bilateral, small, subcortical ischemic strokes. Based on MRI findings, underlying etiology is likely cardioembolic/central. The patient has been on Eliquis for pulmonary embolism. He has multiple stroke risk factors. CTA head and neck is unremarkable. Recommendations: We will keep the patient on Eliquis for stroke prevention. There is no indication for additional antiplatelet treatment, unless cardiology recommends for cardiac indication. Holter monitoring to investigate for paroxysmal atrial fibrillation and other arrhythmias. There is no indication for permissive hypertension, however, we should avoid hypotension. Goal LDL level is lower than 70. Keep on statin as before. Physical therapy and Occupational Therapy evaluations for ambulation safety. Follow-up with neurology clinic in a month. I have informed [facility] neurology clinic, to arrange a follow-up appointment. (3) Critical aortic valve stenosis: Plan: Impression: The patient has severe/critical aortic valve stenosis, but based on having comorbid medical conditions, he was not considered a candidate for intervention. Obviously, severe aortic valve stenosis can cause syncope/convulsive syncope. Recommendations: -Conservative tx is recommended. Not a candidate for intervention. Admission and Anticipated Discharge Date Admission Date: March 18, 2022 Subjective The patient is stable neurologically. Ambulates independently. No dizziness. No near-syncopal symptoms. No seizures. EEG is unremarkable. Review of Systems Review of Systems: All systems reviewed & are unremarkable except as noted in Subjective Physical Exam Physical Exam: General Examination: Constitutional: Well developed person in no acute distress. HENT: Normal exam with inspection. CV: Hearth rhythm is regular. Neck: Supple, no carotid bruits. Lungs: Non-labored and comfortable breathing. Abdomen: Soft, non-tender, non-distended. Skin: No rash or ecchymosis. Extremities: No edema or cyanosis NEUROLOGICAL EXAMINATION: Mental Status: Alert and oriented to place, person and time. Cranial Nerves: II-XII are intact. No nystagmus. Funduscopy: Normal looking optic discs. Motor: 5-/5 in all extremities without asymmetry. Tone: Normal without spasticity or rigidity. Sensory: Intact to all sensory modalities other than slightly decreased sensation in feet. DTRs: 2+ all except trace in ankles. No Babinski. Coordination: No dysmetria with FTN testing. Speech: Fluent. Comprehension is intact. Gait: Not assessed Musculoskeletal: Normal muscle bulk, intrinsic hand muscle atrophy is noticed. Results & Data ([facility]) Vital Signs (Past 12 Hours) Vital Signs Temp Pulse Resp BP BP Pulse Ox O2 Del Method 03/19/22 14:34 36.7 C 71 16 101/60 98 Room Air 03/19/22 10:51 36.3 C L 66 18 110/69 97 Room Air 03/19/22 09:38 Room Air 03/19/22 07:20 36.4 C L 69 16 116/70 98 Room Air Laboratory Results Laboratory Results - last 24 hr 03/19/22 03/19/22 06:04 06:04 WBC 5.96 RBC 4.05 L Hgb 13.6 L Hct 40.8 MCV 100.7 H MCH 33.6 MCHC 33.3 RDW Std Deviation 50.5 H RDW Coeff of Susan 13.4 Plt Count 254 MPV 10.3 Sodium 136 Potassium 4.0 Chloride 102 Carbon Dioxide 29 Anion Gap 5 BUN 15 Creatinine 0.72 Est Cr Clr Drug Dosing 51.1 Est GFR ( Amer) 95.9 Est GFR (Non-Af Amer) 82.7 BUN/Creatinine Ratio 20.8 H Glucose 84 Calcium 8.4 L Diagnostic Findings Chest X-Ray 03/16/22 13:45 XR chest 1V portable CLINICAL HISTORY: Sepsis. COMPARISON STUDY: Chest radiograph December 18, [address] February 01, 2022. FINDINGS: There is no pneumothorax. No definite pleural effusion is noted. Persistent left basilar opacity is similar to prior CT. Numerous subacute to chronic bilateral rib fractures are again noted. These were shown on prior CT. Cardiac size is normal. Mediastinal contours are normal. There is no evidence for pulmonary edema. IMPRESSION: 1. Persistent left basilar opacity, as shown on prior CT. This favors an infectious process or mucoid impacted bronchi. 2. Numerous bilateral subacute to chronic rib fractures. These were shown on prior CT. No pneumothorax. ACT 112: Negative or not required by law. Electronically signed by: Devon Herndon M.D. 03/16/2022 2:[address] 03/16/22 13:45 CT OF THE HEAD WITHOUT CONTRAST CLINICAL HISTORY: Seizure. COMPARISON STUDY: Head CT February 01, 2022. CT DOSE: 687.98 mGy.cm TECHNIQUE: Helical axial images of the head were obtained without IV contrast. Automated exposure control was utilized for the study. A dose lowering t echnique was utilized adhering to the principles of ALARA. FINDINGS: No acute intracranial hemorrhage, midline shift or mass effect is present. Linear hypodensities are unchanged and favor small vessel disease. 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 The appearance of the brain is unchanged. The ventricular system is unremarkable. The basal cisterns are patent. No extra-axial collections are present. There are no findings to suggest acute dural sinus thrombosis or acute territorial infarct. No significant calvarial abnormalities are present. Visualized portions of the sinuses and mastoid air cells are clear. IMPRESSION: No acute intracranial findings. No change in appearance of the brain. ACT 112: Negative or not required by law. Electronically signed by: Devon Herndon M.D. 03/16/2022 2:41 PM Brain MRI 03/17/22 09:05 MRI OF THE BRAIN WITHOUT IV CONTRAST CLINICAL HISTORY: Seizure. COMPARISON STUDY: CT of the brain dated 03/16/2022. TECHNIQUE: MRI of the brain was performed utilizing various T1 and T2-weighted sequences in the axial, sagittal, and coronal planes. IV contrast was not administered for this examination. FINDINGS: Brain parenchyma: There are at least 3 subcentimeter foci of restricted diffusion seen within the centrum semiovale bilaterally. These are best seen on axial images #17 and #18. These likely represent acute to subacute lacunar infarcts. No additional foci of restricted diffusion are identified. There is no hemorrhage or mass effect. There is age-related involutional change noting moderate subcortical and periventricular microangiopathic disease. A chronic lacunar infarct is noted in the right external capsule. Wade-white matter differentiation is preserved. No extra-axial fluid collection is seen. The cerebellar tonsils are normal in configuration. Ventricles, sulci, and cisterns: Prominent secondary to involutional change. Pituitary and sella: Unremarkable. Intracranial vasculature: Normal flow voids are maintained at the skull base. Orbits: The bony orbits are grossly intact. Orbital contents are normal in appearance. Sinuses and mastoids: Clear. Calvarium: Unremarkable. Cervical cord: Partially visualized cervical spinal cord is normal in morphology and signal intensity. IMPRESSION: 1. There are at least 3 subcentimeter foci of restricted diffusion within the centrum semiovale bilaterally, typical for acute to subacute lacunar infarcts. 2. No additional foci of restricted diffusion are identified. 3. There is no hemorrhage or mass effect. ACT 112: Negative or not required by law. Electronically signed by: Darwin Flores M.D. 03/17/2022 10:48 AM Head CTA 03/17/22 14:46 HEAD & NECK CTA HISTORY: Bilateral strokes. TECHNIQUE: Multiaxial CT images of the head were performed following the intravenous administration of contrast to evaluate the major cerebral vessels. Multiaxial CT images of the neck were also performed following the intravenous administration of contrast to evaluate the major cervical vessels. Maximum intensity projection images were also obtained. A dose lowering technique was utilized adhering to the principles of ALARA. COMPARISON: Brain MRI 03/17/2022. FINDINGS: There is no mass, hematoma, midline shift, or acute infarct. Visualized intracranial internal carotid arteries, distal vertebral arteries, and basilar artery are widely patent. There is no significant stenosis, occlusion, or aneurysm seen within the bilateral ACAs, MCAs, or crossing flagman. The major dural venous sinuses are patent. The right vertebral artery terminates into the posterior inferior cerebellar artery. This is considered to be a normal variant. Mild calcified plaque within the bilateral carotid siphons. The aortic arch and proximal great vessels are widely patent. There is no significant stenosis, occlusion, or dissection identified within the bilateral common carotid, internal carotid, or vertebral arteries. Moderate calcified plaque within the bilateral carotid bifurcations. Mild calcified plaque within the left vertebral artery. IMPRESSION: 1. No significant stenosis, occlusion, or aneurysm within the robinson of [place]. 2. No significant stenosis, occlusion, or dissection identified within the carotid or vertebral arteries. ACT 112: Negative or not required by law. Electronically signed by: Ilir Sood M.D. 03/17/2022 4:15 PM Neck CTA 03/17/22 14:46 HEAD & NECK CTA HISTORY: Bilateral strokes. TECHNIQUE: Multiaxial CT images of the head were performed following the intravenous administration of contrast to evaluate the major cerebral vessels. Multiaxial CT images of the neck were also performed following the intravenous administration of contrast to evaluate the major cervical vessels. Maximum intensity projection images were also obtained. A dose lowering technique was utilized adhering to the principles of ALARA. COMPARISON: Brain MRI 03/17/2022. FINDINGS: There is no mass, hematoma, midline shift, or acute infarct. Visualized intracranial internal carotid arteries, distal vertebral arteries, and basilar artery are widely patent. There is no significant stenosis, occlusion, or aneurysm seen within the bilateral ACAs, MCAs, or crossing flagman. The major dural venous sinuses are patent. The right vertebral artery terminates into the posterior inferior cerebellar artery. This is considered to be a normal variant. Mild calcified plaque within the bilateral carotid siphons. The aortic arch and proximal great vessels are widely patent. There is no significant stenosis, occlusion, or dissection identified within the bilateral common carotid, internal carotid, or vertebral arteries. Moderate calcified plaque within the bilateral carotid bifurcations. Mild calcified plaque within the left vertebral artery. IMPRESSION: 1. No significant stenosis, occlusion, or aneurysm within the robinson of [place]. 2. No significant stenosis, occlusion, or dissection identified within the carotid or vertebral arteries. ACT 112: Negative or not required by law. Electronically signed by: Ilir Sood M.D. 03/17/2022 4:15 PM EEG--unremarkable. No epileptogenic activity.
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
[2022-03-20] MEDS: POLYETHYLENE (MIRALAX) 17 GM PACK PO SCH (08:41)
[2022-03-20] MEDS: APIXABAN 5 MG TABLET PO SCH ×2 (08:42→20:21)
[2022-03-20] MEDS: SIMVASTATIN 20 MG TAB PO SCH (08:42)
[2022-03-20] MEDS: ACETAMINOPHEN 325 MG TAB PO PRN (08:42)
[2022-03-20] MEDS: FINASTERIDE 5 MG TAB PO SCH (08:42)
[2022-03-20] MEDS: EZETIMIBE 10 MG TABLET PO SCH (08:43)
[2022-03-20] MEDS: TAMSULOSIN HCL 0.4 MG CAP PO SCH (08:43)
[2022-03-20] MEDS: CHOLECALCIFEROL 1,000 UNITS 25 MCG TAB PO SCH (08:43)
[2022-03-20] MEDS: NYSTATIN CR 15 GM TUBE EXT SCH ×4 (08:43→20:22)
[2022-03-20] MEDS: CYANOCOBALAMIN 1000 MCG/ML VIAL IM SCH (08:43)
[2022-03-20] MEDS: NYSTATIN SUSP 500,000 U/5 ML UDC PO SCH ×4 (08:43→20:21)
[2022-03-20] MEDS ORDERED: STAT IV Infusion **Titration per Protocol STA (09:53)
[2022-03-20] MEDS ORDERED: 0.2 MICRON FILTER SET 1 EACH IV STA (09:53)
[2022-03-20] MEDS ORDERED: AMIODARONE IV BOLUS & DRIP IV STA (09:53)
[2022-03-20] MEDS ORDERED: AMIODARONE / D5W 150 MG/100 ML BAG IV STA ×2 (09:55→10:00)
[2022-03-20] MEDS: UMECLIDINIUM BROMIDE 62.5MCG/BLISTER 7 PUFFS/INHALER INH SCH (10:03)
[2022-03-20] MEDS ORDERED: AMIODARONE / D5W 360 MG/200 ML BAG IV ONE ×2 (10:15→12:00)
--- NOTE | 2022-03-20 10:16 | Cardiology Progress Note ---
Date of Service March 20, 2022 Assessment & Plan (1) Paroxysmal SVT (supraventricular tachycardia): Plan: -numerous paroxysm of an SVT noted on telemetry. -patient is completely asymptomatic. -question whether this could be an etiology of her syncope (in the face of severe aortic stenosis). -would use IV amiodarone times 24 hours, then 200 mg p.o. b.i.d. (2) Aortic stenosis: Plan: -severe/critical aortic stenosis on current echocardiogram. -could be etiology of syncopal event with a newly diagnosed paroxysmal SVT. -patient and his daughter were against TAVR/SAVR at our last visit in December. (3) Elevated troponin: Plan: -minor elevation likely related to severe and left ventricular hypertrophy. -does not represent an acute coronary syndrome. -no further evaluation necessary at this time. (4) Seizure-like activity: Plan: -per Neurology. (5) CVA (cerebral vascular accident): Plan: -management per Neurology and hospitalist team. -event monitor may not be necessary as the patient will be on amiodarone and would be high risk for long-term anticoagulation. Admission and Anticipated Discharge Date Admission Date: March 18, 2022 Subjective The patient is resting comfortably in bedside chair without complaints of chest pain, dyspnea, palpitations, syncope, or presyncope. Physical Exam Physical Exam: In general is well-developed well-nourished white male in no acute distress. HEENT exam is negative. Neck is supple with delayed and prolonged carotid upstrokes. No obvious bruits or transmitted murmurs. Cardiovascular exam reveals a regular rhythm with a 3/6 crescendo decrescendo systolic murmur heard loudest at the base. S2 is not audible at the apex. No diastolic murmurs. Lungs are clear without rales, rhonchi or wheeze. Abdomen is soft without bruits. Extremities reveal intact radial artery pulses bilaterally. There is no peripheral edema. Results & Data ([facility]) Vital Signs (Past 12 Hours) Vital Signs Temp Pulse Pulse Resp BP BP Pulse Ox 03/20/22 08:21 36.5 C 100 H 20 105/66 98 03/20/22 07:00 73 03/20/22 03:18 36.4 C L 70 18 111/64 98 03/19/22 22:26 66 03/19/22 23:08 36.6 C 65 17 122/65 99 O2 Del Method 03/20/22 08:21 Room Air 03/20/22 07:00 03/20/22 03:18 Room Air 03/19/22 22:26 03/19/22 23:08 Room Air Diagnostic Findings coater operator notes numerous episodes of an SVT. PG Care Time/CCT Total # of Minutes Spent Total Time Spent with Patient: Total time spent is greater than 50% in coordination of care (as documented) at patient's floor/unit and/or counseling patient: Coding Level of Care Code 61984 Subseq Hosp Care Lvl 3 Diagnoses Paroxysmal SVT (supraventricular tachycardia) I47.1 Aortic stenosis I35.0 Elevated troponin R77.8 Seizure-like activity R56.9 CVA (cerebral vascular accident) I63.9
[2022-03-20] MEDS: LIDOCAINE 5% 1 PATCH TD SCH (13:42)
[2022-03-20] MEDS: AMIODARONE / D5W 360 MG/200 ML BAG IV SCH (18:21)
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
[2022-03-21] MEDS: AMIODARONE / D5W 360 MG/200 ML BAG IV SCH ×2 (05:44→16:16)
[2022-03-21 07:00] LABS: Hematocrit (blood only) 37.2 % (40.1-51.0); Hemoglobin 12.5 g/dl (14.0-18.0); Mean Corpuscular Hemoglobin 33.3 pg (25.0-34.0); Mean Corpuscular Hgb Conc 33.6 g/dL (32.0-36.0); Mean Corpuscular Volume 99.2 fL (80.0-100.0); Mean Platelet Volume 10.4 fL (9.4-12.4); Platelet Count 216 K/uL (130-400); RDW Coefficient of Variation 13.2 % (11.5-14.5); RDW Standard Deviation 49.1 fL (36.4-46.3); Red Blood Count 3.75 M/uL (4.63-6.08); White Blood Count 7.12 K/ul (4.8-10.8)
[2022-03-21 07:24] LABS: BUN Creatinine Ratio 25.4 (10-20); Calcium 8.1 mg/dl (8.5-10.1); Creatinine Clr Calc Pharmacy 51.6 ml/min; Est GFR (African American) 98.7 ml/min; Est GFR (Non-African American) 85.2 ml/min; Potassium 4.3 mmol/L (3.5-5.1)
[2022-03-21] MEDS: NYSTATIN SUSP 500,000 U/5 ML UDC PO SCH ×4 (07:58→20:10)
[2022-03-21] MEDS: NYSTATIN CR 15 GM TUBE EXT SCH ×4 (07:58→20:10)
[2022-03-21] MEDS: APIXABAN 5 MG TABLET PO SCH ×2 (07:58→20:10)
[2022-03-21] MEDS: TAMSULOSIN HCL 0.4 MG CAP PO SCH (07:59)
[2022-03-21] MEDS: EZETIMIBE 10 MG TABLET PO SCH (07:59)
[2022-03-21] MEDS: CHOLECALCIFEROL 1,000 UNITS 25 MCG TAB PO SCH (07:59)
[2022-03-21] MEDS: SIMVASTATIN 20 MG TAB PO SCH (07:59)
[2022-03-21] MEDS: FINASTERIDE 5 MG TAB PO SCH (08:00)
[2022-03-21] MEDS: CYANOCOBALAMIN 1000 MCG/ML VIAL IM SCH (08:00)
[2022-03-21] MEDS: LIDOCAINE 5% 1 PATCH TD SCH (08:00)
[2022-03-21] MEDS: UMECLIDINIUM BROMIDE 62.5MCG/BLISTER 7 PUFFS/INHALER INH SCH (08:03)
[2022-03-21] MEDS: POLYETHYLENE (MIRALAX) 17 GM PACK PO SCH (08:04)
[2022-03-21] MEDS: ACETAMINOPHEN 325 MG TAB PO PRN ×2 (09:34→16:13)
[2022-03-21] MEDS ORDERED: AMIODARONE / D5W 360 MG/200 ML BAG IV ONE ×2 (10:04)
--- NOTE | 2022-03-21 10:11 | Cardiology Progress Note ---
Date of Service March 21, 2022 Assessment & Plan (1) Paroxysmal SVT (supraventricular tachycardia): (2) Critical aortic valve stenosis: (3) Elevated troponin: (4) CVA (cerebral vascular accident): (5) Seizure-like activity: Plan Patient clinically and hemodynamically stable with no further SVT over the past [address] Peterson, recommend switching from IV amiodarone to oral amiodarone 200 mg twice daily. Supportive care/conservative management of his critical aortic stenosis is planned. Utility of event monitor uncertain, since his prognosis is poor and he will be on amiodarone and anticoagulation already. 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 Will sign off, please contact [facility] on-call club director if any further cardiac issues arise. Thank you. Admission and Anticipated Discharge Date Admission Date: March 18, 2022 Subjective Patient is doing well, no chest pain, dyspnea, subjective palpitations, or lightheadedness. No further obvious neurologic events or syncope. Telemetry showed sinus rhythm with no further SVT over the past 24 hours. Physical Exam Physical Exam: No distress. BP low normal. Pulse 70 bpm and regular without ectopy. Skin: no ecchymoses or generalized lesions. HEENT: unremarkable. Neck: no JVD. Lungs: clear. Cardiac: regular rhythm, 3/6 crescendo decrescendo systolic murmur right upper sternal border rating to the carotids and apex, aortic closure sound is an audible, no diastolic murmur or distinct gallop. Abdomen: benign. Extremities: no edema. Neurologic: normal affect, grossly nonfocal. Results & Data ([facility]) Vital Signs (Past 12 Hours) Vital Signs Temp Pulse Pulse Resp BP Pulse Ox O2 Del Method 03/21/22 07:28 97.2 F L 70 18 100/58 L 95 Room Air 03/21/22 03:21 97.3 F L 66 16 108/62 100 Room Air 03/21/22 02:51 97.2 F L 66 16 110/68 100 Room Air 03/20/22 22:10 66 03/20/22 23:08 97.3 F L 67 18 119/66 98 Room Air Laboratory Results Sodium 134, otherwise normal electrolytes, BUN 17, creatinine 0.67. PG Care Time/CCT Total # of Minutes Spent Total Time Spent with Patient: Total time spent is greater than 50% in coordination of care (as documented) at patient's floor/unit and/or counseling patient: Coding Level of Care Code 12998 Subseq Hosp Care Lvl 3 Diagnoses Paroxysmal SVT (supraventricular tachycardia) I47.1 Critical aortic valve stenosis I35.0 Elevated troponin R77.8 CVA (cerebral vascular accident) I63.9 Seizure-like activity R56.9
[2022-03-21] MEDS ORDERED: SOD PHOSPHATE/SOD BIPHOSPHATE ENEMA 132 ML BTL PR STA (18:49)
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
[2022-03-22] MEDS: AMIODARONE / D5W 360 MG/200 ML BAG IV SCH (03:52)
[2022-03-22] MEDS: LIDOCAINE 5% 1 PATCH TD SCH (08:46)
[2022-03-22] MEDS: POLYETHYLENE (MIRALAX) 17 GM PACK PO SCH ×2 (08:47→20:32)
[2022-03-22] MEDS: SIMVASTATIN 20 MG TAB PO SCH (08:47)
[2022-03-22] MEDS: FINASTERIDE 5 MG TAB PO SCH (08:47)
[2022-03-22] MEDS: CYANOCOBALAMIN (B-12) 500 MCG TABLET PO SCH (08:47)
[2022-03-22] MEDS: CHOLECALCIFEROL 1,000 UNITS 25 MCG TAB PO SCH (08:47)
[2022-03-22] MEDS: TAMSULOSIN HCL 0.4 MG CAP PO SCH (08:47)
[2022-03-22] MEDS: UMECLIDINIUM BROMIDE 62.5MCG/BLISTER 7 PUFFS/INHALER INH SCH (08:48)
[2022-03-22] MEDS: EZETIMIBE 10 MG TABLET PO SCH (08:48)
[2022-03-22] MEDS: NYSTATIN SUSP 500,000 U/5 ML UDC PO SCH ×4 (08:48→20:31)
[2022-03-22] MEDS: NYSTATIN CR 15 GM TUBE EXT SCH ×4 (08:49→20:32)
[2022-03-22] MEDS: APIXABAN 5 MG TABLET PO SCH ×2 (08:49→20:30)
[2022-03-22] MEDS: AMIODARONE 200 MG TAB PO SCH (17:57)
[2022-03-22 18:28] LABS: Appearance Urine Cloudy (Clear); Bacteria Urine Automated Negative (Negative); Bilirubin Urine Negative (Negative); Blood Urine 3+ (Negative); Color Urine Red; Epithelial Cell Urine Auto >30 /lpf (0-5); Glucose Urine UA Negative (Negative); Ketones Urine Negative (Negative); Leukocyte Esterase Urine 1+ (Negative); Nitrite Urine Negative (Negative); Protein Urine 2+ (Negative); RBC Urine Automated >30 /hpf (0-4); Urobilinogen Urine Negative (Negative); pH Urine 6.5 (4.5-7.5)
[2022-03-22] MEDS: ACETAMINOPHEN 325 MG TAB PO PRN (18:46)
[2022-03-22] MEDS ORDERED: MoRPHine SULFATE 2 MG/ML CARP IV STA (19:46)
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
[2022-03-23] MEDS: NYSTATIN CR 15 GM TUBE EXT SCH ×4 (08:02→20:26)
[2022-03-23] MEDS: SIMVASTATIN 20 MG TAB PO SCH (08:03)
[2022-03-23] MEDS: EZETIMIBE 10 MG TABLET PO SCH (08:03)
[2022-03-23] MEDS: APIXABAN 5 MG TABLET PO SCH ×2 (08:03→20:26)
[2022-03-23] MEDS: CHOLECALCIFEROL 1,000 UNITS 25 MCG TAB PO SCH (08:03)
[2022-03-23] MEDS: AMIODARONE 200 MG TAB PO SCH ×2 (08:03→17:08)
[2022-03-23] MEDS: NYSTATIN SUSP 500,000 U/5 ML UDC PO SCH ×4 (08:03→20:25)
[2022-03-23] MEDS: POLYETHYLENE (MIRALAX) 17 GM PACK PO SCH ×2 (08:03→20:26)
[2022-03-23] MEDS: FINASTERIDE 5 MG TAB PO SCH (08:04)
[2022-03-23] MEDS: CYANOCOBALAMIN (B-12) 500 MCG TABLET PO SCH (08:04)
[2022-03-23] MEDS: LIDOCAINE 5% 1 PATCH TD SCH (08:04)
[2022-03-23] MEDS: UMECLIDINIUM BROMIDE 62.5MCG/BLISTER 7 PUFFS/INHALER INH SCH (08:05)
[2022-03-23] MEDS: TAMSULOSIN HCL 0.4 MG CAP PO SCH (08:05)
[2022-03-23 09:51] LABS: Hematocrit (blood only) 40.1 % (40.1-51.0); Hemoglobin 13.2 g/dl (14.0-18.0); Mean Corpuscular Hemoglobin 33.5 pg (25.0-34.0); Mean Corpuscular Hgb Conc 32.9 g/dL (32.0-36.0); Mean Corpuscular Volume 101.8 fL (80.0-100.0); Mean Platelet Volume 10.4 fL (9.4-12.4); Platelet Count 238 K/uL (130-400); RDW Coefficient of Variation 13.2 % (11.5-14.5); RDW Standard Deviation 49.7 fL (36.4-46.3); Red Blood Count 3.94 M/uL (4.63-6.08); White Blood Count 6.19 K/ul (4.8-10.8)
[2022-03-23 10:09] LABS: BUN Creatinine Ratio 24.2 (10-20); Calcium 8.5 mg/dl (8.5-10.1); Creatinine Clr Calc Pharmacy 38.4 ml/min; Est GFR (African American) 86.3 ml/min; Est GFR (Non-African American) 74.5 ml/min; Potassium 4.7 mmol/L (3.5-5.1)
[2022-03-23] MEDS ORDERED: GLYCERIN ADULT 12 SUPP/BOX SUPP PR ONE (12:45)
[2022-03-23] MEDS: guaiFENesin SUGAR FREE 200 MG/10 ML UDC PO PRN (17:23)
[2022-03-23] MEDS: MELATONIN 3 MG TAB PO PRN (20:23)
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
[2022-03-23] MEDS: ACETAMINOPHEN 325 MG TAB PO PRN (23:02)
[2022-03-24] MEDS ORDERED: MoRPHine SULFATE 2 MG/ML CARP IV STA (03:06)
[2022-03-24] MEDS: NYSTATIN SUSP 500,000 U/5 ML UDC PO SCH ×4 (08:03→20:20)
[2022-03-24] MEDS: EZETIMIBE 10 MG TABLET PO SCH (08:03)
[2022-03-24] MEDS: APIXABAN 5 MG TABLET PO SCH ×2 (08:03→20:20)
[2022-03-24] MEDS: CHOLECALCIFEROL 1,000 UNITS 25 MCG TAB PO SCH (08:03)
[2022-03-24] MEDS: AMIODARONE 200 MG TAB PO SCH ×2 (08:03→17:01)
[2022-03-24] MEDS: TAMSULOSIN HCL 0.4 MG CAP PO SCH (08:03)
[2022-03-24] MEDS: FINASTERIDE 5 MG TAB PO SCH (08:03)
[2022-03-24] MEDS: CYANOCOBALAMIN (B-12) 500 MCG TABLET PO SCH (08:03)
[2022-03-24] MEDS: SIMVASTATIN 20 MG TAB PO SCH (08:03)
[2022-03-24] MEDS: LIDOCAINE 5% 1 PATCH TD SCH (08:04)
[2022-03-24] MEDS: UMECLIDINIUM BROMIDE 62.5MCG/BLISTER 7 PUFFS/INHALER INH SCH (08:04)
[2022-03-24] MEDS: NYSTATIN CR 15 GM TUBE EXT SCH ×4 (08:04→20:20)
[2022-03-24] MEDS: POLYETHYLENE (MIRALAX) 17 GM PACK PO SCH ×2 (08:04→20:20)
[2022-03-24] MEDS: guaiFENesin SUGAR FREE 200 MG/10 ML UDC PO PRN (17:00)
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
[2022-03-24] MEDS: ACETAMINOPHEN 325 MG TAB PO PRN (20:18)
[2022-03-24] MEDS: MELATONIN 3 MG TAB PO PRN (20:18)
[2022-03-25] MEDS: NYSTATIN CR 15 GM TUBE EXT SCH ×4 (08:33→20:40)
[2022-03-25] MEDS: POLYETHYLENE (MIRALAX) 17 GM PACK PO SCH ×2 (08:33→20:39)
[2022-03-25] MEDS: SIMVASTATIN 20 MG TAB PO SCH (08:34)
[2022-03-25] MEDS: LIDOCAINE 5% 1 PATCH TD SCH (08:34)
[2022-03-25] MEDS: FINASTERIDE 5 MG TAB PO SCH (08:34)
[2022-03-25] MEDS: EZETIMIBE 10 MG TABLET PO SCH (08:34)
[2022-03-25] MEDS: TAMSULOSIN HCL 0.4 MG CAP PO SCH (08:34)
[2022-03-25] MEDS: APIXABAN 5 MG TABLET PO SCH ×2 (08:34→20:39)
[2022-03-25] MEDS: CYANOCOBALAMIN (B-12) 500 MCG TABLET PO SCH (08:34)
[2022-03-25] MEDS: CHOLECALCIFEROL 1,000 UNITS 25 MCG TAB PO SCH (08:34)
[2022-03-25] MEDS: UMECLIDINIUM BROMIDE 62.5MCG/BLISTER 7 PUFFS/INHALER INH SCH (08:35)
[2022-03-25] MEDS: NYSTATIN SUSP 500,000 U/5 ML UDC PO SCH ×4 (08:35→20:39)
[2022-03-25] MEDS: AMIODARONE 200 MG TAB PO SCH ×2 (08:35→16:24)
[2022-03-25] MEDS: guaiFENesin SUGAR FREE 200 MG/10 ML UDC PO PRN (16:05)
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
[2022-03-25] MEDS: ACETAMINOPHEN 325 MG TAB PO PRN (19:14)
[2022-03-26] MEDS: ACETAMINOPHEN 325 MG TAB PO PRN ×3 (01:37→22:56)
[2022-03-26] MEDS: UMECLIDINIUM BROMIDE 62.5MCG/BLISTER 7 PUFFS/INHALER INH SCH (08:16)
[2022-03-26] MEDS: APIXABAN 5 MG TABLET PO SCH ×2 (08:16→20:56)
[2022-03-26] MEDS: LIDOCAINE 5% 1 PATCH TD SCH (08:17)
[2022-03-26] MEDS: FINASTERIDE 5 MG TAB PO SCH (08:17)
[2022-03-26] MEDS: CYANOCOBALAMIN (B-12) 500 MCG TABLET PO SCH (08:17)
[2022-03-26] MEDS: NYSTATIN CR 15 GM TUBE EXT SCH ×4 (08:17→20:56)
[2022-03-26] MEDS: CHOLECALCIFEROL 1,000 UNITS 25 MCG TAB PO SCH (08:17)
[2022-03-26] MEDS: EZETIMIBE 10 MG TABLET PO SCH (08:17)
[2022-03-26] MEDS: SIMVASTATIN 20 MG TAB PO SCH (08:17)
[2022-03-26] MEDS: TAMSULOSIN HCL 0.4 MG CAP PO SCH (08:17)
[2022-03-26] MEDS: NYSTATIN SUSP 500,000 U/5 ML UDC PO SCH ×4 (08:18→20:55)
[2022-03-26] MEDS: POLYETHYLENE (MIRALAX) 17 GM PACK PO SCH ×2 (08:18→20:55)
[2022-03-26] MEDS: AMIODARONE 200 MG TAB PO SCH ×2 (08:18→16:47)
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
[2022-03-26] MEDS: MELATONIN 3 MG TAB PO PRN (22:56)
[2022-03-27] MEDS: NYSTATIN SUSP 500,000 U/5 ML UDC PO SCH ×4 (09:20→20:27)
[2022-03-27] MEDS: POLYETHYLENE (MIRALAX) 17 GM PACK PO SCH ×3 (09:20→20:32)
[2022-03-27] MEDS: CHOLECALCIFEROL 1,000 UNITS 25 MCG TAB PO SCH (09:20)
[2022-03-27] MEDS: NYSTATIN CR 15 GM TUBE EXT SCH ×4 (09:20→20:29)
[2022-03-27] MEDS: SIMVASTATIN 20 MG TAB PO SCH (09:21)
[2022-03-27] MEDS: LIDOCAINE 5% 1 PATCH TD SCH (09:21)
[2022-03-27] MEDS: EZETIMIBE 10 MG TABLET PO SCH (09:21)
[2022-03-27] MEDS: UMECLIDINIUM BROMIDE 62.5MCG/BLISTER 7 PUFFS/INHALER INH SCH (09:21)
[2022-03-27] MEDS: AMIODARONE 200 MG TAB PO SCH ×2 (09:21→17:22)
[2022-03-27] MEDS: CYANOCOBALAMIN (B-12) 500 MCG TABLET PO SCH (09:21)
[2022-03-27] MEDS: APIXABAN 5 MG TABLET PO SCH ×2 (09:21→20:28)
[2022-03-27] MEDS: TAMSULOSIN HCL 0.4 MG CAP PO SCH (09:21)
[2022-03-27] MEDS: FINASTERIDE 5 MG TAB PO SCH (09:21)
[2022-03-27] MEDS: ACETAMINOPHEN 325 MG TAB PO PRN ×2 (11:37→23:27)
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
[2022-03-27] MEDS: guaiFENesin SUGAR FREE 200 MG/10 ML UDC PO PRN (16:28)
[2022-03-28] MEDS ORDERED: LIDOCAINE 5% 1 PATCH TD STA (00:04)
[2022-03-28] MEDS: ACETAMINOPHEN 325 MG TAB PO PRN ×2 (03:42→14:15)
[2022-03-28] MEDS: UMECLIDINIUM BROMIDE 62.5MCG/BLISTER 7 PUFFS/INHALER INH SCH (07:58)
[2022-03-28] MEDS: DICLOFENAC SOD 1% GEL 100 GM TUBE EXT SCH ×3 (07:58→21:57)
[2022-03-28] MEDS: SIMVASTATIN 20 MG TAB PO SCH (07:59)
[2022-03-28] MEDS: NYSTATIN SUSP 500,000 U/5 ML UDC PO SCH (07:59)
[2022-03-28] MEDS: APIXABAN 5 MG TABLET PO SCH ×2 (07:59→21:57)
[2022-03-28] MEDS: POLYETHYLENE (MIRALAX) 17 GM PACK PO SCH ×2 (07:59→21:57)
[2022-03-28] MEDS: CHOLECALCIFEROL 1,000 UNITS 25 MCG TAB PO SCH (07:59)
[2022-03-28] MEDS: TAMSULOSIN HCL 0.4 MG CAP PO SCH (08:00)
[2022-03-28] MEDS: FINASTERIDE 5 MG TAB PO SCH (08:00)
[2022-03-28] MEDS: EZETIMIBE 10 MG TABLET PO SCH (08:00)
[2022-03-28] MEDS: CYANOCOBALAMIN (B-12) 500 MCG TABLET PO SCH (08:00)
[2022-03-28] MEDS: AMIODARONE 200 MG TAB PO SCH ×2 (08:00→17:25)
[2022-03-28] MEDS: LIDOCAINE 5% 1 PATCH TD SCH (08:01)
[2022-03-28] MEDS: NYSTATIN CR 15 GM TUBE EXT SCH ×4 (08:01→21:55)
[2022-03-28] MEDS: guaiFENesin SUGAR FREE 200 MG/10 ML UDC PO PRN (14:16)
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
[2022-03-29 07:13] LABS: Mean Corpuscular Hemoglobin 33.2 pg (25.0-34.0); Mean Corpuscular Hgb Conc 33.3 g/dL (32.0-36.0); Mean Corpuscular Volume 99.5 fL (80.0-100.0); Mean Platelet Volume 9.8 fL (9.4-12.4); Platelet Count 261 K/uL (130-400); RDW Coefficient of Variation 12.9 % (11.5-14.5); RDW Standard Deviation 46.9 fL (36.4-46.3); Red Blood Count 3.92 M/uL (4.63-6.08); White Blood Count 5.79 K/ul (4.8-10.8)
[2022-03-29 07:42] LABS: BUN Creatinine Ratio 27.9 (10-20); Calcium 8.4 mg/dl (8.5-10.1); Creatinine Clr Calc Pharmacy 40.6 ml/min; Est GFR (African American) 89.1 ml/min; Est GFR (Non-African American) 76.9 ml/min; Potassium 4.5 mmol/L (3.5-5.1)
[2022-03-29] MEDS: CHOLECALCIFEROL 1,000 UNITS 25 MCG TAB PO SCH (10:35)
[2022-03-29] MEDS: AMIODARONE 200 MG TAB PO SCH ×2 (10:35→17:39)
[2022-03-29] MEDS: CYANOCOBALAMIN (B-12) 500 MCG TABLET PO SCH (10:35)
[2022-03-29] MEDS: APIXABAN 5 MG TABLET PO SCH ×2 (10:35→22:27)
[2022-03-29] MEDS: EZETIMIBE 10 MG TABLET PO SCH (10:35)
[2022-03-29] MEDS: FINASTERIDE 5 MG TAB PO SCH (10:35)
[2022-03-29] MEDS: POLYETHYLENE (MIRALAX) 17 GM PACK PO SCH ×2 (10:36→22:27)
[2022-03-29] MEDS: TAMSULOSIN HCL 0.4 MG CAP PO SCH (10:36)
[2022-03-29] MEDS: SIMVASTATIN 20 MG TAB PO SCH (10:36)
[2022-03-29] MEDS: LIDOCAINE 5% 1 PATCH TD SCH (10:41)
[2022-03-29] MEDS: NYSTATIN CR 15 GM TUBE EXT SCH ×4 (10:44→22:27)
[2022-03-29] MEDS: DICLOFENAC SOD 1% GEL 100 GM TUBE EXT SCH ×3 (10:46→22:27)
[2022-03-29] MEDS: UMECLIDINIUM BROMIDE 62.5MCG/BLISTER 7 PUFFS/INHALER INH SCH (12:41)
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
[2022-03-30] MEDS: CHOLECALCIFEROL 1,000 UNITS 25 MCG TAB PO SCH (09:12)
[2022-03-30] MEDS: FINASTERIDE 5 MG TAB PO SCH (09:12)
[2022-03-30] MEDS: EZETIMIBE 10 MG TABLET PO SCH (09:12)
[2022-03-30] MEDS: AMIODARONE 200 MG TAB PO SCH (09:12)
[2022-03-30] MEDS: APIXABAN 5 MG TABLET PO SCH (09:12)
[2022-03-30] MEDS: DICLOFENAC SOD 1% GEL 100 GM TUBE EXT SCH (09:12)
[2022-03-30] MEDS: CYANOCOBALAMIN (B-12) 500 MCG TABLET PO SCH (09:12)
[2022-03-30] MEDS: UMECLIDINIUM BROMIDE 62.5MCG/BLISTER 7 PUFFS/INHALER INH SCH (09:13)
[2022-03-30] MEDS: NYSTATIN CR 15 GM TUBE EXT SCH (09:13)
[2022-03-30] MEDS: TAMSULOSIN HCL 0.4 MG CAP PO SCH (09:13)
[2022-03-30] MEDS: SIMVASTATIN 20 MG TAB PO SCH (09:13)
[2022-03-30] MEDS: LIDOCAINE 5% 1 PATCH TD SCH (09:13)
[2022-03-30] MEDS: POLYETHYLENE (MIRALAX) 17 GM PACK PO SCH (09:19)
[2022-03-30] MEDS: ACETAMINOPHEN 325 MG TAB PO PRN (12:03)
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
--- NOTE | 2022-04-07 17:38 | Coding Query ---
CODING QUERY To promote full compliance with coding requirements relating to patient care, provider participation is requested in all cases of final inspector motorcyles uncertainty. Please assist us with the question(s) below: Coding Question(s): The patient was admitted as an Inpatient on 03/18/22. Please specify below, in your clinical opinion, the diagnosis most responsible for occasioning the Inpatient admission: (x ) CVA ( ) Seizure like activity ( ) Other: Please Specify Physician's Response(s): Thank you Diana Mejia Principal Diagnosis: "that condition established after study, to be chiefly responsible for occasioning the admission of the patient to the hospital for care." Co-Existing Principal Diagnosis: "when two or more diagnoses equally meet the criteria for principal diagnosis as determined by the circumstances of admission, diagnostic work up, and/or therapy provided, and the Alphabetic Index, Tabular List, or another coding guideline does not provide sequencing direction, any one of the diagnoses may be sequenced first." "When the physician has documented what appears to be a current diagnosis in the body of the record, but has not included the diagnosis in the final diagnostic statement, the physician should be asked whether the diagnosis should be added." (Source Coding Clinic 2 QTR90. p3-4) SUSI
== END 2022-03-30 12:28 | disposition home health service (06) | DRG 65 ==
LOC: 2N 13:16 → ED 13:16 → SUATTDRO 17:12 → 2N 18:15 → SUATTDRO 03-18 12:43 → 2S 03-20 11:56 → 2N 03-27 18:22

== ENCOUNTER 2022-04-21 23:15 | Inpatient (IN) ==
--- NOTE | 2022-04-21 23:27 | Emergency Department Note ---
History of Present Illness General Chief complaint: Shortness of Breath/Dyspnea Stated complaint: CHEST PAIN Time Seen by Provider: 04/21/22 23:18 History of Present Illness 89-year-old male via EMS reportedly had dental pain and jaw pain chest pain and mid scapular pain that started last evening went away intervention. Patient states he returned this evening he took 2 Tylenol prior to arrival. Patient recently had pneumonia approximately 2 months ago. Patient states cough cold congestion symptoms currently. Patient this evening states substernal chest pain that was radiating to the mid scapular region and his jaw. Patient was given 4 aspirin prior to arrival. Currently is pain-free. There are no other complaints. No other mitigating or alleviating factors. Patient denies nausea vomiting diaphoresis or shortness of breath. Home Medications Medication Instructions Recorded Confirmed Type tiotropium bromide 18 mcg capsule 1 cap inhalation DAILY 11/27/20 04/06/22 History with inhalation device (Spiriva with HandiHaler) cholecalciferol (vitamin D3) 25 25 mcg PO DAILY 01/04/22 04/06/22 History mcg (1,000 unit) capsule ezetimibe 10 mg tablet (Zetia) 10 mg PO DAILY 01/04/22 04/06/22 History apixaban 5 mg tablet (Eliquis) 5 mg PO BID #180 tabs 01/24/22 04/06/22 Rx finasteride 5 mg tablet 5 mg PO DAILY #30 tabs 02/12/22 04/06/22 Rx alendronate 70 mg tablet 70 mg PO WK 03/16/22 04/06/22 History amiodarone 200 mg tablet 200 mg PO BIDM #60 tabs 03/30/22 04/06/22 Rx diclofenac sodium 1 % topical gel 2 g EXT TID PRN pain (scale score 03/30/22 04/06/22 Rx (Voltaren Arthritis Pain) 7-10) #100 grams lidocaine 5 % topical patch 1 patch transdermal QAM #15 ea 03/30/22 04/06/22 Rx acetaminophen 500 mg tablet 500 mg PO Q6H PRN Pain 04/06/22 04/06/22 History cefdinir 300 mg capsule 300 mg PO BID 04/06/22 04/06/22 History Allergies Allergy/AdvReac Type Severity Reaction Status Date / Time Penicillins Allergy Unknown CAN'T Verified 04/06/22 22:41 REMEMBER Sulfa (Sulfonamide Allergy Unknown CAN'T Verified 04/06/22 22:41 Antibiotics) REMEMBER Past Med/Surg History Medical History Basal cell carcinoma Blood-streaked sputum 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 myelopathy COPD (chronic obstructive pulmonary disease) Disorder of bone and cartilage, unspecified GERD without esophagitis Hemoptysis Hyperlipemia Hypertension Lesion of nose Macrocytic anemia Major depression, recurrent Multifocal pneumonia Nail dystrophy Osteoporosis Prediabetes Pulmonary embolism Shock Squamous cell carcinoma Surgical History H/O Mohs micrographic surgery for skin cancer Family History Mother Heart disease Brother Heart disease Social History Smoking Status: Never smoker Tobacco Type: Cigarettes packs per day: 1; Second Hand Exposure: No; Hx Alcohol Use: Yes Alcohol type: hard liquor Hx Substance Use: No Preferred Language: Serbian Communication Ability: Impaired Risk Lead Required: No Beliefs That Will Affect Care: Sikhism Sikhism Beliefs: "Prays to Jung" marital status: / Current Living Situation: Alone Current Living Situation Comment: home alone; daughter Mimi helps with care Feels Safe at Home: Yes Assistive Devices: Glasses and Walker Review of Systems A total of 10 systems reviewed and were otherwise negative Constitutional: no fever Respiratory: + cough Cardiovascular: + chest pain Gastrointestinal: no abdominal pain Physical Exam Vital Signs Vital Signs - 24 hr 04/21/22 23:00 04/21/22 23:19 04/22/22 00:17 Temperature 36.5 C Temperature Source Oral Pulse Rate 74 73 Pulse Rhythm Regular Regular Pulse Strength Normal Respiratory Rate 19 18 Respiratory Effort / Characteristics Non-Labored Non-Labored Respiratory Depth Normal Normal Respiratory Pattern Regular Regular Blood Pressure 95/50 L Blood Pressure Mean 65 Pulse Oximetry 94 94 Oxygen Delivery Method Room Air Room Air Room Air Sepsis Recent Fever Within 48 Hours No Sepsis New/Unexplained Change in Mental Status N/A Sepsis Action Taken by Nursing No Action Required 04/22/22 00:17 Temperature Temperature Source Pulse Rate Pulse Rhythm Pulse Strength Respiratory Rate Respiratory Effort / Characteristics Respiratory Depth Respiratory Pattern Blood Pressure Blood Pressure Mean Pulse Oximetry 95 Oxygen Delivery Method Room Air Sepsis Recent Fever Within 48 Hours Sepsis New/Unexplained Change in Mental Status Sepsis Action Taken by Nursing GENERAL: Patient is awake alert in no acute distress patient is resting comfortably and showing no signs of anxiety EYES: The conjunctivae are clear. The pupils are round and reactive. EARS, NOSE, MOUTH AND THROAT: The nose is without any evidence of any deformity. Mucous membranes are moist. Tongue is midline. NECK: The neck is nontender and supple. RESPIRATORY: Normal respiratory effort is noted there is no evidence of wheezing rhonchi or rales CARDIOVASCULAR: Regular rate and rhythm noted positive for murmur GASTROINTESTINAL: The abdomen is soft. Abdomen is nontender. PELVIS: The Pelvis is stable. No tenderness to palpation is noted. : Hawk catheter present BACK: No midline tenderness or or step-off noted range of motion in flexion extension as well as rotation no signs of muscle spasm noted MUSCULOSKELETAL/EXTREMITIES: There is no evidence of gross deformity full range of motion is noted in the hips and shoulders. SKIN: There is no obvious evidence of any rash. There are no petechiae, pallor or cyanosis noted. NEUROLOGIC: Patient is awake alert and oriented x3 strength is symmetric Course Reevaluation(s) Reevaluation #1: Patient is resting in no distress no current chest pain. Patient was given aspirin prior to arrival. Patient is pain-free. Patient has an elevated troponin started on IV heparin. Patient will be admitted Time: 01:06 Reevaluation #2: No current chest pain. Spoke with family who are at bedside as well regarding the patient's condition and disposition status Time: 01:15 Reevaluation #3: Patient has no current chest pain; Consultations Consultation #1: [facility] hospitalist for admission Time: 01:15 Administered Medications Heparin Sodium/Dextrose (Heparin Sodium/Dextrose) 25,000 units in 500 mls @ 19 mls/hr IV .Q24H [facility]; Protocol Stop: 05/22/22 01:29 Last Admin: 04/22/22 02:06 Dose: 950 units/hr, 19 mls/hr Documented By: DLLyndon Co-signed By: JYOTHI Discontinued Medications Heparin Sodium (Porcine) (Heparin Sod (Porcine) 1000 Unit/Ml) 1 units IV NOW ONE Stop: 04/22/22 01:20 Last Admin: 04/22/22 02:04 Dose: 4,000 units Documented By: [facility] Co-signed By: JYOTHI Ceftriaxone Sodium (Rocephin) 2,000 mg in 70 mls @ 140 mls/hr IV NOW STA Stop: 04/22/22 00:24 Last Admin: 04/22/22 00:57 Dose: 140 mls/hr Documented By: JYOTHI Critical Care Time Critical Care Time: Yes Total Critical Care Time: 35 I have personally spent greater than 35 minutes of critical care time in the direct management of this patient. This includes bedside care, interpretation of diagnostic studies, and testing, discussion with consultants, patient, and f amily members, and other required patient management activities. These minutes are in excess of all separately billable procedures. Medical Decision Making Medical Records Attestation: I reviewed the patient's medical records. Home Medications Current Medication List: was personally reviewed by me Laboratory Data Attestation: I reviewed the patient's lab results. Result diagrams: 04/21/22 23:30 04/22/22 00:44 Lab Results 04/21/22 04/21/22 04/21/22 Range/Units 23:30 23:30 Unknown WBC 8.68 (4.8-10.8) K/ul RBC 3.73 L (4.63-6.08) M/uL Hgb 12.5 L (14.0-18.0) g/dl Hct 37.3 L (40.1-51.0) % MCV 100.0 (80.0-100.0) fL MCH 33.5 (25.0-34.0) pg MCHC 33.5 (32.0-36.0) g/dL RDW Std Deviation 48.9 H (36.4-46.3) fL RDW Coeff of Susan 13.4 (11.5-14.5) % Plt Count 266 (130-400) K/uL MPV 10.3 (9.4-12.4) fL Immature Gran % (Auto) 0.2 % Neut % (Auto) 78.4 % Lymph % (Auto) 12.8 % Stewart % (Auto) 6.8 % Eos % (Auto) 0.5 % Baso % (Auto) 1.3 % Neut # (Auto) 6.81 H (1.4-6.5) K/uL Lymph # (Auto) 1.11 L (1.2-3.4) K/uL Stewart # (Auto) 0.59 (0.24-0.82) K/uL Eos # (Auto) 0.04 (0-0.50) K/uL Baso # (Auto) 0.11 (0-0.2) K/uL Immature Gran # (Auto) 0.02 (0.00-0.02) K/uL PT INR APTT PTT Ratio Sodium 132 L (136-145) mmol/L Potassium TNP Chloride 101 (98-107) mmol/L Carbon Dioxide 26 (21-32) mmol/L Anion Gap 5 (3-11) BUN 24 H (6-23) mg/dl Creatinine 1.08 (0.6-1.4) mg/dl Est Cr Clr Drug Dosing 35.4 ml/min Est GFR ( Amer) 70.2 ml/min Est GFR (Non-Af Amer) 60.5 ml/min BUN/Creatinine Ratio 22.2 H (10-20) Glucose 100 H (70-99(Fasting)) mg/dl Calcium 7.8 L (8.5-10.1) mg/dl Total Bilirubin 0.4 (0.2-1.0) mg/dl AST TNP ALT 22 (7-52) U/L Alkaline Phosphatase 38 (34-104) U/L Troponin I High Sens 327.8 H* (0-20) pg/ml Total Protein 5.2 L (6.0-8.3) gm/dl Albumin 3.1 L (3.4-5.0) gm/dl Globulin 2.1 L (2.5-4.0) gm/dl Albumin/Globulin Ratio 1.5 (0.9-2) Lipase 21 (11-82) U/L SARS-CoV-2 (PCR) NEGATIVE (Negative) Influenza Type A (PCR) Negative (Neg) Influenza Type B (PCR) Negative (Neg) RSV (RT-PCR) Negative (Neg) 04/22/22 04/22/22 Range/Units 00:00 00:44 WBC (4.8-10.8) K/ul RBC (4.63-6.08) M/uL Hgb (14.0-18.0) g/dl Hct (40.1-51.0) % MCV (80.0-100.0) fL MCH (25.0-34.0) pg MCHC (32.0-36.0) g/dL RDW Std Deviation (36.4-46.3) fL RDW Coeff of Susan (11.5-14.5) % Plt Count (130-400) K/uL MPV (9.4-12.4) fL Immature Gran % (Auto) % Neut % (Auto) % Lymph % (Auto) % Stewart % (Auto) % Eos % (Auto) % Baso % (Auto) % Neut # (Auto) (1.4-6.5) K/uL Lymph # (Auto) (1.2-3.4) K/uL Stewart # (Auto) (0.24-0.82) K/uL Eos # (Auto) (0-0.50) K/uL Baso # (Auto) (0-0.2) K/uL Immature Gran # (Auto) (0.00-0.02) K/uL PT Cancelled INR Cancelled APTT Cancelled PTT Ratio Cancelled Sodium (136-145) mmol/L Potassium 4.0 Chloride (98-107) mmol/L Carbon Dioxide (21-32) mmol/L Anion Gap (3-11) BUN (6-23) mg/dl Creatinine (0.6-1.4) mg/dl Est Cr Clr Drug Dosing ml/min Est GFR ( Amer) ml/min Est GFR (Non-Af Amer) ml/min BUN/Creatinine Ratio (10-20) Glucose (70-99(Fasting)) mg/dl Calcium (8.5-10.1) mg/dl Total Bilirubin (0.2-1.0) mg/dl AST 18 ALT (7-52) U/L Alkaline Phosphatase (34-104) U/L Troponin I High Sens (0-20) pg/ml Total Protein (6.0-8.3) gm/dl Albumin (3.4-5.0) gm/dl Globulin (2.5-4.0) gm/dl Albumin/Globulin Ratio (0.9-2) Lipase (11-82) U/L SARS-CoV-2 (PCR) (Negative) Influenza Type A (PCR) (Neg) Influenza Type B (PCR) (Neg) RSV (RT-PCR) (Neg) Imaging Data Attestation: I personally reviewed and interpreted this imaging study as follows: My Impression: Chest x-ray interpreted by me bilateral lobe pulmonary infiltrates rib fractures are also present there is no obvious effusion normal mediastinum no pneumothorax ECG Data Attestation: I personally reviewed and interpreted this ECG as follows: Additional Comments: EKG interpreted by me normal sinus rhythm rate of 73 first-degree AV block nonspecific ST-T changes laterally no obvious ST segment elevation or depression normal axis MDM Narrative Medical decision making differential diagnosis includes angina, unstable angina, acute OH, acute coronary syndrome, pneumonia, sepsis. Plan is to check labs, EKG, chest x-ray Patient was evaluated for chest pain that started over 24 hours ago now patient has questionable lateral ischemia on EKG but no obvious ST segment elevation OH. Patient is currently pain-free throughout emergency department evaluation. Patient has an elevated troponin greater than 300. Patient was started on heparin, patient had received aspirin by EMS prior to arrival. I do not suspect the patient have pulmonary embolism or thoracic aortic dissection at this time. Patient will be admitted for further evaluation of chest pain with elevated troponin. Impression & Plan Acute non-ST elevation myocardial infarction (NSTEMI), Pneumonia Discharge Plan Visit Data Chief Complaint: Shortness of Breath/Dyspnea Stated Complaint: CHEST PAIN ED Provider: Homero Jenkins Discharge Problem: Acute non-ST elevation myocardial infarction (NSTEMI), Pneumonia Patient Disposition: Admitted As Inpatient Forms Stand Alone Forms: My [facility] Prescriptions Prescriptions: No Action Eliquis 5 mg tablet 5 mg PO BID Qty: 180 3RF finasteride 5 mg tablet 5 mg PO DAILY Qty: 30 5RF Spiriva with HandiHaler 18 mcg capsule, w/inhalation device 1 cap inhalation DAILY Rx Instructions: puncture 1 cap using device; one dose = 2 inhalations cholecalciferol (vitamin D3) 25 mcg (1,000 unit) capsule 25 mcg PO DAILY ezetimibe [Zetia] 10 mg tablet 10 mg PO DAILY cefdinir 300 mg Capsule 300 mg PO BID Rx Instructions: STARTED 04/06/22 FOR 10 DAYS. acetaminophen 500 mg tablet 500 mg PO Q6H PRN (Reason: Pain) alendronate 70 mg tablet 70 mg PO WK amiodarone 200 mg Tablet 200 mg PO BIDM Qty: 60 0RF diclofenac sodium [Voltaren Arthritis Pain] 1 % Gel 2 g EXT TID PRN (Reason: pain (scale score 7-10)) Qty: 100 0RF Rx Instructions: around painful area on ribs. lidocaine 5 % Adhesive Patch,Medicated 1 patch transdermal QAM Qty: 15 0RF Referrals Referrals: Naman Muse MD [Primary Care Provider] -
[2022-04-21] MEDS ORDERED: AZITHROMYCIN 500 MG in DEXTROSE 5% 250 ML IV STA (23:55)
[2022-04-21] MEDS ORDERED: cefTRIAXone SODIUM 2,000 MG/70 ML BAG IV STA (23:55)
[2022-04-21 23:57] LABS: Basophils # (auto) 0.11 K/uL (0-0.2); Basophils % (auto) 1.3 %; Eosinophils # (auto) 0.04 K/uL (0-0.50); Eosinophils % (auto) 0.5 %; Hematocrit (blood only) 37.3 % (40.1-51.0); Hemoglobin 12.5 g/dl (14.0-18.0); Immature Granulocytes # (auto) 0.02 K/uL (0.00-0.02); Immature Granulocytes % (auto) 0.2 %; Lymphocytes # (auto) 1.11 K/uL (1.2-3.4); Lymphocytes % (auto) 12.8 %; Mean Corpuscular Hemoglobin 33.5 pg (25.0-34.0); Mean Corpuscular Hgb Conc 33.5 g/dL (32.0-36.0); Mean Platelet Volume 10.3 fL (9.4-12.4); Monocytes # (auto) 0.59 K/uL (0.24-0.82); Monocytes % (auto) 6.8 %; Neutrophils # (auto) 6.81 K/uL (1.4-6.5); Neutrophils % (auto) 78.4 %; Platelet Count 266 K/uL (130-400); RDW Coefficient of Variation 13.4 % (11.5-14.5); RDW Standard Deviation 48.9 fL (36.4-46.3); Red Blood Count 3.73 M/uL (4.63-6.08); White Blood Count 8.68 K/ul (4.8-10.8)
[2022-04-22 00:35] LABS: Influenza A virus by PCR Negative (Neg); Influenza B virus by PCR Negative (Neg); RSV by PCR Negative (Neg); SARS CoV2 RNA(COVID-19) Ceph NEGATIVE (Negative)
[2022-04-22 00:49] LABS: Alanine Aminotransferase 22 U/L (7-52); Albumin Globulin Ratio 1.5 (0.9-2); Albumin Level 3.1 gm/dl (3.4-5.0); Alkaline Phosphatase 38 U/L (34-104); Anion Gap 5 (3-11); BUN Creatinine Ratio 22.2 (10-20); Bilirubin,Total 0.4 mg/dl (0.2-1.0); Blood Urea Nitrogen 24 mg/dl (6-23); Calcium 7.8 mg/dl (8.5-10.1); Carbon Dioxide 26 mmol/L (21-32); Chloride 101 mmol/L (98-107); Creatinine Clr Calc Pharmacy 35.4 ml/min; Est GFR (African American) 70.2 ml/min; Est GFR (Non-African American) 60.5 ml/min; Globulin 2.1 gm/dl (2.5-4.0); Glucose 100 mg/dl (70-99(Fasting)); Lipase 21 U/L (11-82); Sodium 132 mmol/L (136-145); Total Protein 5.2 gm/dl (6.0-8.3)
[2022-04-22 00:52] LABS: Troponin I High Sensitivity 327.8 pg/ml (0-20)
[2022-04-22] MEDS ORDERED: Heparin IV Adult Wt-Based Standard WITH Bolus Protocol IV STA (01:04)
[2022-04-22] MEDS ORDERED: HEPARIN SOD (PORCINE) 1000 UNIT/ML IV ONE (01:19)
[2022-04-22] MEDS: HEPARIN SODIUM/DEXTROSE 25,000 UNITS/500 ML BAG IV SCH (02:06)
[2022-04-22 02:28] LABS: INR 1.1 (0.9-1.1); Partial Thromboplastin Ratio 1.2; Partial Thromboplastin Time 32.5 Seconds (21.0-31.0); Prothrombin Time 11.4 Seconds (9.0-12.0)
--- NOTE | 2022-04-22 02:58 | History & Physical Report ---
Date of Service April 22, 2022 Assessment & Plan (1) Acute non-ST elevation myocardial infarction (NSTEMI): Plan: Several recent episodes of atypical chest pain. However with EKG showing ST- depressions in V4-V6 and elevated hsTroponin 327.8, concerning for NSTEMI. - was started on Heparin gtt with bolus - continue - consulted Cardiology - appreciate recs - NPO pending Cardiology evaluation - defer TTE as patient recently had this done last month - trend troponin to peak - PRN Nitro SL and PRN EKG for chest pain - repeat EKG in AM (2) History of pneumonia: Plan: History of, several months ago. With chronic cough, intermittent mucus production, since then. No recent worsening of symptoms, no fever/chills/decreased appetite, no crackles/wheezes on exam. Suspect post- inflammatory cough. - CXR with ?RLL opacity per my read - in ED was given Azithromycin/CTX - hold on further abx for now - check Procalcitonin and CRP - trend blood cxs (3) Hyponatremia: Plan: Na 132, chronic baseline. - trend (4) COPD (chronic obstructive pulmonary disease): Plan: No symptoms of exacerbation. Continue home inhalers. Utilize supplemental O2 PRN to maintain sats >88%. (5) Pulmonary embolism: Plan: Hold home Eliquis while on Heparin gtt. (6) Critical aortic valve stenosis: Plan: Per TTE done on 03/16/2022. Patient reportedly had declined consultation for TAVR at that time. - Cardiology consulted as stated above (7) Paroxysmal SVT (supraventricular tachycardia): Plan: Currently in NSR. Continue home Amiodarone. (8) CVA (cerebral vascular accident): Plan: History of, earlier in 2021. Hold home Eliquis while on Heparin gtt, as stated above (9) BPH with urinary obstruction: Plan: F/w [facility] and utilizes chronic stearns catheter. History of Present Illness Chief Complaint: chest pain Primary Care Provider: Naman Muse MD Rustam Bryson is an 89yo male with PMHx significant for COPD, paroxysmal SVT, h/o CVA in 2021 (bilateral subcortical), macrocytic anemia, recent PE on Eliquis, COPD, HLD, BPH and urinary retention with chronic stearns catheter. Patient presented to [facility] ED on 04/22 for chest pain. Patient reports acute- onset of burning jaw pain radiating to his substernal chest and back between his shoulder blades, which occurred while lying down before bed on 04/20 and resolved without intervention. Then patient reports having another episode of similar burning pain in same locations which started at ~21:00 on 04/21 and resolved after taking Tylenol. Patient was also given Aspirin 324mg PO prior to arrival. Patient denies diaphoresis, SOB, palpitations, N/V, syncope/near- syncope with above-mentioned episodes. Patient does report getting above- mentioned episodes "every once in a while" both at rest and with exertion but they resolve without intervention. Denies previous PA. However does have significant aortic stenosis. Of note patient had pneumonia several months ago and has had chronic cough, sometimes productive of clear/white sputum, since that infection, without worsening of symptoms recently. Denies fever/chills, fatigue or decreased appetite. In the ED the patient was afebrile and hemodynamically stable on room air. EKG showed slight ST depressions in V4-V6. Labs significant for hsTroponin 327.8, Hgb 12.5 (baseline), Na 132 (baseline). COVID/influenza/RSV negative. CXR with ?RLL opacity. Patient was given Heparin gtt + bolus and was also given Azithromycin/Ceftriaxone for possible pneumonia. Allergies Allergy/AdvReac Type Severity Reaction Status Date / Time Penicillins Allergy Unknown CAN'T Verified 04/22/22 02:17 REMEMBER Sulfa (Sulfonamide Allergy Unknown CAN'T Verified 04/22/22 02:17 Antibiotics) REMEMBER Home Medications Medication Instructions Recorded Confirmed Type tiotropium bromide 18 mcg capsule 1 cap inhalation DAILY 11/27/20 04/22/22 Histo ry with inhalation device (Spiriva with HandiHaler) cholecalciferol (vitamin D3) 25 25 mcg PO DAILY 01/04/22 04/22/22 History mcg (1,000 unit) capsule ezetimibe 10 mg tablet (Zetia) 10 mg PO DAILY 01/04/22 04/22/22 History finasteride 5 mg tablet 5 mg PO DAILY #30 tabs 02/12/22 04/22/22 Rx amiodarone 200 mg tablet 200 mg PO BIDM #60 tabs 03/30/22 04/22/22 Rx diclofenac sodium 1 % topical gel 2 g EXT TID PRN pain (scale score 03/30/22 04/22/22 Rx (Voltaren Arthritis Pain) 7-10) #100 grams lidocaine 5 % topical patch 1 patch transdermal QAM #15 ea 03/30/22 04/22/22 Rx acetaminophen 500 mg tablet 500 - 1,000 mg PO Q6H PRN Pain 04/06/22 04/22/22 History cefuroxime axetil 500 mg tablet 500 mg PO BID #2 tabs 04/26/22 Rx lorazepam 0.5 mg tablet (Ativan) 0.5 mg PO Q6H PRN anxiety #15 tabs 04/26/22 Rx metronidazole 500 mg tablet 500 mg PO TID #8 tabs 04/26/22 Rx morphine concentrate 100 mg/5 mL 5 mg (0.25 mL) PO Q4H PRN SOB/ 04/26/22 Rx (20 mg/mL) oral solution chest pain #30 mL Past Med/Surg History Medical History (Updated 04/25/22 @ 07:21 by Jefferson Nguyen) Advanced care planning/counseling discussion Basal cell carcinoma Blood-streaked sputum 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 myelopathy COPD (chronic obstructive pulmonary disease) Disorder of bone and cartilage, unspecified GERD without esophagitis Hemoptysis Hyperlipemia Hypertension Lesion of nose Macrocytic anemia Major depression, recurrent Multifocal pneumonia Nail dystrophy Osteoporosis Palliative care encounter Prediabetes Pulmonary embolism Shock Squamous cell carcinoma Surgical History H/O Mohs micrographic surgery for skin cancer Family History Mother Heart disease Brother Heart disease Social History Smoking Status: Former smoker Tobacco Type: Cigarettes packs per day: 1; Second Hand Exposure: No; Hx Alcohol Use: Yes Alcohol type: hard liquor Hx Substance Use: No Preferred Language: Portuguese Communication Ability: Effective Mud Engineer Required: No Beliefs That Will Affect Care: None marital status: / Current Living Situation: Family Current Living Situation Comment: Lives with son Feels Safe at Home: Yes Assistive Devices: Denture - Upper, Glasses, Hearing Aid - Bilateral and Walker Review of Systems Review of Systems: All systems reviewed & are unremarkable except as noted in HPI & below Physical Exam Physical Exam: General: A&Ox3. NAD. Cooperative. HEENT: Atraumatic, normocephalic. Pulm: transmitted upper airway sounds but no wheezes/rhonchi/rales. Symmetrical chest rise. No increase work of breathing. No respiratory distress. Cardiac: RRR, 2/6 systolic ejection murmur best auscultated at RUSB, without S2. Radial pulses intact and symmetrical. No LE edema. Abdominal: soft, non-tender, non-distended, BS x 4 Skin: warm, dry, no rash Results & Data Results & Data ([facility]) Vital Signs (Past 12 Hours) Vital Signs Temp Pulse Resp BP Pulse Ox O2 Del Method 04/22/22 00:17 95 Room Air 04/22/22 00:17 Room Air 04/21/22 23:19 73 18 94 Room Air 04/21/22 23:00 36.5 C 74 19 95/50 L 94 Room Air Code Status & VTE Plan VTE Prophylaxis Plan VTE Prophylaxis will be ordered: Yes Supervising Physician Co-Signing Physician Notes Attending addendum: I have physically seen this patient, have supervised the medical residents activities, and agree with the H&P unless as otherwise noted. Assessment and Plan: NSTEMI/critical aortic stenosis/PSVT- EKG with ST depressions in V4-V6 highly sensitive troponin elevated at 327.8 Heparin drip with bolus as begun in the ED Continue amiodarone The patient will be admitted to telemetry for serial cardiac enzymes, serial EKG's, cardiac rhythm monitoring and a 2-D echocardiogram with Dopplers. Consult cardiology COPD- Continue routine home inhalers DuoNebs every 2 hours as needed PE- Eliquis held while on heparin drip Remaining orders and notations as noted Resident Activity Tracking Resident Involvement: Resident Care Provided Care Provided: Adult Hospital Medicine (1) Pulmonary embolism Pulmonary embolism type: single subsegmental (without acute cor pulmonale) Qualified Code(s): I26.93 - Single subsegmental pulmonary embolism without acute cor pulmonale
[2022-04-22] MEDS ORDERED: NITROGLYCERIN SL 0.4 MG/TAB TAB SL PRN (04:55)
[2022-04-22 05:18] LABS: C Reactive Protein 0.52 mg/dl (0-0.5); Troponin I High Sensitivity 2995.2 pg/ml (0-20)
--- NOTE | 2022-04-22 08:09 | XRay Report ---
XR chest 1V portable CLINICAL HISTORY: Chest pain, nonspecific TECHNIQUE: Single frontal radiograph of the chest was obtained. Comparison: Comparison is made to chest radiograph 03/16/2022 FINDINGS: No lines and tubes are seen. The cardiomediastinal silhouette is normal. Perihilar prominence and rig ht lower airspace opacity is seen, increased from prior exam. Likely trace bilateral pleural effusion s. Bilateral subacute to chronic fractures are partially visualized. IMPRESSION: Interval development of trace bilateral pleural effusions and right greater than left lower airspace opacities which may represent atelectasis, pneumonia, and/or aspiration. ACT 112: Negative or not required by law. Electronically signed by: Ayad Raines M.D. 04/22/2022 8:07 AM
[2022-04-22] MEDS: UMECLIDINIUM BROMIDE 62.5MCG/BLISTER 7 PUFFS/INHALER INH SCH (08:14)
[2022-04-22] MEDS: AMIODARONE 200 MG TAB PO SCH ×2 (08:15→18:49)
[2022-04-22] MEDS: EZETIMIBE 10 MG TABLET PO SCH (08:15)
[2022-04-22] MEDS: FINASTERIDE 5 MG TAB PO SCH (08:15)
[2022-04-22 09:21] LABS: Partial Thromboplastin Ratio > 5.1
[2022-04-22 09:41] LABS: Partial Thromboplastin Time > 139.0 Seconds (21.0-31.0)
--- NOTE | 2022-04-22 10:28 | Cardiology Consultation ---
Date of Consultation April 22, 2022 Assessment & Plan (1) Chest pain syndrome: -symptoms atypical for classic angina pectoris. -elevated troponin may be secondary to relative hypotension, severe aortic stenosis, and left ventricular hypertrophy. -question the utility of intravenous heparin. -continue to trend high sensitivity troponin. (2) Aortic stenosis: -as before, patient is not interested in a procedure for his aortic stenosis. -continue conservative medical care. (3) Paroxysmal SVT (supraventricular tachycardia): -no further symptoms since starting amiodarone last month. -could reduce amiodarone to 200 mg daily. (4) Pulmonary embolism: -diagnosed in November 2021. 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 History of Present Illness Attending Physician: Allen Gonzalez History of Present Illness Mr. Bryson is an 89-year-old male admitted yesterday with an atypical chest pain syndrome. This consultation was ordered as his troponin levels are mildly elevated. Of note, patient is well known to me from the inpatient and outpatient settings. The patient was in his usual state of health until the late evening of . While supine in bed, the patient noticed a burning sensation in his jaw that radiated to his chest and midscapular region. There were no other associated symptoms such as shortness of breath, nausea, vomiting, or diaphoresis. His symptoms resolved spontaneously after several minutes. He had a recurrence approximately from 2100 hours on . This resolved within 15-20 minutes after taking Tylenol. Currently, patient is resting comfortably in bed without complaints. He does carry a history of severe aortic stenosis. He is not interested in any intervention on his aortic valve. He was hospitalized March 16 through March 30 after an episode of syncope. This was felt secondary to a newly diagnosed SVT in the face of his severe aortic stenosis. He was started on amiodarone at that time. He was discharged on a 30 day event monitor as an MRI scan noted possible embolic CVAs (? Paroxysmal atrial fibrillation). Past medical and surgical history 1. Severe aortic stenosis 2. Hypertension 3. Mild LVH 4. Mild aortic insufficiency 5. Wgkn-[id number] mitral regurgitation 6. Hypercholesterolemia 7. Hyperglycemia 8. COPD 9. GERD 10. Left lower lobe mucoid impaction 11. 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 Depression 13. Osteoporosis 14. Pulmonary embolism-November 2021 Social history , lives alone. Children live close by. Quit tobacco use at age 42, 20 pack year history Occasional alcohol Family history Mother at 95 from old age. Father at 88 from diverticulitis Review of systems A 10 review systems was undertaken and negative except for that described above. Allergies Allergy/AdvReac Type Severity Reaction Status Date / Time Penicillins Allergy Unknown CAN'T Verified 04/22/22 02:17 REMEMBER Sulfa (Sulfonamide Allergy Unknown CAN'T Verified 04/22/22 02:17 Antibiotics) REMEMBER Home Medications Medication Instructions Recorded Confirmed Type tiotropium bromide 18 mcg capsule 1 cap inhalation DAILY 11/27/20 04/22/22 History with inhalation device (Spiriva with HandiHaler) cholecalciferol (vitamin D3) 25 25 mcg PO DAILY 01/04/22 04/22/22 History mcg (1,000 unit) capsule ezetimibe 10 mg tablet (Zetia) 10 mg PO DAILY 01/04/22 04/22/22 History apixaban 5 mg tablet (Eliquis) 5 mg PO BID #180 tabs 01/24/22 04/22/22 Rx finasteride 5 mg tablet 5 mg PO DAILY #30 tabs 02/12/22 04/22/22 Rx amiodarone 200 mg tablet 200 mg PO BIDM #60 tabs 03/30/22 04/22/22 Rx diclofenac sodium 1 % topical gel 2 g EXT TID PRN pain (scale score 03/30/22 04/22/22 Rx (Voltaren Arthritis Pain) 7-10) #100 grams lidocaine 5 % topical patch 1 patch transdermal QAM #15 ea 03/30/22 04/22/22 Rx acetaminophen 500 mg tablet 500 - 1,000 mg PO Q6H PRN Pain 04/06/22 04/22/22 History Patient History Medical History Basal cell carcinoma Blood-streaked sputum 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 myelopathy COPD (chronic obstructive pulmonary disease) Disorder of bone and cartilage, unspecified GERD without esophagitis Hemoptysis Hyperlipemia Hypertension Lesion of nose Macrocytic anemia Major depression, recurrent Multifocal pneumonia Nail dystrophy Osteoporosis Prediabetes Pulmonary embolism Shock Squamous cell carcinoma Surgical History H/O Mohs micrographic surgery for skin cancer Family History Mother Heart disease Brother Heart disease Social History Smoking Status: Never smoker Tobacco Type: Cigarettes packs per day: 1; Second Hand Exposure: No; Hx Alcohol Use: Yes Alcohol type: hard liquor Hx Substance Use: No Preferred Language: Czech Communication Ability: Impaired Sanitary Napkin Machine Tender Required: No Beliefs That Will Affect Care: Mormon Mormon Beliefs: "Prays to Jugn" marital status: / Current Living Situation: Alone Current Living Situation Comment: home alone; daughter Mimi helps with care Feels Safe at Home: Yes Assistive Devices: Glasses and Walker Physical Exam Physical Exam: In general is well-developed well-nourished white male in no acute distress. HEENT exam is negative. Neck is supple with delayed and prolonged carotid upstrokes. No obvious bruits or transmitted murmurs. Cardiovascular exam reveals a regular rhythm with a 3/6 crescendo decrescendo systolic murmur heard loudest at the base. S2 is not audible at the apex. No diastolic murmurs. Lungs are clear without rales, rhonchi or wheeze. Abdomen is soft without bruits. Extremities reveal intact radial artery pulses bilaterally. There is no peripheral edema. Results & Data ([facility]) Vital Signs (Past 12 Hours) Vital Signs Temp Pulse Pulse Resp BP BP Pulse Ox 04/22/22 08:18 04/22/22 08:18 66 20 91/54 L 96 04/22/22 06:00 62 16 90/51 L 97 04/22/22 05:38 71 18 83 L 04/22/22 04:00 66 17 78/51 L 90 04/22/22 02:00 69 27 H 80/44 L 95 04/22/22 01:30 66 18 91/50 L 97 04/22/22 01:00 68 22 79/49 L 93 04/22/22 00:57 67 19 83/48 L 96 04/22/22 00:17 95 04/22/22 00:17 04/21/22 23:19 73 18 94 04/21/22 23:00 36.5 C 74 19 95/50 L 94 Pulse Ox O2 Del Method O2 Del Method O2 Flow Rate O2 Flow Rate 04/22/22 08:18 97 Oxymask 4 04/22/22 08:18 Oxymask 4 04/22/22 06:00 04/22/22 05:38 04/22/22 04:00 04/22/22 02:00 04/22/22 01:30 04/22/22 01:00 04/22/22 00:57 04/22/22 00:17 Room Air 04/22/22 00:17 Room Air 04/21/22 23:19 Room Air 04/21/22 23:00 Room Air Laboratory Results CBC notes hemoglobin 12.5, hematocrit 37.3, white count 8.7, and platelet count of 737103. Electrolytes note a sodium of 132, potassium 4.0, chloride 103, bicarb 26, BUN 24, creatinine 1.08, glucose of 100. Initial high sensitivity troponin was 327.8 with follow-up by of 2995.2. Diagnostic Findings EKG notes normal sinus rhythm with a nonspecific ST abnormality and a prolonged QT interval. Chest x-ray shows no acute disease. PG Care Time/CCT Total # of Minutes Spent Total Time Spent with Patient: Total time spent is greater than 50% in coordination of care (as documented) at patient's floor/unit and/or counseling patient: Coding Level of Care Code 07363 Initial Inpt Care Lvl 3 Diagnoses Chest pain syndrome R07.9 Aortic stenosis I35.0 Paroxysmal SVT (supraventricular tachycardia) I47.1 Pulmonary embolism I26.93 Pulmonary embolism type: single subsegmental (without acute cor pulmonale) (1) Pulmonary embolism Pulmonary embolism type: single subsegmental (without acute cor pulmonale) Qualified Code(s): I26.93 - Single subsegmental pulmonary embolism without acute cor pulmonale
[2022-04-22 11:48] LABS: Partial Thromboplastin Ratio 3.1
[2022-04-22 11:55] LABS: Partial Thromboplastin Time 86.2 Seconds (21.0-31.0)
--- NOTE | 2022-04-22 12:23 | Electrocardiogram Report ---
Test Reason : Blood Pressure : / mmHG Vent. Rate : 073 BPM Atrial Rate : 073 BPM P-R Int : 246 ms QRS Dur : 080 ms QT Int : 434 ms P-R-T Axes : 037 023 050 degrees QTc Int : 478 ms Sinus rhythm with 1st degree A-V block Nonspecific ST abnormality Abnormal ECG When compared with ECG of 16-MAR-2022 18:33, HI interval has increased Confirmed by Luigi Peterson ([id number]) on 04/22/2022 12:23:31 PM Referred By: REFERRED SELF Confirmed By:Luigi Peterson
--- NOTE | 2022-04-22 12:26 | Electrocardiogram Report ---
Test Reason : Blood Pressure : / mmHG Vent. Rate : 067 BPM Atrial Rate : 067 BPM P-R Int : 238 ms QRS Dur : 084 ms QT Int : 476 ms P-R-T Axes : 046 009 050 degrees QTc Int : 502 ms Sinus rhythm with 1st degree A-V block Prolonged QT Abnormal ECG When compared with ECG of 21-APR-2022 23:23, (unconfirmed) No significant change was found Confirmed by Luigi Peterson ([id number]) on 04/22/2022 12:26:26 PM Referred By: REFERRED SELF Confirmed By:Luigi Peterson
[2022-04-22 18:56] LABS: Partial Thromboplastin Ratio 1.8
[2022-04-22 19:00] LABS: Partial Thromboplastin Time 50.1 Seconds (21.0-31.0)
[2022-04-22 20:39] LABS: Partial Thromboplastin Ratio 1.7
[2022-04-23] MEDS: ACETAMINOPHEN 500 MG TAB PO PRN ×2 (05:48→19:18)
[2022-04-23 07:01] LABS: Partial Thromboplastin Ratio 2.2
[2022-04-23] MEDS: FINASTERIDE 5 MG TAB PO SCH (07:39)
[2022-04-23] MEDS: AMIODARONE 200 MG TAB PO SCH ×2 (07:39→16:01)
[2022-04-23] MEDS: UMECLIDINIUM BROMIDE 62.5MCG/BLISTER 7 PUFFS/INHALER INH SCH (07:39)
[2022-04-23] MEDS: EZETIMIBE 10 MG TABLET PO SCH (07:39)
[2022-04-23 08:54] LABS: Basophils # (auto) 0.08 K/uL (0-0.2); Eosinophils # (auto) 0.05 K/uL (0-0.50); Eosinophils % (auto) 0.6 %; Hematocrit (blood only) 37.2 % (40.1-51.0); Hemoglobin 12.4 g/dl (14.0-18.0); Immature Granulocytes # (auto) 0.03 K/uL (0.00-0.02); Immature Granulocytes % (auto) 0.4 %; Lymphocytes # (auto) 1.18 K/uL (1.2-3.4); Lymphocytes % (auto) 14.3 %; Mean Corpuscular Hemoglobin 33.1 pg (25.0-34.0); Mean Corpuscular Hgb Conc 33.3 g/dL (32.0-36.0); Mean Corpuscular Volume 99.2 fL (80.0-100.0); Mean Platelet Volume 10.1 fL (9.4-12.4); Monocytes # (auto) 0.75 K/uL (0.24-0.82); Monocytes % (auto) 9.1 %; Neutrophils # (auto) 6.18 K/uL (1.4-6.5); Neutrophils % (auto) 74.6 %; Platelet Count 231 K/uL (130-400); RDW Coefficient of Variation 13.4 % (11.5-14.5); RDW Standard Deviation 48.9 fL (36.4-46.3); Red Blood Count 3.75 M/uL (4.63-6.08); White Blood Count 8.27 K/ul (4.8-10.8)
[2022-04-23 09:13] LABS: BUN Creatinine Ratio 23.2 (10-20); C Reactive Protein 3.82 mg/dl (0-0.5); Calcium 7.5 mg/dl (8.5-10.1); Creatinine Clr Calc Pharmacy 47.6 ml/min; Est GFR (African American) 90.9 ml/min; Est GFR (Non-African American) 78.4 ml/min; Potassium 3.7 mmol/L (3.5-5.1)
[2022-04-23] MEDS: HEPARIN SODIUM/DEXTROSE 25,000 UNITS/500 ML BAG IV SCH (12:18)
--- NOTE | 2022-04-23 21:07 | Hospitalist Progress Note ---
Date of Service April 23, 2022 Assessment & Plan (1) Chest pain: Plan: at time of presentation. resolved. troponin elevated - peak 2995. cardiology has seen - felt that pain was atypical. [id number] I can't rule out that his critical isn't contributing to his pains. although he has h/o PE he has been on Eliquis pre-admission thus PE unlikely. numerous chest x-rays and CT scans of the chest have shown infiltrates in various locations of the lungs. can't rule out that the pain wasn't pulmonary based. he has no h/o aortic aneurysm thus dissection not suspected. lipase wnl. GI etiology (esophagus) possible but unlikely. Consider empiric PPI, however. Cont to monitor for recurrent symptoms. (2) Elevated troponin: Plan: peak just shy of 3000 (high-sensitivity). true NSTEMI? due to critical ? other? remains on heparin drip for possibility of NSTEMI. can d/c this tomorrow AM. (3) Critical aortic valve stenosis: Plan: valve area 0.4. can't rule out that chest pain isn't being driven by his . hypotension likely due to . his prognosis is poor. he has been previously deemed NOT a candidate for TAVR. I spoke with the pt's daughter in law by phone this evening. Going back several months he has had frequent ER visits, hospital stays, numerous outpatient clinic visits with various providers, etc. This trend will continue in light of critical . Soon he will have CHF from such. She is agreeable to palliative care discussions to refine goals of care. Placed palliative care consultation. (4) Recurrent pneumonia: Plan: aspiration?? is some of the cxr findings pulmonary edema?? FEES study 02/2022 noted - aspiration with some thicker textured food but no aspiration with thins. 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 2nd to pneumonia? 2nd to right lung lesion seen on prior CT scan? Hemoglobin stable 12.5 (13) Chronic indwelling Hawk catheter: (14) Underweight: Plan: BMI 17 due to lung ca (right sided lesion seen on prior CTA)? would not pursue w/u in light of critical Plan updated and discussed plan of care with pt's [id number] palliative care consult requested - she asked that family discussions take place in the afternoon Admission and Anticipated Discharge Date Admission Date: April 22, 2022 Subjective tele overnight wnl - NSR; no SVT he was eating his meal during the visit states he hasn't had any further chest pain or back pain he is hearing impaired and not a good historian thus obtaining more history was difficult denies any heartburn denies any abdominal pain Review of Systems Review of Systems: gen - no fevers pulm - coughs but it is chronic GI - no nausea/emesis Physical Exam Physical Exam: gen - very thin, NAD HENT - MMM; hearing impaired neck - no JVD heart - RRR, 3/6 holosystolic murmur RUSB/apex; s1 appreciated; s2 not heard lungs - course, rhonchorous breath sounds right lung; CTA on left abd - soft NT ND BS+ ext - no edema Results & Data Results & Data ([facility]) Vital Signs (Past 12 Hours) Vital Signs Temp Pulse Pulse Resp BP BP Pulse Ox 04/23/22 19:00 37.1 C 71 18 100/59 L 97 04/23/22 16:54 72 04/23/22 16:33 37.2 C 74 16 97/54 L 92 04/23/22 11:52 36.4 C L 64 16 97/51 L 98 O2 Del Method 04/23/22 19:00 Room Air 04/23/22 16:54 04/23/22 16:33 Room Air 04/23/22 11:52 Room Air Laboratory Results Laboratory Results - last 24 hr 04/23/22 04/23/22 04/23/22 06:14 08:36 08:36 WBC 8.27 RBC 3.75 L Hgb 12.4 L Hct 37.2 L MCV 99.2 MCH 33.1 MCHC 33.3 RDW Std Deviation 48.9 H RDW Coeff of Susan 13.4 Plt Count 231 MPV 10.1 Immature Gran % (Auto) 0.4 Neut % (Auto) 74.6 Lymph % (Auto) 14.3 Frontier % (Auto) 9.1 Eos % (Auto) 0.6 Baso % (Auto) 1.0 Neut # (Auto) 6.18 Lymph # (Auto) 1.18 L Frontier # (Auto) 0.75 Eos # (Auto) 0.05 Baso # (Auto) 0.08 Immature Gran # (Auto) 0.03 H APTT 60.0 H* PTT Ratio 2.2 Sodium 134 L Potassium 3.7 Chloride 102 Carbon Dioxide 28 Anion Gap 4 BUN 19 Creatinine 0.82 Est Cr Clr Drug Dosing 47.6 Est GFR ( Amer) 90.9 Est GFR (Non-Af Amer) 78.4 BUN/Creatinine Ratio 23.2 H Glucose 94 Calcium 7.5 L Troponin I High Sens C-Reactive Protein 3.82 H PG Care Time/CCT Total # of Minutes Spent Total Time Spent with Patient: Total time spent is greater than 50% in coordination of care (as documented) at patient's floor/unit and/or counseling patient: Coding Level of Care Code 77885 Subseq Hosp Care Lvl 2 Diagnoses Chest pain R07.9 Elevated troponin R77.8 Critical aortic valve stenosis I35.0 Recurrent pneumonia J18.9 Hyponatremia E87.1 Paroxysmal SVT (supraventricular tachycardia) I47.1 CVA (cerebral vascular accident) I63.9 COPD (chronic obstructive pulmonary disease) J44.9 Pulmonary embolism I26.93 Pulmonary embolism type: single subsegmental (without acute cor pulmonale) BPH with urinary obstruction N40.1; N13.8 Hypertension I10 Hemoptysis R04.2 Chronic indwelling Hawk catheter Z97.8 Underweight R63.6 (1) Pulmonary embolism Pulmonary embolism type: single subsegmental (without acute cor pulmonale) Qualified Code(s): I26.93 - Single subsegmental pulmonary embolism without acute cor pulmonale
[2022-04-24] MEDS: DICLOFENAC SOD 1% GEL 100 GM TUBE EXT PRN ×3 (02:28→22:54)
[2022-04-24] MEDS: HEPARIN SODIUM/DEXTROSE 25,000 UNITS/500 ML BAG IV SCH (03:19)
[2022-04-24] MEDS: ACETAMINOPHEN 500 MG TAB PO PRN ×2 (03:20→22:55)
[2022-04-24] MEDS: AMIODARONE 200 MG TAB PO SCH ×2 (07:10→15:44)
[2022-04-24] MEDS: UMECLIDINIUM BROMIDE 62.5MCG/BLISTER 7 PUFFS/INHALER INH SCH (07:10)
[2022-04-24] MEDS: EZETIMIBE 10 MG TABLET PO SCH (07:10)
[2022-04-24] MEDS: FINASTERIDE 5 MG TAB PO SCH (07:10)
[2022-04-24 08:08] LABS: Basophils # (auto) 0.07 K/uL (0-0.2); Basophils % (auto) 0.8 %; Eosinophils # (auto) 0.12 K/uL (0-0.50); Eosinophils % (auto) 1.4 %; Hematocrit (blood only) 36.2 % (40.1-51.0); Hemoglobin 12.3 g/dl (14.0-18.0); Immature Granulocytes # (auto) 0.02 K/uL (0.00-0.02); Immature Granulocytes % (auto) 0.2 %; Lymphocytes # (auto) 1.31 K/uL (1.2-3.4); Lymphocytes % (auto) 15.3 %; Mean Corpuscular Volume 97.1 fL (80.0-100.0); Mean Platelet Volume 10.3 fL (9.4-12.4); Monocytes # (auto) 0.78 K/uL (0.24-0.82); Monocytes % (auto) 9.1 %; Neutrophils # (auto) 6.29 K/uL (1.4-6.5); Neutrophils % (auto) 73.2 %; Platelet Count 248 K/uL (130-400); RDW Coefficient of Variation 13.2 % (11.5-14.5); RDW Standard Deviation 47.6 fL (36.4-46.3); Red Blood Count 3.73 M/uL (4.63-6.08); White Blood Count 8.59 K/ul (4.8-10.8)
[2022-04-24 08:30] LABS: Partial Thromboplastin Ratio 2.1
--- NOTE | 2022-04-24 08:44 | XRay Report ---
XR chest 1V portable CLINICAL HISTORY: ?pneumonia TECHNIQUE: Single frontal radiograph of the chest was obtained. Comparison: Comparison is made to chest radiograph 04/21/2022 FINDINGS: No lines and tubes are seen. The cardiomediastinal silhouette is normal. Bilateral lower lung predomi nant airspace opacities are seen. Small left and trace right pleural effusions. IMPRESSION: Bilateral lower lung predominant airspace opacities which may represent atelectasis, pneumonia, and/o r aspiration. These appear somewhat increased from prior exam. Small left and trace right pleural eff usions. ACT 112: Negative or not required by law. Electronically signed by: Ayad Raines M.D. 04/24/2022 8:43 AM
[2022-04-24 08:45] LABS: Partial Thromboplastin Time 57.9 Seconds (21.0-31.0)
[2022-04-24 08:59] LABS: BUN Creatinine Ratio 24.7 (10-20); Calcium 7.7 mg/dl (8.5-10.1); Creatinine Clr Calc Pharmacy 55.2 ml/min; Est GFR (African American) 95.3 ml/min; Est GFR (Non-African American) 82.2 ml/min; Potassium 3.9 mmol/L (3.5-5.1)
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
[2022-04-24] MEDS ORDERED: FUROSEMIDE 20 MG TAB PO ONE (09:40)
--- NOTE | 2022-04-24 09:46 | Electrocardiogram Report ---
Test Reason : Blood Pressure : / mmHG Vent. Rate : 072 BPM Atrial Rate : 072 BPM P-R Int : 236 ms QRS Dur : 090 ms QT Int : 470 ms P-R-T Axes : 058 024 058 degrees QTc Int : 514 ms Sinus rhythm with 1st degree A-V block Nonspecific ST abnormality Prolonged QT Abnormal ECG When compared with ECG of 22-APR-2022 08:11, No significant change was found Confirmed by Jenaro Salcedo ([id number]) on 04/24/2022 9:45:38 AM Referred By: REFERRED SELF Confirmed By:Luis Salcedo
[2022-04-24] MEDS: cefTRIAXone SODIUM 1,000 MG in DEXTROSE 5% AD-VAN 50 ML IV SCH (11:44)
[2022-04-24] MEDS: metroNIDAZOLE 500 MG/100 ML BAG IV SCH ×2 (11:50→15:44)
--- NOTE | 2022-04-24 20:28 | Hospitalist Progress Note ---
Date of Service April 24, 2022 Assessment & Plan (1) Chest pain: Plan: at time of presentation. had resolved, then recurred overnight again. troponin elevated at admission - peak 2995. I am most concerned his pains are either due to Critical or underlying, undi agnosed CAD. Can't rule out pneumonia contributing to pains. Either way we are transitioning to palliative care/hospice. (2) Elevated troponin: Plan: peak just shy of 3000 (high-sensitivity). true NSTEMI? due to critical ? stop heparin drip. (3) Critical aortic valve stenosis: Plan: valve area 0.4. can't rule out that chest pain isn't being driven by his . hypotension likely due to . he may have an element of acute CHF from his critical as well. his prognosis is very, very poor. he has been previously deemed NOT a candidate for TAVR. I spoke with the pt's daughter in law by phone yesterday evening. We discussed palliative care consultation. Palliative care did meet with family today to discuss goals of care. Plan - HOME WITH HOSPICE THIS FRIDAY. Appreciate palliative care consultation. (4) Recurrent pneumonia: Plan: aspiration?? is some of the cxr findings pulmonary edema?? FEES study 02/2022 noted - aspiration with some thicker textured food but no aspiration with thins. CXR is worse today. added rocephin/flagyl IV for pneumonia. gave lasix 20mg po x 1 today. keep on abx until hospital d/c. 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 2nd to pneumonia? 2nd to right lung lesion seen on prior CT scan? Hemoglobin stable stop Eliquis (13) Chronic indwelling Stearns catheter: Plan: cont stearns has gross hematuria in the setting of heparin drip -- drip stopped would NOT resume Eliquis - transitioning home w/ hospice (14) Underweight: Plan: BMI 17 due to lung ca (right sided lesion seen on prior CTA)? transitioning home w/ hospice (15) Gross hematuria: Plan: stearns trauma in setting of heparin infusion? other? d/c all anticoagulants allow urine to clear hand irrigate as needed (16) Acute metabolic encephalopathy: Plan: 2nd pneumonia? hospital psychosis? other? confusion is "pleasant" - no Rx Plan updated and discussed plan of care with pt's [id number] by phone last night left message for pt's [id number] on [employer] this evening appreciate palliative care consult plan - home with hospice on Friday Admission and Anticipated Discharge Date Admission Date: April 22, 2022 Subjective patient by report had another episode of chest pain overnight troponin rechecked - continues to trend down during my visit he was finishing his meal he thought he was in [place] he was very confused denied chest pain/back pain/abd pain during the visit he had a wet, moist cough throughout the visit tele overnight - NSR Review of Systems Review of Systems: gen - good appetite cv - no cp this am; had cp overnight by report GI - no N/V - developed hematuria in stearns this am but stearns is draining Physical Exam Physical Exam: gen - very thin, NAD, confused; wet/moist cough HENT - MMM; hearing impaired neck - no JVD heart - RRR, 3/6 holosystolic murmur RUSB/apex; s1 appreciated; s2 not heard lungs - course, rhonchorous breath sounds b/l with rales b/l but worse on RIGHT abd - soft NT ND BS+ ext - no edema - gross hematuria in the stearns bag psych - oriented to person only Results & Data Results & Data ([facility]) Vital Signs (Past 12 Hours) Vital Signs Temp Pulse Pulse Resp BP BP Pulse Ox 04/24/22 16:48 37.0 C 80 18 94/58 L 92 04/24/22 15:06 60 04/24/22 11:41 36.7 C 72 20 101/61 97 O2 Del Method 04/24/22 16:48 Room Air 04/24/22 15:06 04/24/22 11:41 Room Air Laboratory Results Laboratory Results - last 24 hr 04/24/22 04/24/22 04/24/22 07:24 07:24 07:24 WBC 8.59 RBC 3.73 L Hgb 12.3 L Hct 36.2 L MCV 97.1 MCH 33.0 MCHC 34.0 RDW Std Deviation 47.6 H RDW Coeff of Susan 13.2 Plt Count 248 MPV 10.3 Immature Gran % (Auto) 0.2 Neut % (Auto) 73.2 Lymph % (Auto) 15.3 [place] % (Auto) 9.1 Eos % (Auto) 1.4 Baso % (Auto) 0.8 Neut # (Auto) 6.29 Lymph # (Auto) 1.31 [place] # (Auto) 0.78 Eos # (Auto) 0.12 Baso # (Auto) 0.07 Immature Gran # (Auto) 0.02 APTT 57.9 H* PTT Ratio 2.1 Sodium 133 L Potassium 3.9 Chloride 101 Carbon Dioxide 27 Anion Gap 5 BUN 18 Creatinine 0.73 Est Cr Clr Drug Dosing 55.2 Est GFR ( Amer) 95.3 Est GFR (Non-Af Amer) 82.2 BUN/Creatinine Ratio 24.7 H Glucose 92 Calcium 7.7 L PG Care Time/CCT Total # of Minutes Spent Total Time Spent with Patient: Total time spent is greater than 50% in coordination of care (as documented) at patient's floor/unit and/or counseling patient: Coding Level of Care Code 17689 Subseq Hosp Care Lvl 3 Diagnoses Chest pain R07.9 Elevated troponin R77.8 Critical aortic valve stenosis I35.0 Recurrent pneumonia J18.9 Hyponatremia E87.1 Paroxysmal SVT (supraventricular tachycardia) I47.1 CVA (cerebral vascular accident) I63.9 COPD (chronic obstructive pulmonary disease) J44.9 Pulmonary embolism I26.93 Pulmonary embolism type: single subsegmental (without acute cor pulmonale) BPH with urinary obstruction N40.1; N13.8 Hypertension I10 Hemoptysis R04.2 Chronic indwelling Stearns catheter Z97.8 Underweight R63.6 Gross hematuria R31.0 Acute metabolic encephalopathy G93.41 (1) Pulmonary embolism Pulmonary embolism type: single subsegmental (without acute cor pulmonale) Qualified Code(s): I26.93 - Single subsegmental pulmonary embolism without acute cor pulmonale
[2022-04-25] MEDS: metroNIDAZOLE 500 MG/100 ML BAG IV SCH ×3 (02:06→16:28)
[2022-04-25] MEDS ORDERED: HYDROmorphone INJ 0.5 MG/0.5 ML SYR IV STA (05:47)
[2022-04-25] MEDS: AMIODARONE 200 MG TAB PO SCH ×2 (08:13→16:28)
[2022-04-25] MEDS: FINASTERIDE 5 MG TAB PO SCH (08:14)
[2022-04-25] MEDS: EZETIMIBE 10 MG TABLET PO SCH (08:14)
[2022-04-25] MEDS: cefTRIAXone SODIUM 1,000 MG in DEXTROSE 5% AD-VAN 50 ML IV SCH (08:15)
[2022-04-25] MEDS: UMECLIDINIUM BROMIDE 62.5MCG/BLISTER 7 PUFFS/INHALER INH SCH (08:15)
[2022-04-25] MEDS: ACETAMINOPHEN 500 MG TAB PO PRN (09:14)
--- NOTE | 2022-04-25 22:16 | Hospitalist Progress Note ---
Date of Service April 25, 2022 Assessment & Plan (1) Chest pain: Plan: at time of presentation. had resolved, then recurred overnight again. troponin elevated at admission - peak 2995. I am most concerned his pains are either due to Critical or underlying, undi agnosed CAD. Can't rule out pneumonia contributing to pains. Either way we are transitioning to palliative care/hospice. Plan to discharge on 04/26 (2) Elevated troponin: Plan: peak just shy of 3000 (high-sensitivity). true NSTEMI? due to critical ? stop heparin drip. (3) Critical aortic valve stenosis: Plan: valve area 0.4. can't rule out that chest pain isn't being driven by his . hypotension likely due to . he may have an element of acute CHF from his critical as well. his prognosis is very, very poor. he has been previously deemed NOT a candidate for TAVR. Palliative care did meet with family to discuss goals of care. Plan - HOME WITH HOSPICE THIS FRIDAY. Appreciate palliative care consultation. (4) Recurrent pneumonia: Plan: aspiration?? is some of the cxr findings pulmonary edema?? FEES study 02/2022 noted - aspiration with some thicker textured food but no aspiration with thins. CXR is worse today. added rocephin/flagyl IV for pneumonia. gave lasix 20mg po x 1 today. keep on abx until hospital d/c. 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 2nd to pneumonia? 2nd to right lung lesion seen on prior CT scan? Hemoglobin stable stop Eliquis (13) Chronic indwelling Stearns catheter: Plan: cont stearns has gross hematuria in the setting of heparin drip -- drip stopped would NOT resume Eliquis - transitioning home w/ hospice (14) Underweight: Plan: BMI 17 due to lung ca (right sided lesion seen on prior CTA)? transitioning home w/ hospice (15) Gross hematuria: Plan: stearns trauma in setting of heparin infusion? other? d/c all anticoagulants allow urine to clear hand irrigate as needed (16) Acute metabolic encephalopathy: Plan: 2nd pneumonia? hospital psychosis? other? confusion is "pleasant" - no Rx Plan updated and discussed plan of care with pt's [id number] by phone last night left message for pt's [id number] on [employer] [place] [employer] this evening appreciate palliative care consult plan - home with hospice on Friday Admission and Anticipated Discharge Date Admission Date: April 22, 2022 Subjective Patient reports no new symptoms. Review of Systems Review of Systems: All systems reviewed & are unremarkable except as noted in HPI & below Physical Exam Physical Exam: gen - very thin, NAD, confused; wet/moist cough HENT - MMM; hearing impaired neck - no JVD heart - RRR, 3/6 holosystolic murmur RUSB/apex; s1 appreciated; s2 not heard lungs - course, rhonchorous breath sounds b/l with rales b/l but worse on RIGHT abd - soft NT ND BS+ ext - no edema - gross hematuria in the stearns bag psych - oriented to person only Results & Data Results & Data ([facility]) Vital Signs (Past 12 Hours) Vital Signs Temp Pulse Pulse Resp BP BP Pulse Ox 04/25/22 21:27 04/25/22 19:51 36.7 C 72 18 117/63 94 04/25/22 14:00 37.3 C 69 18 122/62 96 04/25/22 15:31 67 04/25/22 10:59 36.6 C 67 18 106/55 L 96 04/25/22 10:22 O2 Del Method 04/25/22 21:27 Room Air 04/25/22 19:51 Room Air 04/25/22 14:00 Room Air 04/25/22 15:31 04/25/22 10:59 Room Air 04/25/22 10:22 Room Air PG Care Time/CCT Total # of Minutes Spent Total Time Spent with Patient: Total time spent is greater than 50% in coordination of care (as documented) at patient's floor/unit and/or counseling patient: Coding Level of Care Code 16376 Subseq Hosp Care Lvl 2 Diagnoses Chest pain R07.9 Elevated troponin R77.8 Critical aortic valve stenosis I35.0 Recurrent pneumonia J18.9 Hyponatremia E87.1 Paroxysmal SVT (supraventricular tachycardia) I47.1 CVA (cerebral vascular accident) I63.9 COPD (chronic obstructive pulmonary disease) J44.9 Pulmonary embolism I26.93 Pulmonary embolism type: single subsegmental (without acute cor pulmonale) BPH with urinary obstruction N40.1; N13.8 Hypertension I10 Hemoptysis R04.2 Chronic indwelling Stearns catheter Z97.8 Underweight R63.6 Gross hematuria R31.0 Acute metabolic encephalopathy G93.41 (1) Pulmonary embolism Pulmonary embolism type: single subsegmental (without acute cor pulmonale) Qualified Code(s): I26.93 - Single subsegmental pulmonary embolism without acute cor pulmonale
[2022-04-26] MEDS: metroNIDAZOLE 500 MG/100 ML BAG IV SCH ×2 (01:54→10:10)
[2022-04-26] MEDS: ACETAMINOPHEN 500 MG TAB PO PRN (02:59)
[2022-04-26] MEDS ORDERED: HYDROmorphone INJ 0.5 MG/0.5 ML SYR IV STA (04:38)
[2022-04-26] MEDS: AMIODARONE 200 MG TAB PO SCH (08:11)
[2022-04-26] MEDS: EZETIMIBE 10 MG TABLET PO SCH (08:11)
[2022-04-26] MEDS: FINASTERIDE 5 MG TAB PO SCH (08:11)
[2022-04-26] MEDS: UMECLIDINIUM BROMIDE 62.5MCG/BLISTER 7 PUFFS/INHALER INH SCH (08:11)
[2022-04-26] MEDS: cefTRIAXone SODIUM 1,000 MG in DEXTROSE 5% AD-VAN 50 ML IV SCH (09:42)
--- NOTE | 2022-04-26 16:54 | Discharge Summary ---
Date of Service April 26, 2022 Admission HPI Per Admitting Provider Rustam Bryson is an 89yo male with PMHx significant for COPD, paroxysmal SVT, h/o CVA in 2021 (bilateral subcortical), macrocytic anemia, recent PE on Eliquis, COPD, HLD, BPH and urinary retention with chronic stearns catheter. Patient presented to [facility] ED on 04/22 for chest pain. Patient reports acute- onset of burning jaw pain radiating to his substernal chest and back between his shoulder blades, which occurred while lying down before bed on 04/20 and resolved without intervention. Then patient reports having another episode of similar burning pain in same locations which started at ~21:00 on 04/21 and resolved after taking Tylenol. Patient was also given Aspirin 324mg PO prior to arrival. Patient denies diaphoresis, SOB, palpitations, N/V, syncope/near- syncope with above-mentioned episodes. Patient does report getting above- mentioned episodes "every once in a while" both at rest and with exertion but they resolve without intervention. Denies previous UT. However does have significant aortic stenosis. Of note patient had pneumonia several months ago and has had chronic cough, sometimes productive of clear/white sputum, since that infection, without worsening of symptoms recently. Denies fever/chills, fatigue or decreased appetite. In the ED the patient was afebrile and hemodynamically stable on room air. EKG showed slight ST depressions in V4-V6. Labs significant for hsTroponin 327.8, Hgb 12.5 (baseline), Na 132 (baseline). COVID/influenza/RSV negative. CXR with ?RLL opacity. Patient was given Heparin gtt + bolus and was also given Azithromycin/Ceftriaxone for possible pneumonia. Principal Diagnosis aortic stenosis Discharge Exam gen - very thin, NAD, confused; wet/moist cough HENT - MMM; hearing impaired neck - no JVD heart - RRR, 3/6 holosystolic murmur RUSB/apex; s1 appreciated; s2 not heard lungs - course, rhonchorous breath sounds b/l with rales b/l but worse on RIGHT abd - soft NT ND BS+ ext - no edema - gross hematuria in the stearns bag psych - oriented to person only Discharge Data Allergies Allergy/AdvReac Type Severity Reaction Status Date / Time Penicillins Allergy Unknown CAN'T Verified 04/22/22 02:17 REMEMBER Sulfa (Sulfonamide Allergy Unknown CAN'T Verified 04/22/22 02:17 Antibiotics) REMEMBER Consultations 04/22/22 01:16 ED Decision to Admit Stat 04/22/22 04:55 Consult Cardiology Routine 04/23/22 21:49 Consult Palliative Care Routine Hospital Course (1) Chest pain: at time of presentation. had resolved, then recurred overnight again. troponin elevated at admission - peak 2995. I am most concerned his pains are either due to Critical or underlying, undiagnosed CAD. Can't rule out pneumonia contributing to pains. Either way we are transitioning to palliative care/hospice. Discharge on 04/26 Family will discuss with hospice if restarting eliquis. (2) Elevated troponin: peak just shy of 3000 (high-sensitivity). true NSTEMI? due to critical ? stop heparin drip. (3) Critical aortic valve stenosis: valve area 0.4. can't rule out that chest pain isn't being driven by his . hypotension likely due to . he may have an element of acute CHF from his critical as well. his prognosis is very, very poor. he has been previously deemed NOT a candidate for TAVR. Palliative care did meet with family to discuss goals of care. Plan - HOME WITH HOSPICE THIS FRIDAY. Appreciate palliative care consultation. (4) Recurrent pneumonia: aspiration?? is some of the cxr findings pulmonary edema?? FEES study 02/2022 noted - aspiration with some thicker textured food but no aspiration with thins. CXR is worse today. added rocephin/flagyl IV for pneumonia. gave lasix 20mg po x 1 today. will complete course as an outpatient. 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 2nd to pneumonia? 2nd to right lung lesion seen on prior CT scan? Hemoglobin stable stop Eliquis (13) Chronic indwelling Stearns catheter: cont stearns has gross hematuria in the setting of heparin drip -- drip stopped would NOT resume Eliquis - transitioning home w/ hospice (14) Underweight: BMI 17 due to lung ca (right sided lesion seen on prior CTA)? transitioning home w/ hospice (15) Gross hematuria: stearns trauma in setting of heparin infusion? other? d/c all anticoagulants allow urine to clear hand irrigate as needed (16) Acute metabolic encephalopathy: 2nd pneumonia? hospital psychosis? other? confusion is "pleasant" - no Rx Plan updated and discussed plan of care with pt's [id number] by phone last night left message for pt's [id number] on [employer] this evening appreciate palliative care consult plan - home with hospice Total Time Total Time Spent Total Time Spent (In Minutes): 32 Discharge Plan Discharge Items Patient Disposition: Hospice - Home Reason For Visit: ELEVATED TROPONIN Discharge Diagnosis: elevated trop Activity: Resume your previous activity Non-emergency contact: Primary Care Provider Call non-emergency contact if: you have any medication questions Follow-up/Referrals: Naman Muse MD [Primary Care Provider] - 05/01/22 1:25 pm (Appointment with Dr. Recinos) Diet: Heart Healthy Addtl Attending Provider Instructions: Continue urinary bag. Being discharged on hospice. 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 Cefuroxime: first dose on 04/27 Flagyl: first dose during early afternoon on 04/26. In regards to you blood thinning medication, as you had bleeding in your urine, we stopped this medicine. Will defer to hospice, if they would want this medicine discontinued or resumed on a later date. Pending Studies at Discharge: No Stand-Alone Forms: My [facility] [employer] Medications and DC Order Prescriptions: New cefuroxime axetil 500 mg tablet 500 mg PO BID Qty: 2 0RF metronidazole 500 mg tablet 500 mg PO TID Qty: 8 0RF morphine concentrate 100 mg/5 mL (20 mg/mL) solution 5 mg PO Q4H PRN (Reason: SOB/ chest pain) Qty: 30 0RF lorazepam [Ativan] 0.5 mg tablet 0.5 mg PO Q6H PRN (Reason: anxiety) Qty: 15 0RF Continued finasteride 5 mg tablet 5 mg PO DAILY Qty: 30 5RF Spiriva with HandiHaler 18 mcg capsule, w/inhalation device 1 cap inhalation DAILY Rx Instructions: puncture 1 cap using device; one dose = 2 inhalations cholecalciferol (vitamin D3) 25 mcg (1,000 unit) capsule 25 mcg PO DAILY ezetimibe [Zetia] 10 mg tablet 10 mg PO DAILY acetaminophen 500 mg tablet 500 - 1,000 mg PO Q6H PRN (Reason: Pain) amiodarone 200 mg Tablet 200 mg PO BIDM Qty: 60 0RF diclofenac sodium [Voltaren Arthritis Pain] 1 % Gel 2 g EXT TID PRN (Reason: pain (scale score 7-10)) Qty: 100 0RF Rx Instructions: around painful area on ribs. lidocaine 5 % Adhesive Patch,Medicated 1 patch transdermal QAM Qty: 15 0RF Discontinued Eliquis 5 mg tablet 5 mg PO BID Qty: 180 3RF Discharge Orders: Discharge Order (Routine); Ordered 04/26/22 Ordered By: Allen Gonzalez Admission Data Admit Date/Time: 04/22/22 02:57 Attending Provider: Allen Gonzalez Admit Provider: Zach Yoo Primary Care Provider: Naman Muse Other Providers: Jerome Hammonds ; Luigi Peterson ; Lilliam Hidalgo Other Interventions: Discharge Summary Assessment (RN) Last Done: 04/26/22 12:27 Coding Level of Care Code D/C DAY MANAGEMENT >30 MINS Diagnoses Chest pain R07.9 Elevated troponin R77.8 Critical aortic valve stenosis I35.0 Recurrent pneumonia J18.9 Hyponatremia E87.1 Paroxysmal SVT (supraventricular tachycardia) I47.1 CVA (cerebral vascular accident) I63.9 COPD (chronic obstructive pulmonary disease) J44.9 Pulmonary embolism I26.93 Pulmonary embolism type: single subsegmental (without acute cor pulmonale) BPH with urinary obstruction N40.1; N13.8 Hypertension I10 Hemoptysis R04.2 Chronic indwelling Stearns catheter Z97.8 Underweight R63.6 Gross hematuria R31.0 Acute metabolic encephalopathy G93.41
--- NOTE | 2022-04-30 04:18 | Billing Data ---
Date of Service April 30, 2022 Coding Level of Care Code 16716 Initial Inpt Care Lvl 3
== END 2022-04-26 13:16 | disposition hospice, home (50) | DRG 280 ==
LOC: ED 23:15 → SUATTDRO 04-22 02:57 → EDINP 04-22 02:57 → 2N 04-22 04:56